=== PATIENT | female | born 2000 | race Caucasian/White ===

== ENCOUNTER → 2023-03-04 11:15 | Outpatient (BNVA) | payer OTHER, SELFPAY | PROVIDERS: Visit Provider Physician Assistant ==

== ENCOUNTER → 2023-04-11 08:18 | Outpatient (BNVA) | payer OTHER, SELFPAY | PROVIDERS: Visit Provider Surgery ==

== ENCOUNTER 2023-04-25 08:12 | Outpatient (AMB) | payer OTHER, SELFPAY ==
--- NOTE | 2023-04-25 11:43 | A.OFFVIS_ITS ---
Intake VS Expanded 04/25/23 11:57 Height 5 ft 0.5 in Weight 189 lb 8 oz BMI 36.4 Body Fat % 40.9 Body Fat Mass 77.6 Fat Free Mass 112 Visceral Fat Rating 8 Body Water % 42.6 Body Water Mass 80.6 Basal Metabolic Rate/Score 1,605 Intake Visit Reasons: 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 Allergies amoxicillin Adverse Reaction (Intermediate, Verified 04/25/23 11:43) Hives clindamycin Adverse Reaction (Intermediate, Verified 04/25/23 11:43) Hives zithromyocin Adverse Reaction (Intermediate, Uncoded 04/25/23 11:43) hives Medication List - Last Reconciled 04/25/23 by Héctor Miranda MD albuterol sulfate 90 mcg/actuation 2 puffs inhalation Q6H PRN gabapentin 600 mg PO DAILY sertraline 50 mg PO DAILY HPI 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 HPI Details Start time: 11.38am, End time: 12.24pm ?I spent 41 minutes speaking with the patient on the phone plus an additional 5 minutes reviewing and updating records for a total of 46 minutes HPI Comments History of Present Illness Details Wakes up: 7am, Sleeps: 12am Breakfast: skips Lunch: 12pm (bread, rice and beans, pasta) Dinner:7pm (same as lunch) Snacks: 11am (orange), 2pm (fruit or vegetable) Exercise: none Fluids: Coffee: none, tea: none, soda: regular Pepsi, juice: 5-6/wk (orange juice), ETOH: none PFSH Medical History (Updated 04/25/23 @ 11:59 by Héctor Miranda MD) Asthma Anxiety Depression Back pain BMI 36.0-36.9,adult Obesity Surgical History (Updated 04/25/23 @ 11:48 by Héctor Miranda MD) [place] teeth extracted S/P laparoscopic cholecystectomy Assessment & Plan Assessment & Plan (1) Obesity: Code(s): E66.9 - Obesity, unspecified Qualifiers: Obesity type: due to excess calories Obesity classification: adult class 2 (BMI 35 - 39.9) Serious obesity comorbidity presence: without serious comorbidity Body mass index: BMI 36.0-36.9 Qualified Code(s): E66.09 - Other obesity due to excess calories; Z68.36 - Body mass index [BMI] 36.0-36.9, adult Plan: 1.? Plan for lap sleeve gastrectomy. If diaphragmatic or ventral hernias are present at time of surgery, these will be repaired laparoscopically as well. Risks and complications were discussed in detail including possible conversion to an open procedure, anastomotic leak, bleeding requiring transfusion, small bowel obstruction, , DVT and pulmonary embolism, cardiac, or pulmonary complications, as [facility] complications such as anastomotic ulcer, insufficient weight loss and vitamin deficiencies. I emphasized the importance of close follow-up, adherence to instructions and good communication. 2. Nutritional counseling. Start with 2 Isopure protein (buy at [employer], [employer], [employer], [facility]) shakes (QUARTER scoop in 8oz water) at 8am-10am and 11am-1pm, 1 protein bar (Zone Perfect protein bars, buy at [employer], ?[employer], [employer], or [employer]) at 2pm-4pm, dinner at 5pm (8 forks of protein and 8 forks of salad/vegetables) and two more protein bars after dinner at 7pm-9pm and 10pm-12am So you do 2 protein shakes, 3 protein bars and one meal per day. Meal to include lean meat (beef, fish, pork, turkey, chicken), or indian yogurt, or egg whites, or beans with a salad with olive oil and fruits (berries, pears, apples, kiwi). Avoid salt, breads, potatoes, rice, pasta, desserts. 3. Each shake would be drunk slowly, like coffee in a period of 2 hours. 4. Cut each bar in 4 pieces and eat each piece in 30min ?to make each bar last 2 hours. 5. I emphasized the importance of measuring accurately the food portion and measure it when serving the food in plate 6. The meal portions include 8 full-size forks of meat and 8 full-size forks of salad. You always eat the meat portion but you can replace up to 4 forks for salad/vegetables with rice, potatoes or pasta, or a fruit ?if you like. The less you do it the better weight loss will be. 7. One full-size fork is what it can be scooped on the fork without falling aside and not what can be bit with the fork. Use regular forks like those you find in a typical restaurant. 8.? Please send me weight measurements as soon as possible and then once a week. Always include your diet and exercise plan. 9. Start walking outside daily, tracking calories with a goal of 300 calories per day, daily. Goal is to burn 2000 calories per week on exercise, which means either 300 calories daily, or 400 calories 5 days per week, or 500 calories 4 days per week, or 650 calories 3 days per week. 10. The best choice would be to purchase a stationary bike, elliptical or treadmill at home that can track calories. Let me know if you do so I can give you an exercise plan. 11.?It is important of avoiding and for at least 18 months postoperatively and has been discussed at the infosession. 12. Goal is to lose at least 1.5-2lbs per week 13. Goal to lose 10% of your weight before surgery, which is about 19lbs. Ultimate weight goal: 170lbs before surgery 14. Please follow the diet plan exactly without any change. If you don't like something about the plan or you feel hungry you need to communicate with me so I can help you revise the plan. You should not change the plan yourself. Orders: Orders Insulin Today E66.9 - Obesity, unspecified, F32.A - Depression, unspecified, F41.9 - Anxiety disorder, unspecified, J45.909 - Unspecified asthma, uncomplicated, M54.9 - Dorsalgia, unspecified, Z68.36 - Body mass index [BMI] 36.0-36.9, adult Hemoglobin A1c Today E66.9 - Obesity, unspecified, F32.A - Depression, unspecified, F41.9 - Anxiety disorder, unspecified, J45.909 - Unspecified asthma, uncomplicated, M54.9 - Dorsalgia, unspecified, Z68.36 - Body mass index [BMI] 36.0-36.9, adult Complete Blood Count Auto Diff Today E66.9 - Obesity, unspecified, F32.A - Depression, unspecified, F41.9 - Anxiety disorder, unspecified, J45.909 - Unspecified asthma, uncomplicated, M54.9 - Dorsalgia, unspecified, Z68.36 - Body mass index [BMI] 36.0-36.9, adult IRON PROFILE Today E66.9 - Obesity, unspecified, F32.A - Depression, unspecified, F41.9 - Anxiety disorder, unspecified, J45.909 - Unspecified asthma, uncomplicated, M54.9 - Dorsalgia, unspecified, Z68.36 - Body mass index [BMI] 36.0-36.9, adult Comprehensive Met. Panel Today E66.9 - Obesity, unspecified, F32.A - Depression, unspecified, F41.9 - Anxiety disorder, unspecified, J45.909 - Unspecified asthma, uncomplicated, M54.9 - Dorsalgia, unspecified, Z68.36 - Body mass index [BMI] 36.0-36.9, adult Vitamin B12 and Folate Today E66.9 - Obesity, unspecified, F32.A - Depression, unspecified, F41.9 - Anxiety disorder, unspecified, J45.909 - Unspecified asthma, uncomplicated, M54.9 - Dorsalgia, unspecified, Z68.36 - Body mass index [BMI] 36.0-36.9, adult Vitamin B1 Today E66.9 - Obesity, unspecified, F32.A - Depression, unspecified, F41.9 - Anxiety disorder, unspecified, J45.909 - Unspecified asthma, uncomplicated, M54.9 - Dorsalgia, unspecified, Z68.36 - Body mass index [BMI] 36.0-36.9, adult Vitamin A Today E66.9 - Obesity, unspecified, F32.A - Depression, unspecified, F41.9 - Anxiety disorder, unspecified, J45.909 - Unspecified asthma, uncomplicated, M54.9 - Dorsalgia, unspecified, Z68.36 - Body mass index [BMI] 36.0-36.9, adult TSH reflex Free T4 Today E66.9 - Obesity, unspecified, F32.A - Depression, unspecified, F41.9 - Anxiety disorder, unspecified, J45.909 - Unspecified asthma, uncomplicated, M54.9 - Dorsalgia, unspecified, Z68.36 - Body mass index [BMI] 36.0-36.9, adult Ferritin Today E66.9 - Obesity, unspecified, F32.A - Depression, unspecified, F41.9 - Anxiety disorder, unspecified, J45.909 - Unspecified asthma, uncomp licated, M54.9 - Dorsalgia, unspecified, Z68.36 - Body mass index [BMI] 36.0- 36.9, adult Vitamin D 25-OH Total Today E66.9 - Obesity, unspecified, F32.A - Depression, unspecified, F41.9 - Anxiety disorder, unspecified, J45.909 - Unspecified asthma, uncomplicated, M54.9 - Dorsalgia, unspecified, Z68.36 - Body mass index [BMI] 36.0-36.9, adult US abdomen comp w elastography Today E66.9 - Obesity, unspecified, F32.A - Depression, unspecified, F41.9 - Anxiety disorder, unspecified, J45.909 - Unspecified asthma, uncomplicated, M54.9 - Dorsalgia, unspecified, Z68.36 - Body mass index [BMI] 36.0-36.9, adult ECG 12 lead EKG Today E66.9 - Obesity, unspecified, F32.A - Depression, unspecified, F41.9 - Anxiety disorder, unspecified, J45.909 - Unspecified asthma, uncomplicated, M54.9 - Dorsalgia, unspecified, Z68.36 - Body mass index [BMI] 36.0-36.9, adult H Pylori Breath Test Today E66.9 - Obesity, unspecified, F32.A - Depression, unspecified, F41.9 - Anxiety disorder, unspecified, J45.909 - Unspecified asthma, uncomplicated, M54.9 - Dorsalgia, unspecified, Z68.36 - Body mass index [BMI] 36.0-36.9, adult Lipid Panel Today E66.9 - Obesity, unspecified, F32.A - Depression, unspecified, F41.9 - Anxiety disorder, unspecified, J45.909 - Unspecified asthma, unco mplicated, M54.9 - Dorsalgia, unspecified, Z68.36 - Body mass index [BMI] 36.0- 36.9, adult Zinc Today E66.9 - Obesity, unspecified, F32.A - Depression, unspecified, F41.9 - Anxiety disorder, unspecified, J45.909 - Unspecified asthma, uncomplicated, M54.9 - Dorsalgia, unspecified, Z68.36 - Body mass index [BMI] 36.0-36.9, adult C Reactive Protein Today E66.9 - Obesity, unspecified, F32.A - Depression, unspecified, F41.9 - Anxiety disorder, unspecified, J45.909 - Unspecified asthma, uncomplicated, M54.9 - Dorsalgia, unspecified, Z68.36 - Body mass index [BMI] 36.0-36.9, adult XR chest 2V Today E66.9 - Obesity, unspecified, F32.A - Depression, unspecified, F41.9 - Anxiety disorder, unspecified, J45.909 - Unspecified asthma, uncomplicated, M54.9 - Dorsalgia, unspecified, Z68.36 - Body mass index [BMI] 36.0-36.9, adult FL upper GI w air Today E66.9 - Obesity, unspecified, F32.A - Depression, unspecified, F41.9 - Anxiety disorder, unspecified, J45.909 - Unspecified asthma, uncomplicated, M54.9 - Dorsalgia, unspecified, Z68.36 - Body mass index [BMI] 36.0-36.9, adult Referrals Behavioral Health Referral E66.9 - Obesity, unspecified, F32.A - Depression, unspecified, F41.9 - Anxiety disorder, unspecified, J45.909 - Unspecified asthma, uncomplicated, M54.9 - Dorsalgia, unspecified, Z68.36 - Body mass index [BMI] 36.0-36.9, adult Nutrition/Dietitian Referral E66.9 - Obesity, unspecified, F32.A - Depression, unspecified, F41.9 - Anxiety disorder, unspecified, J45.909 - Unspecified asthma, uncomplicated, M54.9 - Dorsalgia, unspecified, Z68.36 - Body mass index [BMI] 36.0-36.9, adult Telehealth Telehealth Location of provider rendering services: practice address Location of patient: address on file Patient Identification confirmed using: Name, : Yes Telehealth method: voice only Patient verbally consented to treatment: Yes Patient verbally consented to billing insurance company: Yes Patient informed of any privacy concerns related to visit: Yes Minutes spent on Phone/Video with Pt.: 46 Coding Level of Care Code Tele New Pt Level 4 (09591) Diagnoses Class 2 obesity due to excess calories without serious comorbidity with body mass index (BMI) of 36.0 to 36.9 in adult E66.09; Z68.36 Obesity type: due to excess calories Obesity classification: adult class 2 (BMI 35 - 39.9) Serious obesity comorbidity presence: without serious comorbidity Body mass index: BMI 36.0-36.9 Time Spent (min) 46
[2023-04-25 11:57] VITALS: BMI 36.4
== END 2023-04-25 12:25 | disposition home or self-care (01) ==
PROVIDERS: Visit Provider Surgery
DX: E66.09 Other obesity due to excess calories (principal); Z68.36 Body mass index [BMI] 36.0-36.9, adult
CPT/HCPCS: 99204

== ENCOUNTER → 2023-04-25 08:12 | Outpatient (BNVA) | payer OTHER, SELFPAY | PROVIDERS: Visit Provider Surgery ==

== ENCOUNTER 2023-05-05 09:58 | Outpatient (AMB) | payer OTHER, SELFPAY ==
--- NOTE | 2023-05-05 09:50 | A.OFFVIS_ITS ---
Intake Intake Visit Reasons: VIDEO Initial Nutrition SWL Allergies amoxicillin Adverse Reaction (Intermediate, Verified 04/25/23 11:43) Hives clindamycin Adverse Reaction (Intermediate, Verified 04/25/23 11:43) Hives zithromyocin Adverse Reaction (Intermediate, Uncoded 04/25/23 11:43) hives HPI Nutrition Presentation Reason for consult elevated BMI Diet Assmnt Details Motivation for surgery is to lose weight so she can feel confident in her body. feels very insecure. mother [place]ariatric [place] [facility] so she wants it as well. Pt shares she hasn't tried anything for weight loss other than starving herself which led to restrict/binge cycle. she hasn't began to change habits yet since her initial appt with Dr. Miranda. Has 3 children 10 months old , a 4 and a 3 year old Classes: none, pt states she didn't know about these Dietary counseling reduction Who buys your food self Who prepares/cooks your food self Meal frequency regular: dinner and irregular: breakfast (usually skipped), lunch (usually skipped) and snacks Lifestyle Eating out 1-3 times/week Food frequency Fruit: occasionally, Vegetables: occasionally, Grains/pasta/breads/cereal (carbs): daily, Meats/poultry/fish (protein): daily, Processed foods/meats: daily, Restaurants/fast foods: several times weekly, Water: daily, Soda: daily, Juice: daily and Coffee: several times weekly Diagnosis Nutrition problem #1 overweight/obesity As related to (etiology) #1 excess energy intake and physical inactivity As evidenced by (sign/symptom) #1 high BMI Nutrition problem #2 not ready diet/lifestyle As related to (etiology) #2 lack of nutrit education As evidenced by (sign/symptom) #2 knowledge deficit of diet and no prior educ - nutri rec Monitoring/Goals Nutrition problem monitoring total energy intake, level of knowledge/skill, to [employer] intake and weight Learning/Education Readiness to learn fair Most Recent Diabetes Results: No Data to Display [facility] Medical History (Updated 04/25/23 @ 11:59 by Héctor Miranda MD) Asthma Anxiety Depression Back pain BMI 36.0-36.9,adult Obesity Surgical History (Updated 04/25/23 @ 11:48 by Héctor Miranda MD) [place] teeth extracted S/P laparoscopic cholecystectomy Assessment & Plan Assessment & Plan (1) BMI 36.0-36.9,adult: Code(s): Z68.36 - Body mass index [BMI] 36.0-36.9, adult Plan pt will be seen again when she finishes classes and has had more time in the program Telehealth Telehealth Location of provider rendering services: practice address Location of patient: address on file Patient Identification confirmed using: Name, : Yes Telehealth method: voice only Patient verbally consented to treatment: Yes Patient verbally consented to billing insurance company: Yes Patient informed of any privacy concerns related to visit: Yes Minutes spent on Phone/Video with Pt.: 20 Coding Level of Care Code Nutr Indiv Intake (55220) Diagnoses BMI 36.0-36.9,adult Z68.36 Time Spent (min) 20
== END 2023-05-05 10:58 | disposition home or self-care (01) ==
LOC: HO.HBS 09:58
PROVIDERS: PCP Internal Medicine; Visit Provider Dietitian, Registered
DX: Z68.36 Body mass index [BMI] 36.0-36.9, adult (principal)

== ENCOUNTER → 2023-05-05 09:58 | Outpatient (BNVA) | payer OTHER, SELFPAY | PROVIDERS: PCP Internal Medicine; Visit Provider Dietitian, Registered | DX: E66.9 Obesity, unspecified (principal); Z68.36 Body mass index [BMI] 36.0-36.9, adult | CPT/HCPCS: 97802 ==

== ENCOUNTER 2023-05-06 09:09 | Outpatient (REF) | payer OTHER, SELFPAY ==
--- NOTE | 2023-05-06 09:23 | ECG_ITS ---
Test Reason : obesity Blood Pressure : / mmHG Vent. Rate : 076 BPM Atrial Rate : 076 BPM P-R Int : 130 ms QRS Dur : 076 ms QT Int : 360 ms P-R-T Axes : 043 036 056 degrees QTc Int : 405 ms Sinus rhythm with marked sinus arrhythmia Otherwise normal ECG No previous ECGs available Referred By: Héctor Miranda Electronically Signed By:ANDREY SAEZ
[2023-05-06 09:53] LABS: MANUAL DIFF FLAG NO
[2023-05-06 10:22] LABS: Basophils Percent Auto 0.3 % (0-2); Eosinophils Percent Auto 0.5 % (0-4); Hematocrit 37.8 % (37.0-47.0); Hemoglobin 11.6 g/dl (12.0-16.0); Imm Gran Abs Auto 0.01 X10*3/uL (0.00-0.03); Imm Gran Pct Auto 0.2 % (0.0-0.4); Lymphocytes Absolute Auto 1.3 X10*3/uL (1.2-4.9); Lymphocytes Percent Auto 22.3 % (20-40); Mean Corpuscular HGB Conc 30.7 g/dl (31.0-35.0); Mean Corpuscular Hemoglobin 23.7 pg (27.0-33.0); Mean Corpuscular Volume 77.1 fL (80.0-98.0); Monocytes Absolute Auto 0.3 X10*3/uL (0.1-1.2); Monocytes Percent Auto 4.9 % (2-11); Neutrophils Absolute Auto 4.1 x10*3/uL (2.0-8.3); Neutrophils Percent Auto 71.8 % (45-73); Platelet Count 163 X10*3/uL (160-400); Red Cell Distribution Width 17.2 % (11.0-16.0); White Blood Count 5.8 X10*3/uL (4.8-10.8)
[2023-05-06 10:31] LABS: Estimated Average Glucose 97 mg/dL
[2023-05-06 11:12] LABS: Alanine Aminotransferase 12 U/L (0-31); Alkaline Phosphatase 99 U/L (39-117); Anion Gap 12 (12-20); Aspartate Amino Transferase 14 U/L (5-31); Bilirubin Total 0.5 mg/dL (0.0-1.0); Blood Urea Nitrogen 5 mg/dL (9-16); C Reactive Protein < 0.04 mg/dL (< or = 0.50); Calcium 9.1 mg/dL (8.4-10.2); Carbon Dioxide 22 mmol/L (22-29); Chloride 110 mmol/L (96-108); Cholesterol 122 mg/dL (<200); Estimated Glomerular Filt Rate > 60; Glucose Random 87 mg/dL (60-115); HDL Cholesterol 52 mg/dL (>40); Iron 24 mcg/dL (30-160); LDL Cholesterol Calculated 58 mg/dL (<100); Percent Iron Saturation 8 % (15-50); Potassium 3.8 mmol/L (3.3-5.1); Sodium 140 mmol/L (135-145); Total Iron Binding Capacity 318 mcg/dL (228-428); Triglycerides 62 mg/dL (<150); Unsaturated Iron Binding 294 ug/dL
[2023-05-06 11:19] LABS: Ferritin 4 ng/mL (10-122); Insulin 17 uU/mL (2-29); TSH reflex Free T4 1.14 uIU/mL (0.32-4.0); Vitamin D 25-OH Total 13.6 ng/mL (>30)
[2023-05-06 11:26] LABS: Folate 16.1 ng/mL (> or = 4.0); Vitamin B12 218 pg/mL (200-900)
[2023-05-11 00:34] LABS: Vitamin A 26 mcg/dL (38-98)
[2023-05-11 16:49] LABS: Zinc 61 mcg/dL (60-130)
[2023-05-11 20:54] LABS: Vitamin B1 9 nmol/L (8-30)
== END 2023-05-06 09:10 | disposition home or self-care (01) ==
LOC: HO.XRAY 09:09
PROVIDERS: Visit Provider Surgery
DX: E66.9 Obesity, unspecified (principal); Z68.36 Body mass index [BMI] 36.0-36.9, adult; M54.9 Dorsalgia, unspecified; F32.A Depression, unspecified; F41.9 Anxiety disorder, unspecified; J45.909 Unspecified asthma, uncomplicated
CPT/HCPCS: 36415; 71046; 80053; 80061; 82306; 82607; 82728; 82746; 83036; 83525; 83540; 84425; 84443; 84590; 84630; 85025; 86140; 93005

== ENCOUNTER → 2023-05-06 09:23 | Outpatient (BNV) | payer OTHER, SELFPAY | PROVIDERS: Visit Provider Internal Medicine | DX: I49.9 Cardiac arrhythmia, unspecified (principal) | CPT/HCPCS: 93010 ==

== ENCOUNTER 2023-05-11 11:25 | Outpatient (AMB) | payer OTHER, SELFPAY ==
--- NOTE | 2023-05-11 11:25 | A.OFFWM_ITS ---
Intake Intake Visit Reasons: VIDEO BH Intake Allergies amoxicillin Adverse Reaction (Intermediate, Verified 04/25/23 11:43) Hives clindamycin Adverse Reaction (Intermediate, Verified 04/25/23 11:43) Hives zithromyocin Adverse Reaction (Intermediate, Uncoded 04/25/23 11:43) hives [facility] Medical History (Updated 05/13/23 @ 08:33 by Héctor Miranda MD) Asthma Anxiety Depression Back pain BMI 36.0-36.9,adult Obesity Surgical History (Updated 04/25/23 @ 11:48 by Héctor Miranda MD) [place] teeth extracted S/P laparoscopic cholecystectomy Behavioral Health Assessment Weight Management Therapy Therapy Notes Details PT is a 23 y/o female who presents for intake as part of [facility] program. Presenting Concerns Referral Source P Provider. Pt sees Jesus Turner Reason for referral Weight loss surgery Precipitating Event Obesity. Living Situation Current Living Situation Relative's/Guardian's Mt (Lives at her mom's home.) At risk of losing current housing? No Satisfied with current living situation? Yes Comments Living at her mom's home. Lives with her mother, 2 siblings and her 3 children. Food/Weight/Diet Expectations of change PT wants to be at 115-120Lbs. He's not sure about what her healthy weight should be. . Initial goal to lose 10% of her weight before surgery, which is about 19lbs. Ultimate weight goal: 170lbs before surgery. History/Relationship with food Social History Family history and relationship Pt is is a relationship for about 6 years with children's father, however they don't live together. She has 3 siblings. Parent alive. She is not close with neither parents or siblings. Describe current relationships are not so good . Parental/Familial tableau administrator obligations 3 children. (4, 3 and 11 month old) Developmental history and status Mental health issues since younger. Social support Mother. Community support Current therapist. Yarsanism/Spirituality Orthodoxy. Cultural/Ethnic information . [place] heritage. Legal Involvement and History Current or historical involvement with the legal system? None reported. Education Highest grade completed HS diploma. Preferred learning style Auditory, Verbal, Written, Learn by doing and Visual Currently enrolled in educational program? No Interested in further educational program? Yes Educational Interests/Skills PT would like to get into cosmetology and be a beautician, specializing in hair. Employment Employment Status Never Worked and Unemployed Wants help to find employment? No Financial Situation Describe current financial situation Occasional struggle and Often struggles with finance Financial assistance? [employer] [place], SSI and Other (WIC) Service Service? No Mental Health and Addiction Treatment Current/Past substance abuse? No Current/Past addictive behavior concerns? No Psychiatric history -Pt states she has a history of depressi on and anxiety since young and PTSD officially diagnosed 11 months ago due to early life experiences. - PT receives counseling at [facility] and have appointments every 1-2 weeks, depending on how she is doing. Her PCP is prescribing her with Sertraline 50mg. she's in a waiting list at [facility] to see a prescriber. - PT reports she was inpatient due to de pression. Denies ever tried to committed suicide or dealing with suicidal thoughts. Denies ever been in PHP. Started counseling around age 8. Questionnaires PHQ-9 Over the last 2 weeks, how often have you been bothered by any of the following problems? 1. Little interest or pleasure in doing things: several days 2. Feeling down, depressed, or hopeless: nearly every day (depressed) 3. Trouble falling or staying asleep, or sleeping too much: not at all 4. Feeling tired or having little energy: nearly every day (both) 5. Poor appetite or overeating: nearly every day (Both. ) 6. Feeling bad about yourself - or that you are a failure or have let yourself or your family down: nearly every day 7. Trouble concentrating on things, such as reading the newspaper or watching television: not at all 8. Moving or speaking so slowly that other people could have noticed. Or the opposite - being so fidgety or restless that you have been moving around a lot more than usual: not at all 9. Thoughts that you would be better off or of hurting yourself in some way: not at all Total score: 13 Depression Screening Interpretation: Positive Depression Screening Done: Yes 16885 - PHQ-9 Billing: Yes Source: Developed by Drs. Rogers Emmanuel, Sindy Vazquez, Brian Crouch and colleagues, with an educational zander from [employer]. Binge Eating Scale Group 1 A. I don't feel self-conscious about my wt. or body size when I'm with others. B. I feel concerned about how I look to others, but it normally does not make me fell disappointed with myself C. I do get self-conscious about my appearance and wt. which makes me feel disappointed in myself. D. I feel very self-conscious about my wt. and frequently I feel intense shame and disgust for myself. I try to avoid social contacts because of my self- consciousness. Response Group 1: D Group 2 A. I don't have any difficulty eating slowly in the proper manner. B. Although I seem to gobble down foods, I don't end up feeling stuffed because of eating to much. C. At times, I tend to eat quickly and then, I feel uncomfortably full afterwards. D. I have the habit of bolting down my food, without really chewing it. When this happens I usually feel uncomfortably stuffed because I've eaten to much. Response Group 2: D Group 3 A. I feel capable to control my eating urges when I want to. B. I feel like I have failed to control my eating more than the average person. C. I feel utterly helpless when it comes to feeling in control of my eating urges. D. Because I feel so helpless about controlling my eating I have become very desperate about trying to get control. Response Group 3: D Group 4 A. I don't have the habit of eating when I'm bored. B. I sometimes eat when I'm bored, but often I'm able to get busy and get my mind off food. C. I have a regular habit of eating when I'm bored, but occasionally, I can use some other activity to get my mind off eating. D. I have a strong habit of eating when I'm bored. Nothing seems to help me breath the habit. Response Group 4: C Group 5 A. I'm usually physically hungry when I eat something. B. Occasionally, I eat something on impulse even though I really am not hungry. C. I have the regular habit of eating foods, that I might not really enjoy, to satisfy a hungry feeling even though physically, I don't need the food. D. Although I'm not physically hungry, I get a hungry feeling in my mouth that only seems to be satisfied when I eat a food, like sandwich, that fills my mouth. Sometimes, when I eat the food to satisfy my mouth hunger, I then spit the food out so I won't gain weight. Response Group 5: B Group 6 A. I don't feel any guilt or self-hate after I overeat. B. After I overeat, occasionally I feel guilt or self-hate. C. Almost all the time I experience strong guilt or self-hate after I overeat. Response Group 6: B Group 8 A. I rarely eat so much food that I feel uncomfortably stuffed afterwards. B. Usually about once a month, I each such a quantity of food, I end up feeling very stuffed. C. I have regular periods during the month when I eat large amounts of food, either at mealtime or at snacks. D. I eat so much food that I regularly feel quite uncomfortable after eating and sometimes a bit nauseous. Response Group 8: D Group 9 A. My level of calorie intake does not go up very high or go down very low on a regular basis. B. Sometimes after I overeat, I will try to reduce my caloric intake to almost nothing to compensate for the excess calories I've eaten. C. I have a regular habit of overeating during the night. It seems that my routine is not to be hungry in the morning but overeat in the evening. D. In my adult years, I have had week-long periods where I practically starve myself. This follows periods when I overeat. It seems I live a life of either feast or famine. Response Group 9: C Group 10 A. I usually am able to stop eating when I want to. I know when enough is enough. B. Every so often, I experience a compulsion to eat which I can't seem to control. C. Frequently, I experience strong urges to eat which I seem unable to control, but at other times I can control my eating urges. D. I feel incapable of controlling urges to eat. I have a fear of not being able to stop eating voluntarily. Response Group 10: A Group 11 A. I don't have any problem stopping eating when I feel full. B. I usually can stop eating when I feel full but occasionally overeat leaving me feeling uncomfortably stuffed. C. I have a problem stopping eating once I start and usually I feel uncomfortably stuffed after I eat a meal. D. Because I have a problem not being able to stop eating when I want, I sometimes have to induce vomiting to relieve my stuffed feeling. Response Group 11: D Group 12 A. I seem to eat just as much when I'm with others, Family social gatherings as when I'm by myself. B. Sometimes, when I'm with other persons, I don't eat as much as I want to eat because I'm self-conscious about my eating. C. Frequently, I eat only a small amount of food when others are present, because I'm very embarrassed about my eating. D. I feel so ashamed about overeating that I pick times to overeat when I know no one will see me. I feel like a closet eater. Response Group 12: C Group 13 A. I eat three meals a day with only an occasional between meal snack. B. I eat 3 meals a day, but I also normally snack between meals. C. When I am snacking heavily, I get in the habit of skipping regular meals. D. There are regular periods when I seem to be continually eating, with no planned meals. Response Group 13: C Group 14 A. I don't think much about trying to control unwanted eating urges. B. At least some of the time, I feel my thoughts are pre-occupied with trying to control my eating urges. C. I feel that frequently I spend much time thinking about how much I ate or about trying not to eat anymore. D. It seems to me that most of my waking hours are pre-occupied by thoughts about eating or not eating. I feel like I'm constantly struggling not to eat. Response Group 14: A Group 15 A. I don't think about food a great deal. B. I have strong craving for food but they last only for brief periods of time. C. I have days when I can't seem to think about anything else but food. D. Most of my days seem to be pre-occupied with thoughts about food. I feel like I live to eat. Response Group 15: A Group 16 A. I usually know whether or not I'm physically hungry. I take the right portion of food to satisfy me. B. Occasionally, I feel uncertain about knowing whether or not I'm physically hungry. A these times it's hard to know how much food I should take to satisfy me. C. Even though I might know how many calories I should eat, I don't have any idea what is a normal amount of food for me. Response Group 16: B Binge Eating Score: 26 Score less than 17 Minimal Risk Score between 18-26 Moderate Risk Score between 27-46 High Risk Assessment & Plan Assessment & Plan (1) Anxiety: Code(s): F41.9 - Anxiety disorder, unspecified (2) Depression: Code(s): F32.A - Depression, unspecified (3) PTSD (post-traumatic stress disorder): Code(s): F43.10 - Post-traumatic stress disorder, unspecified Plan Pt will be seen again to finish assessment in 2 weeks - NEXT josé luis: 05/25/23 at 10:45am She also scored high on BES and PHQ-9 (both the one given at admission and on today's re-assessment), so these will be repeated. Pt will need to provide a letter from current provider stating her diagnosis and is there is any concern that would prevent PT from having bariatric surgery. - Pt was advised to discuss with provider her hunger and interest in changing the meal plan. Telehealth Telehealth Location of provider rendering services: other Location of patient: address on file Patient Identification confirmed using: Name, : Yes Telehealth method: video Patient verbally consented to treatment: Yes Patient verbally consented to billing insurance company: Yes Patient informed of any privacy concerns related to visit: No Minutes spent on Phone/Video with Pt.: 60 Coding Level of Care Code New Pt Tele Psy Diag Eval (06642) Patient Type New Diagnoses Anxiety F41.9 Depression F32.A PTSD (post-traumatic stress disorder) F43.10 Time Spent (min) 60
== END 2023-05-11 12:15 | disposition home or self-care (01) ==
LOC: HO.HBST 11:25
PROVIDERS: Visit Provider Counselor Mental Health
DX: F41.9 Anxiety disorder, unspecified (principal); F32.A Depression, unspecified; F43.10 Post-traumatic stress disorder, unspecified
CPT/HCPCS: 90791

== ENCOUNTER → 2023-05-11 11:25 | Outpatient (BNVA) | payer OTHER, SELFPAY | PROVIDERS: Visit Provider Counselor Mental Health ==

== ENCOUNTER 2023-05-13 07:58 | Outpatient (AMB) | payer OTHER, SELFPAY ==
[2023-05-13 08:43] VITALS: BMI 35.9
--- NOTE | 2023-05-13 08:43 | MHC.OFFVISWM ---
Intake VS Expanded 05/13/23 08:43 Height 5 ft 0.5 in Weight 187 lb BMI 35.9 Intake Visit Reasons: TV Follow Up SWL - 1ST Allergies amoxicillin Adverse Reaction (Intermediate, Verified 04/25/23 11:43) Hives clindamycin Adverse Reaction (Intermediate, Verified 04/25/23 11:43) Hives zithromyocin Adverse Reaction (Intermediate, Uncoded 04/25/23 11:43) hives HPI TV Follow Up SWL - 1ST HPI Details Start time: 8.30am, End time: 8.51am ?I spent 16 minutes speaking with the patient on the phone plus an additional 5 minutes reviewing and updating records for a total of 21 minutes [facility] Medical History (Updated 05/13/23 @ 08:33 by Héctor Miranda MD) Asthma Anxiety Depression Back pain BMI 36.0-36.9,adult Obesity Surgical History (Updated 04/25/23 @ 11:48 by Héctor Miranda MD) [place] teeth extracted S/P laparoscopic cholecystectomy Assessment & Plan Assessment & Plan (1) Obesity: Code(s): E66.9 - Obesity, unspecified Qualifiers: Obesity type: due to excess calories Obesity classification: adult class 2 (BMI 35 - 39.9) Serious obesity comorbidity presence: without serious comorbidity Body mass index: BMI 36.0-36.9 Qualified Code(s): E66.09 - Other obesity due to excess calories; Z68.36 - Body mass index [BMI] 36.0-36.9, adult Plan: 1. Nutritional counseling. Start with 2 premade Premier protein shakes (for each shake you mix 4oz of the Premier shake with 4oz low fat unsweetened almond milk)) at 8am-10am and 11am-1pm, 1 Pure protein bar at 2pm-4pm, dinner at 5pm (8 forks of protein and 8 forks of salad/vegetables) and2 premade Premier protein shakes (for each shake you mix 4oz of the Premier shake with 4oz low fat unsweetened almond milk) after dinner at 7pm-9pm and 10pm-12am So you do 4 protein shakes, 1 protein bar and one meal per day. Meal to include lean meat (beef, fish, pork, turkey, chicken), or jordanian yogurt, or egg whites, or beans with a salad with olive oil and fruits (berries, pears, apples, kiwi). Avoid salt, breads, potatoes, rice, pasta, desserts. 2. Each shake would be drunk slowly, like coffee in a period of 2 hours. 3. Cut each bar in 4 pieces and eat each piece in 30min ?to make each bar last 2 hours. 4. I emphasized the importance of measuring accurately the food portion and measure it when serving the food in plate 5. The meal portions include 8 full-size forks of meat and 8 full-size forks of salad. You always eat the meat portion but you can replace up to 4 forks for salad/vegetables with rice, potatoes or pasta, or a fruit ?if you like. The less you do it the better weight loss will be. 6. One full-size fork is what it can be scooped on the fork without falling aside and not what can be bit with the fork. Use regular forks like those you find in a typical restaurant. 8.? Please send me weight measurements from your regular scale every Tuesday until you get your new scale. Always include your diet and exercise plan. 9. Start walking outside daily, tracking calories with a goal of 300 calories per day, daily. Goal is to burn 2000 calories per week on exercise, which means either 300 calories daily, or 400 calories 5 days per week, or 500 calories 4 days per week, or 650 calories 3 days per week. 10. The best choice would be to purchase a stationary bike, elliptical or treadmill at home that can track calories, or join a Gym. Let me know if you do so I can give you an exercise plan. 11.?It is important of avoiding and for at least 18 months postoperatively and has been discussed at the infosession. 12. Goal is to lose at least 1.5-2lbs per week 13. Goal to lose 10% of your weight before surgery, which is about 19lbs. Ultimate weight goal: 170lbs before surgery 14. Please follow the diet plan exactly without any change. If you don't like something about the plan or you feel hungry you need to communicate with me so I can help you revise the plan. You should not change the plan yourself. Medications: New iron,carbonyl-vitamin C 65 mg iron- 125 mg (Vitron-C) swallow whole; do not chew/break/dissolve/open 1 tab PO DAILY 90 tabs 0RF D64.9 - Anemia, unspecified cholecalciferol (vitamin D3) 125 mcg PO DAILY 90 caps 0RF E55.9 - Vitamin D deficiency, unspecified vitamin A palmitate 10,000 units PO DAILY 90 caps 0RF E50.9 - Vitamin A deficiency, unspecified mecobalamin (vitamin B12) place tablet under tongue and allow to dissolve for at least30 secs before swallowing 1,000 mcg sublingual DAILY 90 tabs 0RF E53.8 - Deficiency of other specified B group vitamins Telehealth Telehealth Location of provider rendering services: practice address Location of patient: address on file Patient Identification confirmed using: Name, : Yes Telehealth method: voice only Patient verbally consented to treatment: Yes Patient verbally consented to billing insurance company: Yes Patient informed of any privacy concerns related to visit: Yes Minutes spent on Phone/Video with Pt.: 21 Coding Level of Care Code Tele Est Pt Level 3 (10002) Diagnoses Class 2 obesity due to excess calories without serious comorbidity with body mass index (BMI) of 36.0 to 36.9 in adult E66.09; Z68.36 Obesity type: due to excess calories Obesity classification: adult class 2 (BMI 35 - 39.9) Serious obesity comorbidity presence: without serious comorbidity Body mass index: BMI 36.0-36.9 Time Spent (min) 21
== END 2023-05-13 08:52 | disposition home or self-care (01) ==
LOC: HO.HBS 07:58
PROVIDERS: Visit Provider Surgery
DX: E66.09 Other obesity due to excess calories (principal); Z68.36 Body mass index [BMI] 36.0-36.9, adult
CPT/HCPCS: 99213

== ENCOUNTER → 2023-05-13 07:58 | Outpatient (BNVA) | payer OTHER, SELFPAY | PROVIDERS: Visit Provider Surgery ==

== ENCOUNTER 2023-05-25 10:45 | Outpatient (AMB) | payer OTHER, SELFPAY ==
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
== END 2023-05-25 11:30 | disposition home or self-care (01) ==
LOC: HO.HBST 11:08
PROVIDERS: Visit Provider Counselor Mental Health
DX: F41.9 Anxiety disorder, unspecified (principal); F32.A Depression, unspecified; F43.10 Post-traumatic stress disorder, unspecified
CPT/HCPCS: 90834

== ENCOUNTER → 2023-05-25 10:45 | Outpatient (BNVA) | payer OTHER, SELFPAY | PROVIDERS: Visit Provider Counselor Mental Health ==

== ENCOUNTER 2023-05-26 09:33 | Outpatient (REF) | payer OTHER, SELFPAY ==
--- NOTE | ~2023-05-26 | US_ITS ---
EXAMINATION: US COMPLETE ABDOMEN WITH LIVER ELASTOGRAPHY CLINICAL INFORMATION: Obesity. COMPARISON: None available. TECHNIQUE: Real-time imaging of the abdominal viscera. Noninvasive ultrasound liver fibrosis assessment is performed using Erick ElastPQ point quantification shear wave elastography (2D-SWE) with a C5-2 MHz transducer. Multiple elastography samples are obtained. FINDINGS: PANCREAS: Limited. The visualized pancreatic head and body are normal in appearance. The remainder of the pancreas is obscured from visualization by the overlying bowel gas. ABDOMINAL AORTA: The proximal, middle, and distal aortic segments are normal in caliber. INFERIOR VENA CAVA: Visualized portions are normal. LIVER: The liver demonstrates normal size, contour and increased echogenicity. No focal lesion or intrahepatic biliary duct dilatation. The right lobe measures 11.1 cm in length. The left lobe measures 8.6 cm in length. Portal flow is towards the liver (hepatopetal). Shear wave liver elastography median stiffness is 1.70 m/s (reference: normal median stiffness is 1.3 m/s or less). IQR/median stiffness to assess sampling precision is 0.1 (reference: good quality data set is IQR/median stiffness of 0.15 or less). GALLBLADDER: Normal. The gallbladder is physiologically distended without evidence of stones, sludge, polyps, wall thickening or pericholecystic fluid. COMMON BILE DUCT: Normal in caliber measuring 0.3 cm in diameter. RIGHT KIDNEY: There is mild pelviectasis, without ebonie hydronephrosis. No renal calculi or focal parenchymal lesions. The kidney measures 10.0 cm in maximum dimension. LEFT KIDNEY: Normal. No hydronephrosis. No renal calculi or focal parenchymal lesions. The kidney measures 9.8 cm in maximum dimension. SPLEEN: Normal. The spleen measures 11.7 cm in maximum dimension. FREE FLUID: None. US/US abdomen comp w elastography IMPRESSION: 1. There is generalized increase in hepatic echotexture, consistent with fatty infiltration or hepatocellular disease. Please correlate clinically. No focal hepatic mass or intrahepatic biliary dilatation is seen. 2. Liver elastography: Although measurements are suggestive of compensated advanced chronic liver disease, there is statistical variability of the sampling which decreases accuracy. 3. Technically limited ultrasound examination of the pancreas. REFERENCE: Society of Radiologists in Ultrasound Liver Stiffness Thresholds (2020): LIVER STIFFNESS THRESHOLDS: *Liver Stiffness equal or less than 1.3 m/s: High probability of being normal. *Liver Stiffness less than 1.7 m/s: In the absence of other known clinical signs, rules out compensated advanced chronic liver disease. *Liver Stiffness 1.7-2.1 m/s: Suggestive of compensated advanced chronic liver disease but need further test for confirmation. *Liver Stiffness over 2.1 m/s: Rules in compensated advanced chronic liver disease. *Liver Stiffness over 2.4 m/s: Suggestive of clinically significant portal hypertension. QUALITY OF DATA SET: *IQR/Median value equal or less than 0.15 implies a quality data set. *IQR/Median value over 0.15 implies a poor quality data set. SIGNIFICANT CHANGE FROM PRIOR EXAM: Significant change if liver stiffness measurement is 10% or greater from prior exam. OTHER CONSIDERATIONS: The stage of liver fibrosis may be overestimated in the setting of acute hepatitis, liver inflammation, elevated liver function tests, hepatic vascular congestion, obstructive cholestasis, non-fasting state, and infiltrative diseases such as amyloidosis and lymphoma. In some patients with NAFLD, the liver stiffness thresholds for compensated advanced chronic liver disease may be lower. In causes other than viral hepatitis and NAFLD, liver stiffness thresholds are not well established.
== END 2023-05-26 09:34 | disposition home or self-care (01) ==
LOC: HO.US 09:33
PROVIDERS: Visit Provider Surgery
DX: E66.9 Obesity, unspecified (principal); Z68.36 Body mass index [BMI] 36.0-36.9, adult; M54.9 Dorsalgia, unspecified
CPT/HCPCS: 76700; 76981

== ENCOUNTER → 2023-06-01 14:18 | Outpatient (BNV) | payer OTHER, SELFPAY | PROVIDERS: PCP Internal Medicine; Visit Provider Surgery | DX: K21.9 Gastro-esophageal reflux disease without esophagitis (principal); D64.9 Anemia, unspecified; B96.81 Helicobacter pylori [H. pylori] as the cause of diseases classified elsewhere; K31.7 Polyp of stomach and duodenum | CPT/HCPCS: 43239 ==

== ENCOUNTER → 2023-06-01 14:18 | Day surgery (SDC) | payer OTHER, SELFPAY ==
[2023-05-30 10:17] VITALS: BMI 35.9
--- NOTE | 2023-05-30 13:10 | P.CONAN_ITS ---
Documented by User: Judie Chavarria NP 05/30/23 13:11 HPI - Anesthesia Eval Consult details Narrative: 23yo F for Upper Endoscopy PMFSH Active Problems Active Problems: All Active Problems (Updated 05/13/23 @ 08:33 by Héctor Miranda MD) Vitamin B12 deficiency (Acute) Vitamin A deficiency (Acute) Vitamin D deficiency (Acute) Anemia (Acute) Asthma (Acute) Anxiety (Acute) Depression (Acute) Back pain (Acute) BMI 36.0-36.9,adult (Acute) Obesity (Acute) Past Medical History Medical History Asthma Anxiety Depression Back pain BMI 36.0-36.9,adult Obesity Surgical History Surgical History [place] teeth extracted S/P laparoscopic cholecystectomy Social History Social History Advance Directives: No Advance Directives Information Provided: Yes Meds Allergies Allergy/AdvReac Type Severity Reaction Status Date / Time amoxicillin AdvReac Intermediate Hives Verified 06/01/23 14:40 clindamycin AdvReac Intermediate Hives Verified 06/01/23 14:40 zithromyocin AdvReac Intermediate hives Uncoded 06/01/23 14:40 Home Medications Medication Instructions Recorded Confirmed Last Taken Type albuterol sulfate 90 mcg/actuation 2 puff inhalation Q6H PRN 04/25/23 04/25/23 Unknown History aerosol inhaler gabapentin 600 mg tablet 600 mg PO DAILY 04/25/23 04/25/23 Unknown History sertraline 50 mg tablet 50 mg PO DAILY 04/25/23 04/25/23 Unknown History Exam Height,Weight and Vital Signs: Height 5 ft 0.5 in Weight 84.822 kg Pertinent Lab Results Pertinent Lab Results: Laboratory Tests 05/06/23 09:51 WBC 5.8 Hgb 11.6 L Hct 37.8 Plt Count 163 Sodium 140 Potassium 3.8 Chloride 110 H Carbon Dioxide 22 BUN 5 L Creatinine 0.69 Narrative Narrative: EKG 04/2023 Vent. Rate : 076 BPM Atrial Rate : 076 BPM P-R Int : 130 ms QRS Dur : 076 ms QT Int : 360 ms P-R-T Axes : 043 036 056 degrees QTc Int : 405 ms Sinus rhythm with marked sinus arrhythmia Otherwise normal ECG No previous ECGs available Assessment and Plan Assessment Anesthesia Assessment: Chart Reviewed Documented by User: Mohinder Da Silva MD 06/01/23 14:46 PMFSH Past Medical History Medical History Asthma Anxiety Depression Back pain BMI 36.0-36.9,adult Obesity Family History Family history of problems with anesthesia: No Surgical History Surgical History [place] teeth extracted S/P laparoscopic cholecystectomy History of Problems with Anesthesia: No Social History Social History Advance Directives: No Advance Directives Information Provided: Yes Meds Allergies Allergy/AdvReac Type Severity Reaction Status Date / Time amoxicillin AdvReac Intermediate Hives Verified 06/01/23 14:40 clindamycin AdvReac Intermediate Hives Verified 06/01/23 14:40 zithromyocin AdvReac Intermediate hives Uncoded 06/01/23 14:40 Home Medications Medication Instructions Recorded Confirmed Last Taken Type albuterol sulfate 90 mcg/actuation 2 puff inhalation Q6H PRN 04/25/23 04/25/23 Unknown History aerosol inhaler gabapentin 600 mg tablet 600 mg PO DAILY 04/25/23 04/25/23 Unknown History sertraline 50 mg tablet 50 mg PO DAILY 04/25/23 04/25/23 Unknown History Exam Airway Mallampati Class: II TM Dist: >3cm Neck ROM: Full Assessment and Plan Assessment Anesthesia Assessment: Anesthesia Plan Discussed and Chart Reviewed Final Anesthetic Review Family History of Problems with Anesthesia: No History of Problems with Anesthesia: No NPO: Yes ASA Class: III Final Preanesthetic Review: No Changes in Pt Med Stat, Meds/Allgs Chart Reviewed, Consent Obtained/Reviewed and Anes Risks/Benef Reviewed Patient Risk: Intermediate Procedure Risk: Low Anesthetic Plan Anesthetic Plan: TIVA Disposition: Standard PACU
[2023-06-01] VITALS (7 sets, daily range): BP systolic 100–142; BP diastolic 55–90; PULSE 66–90; RESP 16–17; TEMP 36.4–36.6; O2SAT 99–100; BMI 36.6
[2023-06-01 14:47] LABS: UPreg QC Valid YES; Urine Pregnancy NEGATIVE (NEGATIVE)
--- NOTE | 2023-06-01 14:50 | MHC.SHP ---
Pre-Procedural Eval Section A Date of Service: 06/01/23 The patient is an INPATIENT: No The History & Physical has been completed within 30 days and I have reviewed it.: No Section B Chief Complaint: obesity Relevant Family History (Specify if Yes): No Relevant Social History: None Present Medications: None Medical History: No relevant PMH History of Previous Operations: No relevant previous surgery Allergies: Allergies Allergy/AdvReac Type Severity Reaction Status Date / Time amoxicillin AdvReac Intermediate Hives Verified 06/01/23 14:40 clindamycin AdvReac Intermediate Hives Verified 06/01/23 14:40 zithromyocin AdvReac Intermediate hives Uncoded 06/01/23 14:40 Review of Systems Sugical H&P ROS: Negative: Constitution, Cardiovascular, Respiratory, Neurological, Psychiatric, Hem-Onc, Allergic/Immunologic, Gastrointestinal, Genitourinary, Musculoskeletal, Integumentary, Endocrine and Eyes/Ears/Nose/Throat Exam Surgical H&P Exam: Normal: HEENT, Normal: Heart, Normal: Lungs, Normal: Extremities, Normal: Abdomen, Normal: Skin and Normal: Neurological Plan Diagnosis/Plan: Unchanged (EGD to assess for H pylori. Risks of perforation and bleeding were discussed.) I have reviewed the history and physical and performed a pertinent physical examination on my patient. No changes have occurred unless specified. Time Spent With Patient Time: Total time managing care of this patient today ____ minutes.
--- NOTE | 2023-06-01 15:02 | PM.OP ---
Brief Operative Note Date of Service: 06/01/23 Pre-op diagnosis: GERD and anemia Post-op diagnosis: same Procedure: PROCEDURE DATE: 06/01/2023 PREOPERATIVE DIAGNOSIS: GERD and anemia POSTOPERATIVE DIAGNOSIS: ?Same as above. 1) duodenal polyps PROCEDURE: [id number] with biopsies Surgeon: ?Philip Miranda M.D.. Ph.D. Audio/Video Engineer: None ? Anesthesia: IV sedation Estimated blood loss: ?Minimal FINDINGS AND PROCEDURE: ? OPERATIVE INDICATIONS: ?The patient is a 23 year old female known to me who is interested in bariatric surgery. The patient has GERD symptoms and anemia. Based on this information I recommended an upper endoscopy to evaluate the patient's symptoms. Risks and complications of the surgery were discussed with the patient in advance particularly the possibility of perforation or bleeding that may require surgical intervention. The patient understood the risks and was in agreement with the plan. ? PROCEDURE: After informed consent was obtained by the patient, the patient was ?transferred to the Operating Room and was placed in the supine position.? After successful induction of IV sedation, a mouth block was inserted and the patient was placed in the left lateral decubitus position. An upper endoscopy was performed next, the oropharynx and esophagus appeared within the normal limits. There was no hiatal hernia. The z-line was smooth. Two biopsies were obtained from the distal esophagus 2-3 cm proximal to the GE junction and two additional biopsies from the GE junction. The stomach was entered and it appeared to be of normal size. There was no gastritis. There was no stricture or ulcer. A biopsy was obtained from the distal antrum and gastric fundus. Retroflexion was performed and no pathology was noted. No significant bleeding was noted from any of the biopsy sites. The scope was then advanced into the duodenum. There were some duodenal polyps at the 2nd portion of the duodenum. One was biopsied and removed.. At that point the duodenum ?and the stomach were decompressed and the scope was withdrawn from the patient's mouth. The patient extubated and was transferred in stable condition to the Recovery Room for further care. I was present and performed all steps of the procedure. There were no residents to assist with this case. Philip Miranda M.D., Ph.D. Surgeon: Héctor Miranda MD Anesthesia: MAC Was an Audio/Video Engineer used for this Procedure?: No Estimated blood loss (mL): 0 IV fluids (mL): 400 Urine output (mL): 0 (No [place] to record output) Pathology: other (1) antrum x1, 2) fundus x1, 3) GE junction x2, 4) distal esophagus x2, 5) duodenal polyp)
[2023-06-01] MEDS: Lactated Ringers 1,000 ML 100 ML IVCONT (15:07)
== END | disposition home or self-care (01) ==
PROVIDERS: Nurse Practitioner; PCP Internal Medicine; Visit Provider Surgery
PROC: 0DJ08ZZ Inspection of Upper Intestinal Tract, Via Natural or Artificial Opening Endoscopic (ICD-10-PCS; CPT 43235; principal; 2023-06-01 15:20)
DX: K21.9 Gastro-esophageal reflux disease without esophagitis (principal); D64.9 Anemia, unspecified; E66.09 Other obesity due to excess calories; Z68.36 Body mass index [BMI] 36.0-36.9, adult; K31.7 Polyp of stomach and duodenum; K29.50 Unspecified chronic gastritis without bleeding; B96.81 Helicobacter pylori [H. pylori] as the cause of diseases classified elsewhere; E55.9 Vitamin D deficiency, unspecified; E53.8 Deficiency of other specified B group vitamins; E50.9 Vitamin A deficiency, unspecified; J45.909 Unspecified asthma, uncomplicated; F32.A Depression, unspecified; F41.9 Anxiety disorder, unspecified; Z88.1 Allergy status to other antibiotic agents; Z90.49 Acquired absence of other specified parts of digestive tract
CPT/HCPCS: 43239; 81025; 88305; 88313; 88342; J1596; J2250; J2704

== ENCOUNTER 2023-06-03 08:09 | Outpatient (AMB) | payer OTHER, SELFPAY ==
--- NOTE | 2023-06-03 11:04 | A.OFFVIS_ITS ---
Intake VS Expanded 06/03/23 11:14 Height 5 ft 0.5 in Weight 189 lb BMI 36.3 Intake Visit Reasons: TV Follow Up SWL Allergies amoxicillin Adverse Reaction (Intermediate, Verified 06/01/23 14:40) Hives clindamycin Adverse Reaction (Intermediate, Verified 06/01/23 14:40) Hives zithromyocin Adverse Reaction (Intermediate, Uncoded 06/01/23 14:40) hives HPI TV Follow Up SWL HPI Details Start time: 10.54am, End time: 11.24am ?I spent 25 minutes speaking with the patient on the phone plus an additional 5 minutes reviewing and updating records for a total of 30 minutes HPI Comments History of Present Illness Details Is doing 2 premade Premier protein shakes (1/2 bottle in 5oz almond milk), 3 [employer] protein bars and one meal (8 forks of protein and 8 forks of salad or vegetables) Exercise: walking outside daily [facility] Medical History (Updated 06/03/23 @ 11:24 by Héctor Miranda MD) Asthma Anxiety Depression Back pain BMI 36.0-36.9,adult Obesity Surgical History [place] teeth extracted S/P laparoscopic cholecystectomy Social History Patient Tobacco Use Status: Never used Tobacco Assessment & Plan Assessment & Plan (1) Obesity: Code(s): E66.9 - Obesity, unspecified Qualifiers: Obesity type: due to excess calories Obesity classification: adult class 2 (BMI 35 - 39.9) Serious obesity comorbidity presence: without serious comorbidity Body mass index: BMI 36.0-36.9 Qualified Code(s): E66.09 - Other obesity due to excess calories; Z68.36 - Body mass index [BMI] 36.0-36.9, adult Plan: 1. Change the 2 premade Premier protein shakes (1/3 bottle or 4oz per shake in 4oz almond milk), 3 [employer] protein bars and one meal (8 forks of p rotein and 8 forks of salad or vegetables). 2. Exercise: continue walking outside daily. Try to track the calories of these walks and burn 300 calories per day, daily 3. Send me weight measurements tomorrow and then weekly on Saturdays 4. We will order a CT chest to evaluate the finding of the chest xray Orders: Orders CT chest wo/w IV con Today R93.89 - Abnormal findings on diagnostic imaging of other specified body structures Telehealth Telehealth Location of provider rendering services: practice address Location of patient: address on file Patient Identification confirmed using: Name, : Yes Telehealth method: voice only Patient verbally consented to treatment: Yes Patient verbally consented to billing insurance company: Yes Patient informed of any privacy concerns related to visit: Yes Minutes spent on Phone/Video with Pt.: 30 Coding Level of Care Code Tele Est Pt Level 4 (22567) Diagnoses Class 2 obesity due to excess calories without serious comorbidity with body mass index (BMI) of 36.0 to 36.9 in adult E66.09; Z68.36 Obesity type: due to excess calories Obesity classification: adult class 2 (BMI 35 - 39.9) Serious obesity comorbidity presence: without serious comorbidity Body mass index: BMI 36.0-36.9 Time Spent (min) 30
[2023-06-03 11:14] VITALS: BMI 36.3
== END 2023-06-03 11:25 | disposition home or self-care (01) ==
LOC: HO.HBS 08:09
PROVIDERS: PCP Internal Medicine; Visit Provider Surgery
DX: E66.09 Other obesity due to excess calories (principal); Z68.36 Body mass index [BMI] 36.0-36.9, adult
CPT/HCPCS: 99214

== ENCOUNTER → 2023-06-03 08:09 | Outpatient (BNVA) | payer OTHER, SELFPAY | PROVIDERS: PCP Internal Medicine; Visit Provider Surgery ==

== ENCOUNTER 2023-06-15 10:52 | Outpatient (AMB) | payer OTHER, SELFPAY ==
--- NOTE | 2023-06-15 10:52 | MHC.WMTHER ---
Intake Intake Visit Reasons: VIDEO BH F/U Allergies amoxicillin Adverse Reaction (Intermediate, Verified 06/01/23 14:40) Hives clindamycin Adverse Reaction (Intermediate, Verified 06/01/23 14:40) Hives zithromyocin Adverse Reaction (Intermediate, Uncoded 06/01/23 14:40) hives [facility] Medical History (Updated 06/09/23 @ 18:53 by Héctor Miranda MD) Asthma Anxiety Depression Back pain BMI 36.0-36.9,adult Obesity Surgical History [place] teeth extracted S/P laparoscopic cholecystectomy Social History Patient Tobacco Use Status: Never used Tobacco Behavioral Health Assessment Weight Management Therapy Therapy Notes Details PT presents for a follow up. PT reports things are the same regarding her appetite, but she has been walking everyday for 15-20 minutes no matter the weather. She continues seeing her therapist every 2 weeks. Interventions: Active listening, discussed functioning and routine. Cognitive processing therapy conducted and we also worked on behavioral activation plan. Identified factors associated to depression and reviewed some Sx management and coping strategies for depression. Brainstormed other types of physical activity she can do, such as [employer] videos and ideas about when to do it since she has little kids (nap time, when they're sleeping, while they watch a show or place, ask parent for 20min to watch them while they eat dinner, etc) Response: Pt was active. Pt states that walking everyday has been a coping method for her depression and to have some me-time . Plan: Pt will need to provide a letter from her MH providers to confirm diagnosis, prognosis and/or any concern for her to have surgery. Assessment & Plan Assessment & Plan (1) Anxiety: Code(s): F41.9 - Anxiety disorder, unspecified (2) Depression: Code(s): F32.A - Depression, unspecified (3) PTSD (post-traumatic stress disorder): Code(s): F43.10 - Post-traumatic stress disorder, unspecified Plan We will meet again next month. Reminded of the need to provide a letter from therapist. Next josé luis we will repeat PHQ-9. Telehealth Telehealth Location of provider rendering services: other (home office. [place], [place]) Location of patient: address on file Patient Identification confirmed using: Name, : Yes Telehealth method: voice only Patient verbally consented to treatment: Yes Patient verbally consented to billing insurance company: Yes Patient informed of any privacy concerns related to visit: No Minutes spent on Phone/Video with Pt.: 45 Coding Level of Care Code Established Pt Tele Psytx 45 mins (21679) Patient Type Established Diagnoses Anxiety F41.9 Depression F32.A PTSD (post-traumatic stress disorder) F43.10 Time Spent (min) 45
== END 2023-06-15 11:30 | disposition home or self-care (01) ==
LOC: HO.HBST 10:52
PROVIDERS: PCP Internal Medicine; Visit Provider Counselor Mental Health
DX: F41.9 Anxiety disorder, unspecified (principal); F32.A Depression, unspecified; F43.10 Post-traumatic stress disorder, unspecified
CPT/HCPCS: 90834

== ENCOUNTER → 2023-06-15 10:52 | Outpatient (BNVA) | payer OTHER, SELFPAY | PROVIDERS: PCP Internal Medicine; Visit Provider Counselor Mental Health ==

== ENCOUNTER → 2023-06-24 08:12 | Outpatient (BNVA) | payer OTHER, SELFPAY | PROVIDERS: PCP Internal Medicine; Visit Provider Surgery ==

== ENCOUNTER → 2023-06-28 09:39 | Outpatient (BNVA) | payer OTHER, SELFPAY | PROVIDERS: PCP Internal Medicine; Visit Provider Physician Assistant ==

== ENCOUNTER 2023-07-14 09:46 | Outpatient (REF) | payer OTHER, SELFPAY ==
[2023-07-19 14:20] LABS: H Pylori Breath Test Positive (Negative)
== END 2023-07-14 09:47 | disposition home or self-care (01) ==
LOC: HO.LNP 09:46
PROVIDERS: Surgery; PCP Internal Medicine; Visit Provider Physician Assistant
DX: E66.9 Obesity, unspecified (principal); M54.9 Dorsalgia, unspecified; F32.A Depression, unspecified; F41.9 Anxiety disorder, unspecified; J45.909 Unspecified asthma, uncomplicated; Z68.36 Body mass index [BMI] 36.0-36.9, adult
CPT/HCPCS: 83013; 99211

== ENCOUNTER 2023-07-15 08:21 | Outpatient (AMB) | payer OTHER, SELFPAY ==
--- NOTE | 2023-07-15 23:25 | MHC.OFFVISWM ---
Intake Intake Visit Reasons: TV Follow Up SWL Allergies amoxicillin Adverse Reaction (Intermediate, Verified 06/01/23 14:40) Hives clindamycin Adverse Reaction (Intermediate, Verified 06/01/23 14:40) Hives zithromyocin Adverse Reaction (Intermediate, Uncoded 06/01/23 14:40) hives HPI TV Follow Up SWL HPI Details Start time: 2.15pm, End time: 2.35pm ?I spent 15 minutes speaking with the patient on the phone plus an additional 5 minutes reviewing and updating records for a total of 20 minutes HPI Comments History of Present Illness Details Does not like the Premier obrien Is doing 3 [employer] protein bars and one meal (8 forks of protein and 8 forks of salad or vegetables) Exercise: walking outside daily [facility] Medical History (Updated 06/09/23 @ 18:53 by Héctor Miranda MD) Asthma Anxiety Depression Back pain BMI 36.0-36.9,adult Obesity Surgical History [place] teeth extracted S/P laparoscopic cholecystectomy Social History Patient Tobacco Use Status: Never used Tobacco Assessment & Plan Assessment & Plan (1) Obesity: Code(s): E66.9 - Obesity, unspecified Qualifiers: Obesity type: due to excess calories Obesity classification: adult class 2 (BMI 35 - 39.9) Serious obesity comorbidity presence: without serious comorbidity Body mass index: BMI 36.0-36.9 Qualified Code(s): E66.09 - Other obesity due to excess calories; Z68.36 - Body mass index [BMI] 36.0-36.9, adult Plan: 1. To send pictures of the protein bars she is using 2. To send weight measurements Telehealth Telehealth Location of provider rendering services: practice address Location of patient: address on file Patient Identification confirmed using: Name, : Yes Telehealth method: voice only Patient verbally consented to treatment: Yes Patient verbally consented to billing insurance company: Yes Patient informed of any privacy concerns related to visit: Yes Minutes spent on Phone/Video with Pt.: 20 Coding Level of Care Code Tele Est Pt Level 3 (80553) Diagnoses Class 2 obesity due to excess calories without serious comorbidity with body mass index (BMI) of 36.0 to 36.9 in adult E66.09; Z68.36 Obesity type: due to excess calories Obesity classification: adult class 2 (BMI 35 - 39.9) Serious obesity comorbidity presence: without serious comorbidity Body mass index: BMI 36.0-36.9 Time Spent (min) 20
== END 2023-07-15 23:29 | disposition home or self-care (01) ==
LOC: HO.HBS 08:22
PROVIDERS: PCP Internal Medicine; Visit Provider Surgery
DX: E66.09 Other obesity due to excess calories (principal); Z68.36 Body mass index [BMI] 36.0-36.9, adult
CPT/HCPCS: 99213

== ENCOUNTER → 2023-07-15 08:21 | Outpatient (BNVA) | payer OTHER, SELFPAY | PROVIDERS: PCP Internal Medicine; Visit Provider Surgery ==

== ENCOUNTER 2023-07-19 10:00 | Outpatient (REF) | payer OTHER, SELFPAY ==
--- NOTE | ~2023-07-19 | CT_ITS ---
EXAMINATION: CT CHEST WITH CONTRAST CLINICAL INFORMATION: Abnormal findings on diagnostic imaging. Soft tissue bulge right infrahilar region. COMPARISON: Chest x-ray 05/06/2023. TECHNIQUE: Multidetector volumetric CT imaging of the chest was obtained after the administration of 65 mL of Omnipaque 350 intravenous contrast without immediate adverse reactions. Axial MIP volume rendering provided. Sagittal and coronal reformatted images were obtained. This CT examination was performed using dose optimization techniques as appropriate, variously including the following: *Automated exposure control *Adjustment of mA and/or kV according to patient size (this includes techniques or standardized protocols for targeted exams where dose is matched to indication/reason for exam; i.e. extremities or head) *Use of iterative reconstruction technique DLP: 112 mGy-cm FINDINGS: LUNGS: No suspicious lung mass. The lungs are clear. The finding on chest x-ray appears to be related to superimposition of the right heart border and the right interlobar pulmonary artery. MEDIASTINUM: No adenopathy. No aortic aneurysm. No pericardial effusion. PLEURA: There is no pleural effusion. No pleural mass or thickening. AXILLA: No lymphadenopathy. UPPER ABDOMEN: Suspect hepatic steatosis. Cholecystectomy. OSSEOUS STRUCTURES: No suspicious osseous lesions. CT/CT chest w IV con IMPRESSION: No suspicious pulmonary mass or adenopathy. The abnormality on chest x-ray appears related to superimposition of the right atrium and the right interlobar pulmonary artery. Fleischner guidelines do not apply in this age group.
[2023-07-19] MEDS: iohexoL 350 MG/ML 100 ML INFUS..BTL IV (11:10)
== END 2023-07-19 10:01 | disposition home or self-care (01) ==
LOC: HO.CT 10:00
PROVIDERS: PCP Internal Medicine; Visit Provider Surgery
DX: R93.89 Abnormal findings on diagnostic imaging of other specified body structures (principal)
CPT/HCPCS: 71260; Q9967

== ENCOUNTER 2023-07-27 10:45 | Outpatient (AMB) | payer OTHER, SELFPAY ==
--- NOTE | 2023-07-27 11:02 | A.OFFWM_ITS ---
Intake Intake Visit Reasons: VIDEO BH F/U Allergies amoxicillin Adverse Reaction (Intermediate, Verified 06/01/23 14:40) Hives clindamycin Adverse Reaction (Intermediate, Verified 06/01/23 14:40) Hives zithromyocin Adverse Reaction (Intermediate, Uncoded 06/01/23 14:40) hives [facility] Medical History (Updated 06/09/23 @ 18:53 by Héctor Miranda MD) Asthma Anxiety Depression Back pain BMI 36.0-36.9,adult Obesity Surgical History [place] teeth extracted S/P laparoscopic cholecystectomy Social History Patient Tobacco Use Status: Never used Tobacco Behavioral Health Assessment Weight Management Therapy Therapy Notes Details PT presents for a follow up. Pt reports she has been losing weight and has changed meal plan after consulting with Dr. Glasgow. She has noticed her weight fluctuates around her period as her appetite changes around this time. On the other hand she has noticed she is more motivated, less irritated and feel with more energy to do things. She continues walking at least 30 minutes daily. INTERVENTIONS Today we worked in ways to be consistent and build habits for s sustained long- term life/behavioral changes. PHQ-9 administered, scores have decreased. Reviewed depression management techniques, ways to practice mindfulness, self- care and be more present. PT has been advised to use a food log to identify trends/needs around certain times in the month and start working on it. RESPONSE: Patient has become more aware of how the changes in lifestyle she has made have been positively impacting her mental health. She was very engaged and active in session. PLAN: Clearance pending upon receiving letter from current therapiust, but so far client is a good candidate for bariatric surgery. We will follow up in about 4 weeks for support. Homework: keep a food dairy. Presenting Concerns Referral Source [facility] Provider. Pt sees Jesus Turner Reason for referral Weight loss surgery Precipitating Event Obesity. Living Situation Current Living Situation Relative's/Guardian's Mt (Lives at her mom's home.) At risk of losing current housing? No Satisfied with current living situation? Yes Comments Living at her mom's home. Lives with her mother, 2 siblings and her 3 children. Questionnaires PHQ-9 Over the last 2 weeks, how often have you been bothered by any of the following problems? 1. Little interest or pleasure in doing things: several days 2. Feeling down, depressed, or hopeless: not at all 3. Trouble falling or staying asleep, or sleeping too much: several days 4. Feeling tired or having little energy: several days 5. Poor appetite or overeating: several days (poor appetite.) 6. Feeling bad about yourself - or that you are a failure or have let yourself or your family down: several days 7. Trouble concentrating on things, such as reading the newspaper or watching television: not at all 8. Moving or speaking so slowly that other people could have noticed. Or the opposite - being so fidgety or restless that you have been moving around a lot more than usual: several days 9. Thoughts that you would be better off or of hurting yourself in some way: not at all Total score: 6 Depression Screening Done: Yes 37393 - PHQ-9 Billing: Yes Source: Developed by Drs. Rogers Emmanuel, Sindy Vazquez, Brian Crouch and colleagues, with an educational zander from [employer]. Assessment & Plan Assessment & Plan (1) Anxiety: Code(s): F41.9 - Anxiety disorder, unspecified (2) Depression: Code(s): F32.A - Depression, unspecified (3) PTSD (post-traumatic stress disorder): Code(s): F43.10 - Post-traumatic stress disorder, unspecified Plan -We will meet again next month. 08/31/23 at 11am, telehealth. -PT needs an josé luis with junior assistant manager. Scheduled for 07/31 at 11am via phone call. -Reminded of the need to provide a letter from therapist/ Provider texted her all the information. Telehealth Telehealth Location of provider rendering services: other Location of patient: address on file Patient Identification confirmed using: Name, : Yes Telehealth method: voice only Patient verbally consented to treatment: Yes Patient verbally consented to billing insurance company: Yes Patient informed of any privacy concerns related to visit: No Minutes spent on Phone/Video with Pt.: 45 Coding Level of Care Code Established Pt Tele Psytx 45 mins ([id number]) Patient Type Established Diagnoses Anxiety F41.9 Depression F32.A PTSD (post-traumatic stress disorder) F43.10 Time Spent (min) 45
== END 2023-07-27 11:30 | disposition home or self-care (01) ==
LOC: HO.HBST 11:30
PROVIDERS: PCP Internal Medicine; Visit Provider Counselor Mental Health
DX: F41.9 Anxiety disorder, unspecified (principal); F32.A Depression, unspecified; F43.10 Post-traumatic stress disorder, unspecified
CPT/HCPCS: 90834

== ENCOUNTER → 2023-07-27 10:45 | Outpatient (BNVA) | payer OTHER, SELFPAY | PROVIDERS: PCP Internal Medicine; Visit Provider Counselor Mental Health | DX: F41.9 Anxiety disorder, unspecified (principal); F32.A Depression, unspecified; F43.10 Post-traumatic stress disorder, unspecified ==

== ENCOUNTER 2023-08-01 11:20 | Outpatient (AMB) | payer OTHER, SELFPAY ==
--- NOTE | 2023-08-01 11:09 | MHC.AMNUTRGE ---
Intake Intake Visit Reasons: (TV) F/U SWL [employer] Required: No Allergies amoxicillin Adverse Reaction (Intermediate, Verified 06/01/23 14:40) Hives clindamycin Adverse Reaction (Intermediate, Verified 06/01/23 14:40) Hives zithromyocin Adverse Reaction (Intermediate, Uncoded 06/01/23 14:40) hives HPI Nutrition Presentation Reason for consult elevated BMI Diet Assmnt Details Pt having a hard time articulating her challenges and needs. She feels that she needs more support. Her mother has been helping her, and is in a group chat with mother, surgeon per pt. Not really clear on how consistent she is with eating habit changes. She is using [employer] shakes and [employer] bars. mother had bariatric surgery with [facility] so she wants it as well. Has 3 children 10 months old , a 4 and a 3 year old Classes: completed. Dietary counseling reduction Diagnosis Nutrition problem #1 overweight/obesity As related to (etiology) #1 excess energy intake and physical inactivity As evidenced by (sign/symptom) #1 high BMI Nutrition problem #2 not ready diet/lifestyle As related to (etiology) #2 lack of nutrit education As evidenced by (sign/symptom) #2 knowledge deficit of diet and no prior educ - nutri rec Monitoring/Goals Nutrition problem monitoring total energy intake, level of knowledge/skill, total PRO intake and weight Learning/Education Readiness to learn fair Stages of change contemplation Most Recent Diabetes Results: No Data to Display [facility] Medical History (Updated 06/09/23 @ 18:53 by Héctor Miranda MD) Asthma Anxiety Depression Back pain BMI 36.0-36.9,adult Obesity Surgical History [place] teeth extracted S/P laparoscopic cholecystectomy Social History Patient Tobacco Use Status: Never used Tobacco Assessment & Plan Assessment & Plan (1) Obesity (BMI 30-39.9): Code(s): E66.9 - Obesity, unspecified Plan concerns regarding pts readiness for bariatric surgery , recommend continued follow up in bariatric program Telehealth Telehealth Location of provider rendering services: practice address Location of patient: address on file Patient Identification confirmed using: Name, : Yes Telehealth method: voice only Patient verbally consented to treatment: Yes Patient verbally consented to billing insurance company: Yes Patient informed of any privacy concerns related to visit: Yes Minutes spent on Phone/Video with Pt.: 25 Coding Level of Care Code Nutr Indiv Subseq ([id number]) Diagnoses Obesity (BMI 30-39.9) E66.9 Time Spent (min) 25
== END 2023-08-01 11:23 | disposition home or self-care (01) ==
LOC: HO.HBS 11:21
PROVIDERS: PCP Internal Medicine; Visit Provider Dietitian, Registered
DX: E66.9 Obesity, unspecified (principal)

== ENCOUNTER → 2023-08-01 11:20 | Outpatient (BNVA) | payer MEDICAID, SELFPAY | PROVIDERS: PCP Internal Medicine; Visit Provider Dietitian, Registered | DX: E66.9 Obesity, unspecified (principal) | CPT/HCPCS: 97803 ==

== ENCOUNTER 2023-08-30 08:56 | Outpatient (REF) | payer OTHER, SELFPAY ==
[2023-08-31 09:51] LABS: H Pylori Breath Test Negative (Negative)
== END 2023-08-30 08:57 | disposition home or self-care (01) ==
LOC: HO.LNP 08:56
PROVIDERS: PCP Internal Medicine; Visit Provider Physician Assistant Surgical
DX: A04.8 Other specified bacterial intestinal infections (principal)
CPT/HCPCS: 83013; 99211

== ENCOUNTER 2023-09-05 08:34 | Outpatient (REF) | payer OTHER, SELFPAY ==
--- NOTE | ~2023-09-05 | FL_ITS ---
EXAMINATION: XR FLUOROSCOPY UPPER GI WITH AIR CLINICAL INFORMATION: Preop evaluation prior to bariatric surgery COMPARISON: None TECHNIQUE: Fluoroscopic air contrast upper GI examination was performed utilizing standard techniques with thin and thick barium and effervescent granules. Numerous spot images were obtained. FINDINGS: Dual and single contrast images of the esophagus demonstrate normal caliber, contour, and mucosal pattern. No evidence of stricture, mass, or ulcerations identified. Esophageal peristalsis was normal. A very small type I hiatal hernia is present. No significant gastroesophageal reflux was seen during the course of the examination and on reflux views. Surgical clips are present in the right upper quadrant. Dual contrast and single contrast images of the stomach demonstrated a normal contour. Evaluation of the gastric mucosa is limited due to inability to distend the stomach from poor tolerance of the effervescent granules. No obvious masses or ulcerations are seen. Contrast freely passed into the gastric antrum and duodenal bulb without delay. Single and air-contrast images of the duodenal bulb demonstrate no abnormality. The duodenal sweep has a normal appearance, course, and mucosal fold appearance. No malrotation. The imaged proximal jejunum has a normal fold pattern and caliber. FLUOROSCOPY TIME: 3 minutes 5 seconds Number of Spot Images: 6 Number of Cine: 11 DOSE AREA PRODUCT: 1718 uGy-m2 (microgray-meter squared) FL/FL upper GI w air IMPRESSION: 1. Very small type I hiatal hernia 2. Status post cholecystectomy 3. Limited evaluation of the gastric mucosa due to inability to distend the stomach from poor tolerance of the effervescent granules. No obvious mass or ulcerations are seen. This procedure was performed by Layton Colvin PA-C, and supervised by Dr. Newton
== END 2023-09-05 08:35 | disposition home or self-care (01) ==
LOC: HO.XRAY 08:34
PROVIDERS: PCP Internal Medicine; Visit Provider Surgery
DX: E66.9 Obesity, unspecified (principal); Z68.36 Body mass index [BMI] 36.0-36.9, adult; M54.9 Dorsalgia, unspecified
CPT/HCPCS: 74246

== ENCOUNTER → 2023-09-05 08:35 | Outpatient (BNV) | payer OTHER, SELFPAY | PROVIDERS: PCP Internal Medicine; Visit Provider Physician Assistant Surgical | DX: Z01.818 Encounter for other preprocedural examination (principal); E66.01 Morbid (severe) obesity due to excess calories | CPT/HCPCS: 74246 ==

== ENCOUNTER 2023-09-07 11:00 | Outpatient (AMB) | payer OTHER, SELFPAY ==
--- NOTE | 2023-09-07 11:23 | MHC.WMTHER ---
Intake Intake Visit Reasons: VIDEO BH F/U Allergies amoxicillin Adverse Reaction (Intermediate, Verified 09/12/23 13:50) Hives clindamycin Adverse Reaction (Intermediate, Verified 09/12/23 13:50) Hives zithromyocin Adverse Reaction (Intermediate, Uncoded 09/12/23 13:50) hives [facility] Medical History (Updated 06/09/23 @ 18:53 by Héctor Miranda MD) Asthma Anxiety Depression Back pain BMI 36.0-36.9,adult Obesity Surgical History [place] teeth extracted S/P laparoscopic cholecystectomy Social History Patient Tobacco Use Status: Never used Tobacco Behavioral Health Assessment Weight Management Therapy Therapy Notes Details PT presents for a follow up. Ade reports she has been feeling anxious and stressed. Also stated she has been hungrier and having a hard time feeling satiated. On the other hand, she feels stuck on her weight and lost at times about what exercises she should try. She would like support creating a routine and to continue in the program. Patient received support with habit building and we explored what is she doing (what works and what doesn't). Clinician reviewed notes from Dr. Glasgow and clarified meal plan again. Provider emailed dr Turner and also contacted her therapist's office for the clearance letter. Assessment & Plan Assessment & Plan (1) Anxiety: Code(s): F41.9 - Anxiety disorder, unspecified (2) Depression: Code(s): F32.A - Depression, unspecified (3) PTSD (post-traumatic stress disorder): Code(s): F43.10 - Post-traumatic stress disorder, unspecified Plan The client has been advised to come in person to the office for weight checks. Also to have her mother as support when getting instructions she might need help understanding. This clinician has reached her therapist requesting a letter or to have a phone consultation to clarify client's current diagnosis and discuss any concerns around client having bariatric surgery the therapist might have. Telehealth Telehealth Telehealth Platform: [employer] Location of provider rendering services: other Location of patient: address on file Patient Identification confirmed using: Name, : Yes Telehealth method: voice only Patient verbally consented to treatment: Yes Patient verbally consented to billing insurance company: Yes Patient informed of any privacy concerns related to visit: No Minutes spent on Phone/Video with Pt.: 45 Coding Level of Care Code Established Pt Tele Psytx 45 mins (23215) Patient Type Established Diagnoses Anxiety F41.9 Depression F32.A PTSD (post-traumatic stress disorder) F43.10 Time Spent (min) 45
== END 2023-09-07 12:00 | disposition home or self-care (01) ==
LOC: HO.HBST 11:24
PROVIDERS: PCP Internal Medicine; Visit Provider Counselor Mental Health
DX: F41.9 Anxiety disorder, unspecified (principal); F32.A Depression, unspecified; F43.10 Post-traumatic stress disorder, unspecified
CPT/HCPCS: 90834

== ENCOUNTER → 2023-09-07 11:00 | Outpatient (BNVA) | payer OTHER, SELFPAY | PROVIDERS: PCP Internal Medicine; Visit Provider Counselor Mental Health ==

== ENCOUNTER 2023-09-12 13:31 | Outpatient (AMB) | payer OTHER, SELFPAY ==
--- NOTE | 2023-09-12 13:43 | A.OFFVIS_ITS ---
VS Expanded 09/12/23 13:51 BP 121/71 Blood Pressure Location Rt brachial Blood Pressure Position Sitting Pulse 95 Pulse Source Pulse Oximeter Temp 97.5 F Temperature Source Temporal Artery Scan Pulse Oximetry 98 Oxygen Delivery Method Room Air Height 5 ft 0.5 in Weight 173 lb BMI 33.2 Body Fat % 39.0 Body Fat Mass 69.0 Fat Free Mass 103.8 Visceral Fat Rating 7.0 Body Water % 43.4 Body Water Mass 75.0 Muscle Mass/Score 98.6 Basal Metabolic Rate/Score 1,492 Intake Visit Reasons: (OV) Follow Up SWL Allergies amoxicillin Adverse Reaction (Intermediate, Verified 09/12/23 13:50) Hives clindamycin Adverse Reaction (Intermediate, Verified 09/12/23 13:50) Hives zithromyocin Adverse Reaction (Intermediate, Uncoded 09/12/23 13:50) hives HPI Comments Details: Overall weight loss: 18.7lbs, or 9.85% TBWL Is doing 3 protein shakes (2oz of Fairlife in 6 oz of almond milk), 1.5 [employer] protein bars and one meal (8 forks of protein and 8 forks of salad or vegetables) Exercise: walking outside. Purchasing an elliptical [place] Medical History (Updated 06/09/23 @ 18:53 by Héctor Miranda MD) Asthma Anxiety Depression Back pain BMI 36.0-36.9,adult Obesity Surgical History [place] teeth extracted S/P laparoscopic cholecystectomy Social History Patient Tobacco Use Status: Never used Tobacco Physical Exam Vital Signs: Last Vital Signs Temp 97.5 F 09/12/23 13:51 Pulse 95 09/12/23 13:51 BP 121/71 09/12/23 13:51 Pulse Ox 98 09/12/23 13:51 Oxygen Delivery Method Room Air 09/12/23 13:51 BMI result Body Mass Index 33.2 Assessment & Plan Assessment & Plan (1) Obesity: Code(s): E66.9 - Obesity, unspecified Category: Medical Qualifiers: Obesity type: due to excess calories Obesity classification: adult class 2 (BMI 35 - 39.9) Serious obesity comorbidity presence: without serious comorbidity Body mass index: BMI 36.0-36.9 Qualified Code(s): E66.09 - Other obesity due to excess calories; Z68.36 - Body mass index [BMI] 36.0-36.9, adult Plan: 1. Plan for lap sleeve gastrectomy including upper GI endoscopy. All tests has been completed and reviewed and the patient is cleared for the surgery. ?If diaphragmatic or ventral hernias are present at time of surgery, these will be repaired laparoscopically as well. Risks and complications were discussed in detail including possible conversion to an open procedure, anastomotic leak, bleeding requiring transfusion, small bowel obstruction, , DVT and pulmonary embolism, cardiac, or pulmonary complications, as intermodal customer service complications such as anastomotic ulcer, insufficient weight loss and vitamin deficiencies. I emphasized the importance of close follow-up, adherence to instructions and good communication. So far she has proven to be an excellent communicator and very compliant with all our directions accomplishing a great weight loss. I believe that she is an excellent candidate and she is ready. 2. The patient participated in a structured preoperative lifestyle intervention program supervised by a physician the 5 months preceding the surgical procedure. The lifestyle intervention included a structured nutritional plan with a specific daily protein intake goal, an exercise plan with a 2000 calorie burn weekly goal, weekly behavior modification guidance and completion of eight 1- hour online nutritional classes and passing successfully the corresponding quizzes. Adherence to preoperative care plan was demonstrated by completing an extensive preoperative work-up. Program participation was demonstrated by completing 11 visits with our medical team and by sharing weekly weight measurements weekly for 5 consecutive months via an approved body composition scale. Compliance to the lifestyle intervention was demonstrated by achieving a 18.7lbs weight-loss or 9.85% total body weight loss (TBWL). No medications were used to achieve this weight loss. In our published experience an over 7% preoperative TBWL, achieved by meeting the diet and exercise goals of our program improves surgical outcomes, reduces the potential for surgical complications, and predicts a statistically significant higher weight loss up to 6 years postoperatively. 3. Continue present nutritional plan of 3 protein shakes (2oz of Fairlife in 6 oz of almond milk), 1.5 Fit Crunch protein bars and one meal (8 forks of protein and 8 forks of salad or vegetables) 4. Is buying an elliptical 5. Continue to send me weight measurements weekly
[2023-09-12 13:51] VITALS: BP 121/71; PULSE 95; TEMP 36.4; O2SAT 98; BMI 33.2
== END 2023-09-12 16:54 | disposition home or self-care (01) ==
LOC: HO.HBS 13:31
PROVIDERS: PCP Internal Medicine; Visit Provider Surgery
DX: E66.09 Other obesity due to excess calories (principal); Z68.36 Body mass index [BMI] 36.0-36.9, adult
CPT/HCPCS: 99214

== ENCOUNTER → 2023-09-12 13:31 | Outpatient (BNVA) | payer OTHER, SELFPAY | PROVIDERS: PCP Internal Medicine; Visit Provider Surgery ==

== ENCOUNTER 2023-09-21 11:00 | Outpatient (AMB) | payer OTHER, SELFPAY ==
--- NOTE | 2023-09-21 11:04 | A.OFFWM_ITS ---
Intake Intake Visit Reasons: VIDEO F/U Allergies amoxicillin Adverse Reaction (Intermediate, Verified 09/12/23 13:50) Hives clindamycin Adverse Reaction (Intermediate, Verified 09/12/23 13:50) Hives zithromyocin Adverse Reaction (Intermediate, Uncoded 09/12/23 13:50) hives [facility] Medical History (Updated 06/09/23 @ 18:53 by Héctor Miranda MD) Asthma Anxiety Depression Back pain BMI 36.0-36.9,adult Obesity Surgical History [place] teeth extracted S/P laparoscopic cholecystectomy Social History Patient Tobacco Use Status: Never used Tobacco Behavioral Health Assessment Weight Management Therapy Therapy Notes Details PT presents for a follow up over telehealth. PT reports she has been doing well but little bit anxious. She reports that after recent meeting with Dr. Glasgow in person she has been following meal correctly and has been noticing a better pa on her weight loss. PT reports she was snot doing the meal plan as advised now she using the times provided and right measures. Emotional she reports feelings stable and having good supports. Pt continues meeting with her therapist on a bi-weekly basis. INTERVENTIONS: Today we reviewed patient's history, current challenges, needs and progress. We updated some of the areas below as patient has been in the program for a while and there have been progress. Patient also shared more about learning/cognitive needs and we worked in ways how she can feel supported for a successful weight- loss journey. At this point patient's functioning seems to be intact and no risk Sx have been reported and/or identified. A new PHQ-9 was administered today reflecting no active Sx of depression. PLAN/Additional information. This provider has attempted to reach her outpatient therapist DAX Fitzgerald at [facility] 3 times, And most recent VM was left this morning at 10:15am. We will need to consult to provide final clearance. However, since PT has been doing well and seems committedwhich shows she will be a good candidate to move forward with surgery with the right supports. Next Eliza: TBD. Presenting Concerns Referral Source P Provider. Pt sees Jesus Glasgow. Reason for referral Weight loss surgery Precipitating Event Obesity. Living Situation Current Living Situation Relative's/Guardian's Mt (Lives at her mom's home.) At risk of losing current housing? No Satisfied with current living situation? Yes Comments Living at her mom's home. Lives with her mother, 2 siblings and her 3 children. Food/Weight/Diet Expectations of change PT wants to be at 115-120Lbs. He's not sure about what her healthy weight should be. . Initial goal to lose 10% of her weight before surgery, which is about 19lbs. Ultimate weight goal: 170lbs before surgery. History/Relationship with food The patient reports that she has always had a good relationship with food. She usually has 3 meals a day but would also eat a lot of junk food in [place]. If she was hungry, she would get fast food, like [employer]. She used to eat large amounts of food in short periods when not feeling physically hungry, was waking up at night to eat, and was not very hungry in the morning. Currently, she feels capable of identifying when she's hungry versus when she has cravings. She is doing the meal plan as indicated by provider and reports feeling satisfied. Example of meals before starting the program: Breakfast: She would skip it and have brunch at 11 am - cereal, eggs with bread, and brambila. Lunch: She would have it at 2 pm and would eat a ham and cheese sandwich with mayonnaise, rice, and beans, or rice with eggs. Dinner: She would eat whatever her mom cooked, for example, lasagna or beans/rice/chicken. History/Relationship with weight PT reports she gained a lot of weight with last . History/Relationship with dieting None. Binge Eating Do you frequently eat large amounts of food in short periods of time, not feeling physically hungry? No Do you feel out of control when you eat a large amount of food in a short period of time? No Do you eat large amounts of food rapidly and typically alone? No Night Eating Do you wake up at least once during the night to eat? No If you wake up in the night, do you find that it is necessary to eat something in order to fall back asleep? No Do you have little or no appetite in the morning and feel very hungry in the evening, often overeating between dinner and when you go to bed? No Social History Family history and relationship Pt is is a relationship for about 6 years with children's father, however they don't live together. She has 3 siblings. Parent alive. She is not close with neither parents or siblings. Describe current relationships are not so good . Parental/Familial tier lift truck operator obligations 3 children. (4, 3 and 11 month old) Developmental history and status Mental health issues since younger. She had an IEP in school due to multiple learning disabilities and developmental delay. Pt stated she cognitive age is younger than her chronological age however, is not sure about the details. Pt denies any memory issues and/or diagnosis of ADD/ADHD or autism. Social support Mother. Community support Current therapist. Anabaptist/Spirituality Gnosticist. Cultural/Ethnic information . [place] heritage. Legal Involvement and History Current or historical involvement with the legal system? None reported. Education Highest grade completed HS diploma. Preferred learning style Auditory, Verbal, Written, Learn by doing and Visual Currently enrolled in educational program? No Interested in further educational program? Yes Educational Interests/Skills PT would like to get into cosmetology and be a beautician, specializing in hair. Employment Employment Status Never Worked and Unemployed Wants help to find employment? No Meaningful activities None reported. Financial Situation Describe current financial situation Occasional struggle and Often struggles with finance Financial assistance? Food [place], SSI and Other ([facility]) Service Service? No Mental Health and Addiction Treatment Current/Past substance abuse? No Current/Past addictive behavior concerns? No Psychiatric history -Pt states she has a history of depressi on and anxiety since young and PTSD officially diagnosed 11 months ago due to early life experiences. - PT receives counseling at [facility] and have appointments every 1-2 weeks, depending on how she is doing. Her PCP is prescribing her with Sertraline 50mg. she's in a waiting list at [facility] to see a prescriber. - PT reports she was inpatient due to de pression. Denies ever tried to committed suicide or dealing with suicidal thoughts. Denies ever been in [facility]. Started counseling around age 8. Medical and Physical Health Summary Additional Medical History not covered in history None reported Sexual History concerns None reported Physical exam in the last year? Yes Pain Screening Current pain? No Pain in the last few months? Yes Comments Patient as scoliosis and takes Gabapentin for pain as needed. Medications Is the patient compliant with medications? Yes Does the patient have [place] Guardian in place? Not applicable Does the patient use complimentary health approaches? No Trauma/Abuse History History of trauma? Yes Physical Abuse None Domestic Violence/Abuse None Sexual Abuse/Molestation Past Community Violence None Elder Abuse None Financial Abuse None Verbal/Emotional Abuse None Physical Neglect None Emotional Neglect None Related Trauma None Witness to Violence None Exploitation None Current Involvement By None Reported Additional Mandated Report Required None Reported Questionnaires PHQ-9 Over the last 2 weeks, how often have you been bothered by any of the following problems? 1. Little interest or pleasure in doing things: not at all 2. Feeling down, depressed, or hopeless: not at all 3. Trouble falling or staying asleep, or sleeping too much: not at all 4. Feeling tired or having little energy: not at all 5. Poor appetite or overeating: not at all 6. Feeling bad about yourself - or that you are a failure or have let yourself or your family down: not at all 7. Trouble concentrating on things, such as reading the newspaper or watching television: several days 8. Moving or speaking so slowly that other people could have noticed. Or the opposite - being so fidgety or restless that you have been moving around a lot more than usual: not at all 9. Thoughts that you would be better off or of hurting yourself in some way: not at all Total score: 1 Depression Screening Interpretation: Negative Depression Screening Done: Yes 15568 - PHQ-9 Billing: Yes Source: Developed by Drs. Rogers Emmanuel, Sindy Vazquez, Brian Crouch and colleagues, with an educational zander from [employer]. Assessment & Plan Assessment & Plan (1) Anxiety: Code(s): F41.9 - Anxiety disorder, unspecified (2) Depression: Code(s): F32.A - Depression, unspecified (3) PTSD (post-traumatic stress disorder): Code(s): F43.10 - Post-traumatic stress disorder, unspecified Plan Clearance pending upon consultation with current provider. Telehealth Telehealth Telehealth Platform: Doximity Location of provider rendering services: other Location of patient: address on file Patient Identification confirmed using: Name, : Yes Telehealth method: voice only Patient verbally consented to treatment: Yes Patient verbally consented to billing insurance company: Yes Patient informed of any privacy concerns related to visit: No Minutes spent on Phone/Video with Pt.: 45 Coding Level of Care Code Established Pt Tele Psytx 45 mins (42857) Patient Type Established Diagnoses Anxiety F41.9 Depression F32.A PTSD (post-traumatic stress disorder) F43.10 Time Spent (min) 45
== END 2023-09-21 12:09 | disposition home or self-care (01) ==
LOC: HO.HBST 11:48
PROVIDERS: PCP Internal Medicine; Visit Provider Counselor Mental Health
DX: F41.9 Anxiety disorder, unspecified (principal); F32.A Depression, unspecified; F43.10 Post-traumatic stress disorder, unspecified
CPT/HCPCS: 90834

== ENCOUNTER → 2023-09-21 11:00 | Outpatient (BNVA) | payer OTHER, SELFPAY | PROVIDERS: PCP Internal Medicine; Visit Provider Counselor Mental Health ==

== ENCOUNTER 2023-10-11 15:17 | Outpatient (REF) | payer OTHER, SELFPAY ==
[2023-10-11 16:03] LABS: MANUAL DIFF FLAG NO
[2023-10-11 16:57] LABS: Basophils Percent Auto 0.6 % (0-2); Eosinophils Percent Auto 0.4 % (0-4); Hematocrit 40.7 % (37.0-47.0); Hemoglobin 13.3 g/dl (12.0-16.0); Imm Gran Abs Auto 0.01 X10*3/uL (0.00-0.03); Imm Gran Pct Auto 0.2 % (0.0-0.4); Lymphocytes Absolute Auto 1.4 X10*3/uL (1.2-4.9); Lymphocytes Percent Auto 27.1 % (20-40); Mean Corpuscular HGB Conc 32.7 g/dl (31.0-35.0); Mean Corpuscular Hemoglobin 25.5 pg (27.0-33.0); Mean Corpuscular Volume 78.1 fL (80.0-98.0); Monocytes Absolute Auto 0.2 X10*3/uL (0.1-1.2); Monocytes Percent Auto 4.3 % (2-11); Neutrophils Absolute Auto 3.6 x10*3/uL (2.0-8.3); Neutrophils Percent Auto 67.4 % (45-73); Platelet Count 173 X10*3/uL (160-400); Red Blood Count 5.21 X10*6/uL (4.20-5.50); Red Cell Distribution Width 15.8 % (11.0-16.0); White Blood Count 5.3 X10*3/uL (4.8-10.8)
[2023-10-11 17:00] LABS: Estimated Average Glucose 97 mg/dL; Hemoglobin A1C 108.9534 umol/L
[2023-10-11 17:26] LABS: Alanine Aminotransferase 16 U/L (0-31); Albumin Level 4.4 g/dL (3.5-5.0); Alkaline Phosphatase 81 U/L (39-117); Anion Gap 17 (12-20); Aspartate Amino Transferase 17 U/L (5-31); Bilirubin Total 0.6 mg/dL (0.0-1.0); Blood Urea Nitrogen 9 mg/dL (9-16); C Reactive Protein < 0.10 mg/dL (< or = 0.50); Calcium 9.7 mg/dL (8.4-10.2); Carbon Dioxide 20 mmol/L (22-29); Chloride 107 mmol/L (96-108); Cholesterol 124 mg/dL (<200); Estimated Glomerular Filt Rate > 60; Glucose Random 76 mg/dL (60-115); HDL Cholesterol 43 mg/dL (>40); Iron 38 mcg/dL (30-160); LDL Cholesterol Calculated 71 mg/dL (<100); Percent Iron Saturation 11 % (15-50); Potassium 3.9 mmol/L (3.3-5.1); Sodium 140 mmol/L (135-145); Total Iron Binding Capacity 338 mcg/dL (228-428); Total Protein 7.8 g/dL (6.5-8.0); Triglycerides 50 mg/dL (<150); Unsaturated Iron Binding 300 ug/dL
[2023-10-11 17:42] LABS: Ferritin 8 ng/mL (10-122); TSH reflex Free T4 0.66 uIU/mL (0.32-4.0); Vitamin D 25-OH Total 13.8 ng/mL (>30)
[2023-10-11 17:47] LABS: Vitamin B12 341 pg/mL (200-900)
[2023-10-14 07:09] LABS: Zinc 67 mcg/dL (60-130)
[2023-10-15 20:24] LABS: Vitamin A 26 mcg/dL (38-98)
[2023-10-16 15:13] LABS: Vitamin B1 <6 nmol/L (8-30)
== END 2023-10-11 15:18 | disposition home or self-care (01) ==
LOC: HO.LAB 15:17
PROVIDERS: Absent Provider Physician Assistant Surgical; PCP Internal Medicine; Visit Provider Surgery
DX: Z01.818 Encounter for other preprocedural examination (principal)
CPT/HCPCS: 36415; 80053; 80061; 82306; 82607; 82728; 83036; 83540; 84425; 84443; 84590; 84630; 85025; 85610; 85730; 86140

== ENCOUNTER 2023-10-12 08:26 | Outpatient (AMB) | payer OTHER, SELFPAY ==
--- NOTE | 2023-10-12 12:03 | A.OFFVIS_ITS ---
VS Expanded 10/12/23 12:11 Height 5 ft 0.5 in Weight 166 lb 2 oz BMI 31.9 Body Fat % 37.8 Body Fat Mass 62.8 Fat Free Mass 103.4 Visceral Fat Rating 14 Body Water % 42.7 Body Water Mass 70.9 Basal Metabolic Rate/Score 1,374 Intake Visit Reasons: TV Pre Op LSG 10/19/23 Allergies amoxicillin Adverse Reaction (Intermediate, Verified 10/12/23 12:04) Hives clindamycin Adverse Reaction (Intermediate, Verified 10/12/23 12:04) Hives zithromyocin Adverse Reaction (Intermediate, Uncoded 10/12/23 12:04) hives Medication List - Last Reconciled 10/12/23 by Héctor Miranda MD albuterol sulfate 90 mcg/actuation 2 puffs inhalation Q6H PRN cholecalciferol (vitamin D3) 125 mcg PO DAILY gabapentin 600 mg PO DAILY iron,carbonyl-vitamin C 65 mg iron- 125 mg (Vitron-C) 1 tab PO DAILY mecobalamin (vitamin B12) 1,000 mcg sublingual DAILY ondansetron 4 mg PO Q12H pantoprazole 40 mg PO DAILY polyethylene glycol 3350 17 grams PO DAILY sertraline 50 mg PO DAILY sucralfate 10 mL PO BID vitamin A palmitate 10,000 units PO DAILY HPI HPI TV Pre Op LSG 10/19/23: Details: Start time: 11.53am, End time: 12.23pm ?I spent 25 minutes speaking with the patient on the phone plus an additional 5 minutes reviewing and updating records for a total of 30 minutes HPI Comments Details: Overall weight loss: 18.7lbs, or 9.85% TBWL Is doing 3 protein shakes (2oz of Fairlife in 6 oz of almond milk), 1.5 Fit Crunch protein bars and one meal (8 forks of protein and 8 forks of salad or vegetables) Exercise: walking outside. [facility]urchasing an elliptical [facility] Medical History (Updated 10/12/23 @ 12:17 by Héctor Miranda MD) BMI 31.0-31.9,adult Asthma Anxiety Depression Back pain BMI 36.0-36.9,adult Obesity Surgical History [place] teeth extracted S/P laparoscopic cholecystectomy Social History Patient Tobacco Use Status: Never used Tobacco Telehealth Telehealth Telehealth Platform: Telephone Location of provider rendering services: practice address Location of patient: address on file Patient Identification confirmed using: Name, : Yes Telehealth method: voice only Patient verbally consented to treatment: Yes Patient verbally consented to billing insurance company: Yes Patient informed of any privacy concerns related to visit: Yes Minutes spent on Phone/Video with Pt.: 30 Assessment & Plan Assessment & Plan (1) Obesity: Code(s): E66.9 - Obesity, unspecified Category: Medical Qualifiers: Obesity type: due to excess calories Obesity classification: adult class 2 (BMI 35 - 39.9) Serious obesity comorbidity presence: without serious comorbidity Body mass index: BMI 36.0-36.9 Qualified Code(s): E66.09 - Other obesity due to excess calories; Z68.36 - Body mass index [BMI] 36.0-36.9, adult Plan: 1. Plan for lap sleeve gastrectomy including upper GI endoscopy. All tests has been completed and reviewed and the patient is cleared for the surgery. ?If diaphragmatic or ventral hernias are present at time of surgery, these will be r epaired laparoscopically as well. Risks and complications were discussed in detail including possible conversion to an open procedure, anastomotic leak, bleeding requiring transfusion, small bowel obstruction, , DVT and pulmonary embolism, cardiac, or pulmonary complications, as long term care pharmacist complications such as anastomotic ulcer, insufficient weight loss and vitamin deficiencies. I emphasized the importance of close follow-up, adherence to instructions and good communication. So far she has proven to be an excellent communicator and very compliant with all our directions accomplishing a great weight loss. I believe that she is an excellent candidate and she is ready. 2. Preop prescriptions were provided and explained the purpose of each one. Need to be purchased preop. Start Pantoprazole now as you get it from the pharmacy, 1 pill per day. Sucralfate and Zofran are for after surgery as needed. 3. Bowel prep: please do 7 packets ?of Miralax mixing each one with a an 8oz glass of water, crystal light, gatorade zero, or propel ?on 11/18/20 and the same amount on 11/19/20. The Miralax you begin with one packet at a time in 8oz water or crystal light, gatorade zero, or propel ?as early in the day as you can and you do them back to back until you finish them. Continue the protein shakes during? the bowel prep. 4. Needs to purchase 1oz medicine cups . 5. Needs to purchase Children's liquid Tylenol for postop pain control. 6. She needs to stop all the vitamins on 11/11/20. Avoid aspirin, motrin, Advil, Aleve, Ibuprofen, Naproxyn. Tylenol is OK. 7. She needs to purchase the Celebrate 4:1 protein shakes from the hospital's gift shop. 8. Will do basic preop blood work-up any day between Tuesday04/12/22 and Tuesday04/16/22 fasting for 12 hours and is scheduled to see the Anesthesiologist prior to the day of surgery. 9. Importance of adherence to postop folllow-up and recommendations was underscored and she understands that. 10. Stop food and bars as of tomorrow 10/13/23 and continue with 5 protein shakes (3oz Fairlife mixed with 5oz almond milk) at 8am-10am, 11am-1pm, 2pm-4pm, 5pm- 7pm and at 8pm-10pm 11. No soups, broths or V8 12. The patient's?medical?history has been reviewed and they are considered low risk for post op DVT and therefore DVT prophylaxis is not considered necessary. Travel after surgery was reviewed. The patient has not disclosed any travel plans during the first 30 days after surgery and they have been advised that within the first 30 days after surgery any bus, plane, train or car travel over 2 hours in duration is contraindicated due to the possibility of developing blood clots from immobility. Any travel, needs to include periods of ambulation of 10 minutes in duration every 2 hours.? Patient was instructed to discuss any plans for travel during this period with their bariatric surgeon.? 13. Please take at the day of surgery the following medications: NONE 14. Stop any control pills and don't use them for one month after surgery 15. Absolutely no smoking or vaping, or marijuana until the surgery and for at least the first 4 weeks. Only nicotine patches are allowed. 16. Send me weight measurements on Tuesday10/15/23 and then on Tuesday10/19/23, the day of surgery before you go to the hospital. 17. Avoid any steroids by mouth for any reason. Let me know if someone prescribes them to you 18. These instructions supersede anything else you read in the handbook, anything you watched in videos or classes or you were told by any other provider. If there is any conflict, you follow the above instructions and nothing else. Medications: New sucralfate 10 mL PO BID 600 mL 2RF K21.9 - Gastro-esophageal reflux disease without esophagitis pantoprazole 40 mg PO DAILY 90 tabs 0RF K21.9 - Gastro-esophageal reflux disease without esophagitis ondansetron Only take one every 12 hours as needed if you have nausea 4 mg PO Q12H 20 tabs 0RF nausea and vomiting R11.0 - Nausea polyethylene glycol 3350 Mix each measuring cup with 8oz of water, Crystal light, or Gatorade zero, or Propel and do 7 measuring cups on 10/17/23 and another 7 measuring cups on 10/18/23 17 grams PO DAILY 238 grams 0RF Z01.818 - Encounter for other preprocedural examination
[2023-10-12 12:11] VITALS: BMI 31.9
== END 2023-10-12 12:24 | disposition home or self-care (01) ==
LOC: HO.HBS 08:26
PROVIDERS: PCP Internal Medicine; Visit Provider Surgery
DX: E66.09 Other obesity due to excess calories (principal); Z68.36 Body mass index [BMI] 36.0-36.9, adult
CPT/HCPCS: 99214

== ENCOUNTER → 2023-10-12 08:26 | Outpatient (BNVA) | payer OTHER, SELFPAY | PROVIDERS: PCP Internal Medicine; Visit Provider Surgery ==

== ENCOUNTER 2023-10-17 15:39 | Outpatient (REF) | payer OTHER, SELFPAY ==
[2023-10-17 17:30] LABS: Partial Thromboplastin Time 29.1 SEC (26.0-36.8)
== END 2023-10-17 15:40 | disposition home or self-care (01) ==
LOC: HO.LAB 15:39
PROVIDERS: Physician Assistant Surgical; Visit Provider Surgery
DX: Z01.818 Encounter for other preprocedural examination (principal)
CPT/HCPCS: 36415; 85610; 85730

== ENCOUNTER 2023-10-19 05:59 | Inpatient (IN) | payer OTHER, SELFPAY ==
[2023-10-13 10:58] VITALS: BMI 31.9
--- NOTE | 2023-10-17 12:37 | P.CONAN_ITS ---
Documented by User: Judie Chaavrria NP 10/17/23 12:38 HPI - Anesthesia Eval Consult details Narrative: 23yo F for Gastrectomy Sleeve-EGD, possible diaphragmatic hernia, possible ventral hernia, possible open PMFSH Active Problems Active Problems: All Active Problems Pre-op evaluation (Acute) H. pylori infection (Acute) Abnormal chest xray (Acute) Vitamin B12 deficiency (Acute) Vitamin A deficiency (Acute) Vitamin D deficiency (Acute) Anemia (Acute) BMI 31.0-31.9,adult (Acute) Asthma (Acute) Anxiety (Acute) Depression (Acute) Back pain (Acute) BMI 36.0-36.9,adult (Acute) Obesity (Acute) Past Medical History Medical History BMI 31.0-31.9,adult Asthma Anxiety Depression Back pain BMI 36.0-36.9,adult Obesity Family History Family history of problems with anesthesia: No Surgical History Surgical History [place] teeth extracted S/P laparoscopic cholecystectomy History of Problems with Anesthesia: No Social History Social History Are you a primary medicare contact specialist to a significant other at home: No Do you presently have visiting nurse or other home services: No Patient Tobacco Use Status: Never used Tobacco Use of substances other than those prescribed or required for medical reasons: No Have you been hit, kicked, punched, or otherwise hurt by someone within the past year? If so, by whom?: No Are you DNR?: No Advance Directives: No Advance Directives Information Provided: No Advance Directives on File: No Recently lost weight without trying: No Eating poorly because of decreased appetite: No Nutrition Risks: No Nutritional Risk Patient : No FDLMP: 10/12/23 : No Poor oral hygiene: No Meds Allergies Allergy/AdvReac Type Severity Reaction Status Date / Time amoxicillin Allergy Intermediate Hives Verified 10/13/23 10:38 azithromycin Allergy Intermediate Hives Verified 10/13/23 10:38 clindamycin Allergy Intermediate Hives Verified 10/13/23 10:38 Home Medications ?Medication ?Instructions ?Recorded ?Confirmed ?Last Taken ?Type albuterol sulfate 90 mcg/actuation 2 puff inhalation Q6H PRN 04/25/23 10/13/23 Unknown History aerosol inhaler sob/wheezing gabapentin 600 mg tablet 600 mg PO DAILY 04/25/23 10/13/23 06/01/23 14:00 History sertraline 50 mg tablet 50 mg PO DAILY 04/25/23 10/13/23 Unknown History Exam Height,Weight and Vital Signs: Height 5 ft 0.5 in Weight 75.353 kg Pertinent Lab Results Pertinent Lab Results: Laboratory Tests 10/11/23 15:57 Blood Type O Negative Antibody Screen NEGATIVE Laboratory Tests 10/11/23 16:01 WBC 5.3 Hgb 13.3 Hct 40.7 Plt Count 173 Sodium 140 Potassium 3.9 Chloride 107 Carbon Dioxide 20 L BUN 9 Creatinine 0.70 Assessment and Plan Assessment Anesthesia Assessment: Chart Reviewed Final Anesthetic Review Family History of Problems with Anesthesia: No History of Problems with Anesthesia: No Documented by User: Haydee Schaefer MD 10/19/23 08:39 HPI - Anesthesia Eval Consult details Narrative: 23yo F for EGD,Laparoscopic Sleeve Gastrectomy, possible diaphragmatic hernia repair, possible ventral hernia repair, possible open PMFSH Active Problems Active Problems: All Active Problems Pre-op evaluation (Acute) H. pylori infection (Acute) Abnormal chest xray (Acute). CT chest- no abnormality Vitamin B12 deficiency (Acute) Vitamin A deficiency (Acute) Vitamin D deficiency (Acute) Anemia (Acute) Hct 40.7 MCV, MCH slightly low BMI 31.0-31.9,adult (Acute) BMI 32.3 Initial BMI 36.4 Asthma (Acute)- inhalers prn but 2-3 times per week Anxiety (Acute) Depression (Acute) Back pain (Acute) BMI 36.0-36.9,adult (Acute) Obesity (Acute) Past Medical History Medical History BMI 31.0-31.9,adult Asthma Anxiety Depression Back pain BMI 36.0-36.9,adult Obesity Family History Family history of problems with anesthesia: No Surgical History Surgical History [place] teeth extracted S/P laparoscopic cholecystectomy History of Problems with Anesthesia: No Social History Social History Are you a primary medicare contact specialist to a significant other at home: No Do you presently have visiting nurse or other home services: No Patient Tobacco Use Status: Never used Tobacco Use of substances other than those prescribed or required for medical reasons: No Have you been hit, kicked, punched, or otherwise hurt by someone within the past year? If so, by whom?: No Are you DNR?: No Advance Directives: No Advance Directives Information Provided: No Advance Directives on File: No Recently lost weight without trying: No Eating poorly because of decreased appetite: No Nutrition Risks: No Nutritional Risk Patient : No FDLMP: 10/12/23 : No Poor oral hygiene: No Meds Allergies Allergy/AdvReac Type Severity Reaction Status Date / Time amoxicillin Allergy Intermediate Hives Verified 10/13/23 10:38 azithromycin Allergy Intermediate Hives Verified 10/13/23 10:38 clindamycin Allergy Intermediate Hives Verified 10/13/23 10:38 Home Medications ?Medication ?Instructions ?Recorded ?Confirmed ?Last Taken ?Type albuterol sulfate 90 mcg/actuation 2 puff inhalation Q6H PRN 04/25/23 10/13/23 Unknown History aerosol inhaler sob/wheezing gabapentin 600 mg tablet 600 mg PO DAILY 04/25/23 10/13/23 06/01/23 14:00 History sertraline 50 mg tablet 50 mg PO DAILY 04/25/23 10/13/23 Unknown History Exam Height,Weight and Vital Signs: Height 5 ft 0.5 in Weight 75.353 kg Vital Signs Temp Pulse Resp BP Pulse Ox O2 Del Method 10/19/23 06:35 97.4 F 92 16 115/68 98 Room Air Pertinent Lab Results Pertinent Lab Results: Laboratory Tests 10/11/23 15:57 Blood Type O Negative Antibody Screen NEGATIVE Laboratory Tests 10/11/23 16:01 WBC 5.3 Hgb 13.3 Hct 40.7 Plt Count 173 Sodium 140 Potassium 3.9 Chloride 107 Carbon Dioxide 20 L BUN 9 Creatinine 0.70 Lab Results 10/11/23 10/19/23 Range/Units 15:57 07:15 Urine Test NEGATIVE (NEGATIVE) Blood Type O Negative Antibody Screen NEGATIVE Coags WNL Airway Mallampati Class: II TM Dist: >3cm Neck ROM: Full Loose/Missing/Broken Teeth: No (Denies broken, loose, missing teeth ) Heart: RRR Lungs: CTAB Assessment and Plan Assessment Anesthesia Assessment: Anesthesia Plan Discussed and Chart Reviewed Final Anesthetic Review Family History of Problems with Anesthesia: No History of Problems with Anesthesia: No NPO: Yes ASA Class: II Final Preanesthetic Review: No Changes in Pt Med Stat, Meds/Allgs Chart Reviewed, Consent Obtained/Reviewed and Anes Risks/Benef Reviewed Patient Risk: Intermediate Procedure Risk: Intermediate Assessment/Block/Sedation in SS: Assess/Block/Sedation-SS Anesthetic Plan Anesthetic Plan: GA Disposition: Standard PACU and Inp. Admit - Standard Bed
[2023-10-19] VITALS (10 sets, daily range): BP systolic 100–139; BP diastolic 58–90; PULSE 51–106; RESP 16–23; TEMP 36.1–36.5; O2SAT 98–100; BMI 32.3
--- OUTSIDE RECORDS SUMMARY | 2023-10-19 06:02 | XMS_ITS | Continuity of Care Document ---
Author Organization [facility] Address [address] [place] [address]- Care Team Providers Care Bridge Gang Worker Name Role Phone Julio Malloy MD Primary Care Physician Encounter [facility] [place] Date(s): 04/21/20 - 05/21/[address] [address]- Allergies, Adverse Reactions, Alerts Substance Reaction Severity Status clindamycin Swelling of throat Rash Persistent Severe Active amoxicillin Swelling of throat Rash Persistent Severe Active Zithromax Swelling of throat Rash Persistent Severe Active Immunizations Given and Recorded Vaccine Date Status Refusal Reason influenza virus vaccine, inactivated 02/15/20 Give n influenza virus vaccine, inactivated 01/23/19 Give n tetanus/diphtheria/pertussis, acel(Tdap) 01/16/20 Given tetanus/diphtheria/pertussis, acel(Tdap) 12/26/18 Given Human Papillomavirus Vaccine 06/14/19 Given Human Papillomavirus Vaccine 04/07/18 Given Hepatitis A Adult Vaccine 06/14/19 Given Hepatitis A Adult Vaccine 04/07/18 Given Meningococcal Conjugate Vaccine 1 04/07/18 Given 1Result Comment: [04/07/2018] diluent [id number] exp 09/06/2019 Medications acetaminophen 325 mg oral tablet 650 mg, 2, tablet, By Mouth, Every 4 hours, PRN, # 50 tablet, Refills 0, Tot. Refills 0, Maintenance, as needed for pain, 05/08/20 15:24:00 EST, Route to Pharmacy Electronically, [facility]/pharmacy #[id number], Partial fill upon patient request if the prescriptio... Start Date: 05/08/20 Status: Ordered Albuterol (Eqv-ProAir HFA) 90 mcg/inh inhalation aerosol 1 TO 2 PUFFS, Inhalation, Every 6 hours, PRN NEEDED FOR WHEEZE, # 8.5 Unknown, 1 Refills, Maintenance, 02/12/20 9:13:00 EDT, [id number], 25, INHALE 1 TO 2 PUFFS EVERY 6 HOURS NEEDED FOR WHEEZE, 155, cm, 02/03/20 17:37:00 EDT, Height, 84.8,... Start Date: 02/12/20 Status: Ordered betamethasone topical valerate 0.1% ointment 1 application, Topically, 2 times a day, Apply to affected areas. Rub in to absorb and apply lotionover medication, # 45 Gm, 0 Refills, Maintenance, 05/08/20 15:21:00 EST, Ointment, [facility]/pharmacy #[id number], Partial fill upon patient request if the prescri... Start Date: 05/08/20 Status: Ordered Radha 0.35 mg oral tablet 1 tablet = 0.35 mg, By Mouth, Daily, # 28 tablet, 12 Refills, Maintenance, 05/21/20 11:42:00 EST, Tablet, [facility]/pharmacy #[id number], Partial fill upon patient request if the prescription is for a schedule II opioid drug., 155, cm, 03/30/20 9:46:00 EST, Heigh... Start Date: 05/21/20 Status: Ordered etonogestrel 68 mg subcutaneous implant 1 each = 68 mg, Intradermal, permit review assistant to Procedure, 0 Refills, Maintenance, 03/30/20 5:27:00 EST, Implant, Partial fill upon patient request Start Date: 03/30/20 Status: Ordered naproxen 500 mg oral tablet 1 tablet = 500 mg, By Mouth, 2 times a day, PRN for pain, Take with food, # 30 tablet, 0 Refills, Maintenance, 05/08/20 15:25:00 EST, Tablet, [facility]/pharmacy #[id number], Partial fill upon patient request if the prescription is for a schedule II opioid drug.,... Start Date: 05/08/20 Status: Ordered Multivitamins with Folic Acid 1 mg oral tablet 1 tablet, By Mouth, Daily, # 30 tablet, 8 Refills, Maintenance, 08/21/19 12:03:00 EDT, Tablet, [facility]/pharmacy #[id number], 1 tablet By Mouth Daily, 155, cm, 07/23/19 10:51:00 EDT, Height, 93.2, kg, 03/23/19 11:10:00 EST, Dry Weight Start Date: 08/21/19 Status: Ordered valACYclovir 500 mg oral tablet 1, tablet, By Mouth, 2 times a day, # 60 tablet, Refills 1, Tot. Refills 0, Acute, 04/02/20 9:32:00EST, Route to Pharmacy Electronically, [id number], 155, cm, 03/30/20 9:46:00 EST, Height, 94.3, kg, 03/28/20 11:01:00 EST, Dry Weight Start Date: 04/02/20 Status: Ordered Problem List Condition Effective Dates Status Health Status Inform ant Anxiety(Confirmed) Active Asthma(Confirmed) Active Bipolar 1 disorder(Confirmed) Active Chlamydia(Confirmed) 2019 Active Depression(Confirmed) Active Family history of type 2 campos betes mellitus(Confirmed) Active Echogenic intracardiac focus of fetus on ultrasound(Confirmed) Active Short interval between pregn ancies affecting , antepartum(Confirmed) Active Herpes genitalia(Confirmed) Active 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
--- OUTSIDE RECORDS SUMMARY | 2023-10-19 06:02 | XMS_ITS | Continuity of Care Document ---
Author Organization [facility] Address [address] [place] [id number]- Care Team Providers Care Head Sawyer Automatic Name Role Phone Gama HDZ, Julio Chery Primary Care Physician Encounter [facility] [place] Date(s): 10/23/21 - 11/22/[address] [id number] Allergies, Adverse Reactions, Alerts Substance Reaction Severity Status clindamycin Swelling of throat Rash Persistent Severe Active amoxicillin Swelling of throat Rash Persistent Severe Active Zithromax Swelling of throat Rash Persistent Severe Active Immunizations Given and Recorded Vaccine Date Status Refusal Reason influenza virus vaccine, inactivated 02/15/20 Give n influenza virus vaccine, inactivated 01/23/19 Give n influenza virus vaccine, inactivated 02/23/18 Leonid rded tetanus/diphtheria/pertussis, acel(Tdap) 01/16/20 Given tetanus/diphtheria/pertussis, acel(Tdap) 12/26/18 Given Human Papillomavirus Vaccine 06/14/19 Given Human Papillomavirus Vaccine 04/07/18 Given Hepatitis A Adult Vaccine 06/14/19 Given Hepatitis A Adult Vaccine 04/07/18 Given Meningococcal Conjugate Vaccine 1 04/07/18 Given 1Result Comment: [04/07/2018] diluent [id number] exp 09/06/2019 Medications Advair Diskus 100 mcg-50 mcg inhalation powder 1, inhalation, Inhalation, 2 times a day, rinse mouth and throat after use replaces fluticasone inhaler, # 1 each, Refills 5, Tot. Refills 5, Maintenance, 09/01/20 10:55:00 EDT, Powder, Route to Pharmacy Electronically, [id number]... Start Date: 09/01/20 Status: Ordered Paxlovid 150 mg-100 mg oral tablet See Instructions, 300mg nirmatrelvir (two 150mg tablets) with 100mg ritonavir (one tablet). All 3 tablets taken together twice daily for 5 days, with or without food., # 30 tablet, 0 Refills, Maintenance, 09/17/21 12:59:00 EDT, [facility]/pharmacy #[id number], Pa... Start Date: 09/17/21 Status: Ordered Multivitamins with Folic Acid 1 mg oral tablet 1 tablet, By Mouth, Daily, # 90 tablet, 2 Refills, Maintenance, 11/11/21 12:32:00 EDT, [id number], Partial fill upon patient request if the prescription is for a schedule II opioid drug., 1 tablet By Mouth Daily, 155, cm, 11/11/21 10:26:00 EDT... Start Date: 11/11/21 Status: Ordered Multivitamins with Folic Acid 1 mg oral tablet 1 tablet, By Mouth, Daily, # 90 tablet, 2 Refills, Maintenance, 10/13/21 10:02:00 EDT, Tablet, [facility]/pharmacy #[id number], Partial fill upon patient request if the prescription is for a schedule II opioid drug., 1 tablet By Mouth Daily, 155, cm, 11/11/20 13:1... Start Date: 10/13/21 Status: Ordered Proventil HFA 90 mcg/inh inhalation aerosol with adapter 2, puffs, Inhalation, 4 times a day, PRN, # 25 Gm, Refills 0, Tot. Refills 0, Maintenance, 06/16/2110:02:00 EST, Aerosol, Route to Pharmacy Electronically, [id number], [facility]/pharmacy #[id number], 155, cm, 03/30/20 9:46:00 EST, Heigh... Start Date: 06/16/20 Status: Ordered pyridoxine 25 mg oral tablet 1 tablet = 25 mg, By Mouth, 3 times a day, for 14 days, # 42 tablet, 1 Refills, Acute 12/09/21 12:32:00 EDT, 11/11/21 12:32:00 EDT, Tablet, [facility]/pharmacy #[id number], Partial fill upon patient request if the prescription is for a schedule II opioid drug., 15... Start Date: 11/11/21 Stop Date: 12/09/21 Status: Ordered Unisom 25 mg oral tablet 1 tablet = 25 mg, By Mouth, Daily at bedtime, PRN for sleep, # 16 tablet, 0 Refills, Acute 12/13/2211:33:00 EDT, 11/11/21 12:33:00 EDT, Tablet, [facility]/pharmacy #[id number], Partial fill upon patient request if the prescription is for a schedule II opioid drug... Start Date: 11/11/21 Stop Date: 12/12/21 Status: Ordered Problem List Condition Effective Dates Status Health Status Inform ant Anxiety(Confirmed) Active Asthma(Confirmed) Active Bipolar 1 disorder(Confirmed) Active COVID-19 September 20, 2021(Confirmed) Active Depression(Confirmed) Active Family history of type 2 campos betes mellitus(Confirmed) Active Herpes genitalia(Confirmed) Active Migraines(Confirmed) Active Obese(Confirmed) Active Blood type, Rh negative(Confirmed) Active Social History Social History Type Response Smoking Status Never (less than 100 in lifetime) entered on: 08/07/18 Sex
--- OUTSIDE RECORDS SUMMARY | 2023-10-19 06:02 | XMS_ITS | Continuity of Care Document ---
Author Organization [facility] Address [address] [place] [address]- Care Team Providers Care Window Draper Name Role Phone Julio Malloy MD Primary Care Physician Encounter [facility] [place] Date(s): 01/27/22 - 05/15/[address] [address] Attending Physician: Catherine Ugalde CNM Admitting Physician: Catherine Ugalde CNM Allergies, Adverse Reactions, Alerts Substance Reaction Severity Status clindamycin Swelling of throat Rash Persistent Severe Active amoxicillin Swelling of throat Rash Persistent Severe Active Zithromax Swelling of throat Rash Persistent Severe Active Immunizations Given and Recorded Vaccine Date Status Refusal Reason tetanus/diphtheria/pertussis, acel(Tdap) 03/24/22 Given tetanus/diphtheria/pertussis, acel(Tdap) 01/16/20 Given tetanus/diphtheria/pertussis, acel(Tdap) 12/26/18 Given influenza virus vaccine, inactivated 02/15/20 Give n influenza virus vaccine, inactivated 01/23/19 Give n influenza virus vaccine, inactivated 02/23/18 Leonid rded Human Papillomavirus Vaccine 06/14/19 Given Human Papillomavirus Vaccine 04/07/18 Given Hepatitis A Adult Vaccine 06/14/19 Given Hepatitis A Adult Vaccine 04/07/18 Given Meningococcal Conjugate Vaccine 1 04/07/18 Given 1Result Comment: [04/07/2018] diluent [id number] exp 09/06/2019 Medications acetaminophen 325 mg oral tablet 650 mg, 2, tablet, By Mouth, Every 4 hours, PRN, # 100 tablet, Refills 1, Tot. Refills 1, Maintenance, as needed for pain, 03/31/22 9:53:00 EST, Route to Pharmacy Electronically, [facility]/pharmacy #[id number], Partial fill upon patient request if the prescriptio... Start Date: 03/31/22 Status: Ordered Advair Diskus 100 mcg-50 mcg inhalation powder 1, inhalation, Inhalation, 2 times a day, rinse mouth and throat after use replaces fluticasone inhaler, # 1 each, Refills 5, Tot. Refills 5, Maintenance, 09/01/20 10:55:00 EDT, Powder, Route to Pharmacy Electronically, [id number]... Start Date: 09/01/20 Status: Ordered albuterol CFC free 90 mcg/inh inhalation aerosol 2, puffs, Inhalation, Every 4 hours, PRN, # 6.7 Gm, Refills 0, Tot. Refills 0, Soft Stop, 03/31/22 9:52:00 EST, Aerosol, Route to Pharmacy Electronically, [id number], [facility]/pharmacy #[id number], 155, cm, 03/24/22 13:05:00 EST, Height... Start Date: 03/31/22 Status: Ordered Multivitamins with Folic Acid 1 mg oral tablet 1 tablet, By Mouth, Daily, # 90 tablet, 2 Refills, Maintenance, 11/11/21 12:32:00 EDT, [facility]/pharmacy#[id number], Partial fill upon patient request if the prescription is for a schedule II opioid drug., 1 tablet By Mouth Daily, 155, cm, 11/11/21 10:26:00 EDT... Start Date: 11/11/21 Status: Ordered Multivitamins with Folic Acid 1 mg oral tablet 1 tablet, By Mouth, Daily, # 90 tablet, 2 Refills, Maintenance, 10/13/21 10:02:00 EDT, Tablet, [facility]/pharmacy #[id number], Partial fill upon patient request if the prescription is for a schedule II opioid drug., 1 tablet By Mouth Daily, 155, cm, 11/11/20 13:1... Start Date: 10/13/21 Status: Ordered Valtrex 500 mg oral tablet 500 mg, 1, tablet, By Mouth, 2 times a day, # 30 tablet, Refills 1, Tot. Refills 1, Maintenance, 05/13/22 17:38:00 EST, Route to Pharmacy Electronically, [facility]/pharmacy #[id number], Partial fill upon patientrequest if the prescription is for a schedule II op... Start Date: 05/13/22 Status: Ordered Problem List Condition Confirmation Course Effective Dates Status Health St atus Informant Anxiety Confirmed Active Asthma Confirmed Active Bipolar 1 disorder Confirmed Active COVID-19 September 20, 2021 Confirmed Active Depression Confirmed Active Family history of type 2 diabetes mellitus Confirmed Active Herpes genitalia Confirmed Active Migraines Confirmed Active Obese class I Confirmed Active Blood type, Rh negative Confirmed Active Social History Social History Type Response Smoking Status Never (less than 100 in lifetime) entered on: 08/07/18 Sex Patient Care team information Care Team Personnel Name: Gama HDZ, Julio Chery Position: [facility] Primary Care Physician Member Role: PCP Address: Address: [address] [place] [address]- Care Team Related Persons Name: TALHA PACK Address: [address] [place] [address] Name: FABIO PEREIRA Address: [address] Address: home [address] [place] [address] [place] Name: MABEL BERRY Address: [address] Address: home [address] [place] [address] [place] Name: BROCK DWYER Address: home [address] [place] [address]
--- OUTSIDE RECORDS SUMMARY | 2023-10-19 06:02 | XMS_ITS | Continuity of Care Document ---
Author Organization [facility] Address [address] [place] [address]- Care Team Providers Care Staff Research Associate Name Role Phone Julio Malloy MD Primary Care Physician [place] [facility] [place](s[place] 12/02/21 - 01/01/[address] [address]- Allergies, Adverse Reactions, Alerts Substance Reaction Severity [...] 1 04/07/18 Given 1Result Comment: [04/07/2018] diluent [id number] exp 09/06/2019 Medications Advair Diskus 100 mcg-50 mcg inhalation powder 1, inhalation, Inhalation, 2 times a day, rinse mouth and throat after use replaces fluticasone inhaler, # 1 each, Refills 5, Tot. Refills 5, Maintenance, 09/01/20 10:55:00 EDT, Powder, Route to Pharmacy Electronically, [id number]... Start Date: 09/01/20 Status: Ordered albuterol CFC free 90 mcg/inh inhalation aerosol 2, puffs, Inhalation, Every 4 hours, PRN, # 6.7 Gm, Refills 0, Tot. Refills 0, Soft Stop, 12/08/21 15:01:00 EDT, Aerosol, Route to Pharmacy Electronically, [id number], [facility]/pharmacy #[id number], 155, cm, 12/08/21 14:56:00 EDT, Heigh... Start Date: 12/08/21 Status: Ordered Multivitamins with Folic Acid 1 mg oral tablet 1 tablet, By Mouth, Daily, # 90 tablet, 2 Refills, Maintenance, 11/11/21 12:32:00 EDT, [facility]/pharmacy#[id number], Partial fill upon patient request if the prescription is for a schedule II opioid drug., 1 tablet By Mouth Daily, 155, cm, 11/11/21 10:26:00 EDT... Start Date: 11/11/21 Status: Ordered Multivitamins with Folic Acid 1 mg oral tablet 1 tablet, By Mouth, Daily, # 90 tablet, 2 Refills, Maintenance, 10/13/21 10:02:00 EDT, Tablet, [facility]/pharmacy #[id number], Partial fill upon patient request if the prescription is for a schedule II opioid drug., 1 tablet By Mouth Daily, 155, cm, 11/11/20 13:1... Start Date: 10/13/21 Status: Ordered Problem List Condition Effective Dates Status Health Status Inform ant Anxiety(Confirmed) Active Asthma(Confirmed) Active Bipolar 1 disorder(Confirmed) Active COVID-19 September 20, 2021(Confirmed) Active Depression(Confirmed) Active Family history of type 2 campos betes mellitus(Confirmed) Active Herpes genitalia(Confirmed) Active Migraines(Confirmed) Active Blood type, Rh negative(Confirmed) Active Social History Social History Type Response Smoking Status Never (less than 100 in lifetime) entered on: 08/07/18 Sex Care Team Personnel Name: Julio Malloy MD Address: [address] [place] [address]
--- OUTSIDE RECORDS SUMMARY | 2023-10-19 06:02 | XMS_ITS | Continuity of Care Document ---
Author Organization [facility] Address [address] [place] [address]- Care Team Providers Care Predictive Maintenance Specialist Name Role Phone Julio Malloy MD Primary Care Physician Encounter [facility] Date(s): 05/16/20 - 06/15/[address] [address]- Allergies, Adverse Reactions, Alerts Substance Reaction Severity [...] 1 04/07/18 Given 1Result Comment: [04/07/2018] diluent [id number] exp 09/06/2019 Medications acetaminophen 325 mg oral tablet 650 mg, 2, tablet, By Mouth, Every 4 hours, PRN, # 50 tablet, Refills 5, Tot. Refills 5, Maintenance, as needed for pain, 06/03/20 11:08:00 EST, Route to Pharmacy Electronically, [facility]/pharmacy #[id number], Partial fill upon patient request if the prescriptio... Start Date: 06/03/20 Status: Ordered Albuterol (Eqv-ProAir HFA) 90 mcg/inh inhalation aerosol 1 TO 2 PUFFS, Inhalation, Every 6 hours, PRN NEEDED FOR WHEEZE, # 8.5 Unknown, 1 Refills, Maintenance, 02/12/20 9:13:00 EDT, [id number], 25, INHALE 1 TO 2 PUFFS EVERY 6 HOURS NEEDED FOR WHEEZE, 155, cm, 02/03/20 17:37:00 EDT, Height, 84.8,... Start Date: 02/12/20 Status: Ordered betamethasone topical valerate 0.1% ointment 1 application, Topically, 2 times a day, Apply to affected areas. Rub in to absorb and apply lotionover medication, # 45 Gm, 0 Refills, Maintenance, 06/03/20 14:40:00 EST, Ointment, [facility]/pharmacy #[id number], Partial fill upon patient request if the prescri... Start Date: 06/03/20 Status: Ordered Radha 0.35 mg oral tablet 1 tablet = 0.35 mg, By Mouth, Daily, # 28 tablet, 12 Refills, Maintenance, 05/21/20 11:42:00 EST, Tablet, [facility]/pharmacy #[id number], Partial fill upon patient request if the prescription is for a schedule II opioid drug., 155, cm, 03/30/20 9:46:00 EST, Heigh... Start Date: 05/21/20 Status: Ordered etonogestrel 68 mg subcutaneous implant 1 each = 68 mg, Intradermal, manager call to Procedure, 0 Refills, Maintenance, 03/30/20 5:27:00 EST, Implant, Partial fill upon patient request Start Date: 03/30/20 Status: Ordered Lidoderm 5% film 1 patch, Topically, Daily, (remove patch(s) after 12 hours), # 30 patch, 2 Refills, Maintenance, 06/03/20 14:36:00 EST, [facility]/pharmacy #[id number], 1 patch Topically Daily,Instr:(remove patch(s) after 12 hours), 155, cm, 03/30/20 9:46:00 EST, Height, 94.3, kg... Start Date: 06/03/20 Status: Ordered naproxen 500 mg oral tablet 1 tablet = 500 mg, By Mouth, 2 times a day, PRN for pain, Take with food, # 30 tablet, 0 Refills, Maintenance, 06/03/20 11:08:00 EST, Tablet, [facility]/pharmacy #[id number], Partial fill upon patient request if the prescription is for a schedule II opioid drug.,... Start Date: 06/03/20 Status: Ordered Multivitamins with Folic Acid 1 mg oral tablet 1 tablet, By Mouth, Daily, # 30 tablet, 8 Refills, Maintenance, 08/21/19 12:03:00 EDT, Tablet, [facility]/pharmacy #[id number], 1 tablet By Mouth Daily, 155, cm, 07/23/19 10:51:00 EDT, Height, 93.2, kg, 03/23/19 11:10:00 EST, Dry Weight Start Date: 08/21/19 Status: Ordered valACYclovir 500 mg oral tablet 1, tablet, By Mouth, 2 times a day, # 60 tablet, Refills 1, Tot. Refills 0, Acute, 04/02/20 9:32:00EST, Route to Pharmacy Electronically, [id number], 155, cm, 03/30/20 9:46:00 EST, Height, 94.3, [...]
--- OUTSIDE RECORDS SUMMARY | 2023-10-19 06:02 | XMS_ITS | Continuity of Care Document ---
Author Organization [facility] Address [address] [place] [address]- Care Team Providers Care Patient Access Director Name Role Phone Julio Malloy MD Primary Care Physician [place] [facility] [place] - 07/24/[address] [address]- Allergies, Adverse Reactions, Alerts Substance Reaction Severity [...] 1 04/07/18 Given 1Result Comment: [04/07/2018] diluent [id number] exp 09/06/2019 Medications acetaminophen 325 mg oral tablet 650 mg, 2, tablet, By Mouth, Every 4 hours, PRN, # 50 tablet, Refills 5, Tot. Refills 5, Maintenance, as needed for pain, 06/03/20 11:08:00 EST, Route to Pharmacy Electronically, [facility]/pharmacy #[id number], Partial fill upon patient request if the prescriptio... Start Date: 06/03/20 Status: Ordered Radha 0.35 mg oral tablet 1 tablet = 0.35 mg, By Mouth, Daily, # 28 tablet, 12 Refills, Maintenance, 05/21/20 11:42:00 EST, Tablet, [facility]/pharmacy #[id number], Partial fill upon patient request if the prescription is for a schedule II opioid drug., 155, cm, 03/30/20 9:46:00 EST, Heigh... Start Date: 05/21/20 Status: Ordered duloxetine 30 mg oral enteric coated capsule 1 capsule = 30 mg, By Mouth, Daily, do not crush or chew, # 30 capsule, 2 Refills, Maintenance, 07/04/20 8:44:00 EST, CR Capsule, [id number], Partial fill upon patient request if the prescription is for a schedule II opioid drug., 155, cm, ... Start Date: 07/04/20 Status: Ordered etonogestrel 68 mg subcutaneous implant 1 each = 68 mg, Intradermal, call center nurse to Procedure, 0 Refills, Maintenance, 03/30/20 5:27:00 EST, Implant, Partial fill upon patient request Start Date: 03/30/20 Status: Ordered Flovent HFA 110 mcg/inh inhalation aerosol 2 puffs, Inhalation, 2 times a day, # 12 Gm, 0 Refills, Maintenance, 06/16/20 11:05:00 EST, Aerosol, [id number], Partial fill upon patient request if the prescription is for a schedule II opioid drug., 155, cm, 03/30/20 9:46:00 EST, Height, 94... Start Date: 06/16/20 Status: Ordered Lidoderm 5% film 1 patch, Topically, Daily, (remove patch(s) after 12 hours), # 30 patch, 2 Refills, Maintenance, 06/03/20 14:36:00 EST, [id number], 1 patch Topically Daily,Instr:(remove patch(s) after 12 hours), 155, cm, 03/30/20 9:46:00 EST, Height, 94.3, kg... Start Date: 06/03/20 Status: Ordered naproxen 500 mg oral tablet 1 tablet = 500 mg, By Mouth, 2 times a day, PRN for pain, Take with food, # 30 tablet, 0 Refills, Maintenance, 06/03/20 11:08:00 EST, Tablet, [id number], Partial fill upon patient request if the prescription is for a schedule II opioid drug.,... Start Date: 06/03/20 Status: Ordered Multivitamins with Folic Acid 1 mg oral tablet 1 tablet, By Mouth, Daily, # 30 tablet, 8 Refills, Maintenance, 08/21/19 12:03:00 EDT, Tablet, [facility]/pharmacy #[id number], 1 tablet By Mouth Daily, 155, cm, 07/23/19 10:51:00 EDT, Height, 93.2, kg, 03/23/19 11:10:00 EST, Dry Weight Start Date: 08/21/19 Status: Ordered Proventil HFA 90 mcg/inh inhalation aerosol with adapter 2, puffs, Inhalation, 4 times a day, PRN, # 25 Gm, Refills 0, Tot. Refills 0, Maintenance, 06/16/2110:02:00 EST, Aerosol, Route to Pharmacy Electronically, [id number], [facility]/pharmacy #[id number], 155, cm, 03/30/20 9:46:00 EST, Heigh... Start Date: 06/16/20 Status: Ordered valACYclovir 500 mg oral tablet 1, tablet, By Mouth, 2 times a day, # 60 tablet, Refills 1, Tot. 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
--- OUTSIDE RECORDS SUMMARY | 2023-10-19 06:02 | XMS_ITS | Continuity of Care Document ---
Author Organization [facility] Address [address] [place] [address]- Care Team Providers Care Health Policy Analyst Name Role Phone Gama HDZ, Julio Chery Primary Care Physician [place] [facility] [place] - 11/29/[address] [address] Attending Physician: Not on Staff, Attending MD Allergies, Adverse Reactions, Alerts Substance Reaction Severity [...] 1 04/07/18 Given 1Result Comment: [04/07/2018] diluent [id number] exp 09/06/2019 Medications Advair Diskus 100 mcg-50 mcg inhalation powder 1, inhalation, Inhalation, 2 times a day, rinse mouth and throat after use replaces fluticasone inhaler, # 1 each, Refills 5, Tot. Refills 5, Maintenance, 09/01/20 10:55:00 EDT, Powder, Route to Pharmacy Electronically, [id number]... Start Date: 09/01/20 Status: Ordered Radha 0.35 mg oral tablet 1 tablet = 0.35 mg, By Mouth, Daily, # 28 tablet, 12 Refills, Maintenance, 05/21/20 11:42:00 EST, Tablet, [facility]/pharmacy #[id number], Partial fill upon patient request if the prescription is for a schedule II opioid drug., 155, cm, 03/30/20 9:46:00 EST, Heigh... Start Date: 05/21/20 Status: Ordered Claritin 10 mg oral tablet 10 mg, 1, tablet, By Mouth, Every other day, # 15 tablet, Refills 0, Tot. Refills 0, Maintenance, 11/12/20 14:32:00 EDT, Route to Pharmacy Electronically, [facility]/pharmacy #[id number], Partial fill upon patient request if the prescription is for a schedule II o... Start Date: 11/12/20 Status: Ordered duloxetine 20 mg oral enteric coated capsule 1 capsule = 20 mg, By Mouth, Daily, # 30 capsule, 5 Refills, Maintenance, 09/01/20 10:54:00 EDT, [facility]/pharmacy #[id number], Partial fill upon patient request if the prescription is for a schedule II opioid drug., 155, cm, 07/28/20 9:59:00 EDT, Height, 94.3,... Start Date: 09/01/20 Status: Ordered etonogestrel 68 mg subcutaneous implant 1 each = 68 mg, Intradermal, call center supervisor to Procedure, 0 Refills, Maintenance, 03/30/20 5:27:00 EST, Implant, Partial fill upon patient request Start Date: 03/30/20 Status: Ordered Flonase 50 mcg/inh nasal spray 1 sprays, Nares, Both, 2 times a day, # 16 Gm, 3 Refills, Maintenance, 09/01/20 10:58:00 EDT, [place], [facility]/pharmacy #[id number], Partial fill upon patient request if the prescription is for a schedule II opioid drug., 1 sprays Nares, Both 2 times a day, 155,... Start Date: 09/01/20 Status: Ordered ibuprofen 600 mg oral tablet See Instructions, 1 tablet By Mouth Every 6 hours starting 48 hours before menses, take with food, # 60 tablet, Refills 1, Tot. Refills 1, Maintenance, 09/03/20 18:07:00 EDT, Instructions Replace Required Details, [facility] Start Date: 09/03/20 Status: Ordered Lidoderm 5% film 1 patch, Topically, Daily, (remove patch(s) after 12 hours), # 30 patch, 2 Refills, Maintenance, 06/03/20 14:36:00 EST, [facility]/pharmacy #[id number], 1 patch Topically Daily,Instr:(remove patch(s) after 12 hours), 155, cm, 03/30/20 9:46:00 EST, Height, 94.3, kg... Start Date: 06/03/20 Status: Ordered naproxen 500 mg oral tablet 1 tablet = 500 mg, By Mouth, 2 times a day, PRN for pain, Take with food, # 30 tablet, 0 Refills, Maintenance, 06/03/20 11:08:00 EST, Tablet, [facility]/pharmacy #[id number], Partial fill upon patient request if the prescription is for a schedule II opioid drug.,... Start Date: 06/03/20 Status: Ordered neoprene knee brace, size Medium neoprene knee brace, size Medium, See Instructions, # 1 each, Refills 0, Tot. Refills 0, Maintenance, wear daily for knee pain, 09/01/20 11:00:00 EDT, Supply, 155, cm, 07/28/20 9:59:00 EDT, Height, 94.3, kg, 03/28/20 11:01:00 EST, Dry Weight Start Date: 09/01/20 Status: Ordered Patanol 0.1% ophthalmic solution 1 drops, Eyes, Both, 2 times a day, PRN Itch, # 5 mL, 2 Refills, Maintenance, 09/01/20 10:56:00 EDT, Ophth Solution, [id number], Partial fill upon patient request if the prescription is for aschedule II opioid drug., 1 drops Eyes, Both 2 time... Start Date: 09/01/20 Stop Date: 11/30/20 Status: Ordered Multivitamins with Folic Acid 1 mg oral tablet 1 tablet, By Mouth, Daily, # 30 tablet, 8 Refills, Maintenance, 08/21/19 12:03:00 EDT, Tablet, [facility]/pharmacy #[id number], 1 tablet By Mouth Daily, 155, cm, 07/23/19 10:51:00 EDT, Height, 93.2, kg, 03/23/19 11:10:00 EST, Dry Weight Start Date: 08/21/19 Status: Ordered Proventil HFA 90 mcg/inh inhalation aerosol with adapter 2, puffs, Inhalation, 4 times a day, PRN, # 25 Gm, Refills 0, Tot. Refills 0, Maintenance, 06/16/2110:02:00 EST, Aerosol, Route to Pharmacy Electronically, [id number], [facility]/pharmacy #[id number], 155, cm, 03/30/20 9:46:00 EST, Heigh... Start Date: 06/16/20 Status: Ordered Rhinocort Allergy 32 mcg/inh nasal spray = 32 mcg, Nares, Both, Daily, # 8.6 Gm, 0 Refills, Maintenance, 11/12/20 14:33:00 EDT, [facility]/pharmacy#[id number], Partial fill upon patient request if the prescription is for a schedule II opioid drug., 155, cm, 11/11/20 13:17:00 EDT, Height, 94.3, kg, 03/28... Start Date: 11/12/20 Stop Date: 11/26/20 Status: Ordered valACYclovir 500 mg oral tablet 1, tablet, By Mouth, 2 times a day, # 60 tablet, Refills 1, Tot. Refills 0, Acute, 04/02/20 9:32:00EST, Route to Pharmacy Electronically, [id number], 155, cm, 03/30/20 9:46:00 EST, Height, 94.3, kg, 03/28/20 11:01:00 EST, Dry Weight Start Date: 04/02/20 Status: Ordered ZyrTEC 10 mg oral tablet 1 tablet = 10 mg, By Mouth, Daily, PRN Congestion, # 30 tablet, 3 Refills, Maintenance, 09/01/20 10:58:00 EDT, Tablet, [facility]/pharmacy #[id number], Partial fill upon patient request if the prescription is fora schedule II opioid drug., 155, cm, 07/28/20 9:59:... Start Date: 09/01/20 Status: Ordered Problem List Condition Effective Dates [...]
--- OUTSIDE RECORDS SUMMARY | 2023-10-19 06:03 | XMS_ITS | Continuity of Care Document ---
Author Organization [facility] Address [address] [place] [address]- Care Team Providers Care Medical Doctor Md Name Role Phone Gama HDZ, Julio Chery Primary Care Physician [phone] [place]counter [facility] [place] Date(s): 03/25/20 - 05/08/[address] [address]- Attending Physician: Catherine Ugalde CNM Admitting Physician: [...] 1 04/07/18 Given 1Result Comment: [04/07/2018] diluent [id number] exp 09/06/2019 Medications acetaminophen 325 mg oral tablet 650 mg, 2, tablet, By Mouth, Every 4 hours, PRN, # 50 tablet, Refills 0, Tot. Refills 0, Maintenance, as needed for pain, 05/08/20 15:24:00 EST, Route to Pharmacy Electronically, [facility]/pharmacy #[id number], Partial fill upon patient request if the prescriptio... Start Date: 05/08/20 Status: Ordered Albuterol (Eqv-ProAir HFA) 90 mcg/inh inhalation aerosol 1 TO 2 PUFFS, Inhalation, Every 6 hours, PRN NEEDED FOR WHEEZE, # 8.5 Unknown, 1 Refills, Maintenance, 02/12/20 9:13:00 EDT, [id number], 25, INHALE 1 TO 2 PUFFS EVERY 6 HOURS NEEDED FOR WHEEZE, 155, cm, 02/03/20 17:37:00 EDT, Height, 84.8,... Start Date: 02/12/20 Status: Ordered betamethasone topical valerate 0.1% ointment 1 application, Topically, 2 times a day, Apply to affected areas. Rub in to absorb and apply lotionover medication, # 45 Gm, 0 Refills, Maintenance, 05/08/20 15:21:00 EST, Ointment, [id number], Partial fill upon patient request if the prescri... Start Date: 05/08/20 Status: Ordered cyclobenzaprine 5 mg oral tablet 1 tablet = 5 mg, By Mouth, 3 times a day, for 7 days, Stretch or massage tight muscle after medication takes effect, # 21 tablet, 0 Refills, Acute 05/15/20 15:23:00 EST, 05/08/20 15:23:00 EST, Tablet, [id number], Partial fill upon patient requ... Start Date: 05/08/20 Stop Date: 05/15/20 Status: Ordered etonogestrel 68 mg subcutaneous implant 1 each = 68 mg, Intradermal, call taker to Procedure, 0 Refills, Maintenance, 03/30/20 5:27:00 EST, Implant, Partial fill upon patient request Start Date: 03/30/20 Status: Ordered naproxen 500 mg oral tablet 1 tablet = 500 mg, By Mouth, 2 times a day, PRN for pain, Take with food, # 30 tablet, 0 Refills, Maintenance, 05/08/20 15:25:00 EST, Tablet, [id number], Partial fill upon patient request if the prescription is for a schedule II opioid drug.,... Start Date: 05/08/20 Status: Ordered Multivitamins with Folic Acid 1 mg oral tablet 1 tablet, By Mouth, Daily, # 30 tablet, 8 Refills, Maintenance, 08/21/19 12:03:00 EDT, Tablet, [id number], 1 tablet By Mouth Daily, 155, cm, 07/23/19 10:51:00 EDT, Height, 93.2, kg, 03/23/19 11:10:00 EST, Dry Weight Start Date: 08/21/19 Status: Ordered valACYclovir 500 mg oral tablet 1, tablet, By Mouth, 2 times a day, # 60 tablet, Refills 1, Tot. Refills 0, Acute, 04/02/20 9:32:00EST, Route to Pharmacy Electronically, [id number], 155, cm, 03/30/20 9:46:00 EST, Height, 94.3, [...]
--- OUTSIDE RECORDS SUMMARY | 2023-10-19 06:03 | XMS_ITS | Continuity of Care Document ---
Author Organization [facility] Address [address] [place] [address]- Care Team Providers Care Fur Liner Name Role Phone Julio Malloy MD Primary Care Physician [place] [facility] [place] 03/25/[place] - 07/23/[address] [address] Attending Physician: Catherine Ugalde CNM [...] 1 04/07/18 Given 1Result Comment: [04/07/2018] diluent [id number] exp 09/06/2019 Medications acetaminophen 325 mg oral tablet 650 mg, 2, tablet, By Mouth, Every 4 hours, PRN, # 100 tablet, Refills 1, Tot. Refills 1, Maintenance, as needed for pain, 03/31/22 9:53:00 EST, Route to Pharmacy Electronically, [facility]/pharmacy #[id number], Partial fill upon patient request if the prescriptio... Start Date: 03/31/22 Status: Ordered Advair Diskus 100 mcg-50 mcg inhalation powder 1, inhalation, Inhalation, 2 times a day, rinse mouth and throat after use replaces fluticasone inhaler, # 1 each, Refills 5, Tot. Refills 5, Maintenance, 06/15/22 14:52:00 EST, Powder, Route to Pharmacy Electronically, [id number]... Start Date: 06/15/22 Status: Ordered albuterol CFC free 90 mcg/inh inhalation aerosol 2, puffs, Inhalation, Every 4 hours, PRN, # 6.7 Gm, Refills 0, Tot. Refills 0, Soft Stop, 06/15/22 14:52:00 EST, Aerosol, Route to Pharmacy Electronically, [id number], [facility]/pharmacy #[id number], 155, cm, 06/15/22 14:05:00 EST, Heigh... Start Date: 06/15/22 Status: Ordered Keturah 30 mg oral tablet 1 tablet = 30 mg, By Mouth, Once, # 1 tablet, 0 Refills, Soft Stop, 06/20/22 4:51:00 EST, Tablet, [facility]/pharmacy #[id number], Partial fill upon patient request if the prescription is for a schedule II opioiddrug., 155, cm, 06/20/22 0:24:00 EST, Height, 92.5,... Start Date: 06/20/22 Status: Ordered Multivitamins with Folic Acid 1 mg oral tablet 1 tablet, By Mouth, Daily, # 90 tablet, 2 Refills, Maintenance, 11/11/21 12:32:00 EDT, [facility]/pharmacy#[id number], Partial fill upon patient request if the prescription is for a schedule II opioid drug., 1 tablet By Mouth Daily, 155, cm, 11/11/21 10:26:00 EDT... Start Date: 11/11/21 Status: Ordered Multivitamins with Folic Acid 1 mg oral tablet 1 tablet, By Mouth, Daily, # 90 tablet, 2 Refills, Maintenance, 10/13/21 10:02:00 EDT, Tablet, [id number], Partial fill upon patient request if the prescription is for a schedule II opioid drug., 1 tablet By Mouth Daily, 155, cm, 11/11/20 13:1... Start Date: 10/13/21 Status: Ordered Problem List Condition Confirmation Course Effective Dates Status Health St atus Informant Anxiety Confirmed Active Asthma Confirmed Active Bipolar 1 disorder Confirmed Active Family history of type 2 diabetes mellitus Confirmed Active Herpes genitalia Confirmed Active Migraines Confirmed Active Health detention, active care coordination [facility] branch operations coordinator [facility] [phone] Confirmed Active Severe obesity (BMI 35.0-39.9) with comorbidity Confirmed Active Social History Social History Type Response Smoking Status Never (less than 100 in lifetime) entered on: 08/07/18 Sex Patient Care team information Care Team Personnel Name: Gama HDZ, Julio Chery Position: [facility] Primary Care Physician Member Role: PCP Address: Address: [address] [place] [address]- Care Team Related Persons Name: TALHA PACK Address: [address] [place] [address] Name: FABIO PEREIRA Address: [address] Address: home [address] [place] [address] [place] Name: MABEL BERRY Address: [address] Address: home [address] [place] [address] [place] Name: ELIZABETH BERRY Address: [address] Address: home [address] [place] [address] [place] Name: BROCK DWYER Address: home [address] [place] [address]
--- OUTSIDE RECORDS SUMMARY | 2023-10-19 06:03 | XMS_ITS | Continuity of Care Document ---
Author Organization [facility] Address [address] [place] [address]- Care Team Providers Care Pyroglazer Name Role Phone Gama HDZ, Julio Chery Primary Care Physician [phone] [place] [facility] [place] 01/[place]/[address] [address] Allergies, Adverse Reactions, Alerts Substance Reaction Severity [...] 1 04/07/18 Given 1Result Comment: [04/07/2018] diluent [id number] exp 09/06/2019 Medications Advair Diskus 100 mcg-50 mcg inhalation powder 1, inhalation, Inhalation, 2 times a day, rinse mouth and throat after use replaces fluticasone inhaler, # 1 each, Refills 5, Tot. Refills 5, Maintenance, 09/01/20 10:55:00 EDT, Powder, Route to Pharmacy Electronically, [id number]... Start Date: 09/01/20 Status: Ordered albuterol CFC free 90 mcg/inh inhalation aerosol 2, puffs, Inhalation, Every 4 hours, PRN, # 6.7 Gm, Refills 0, Tot. Refills 0, Soft Stop, 12/08/21 15:01:00 EDT, Aerosol, Route to Pharmacy Electronically, [id number], [facility]/pharmacy #[id number], 155, cm, 12/08/21 14:56:00 EDT, Heigh... Start Date: 12/08/21 Status: Ordered Multivitamins with Folic Acid 1 mg oral tablet 1 tablet, By Mouth, Daily, # 90 tablet, 2 Refills, Maintenance, 11/11/21 12:32:00 EDT, [facility]/pharmacy#[id number], Partial fill upon patient request if the prescription is for a schedule II opioid drug., 1 tablet By Mouth Daily, 155, cm, 11/11/21 10:26:00 EDT... Start Date: 11/11/21 Status: Ordered Multivitamins with Folic Acid 1 mg oral tablet 1 tablet, By Mouth, Daily, # 90 tablet, 2 Refills, Maintenance, 10/13/21 10:02:00 EDT, Tablet, [facility]/pharmacy #[id number], Partial fill upon patient request if [...] on: 08/07/18 Sex Care Team Personnel Name: Gama HDZ, Julio Chery Address: [address] [place] [address]
--- OUTSIDE RECORDS SUMMARY | 2023-10-19 06:03 | XMS_ITS | Continuity of Care Document ---
Author Organization [facility] Address [address] [place] [address]- Care Team Providers Care Toy Consultant Name Role Phone Julio Malloy MD Primary Care Physician [phone] Encounter [facility] [place] Date(s): 05/20/20 - 06/19/[address] [address]- Allergies, Adverse Reactions, Alerts Substance Reaction Severity [...] 1 04/07/18 Given 1Result Comment: [04/07/2018] diluent [id number] exp 09/06/2019 Medications acetaminophen 325 mg oral tablet 650 mg, 2, tablet, By Mouth, Every 4 hours, PRN, # 50 tablet, Refills 5, Tot. Refills 5, Maintenance, as needed for pain, 06/03/20 11:08:00 EST, Route to Pharmacy Electronically, [facility]/pharmacy #[id number], Partial fill upon patient request if the prescriptio... Start Date: 06/03/20 Status: Ordered betamethasone topical valerate 0.1% ointment 1 application, Topically, 2 times a day, Apply to affected areas. Rub in to absorb and apply lotionover medication, # 45 Gm, 0 Refills, Maintenance, 06/03/20 14:40:00 EST, Ointment, [id number], Partial fill upon patient request if the prescri... Start Date: 06/03/20 Status: Ordered Radha 0.35 mg oral tablet 1 tablet = 0.35 mg, By Mouth, Daily, # 28 tablet, 12 Refills, Maintenance, 05/21/20 11:42:00 EST, Tablet, [id number], Partial fill upon patient request if the prescription is for a schedule II opioid drug., 155, cm, 03/30/20 9:46:00 EST, Heigh... Start Date: 05/21/20 Status: Ordered etonogestrel 68 mg subcutaneous implant 1 each = 68 mg, Intradermal, call center support representative to Procedure, 0 Refills, Maintenance, 03/30/20 5:27:00 [...] Refills, Maintenance, 08/21/19 12:03:00 EDT, Tablet, [facility]/pharmacy #[id number], 1 tablet By Mouth Daily, 155, cm, 07/23/19 10:51:00 EDT, Height, 93.2, kg, 03/23/19 11:10:00 EST, Dry Weight Start Date: 08/21/19 Status: Ordered Proventil HFA 90 mcg/inh inhalation aerosol with adapter 2, puffs, Inhalation, 4 times a day, PRN, # 25 Gm, Refills 0, Tot. Refills 0, Maintenance, 06/16/2110:02:00 EST, Aerosol, Route to Pharmacy Electronically, [id number], [facility]/pharmacy #[id number], 155, cm, 03/30/20 9:46:00 EST, Heigh... Start Date: 06/16/20 Status: Ordered valACYclovir 500 mg oral tablet 1, tablet, By Mouth, 2 times a day, # 60 tablet, Refills 1, Tot. Refills 0, Acute, 04/02/20 9:32:00EST, Route to Pharmacy Electronically, [id number], 155, cm, 03/30/20 9:46:00 EST, Height, 94.3, [...]
--- OUTSIDE RECORDS SUMMARY | 2023-10-19 06:03 | XMS_ITS | Continuity of Care Document ---
Author Organization [facility] Address [address] [place] [address]- Care Team Providers Care Manager Call Name Role Phone Julio Malloy MD Primary Care Physician [place] [facility] [place] 12/16/21 - 01/15/[address] [address]- Allergies, Adverse Reactions, Alerts Substance Reaction Severity [...] 1 04/07/18 Given 1Result Comment: [04/07/2018] diluent [id number] exp 09/06/2019 Medications Advair Diskus 100 mcg-50 mcg inhalation powder 1, inhalation, Inhalation, 2 times a day, rinse mouth and throat after use replaces fluticasone inhaler, # 1 each, Refills 5, Tot. Refills 5, Maintenance, 09/01/20 10:55:00 EDT, Powder, Route to Pharmacy Electronically, [id number]... Start Date: 09/01/20 Status: Ordered albuterol CFC free 90 mcg/inh inhalation aerosol 2, puffs, Inhalation, Every 4 hours, PRN, # 6.7 Gm, Refills 0, Tot. Refills 0, Soft Stop, 12/08/21 15:01:00 EDT, Aerosol, Route to Pharmacy Electronically, [id number], [facility]/pharmacy #[id number], 155, cm, 12/08/21 14:56:00 EDT, Heigh... Start Date: 12/08/21 Status: Ordered Multivitamins with Folic Acid 1 mg oral tablet 1 tablet, By Mouth, Daily, # 90 tablet, 2 Refills, Maintenance, 11/11/21 12:32:00 EDT, [facility]/pharmacy#[id number], Partial fill upon patient request if the prescription is for a schedule II opioid drug., 1 tablet By Mouth Daily, 155, cm, 11/11/21 10:26:00 EDT... Start Date: 11/11/21 Status: Ordered Multivitamins with Folic Acid 1 mg oral tablet 1 tablet, By Mouth, Daily, # 90 tablet, 2 Refills, Maintenance, 10/13/21 10:02:00 EDT, Tablet, [facility]/pharmacy #[id number], Partial fill upon patient [...] Team Personnel Name: Julio Malloy MD Address: [address] [place] [address]
--- OUTSIDE RECORDS SUMMARY | 2023-10-19 06:03 | XMS_ITS | Continuity of Care Document ---
Author Organization [facility] Address [address] [place] [address]- Care Team Providers Care Simplex Printer Installer Name Role Phone Julio Malloy MD Primary Care Physician [phone] En[place] [facility] [place] Date(s): 06/17/22 - 07/21/[address] [address]- Attending Physician: Not on Staff, Attending MD [...] 1 04/07/18 Given 1Result Comment: [04/07/2018] diluent [id number] exp 09/06/2019 Medications acetaminophen 325 mg oral tablet 650 mg, 2, tablet, By Mouth, Every 4 hours, PRN, # 100 tablet, Refills 1, Tot. Refills 1, Maintenance, as needed for pain, 03/31/22 9:53:00 EST, Route to Pharmacy Electronically, [facility]/pharmacy #[id number], Partial fill upon patient request if the prescriptio... Start Date: 03/31/22 Status: Ordered Advair Diskus 100 mcg-50 mcg inhalation powder 1, inhalation, Inhalation, 2 times a day, rinse mouth and throat after use replaces fluticasone inhaler, # 1 each, Refills 5, Tot. Refills 5, Maintenance, 06/15/22 14:52:00 EST, Powder, Route to Pharmacy Electronically, [id number]... Start Date: 06/15/22 Status: Ordered albuterol CFC free 90 mcg/inh inhalation aerosol 2, puffs, Inhalation, Every 4 hours, PRN, # 6.7 Gm, Refills 0, Tot. Refills 0, Soft Stop, 06/15/22 14:52:00 EST, Aerosol, Route to Pharmacy Electronically, [id number], [facility]/pharmacy #[id number], 155, cm, 06/15/22 14:05:00 EST, Heigh... Start Date: 06/15/22 Status: Ordered Keturah 30 mg oral tablet 1 tablet = 30 mg, By Mouth, Once, # 1 tablet, 0 Refills, Soft Stop, 06/20/22 4:51:00 EST, Tablet, [facility]/pharmacy #[id number], Partial fill upon patient request if the prescription is for a schedule II opioiddrug., 155, cm, 06/20/22 0:24:00 EST, Height, 92.5,... Start Date: 06/20/22 Status: Ordered Multivitamins with Folic Acid 1 mg oral tablet 1 tablet, By Mouth, Daily, # 90 tablet, 2 Refills, Maintenance, 11/11/21 12:32:00 EDT, [facility]/pharmacy#[id number], Partial fill upon patient request if [...] genitalia Confirmed Active Migraines Confirmed Active Health halfway, active care coordination [facility] financial coordinator Susie [facility] [phone] Confirmed Active Severe obesity (BMI 35.0-39.9) with comorbidity Confirmed Active Social History Social History Type Response Smoking Status Never (less than 100 in lifetime) entered on: 08/07/18 Sex Patient Care team information Care Team Personnel Name: Gama HDZ, Julio Chery [facility] Primary Care Physician Member Role: PCP Address: Address: [address] [place] [address]- Care Team Related Persons Name: TALHA PACK Address: [address] [place] [address] Name: FABIO PEREIRA Address: [address] Address: home [address] [place] [address] [place] Name: MABEL BERRY Address: [address] Address: home [address] [place] [address] [place] Name: ELIZABETH BERRY Address: [address] Address: home [address] [place] [address] [place] Name: BROCK DWYER Address: home [address] [place] [address]
--- OUTSIDE RECORDS SUMMARY | 2023-10-19 06:03 | XMS_ITS | Continuity of Care Document ---
Author Organization [facility] Address [address] [place] [address]- Care Team Providers Care Court Recorder Name Role Phone Julio Malloy MD Primary Care Physician Encounter [facility] ACCT R [id number] Date(s): 07/25/23 - 08/24/[address] [address]- Attending Physician: Zhane Barrett Admitting Physician: AdmZhane ramirez Referring Physician: AdmtrZhane Allergies, Adverse Reactions, Alerts Substance Reaction Severity [...] 1 04/07/18 Given 1Result Comment: [04/07/2018] diluent [id number] exp 09/06/2019 Medications acetaminophen 325 mg oral tablet 650 mg, 2, tablet, By Mouth, Every 4 hours, PRN, # 100 tablet, Refills 1, Tot. Refills 1, Maintenance, as needed for pain, 03/31/22 9:53:00 EST, Route to Pharmacy Electronically, [id number], Partial fill upon patient request if the prescriptio... Start Date: 03/31/22 Status: Ordered Advair Diskus 500 mcg-50 mcg inhalation powder 1, puffs, Inhalation, 2 times a day, rinse mouth and throat after use Note dose change, # 60 each, Refills 5, Tot. Refills 5, Maintenance, 07/26/22 14:02:00 EDT, Powder, Route to Pharmacy Electronically, [id number], [facility]/phar... Start Date: 07/26/22 Status: Ordered Keturah 30 mg oral tablet 1 tablet = 30 mg, By Mouth, Once, # 1 tablet, 0 Refills, Soft Stop, 06/20/22 4:51:00 EST, Tablet, [facility]/pharmacy #[id number], Partial fill upon patient request if the prescription is for a schedule II opioiddrug., 155, cm, 06/20/22 0:24:00 EST, Height, 92.5,... Start Date: 06/20/22 Status: Ordered Eucerin Eczema Relief topical cream See Instructions, Topically twice daily, # 420 Gm, 5 Refills, Maintenance, 09/20/22 11:05:00 EDT, [facility]/pharmacy #[id number], Partial fill upon patient request if the prescription is for a schedule II opioiddrug., Topically twice daily, 155, cm, 06/20/22 9:4... Start Date: 09/20/22 Status: Ordered gabapentin 600 mg oral tablet 1 tablet, By Mouth, Daily at bedtime, # 30 tablet, 5 Refills, Maintenance, 03/11/23 13:01:00 EDT, [facility]/pharmacy #[id number], 155, cm, 06/20/22 9:40:00 EST, Height, 92.5, kg, 06/18/22 3:38:00 EST, Dry Weight Start Date: 03/11/23 Status: Ordered loratadine 10 mg oral tablet 10 mg, 1, tablet, By Mouth, Daily, PRN, Take 1 tablet per day as needed for ear congestion/clogged ear sensation., # 30 tablet, Refills 0, Tot. Refills 0, Maintenance, ear congestion/clogged sensation, 01/05/23 8:48:00 EDT, Route to Pharmacy Electroni... Start Date: 01/05/23 Status: Ordered Multivitamins with Folic Acid 1 mg oral tablet 1 tablet, By Mouth, Daily, # 90 tablet, 2 Refills, Maintenance, 10/13/21 10:02:00 EDT, Tablet, [id number], Partial fill upon patient request if the prescription is for a schedule II opioid drug., 1 tablet By Mouth Daily, 155, cm, 11/11/20 13:1... Start Date: 10/13/21 Status: Ordered sertraline 50 mg oral tablet 1 tablet, By Mouth, Daily, # 90 tablet, 0 Refills, Maintenance, 12/29/22 7:22:00 EDT, [id number], 155, cm, 06/20/22 9:40:00 EST, Height, 92.5, kg, 06/18/22 3:38:00 EST, Dry Weight Start Date: 12/29/22 Status: Ordered Ventolin HFA 108 mcg/inh inhalation aerosol with adapter 2 puffs, Inhalation, Every 4 hours, PRN NEEDED FOR WHEEZING, # 18 each, 1 Refills, Maintenance, 05/07/23 10:32:00 EST, [id number], 155, cm, 03/18/23 9:20:00 EST, Height, 92.5, kg, 06/18/22 3:38:00 EST, Dry Weight Start Date: 05/07/23 Status: Ordered Xulane 150 mcg-35 mcg/24 hr transdermal film, extended release See Instructions, apply a new patch weekly for 3 weeks, remove for 1 week, then repeat cycle, # 3 each, 11 Refills, Maintenance, 03/18/23 9:51:00 EST, [id number], Partial fill upon patient request if the prescription is for a schedule II opioi... Start Date: 03/18/23 Status: Ordered Problem List Condition Confirmation Course Effective Dates Status Health St atus Informant Anxiety Confirmed Active Asthma Confirmed Active Family history of type 2 diabetes mellitus Confirmed Active Herpes genitalia Confirmed Active Migraines Confirmed Active Health [facility], active care coordination [facility] nursing unit coordinator Susie Purvis [phone] Confirmed Active Severe obesity (BMI 35.0-39.9) with comorbidity Confirmed Active Social History Social History Type Response Smoking Status Never (less than 100 in lifetime) entered on: 08/07/18 Sex Patient Care team information Care Team Personnel Name: Gama HDZ, Julio Chery Position: [facility] Physician - Primary Care Member Role: PCP Address: Address: [address] [place] [address]- Care Team Related Persons Name: TALHA PACK Address: [address] [place] [address] Name: MABEL PEREIRA Address: [address] Address: home [address] [address] [place] Name: ELIZABETH PEREIRA Address: [address] Address: home [address] [address] [place] Name: FABIO PEREIRA Address: [address] Address: home [address] [address] [place] Name: BROCK DWYER Address: home [address] [place] [id number]
--- OUTSIDE RECORDS SUMMARY | 2023-10-19 06:03 | XMS_ITS | Continuity of Care Document ---
Author Organization [facility] Address [address] [place] [address]- Care Team Providers Care Home Demonstration Agent Name Role Phone Gama HDZ, Julio Chery Primary Care Physician [phone] Encounter [facility] R [id number] Date(s): 12/12/20 - 01/11/[address] [address]- Attending Physician: Zhane Barrett Admitting Physician: Zhane Barrett Referring Physician: AdmtrZhane Allergies, Adverse Reactions, Alerts [...] 1 04/07/18 Given 1Result Comment: [04/07/2018] diluent [id number] exp 09/06/2019 Medications Advair Diskus 100 mcg-50 mcg inhalation powder 1, inhalation, Inhalation, 2 times a day, rinse mouth and throat after use replaces fluticasone inhaler, # 1 each, Refills 5, Tot. Refills 5, Maintenance, 09/01/20 10:55:00 EDT, Powder, Route to Pharmacy Electronically, [id number]... Start Date: 09/01/20 Status: Ordered Radha 0.35 [...] 11/12/20 14:32:00 EDT, Route to Pharmacy Electronically, [id number], Partial fill upon patient request if the prescription is for a schedule II o... Start Date: 11/12/20 Status: Ordered duloxetine 20 mg oral enteric coated capsule 1 capsule = 20 mg, By Mouth, Daily, # 30 capsule, 5 Refills, Maintenance, 09/01/20 10:54:00 EDT, [id number], Partial fill upon patient request if the prescription is for a schedule II opioid drug., 155, cm, 07/28/20 9:59:00 EDT, Height, 94.3,... Start Date: 09/01/20 Status: Ordered Flonase 50 mcg/inh nasal spray 1 sprays, Nares, Both, 2 times a day, # 16 Gm, 3 Refills, Maintenance, 09/01/20 10:58:00 EDT, [place], [id number], Partial fill upon patient request [...] 0 Refills, Maintenance, 06/03/20 11:08:00 EST, Tablet, [facility]/pharmacy #[id number], Partial fill upon patient request [...] Refills, Maintenance, 09/01/20 10:56:00 EDT, Ophth Solution, [facility]/pharmacy #[id number], Partial fill upon patient request if the prescription is for aschedule II opioid drug., 1 drops Eyes, Both 2 time... Start Date: 09/01/20 Stop Date: 11/30/20 Status: Ordered Proventil HFA 90 mcg/inh inhalation aerosol with adapter 2, puffs, Inhalation, 4 times a day, PRN, # 25 Gm, Refills 0, Tot. Refills 0, Maintenance, 06/16/2110:02:00 EST, Aerosol, Route to Pharmacy Electronically, [id number], [facility]/pharmacy #[id number], 155, cm, 03/30/20 9:46:00 EST, Heigh... Start Date: 06/16/20 Status: Ordered Rhinocort Allergy 32 mcg/inh nasal spray = 32 mcg, Nares, Both, Daily, # 8.6 Gm, 0 Refills, Maintenance, 11/12/20 14:33:00 EDT, [facility]/pharmacy#[id number], Partial fill upon patient request if the prescription is for a schedule II opioid drug., 155, cm, 11/11/20 13:17:00 EDT, Height, 94.3, kg, 03/28... Start Date: 11/12/20 Stop Date: 11/26/20 Status: Ordered valACYclovir 500 mg oral tablet 1, tablet, By Mouth, 2 times a day, # 60 tablet, Refills 1, Tot. Refills 0, Acute, 04/02/20 9:32:00EST, Route to Pharmacy Electronically, [id number], 155, cm, 03/30/20 9:46:00 EST, Height, 94.3, kg, 03/28/20 11:01:00 EST, Dry Weight Start Date: 04/02/20 Status: Ordered ZyrTEC 10 mg oral tablet 1 tablet = 10 mg, By Mouth, Daily, PRN Congestion, # 30 tablet, 3 Refills, Maintenance, 09/01/20 10:58:00 EDT, Tablet, [facility]/pharmacy #[id number], Partial fill upon patient request if the prescription is fora schedule II opioid drug., 155, cm, 07/28/20 9:59:... Start Date: 09/01/20 Status: Ordered Problem List Condition Effective Dates Status Health Status Inform ant Anxiety(Confirmed) Active Asthma(Confirmed) Active Bipolar 1 disorder(Confirmed) Active Depression(Confirmed) Active Family history of type 2 campos betes mellitus(Confirmed) Active Herpes genitalia(Confirmed) Active Migraines(Confirmed) Active Obese(Confirmed) Active Social History Social History Type Response Smoking Status Never (less than 100 in lifetime) entered on: 08/07/18 Sex
--- OUTSIDE RECORDS SUMMARY | 2023-10-19 06:03 | XMS_ITS | Continuity of Care Document ---
Author Organization [facility] Address [address] [place] [address]- Care Team Providers Care Service Consultant Name Role Phone Gama HDZ, Julio Chery Primary Care Physician [phone] Encounter [facility] Date(s): 02/11/22 - 03/13/[address] [address]- Allergies, Adverse Reactions, Alerts Substance Reaction Severity [...] 1 04/07/18 Given 1Result Comment: [04/07/2018] diluent [id number] exp 09/06/2019 Medications Advair Diskus 100 mcg-50 mcg inhalation powder 1, inhalation, Inhalation, 2 times a day, rinse mouth and throat after use replaces fluticasone inhaler, # 1 each, Refills 5, Tot. Refills 5, Maintenance, 09/01/20 10:55:00 EDT, Powder, Route to Pharmacy Electronically, [id number]... Start Date: 09/01/20 Status: Ordered albuterol CFC free 90 mcg/inh inhalation aerosol 2, puffs, Inhalation, Every 4 hours, PRN, # 6.7 Gm, Refills 0, Tot. Refills 0, Soft Stop, 12/08/21 15:01:00 EDT, Aerosol, Route to Pharmacy Electronically, [id number], [facility]/pharmacy #[id number], 155, cm, 12/08/21 14:56:00 EDT, Heigh... Start Date: 12/08/21 Status: Ordered Multivitamins with Folic Acid 1 mg oral tablet 1 tablet, By Mouth, Daily, # 90 tablet, 2 Refills, Maintenance, 11/11/21 12:32:00 EDT, [facility]/pharmacy#[id number], Partial fill upon patient request if the prescription is for a schedule II opioid drug., 1 tablet By Mouth Daily, 155, cm, 11/11/21 10:26:00 EDT... Start Date: 11/11/21 Status: Ordered Multivitamins with Folic Acid 1 mg oral tablet 1 tablet, By Mouth, Daily, # 90 tablet, 2 Refills, Maintenance, 10/13/21 10:02:00 EDT, Tablet, [facility]/pharmacy #[id number], Partial fill upon patient [...] Herpes genitalia Confirmed Active Migraines Confirmed Active Blood type, Rh negative Confirmed Active Social History Social History Type Response Smoking Status Never (less than 100 in lifetime) entered on: 08/07/18 Sex Patient Care team information Personnel Name: Gama HDZ, Julio Chery Address: Address: [address] [place] [address]
--- OUTSIDE RECORDS SUMMARY | 2023-10-19 06:03 | XMS_ITS | Continuity of Care Document ---
Author Organization [facility] Address [address] [place] [address]- Care Team Providers Care Investment Broker Name Role Phone Julio Malloy MD Primary Care Physician Encounter [facility] Date(s): 11/21/19 - 01/18/[address] [address]- [facility] Attending Physician: Not on Staff, Attending MD Allergies, Adverse Reactions, Alerts Substance Reaction Severity Status clindamycin Swelling of throat Rash Persistent Severe Active Zithromax Swelling of throat Rash Persistent Severe Active amoxicillin Swelling of throat Rash Persistent Severe Active Immunizations Given and Recorded Vaccine Date Status Refusal Reason tetanus/diphtheria/pertussis, acel(Tdap) 01/16/20 Given tetanus/diphtheria/pertussis, acel(Tdap) 12/26/18 Given Human Papillomavirus Vaccine 06/14/19 Given Human Papillomavirus Vaccine 04/07/18 Given Hepatitis A Adult Vaccine 06/14/19 Given Hepatitis A Adult Vaccine 04/07/18 Given influenza virus vaccine, inactivated 01/23/19 Give n Meningococcal Conjugate Vaccine 1 04/07/18 Given 1Result Comment: [04/07/2018] diluent [id number] exp 09/06/2019 Medications albuterol 90 mcg/inh inhalation powder 2 puffs, Inhalation, Every 4 hours, PRN as needed, # 1 each, 1 Refills, Maintenance, 06/27/19 10:11:00 EST, Pow[place], [id number], 2 puffs Inhalation Every 4 hours,PRN:as needed, 155, cm, 06/27/19 9:53:00 EST, Height, 93.2, kg, 03/23/19 11:10:00... Start Date: 06/27/19 Status: Ordered Cool mist humidifier Cool mist humidifier, See Instructions, # 1 each, Refills 0, Tot. Refills 0, Maintenance, Use at night for congestion and wheezing from URI and Asthma J06.9, J45.909, 09/21/18 14:00:26 EDT, Compound Start Date: 09/21/18 Status: Ordered Multivitamins with Folic Acid 1 mg oral tablet 1 tablet, By Mouth, Daily, # 30 tablet, 8 Refills, Maintenance, 08/21/19 12:03:00 EDT, Tablet, [id number], 1 tablet By Mouth Daily, 155, cm, 07/23/19 10:51:00 EDT, Height, 93.2, kg, 03/23/19 11:10:00 EST, Dry Weight Start Date: 08/21/19 Status: Ordered ProAir HFA 90 mcg/inh inhalation aerosol See Instructions, PRN as needed for wheezing, 1-2 puffs Inhalation Every 6 hours as needed for wheezing, # 18 Gm, 1 Refills, Maintenance, 12/26/19 10:56:00 EDT, Aerosol, [id number], 1-2 puffsInhalation Every 6 hours as needed for wheezing,PRN... Start Date: 12/26/19 Status: Ordered Problem List Condition Effective Dates Status Health Status Inform ant Asthma(Confirmed) Active Bipolar 1 disorder(Confirmed) Active Depression(Confirmed) Active Family history of type 2 campos betes mellitus(Confirmed) Active Echogenic intracardiac focus of fetus on ultrasound(Confirmed) Active Short interval between pregn ancies affecting , antepartum(Confirmed) Active Herpes genitalia(Confirmed) Active Migraines(Confirmed) Active Obese(Confirmed) Active (Confirmed) Active Rh negative(Confirmed) Active Social History Social History Type Response Smoking Status Never (less than 100 in lifetime) entered on: 08/07/18 Sex Female
--- OUTSIDE RECORDS SUMMARY | 2023-10-19 06:03 | XMS_ITS | Continuity of Care Document ---
Author Organization [facility] Address [address] [place] [address]- Care Team Providers Care Wood Heel Finisher Name Role Phone Julio Malloy MD Primary Care Physician [phone] Encounter [facility] Date(s): 09/05/23 - 10/08/[address] [address]- Attending Physician: Not on Staff, Attending MD [...] 1 04/07/18 Given 1Result Comment: [04/07/2018] diluent [id number] exp 09/06/2019 Medications acetaminophen 325 mg oral tablet 650 mg, 2, tablet, By Mouth, Every 4 hours, PRN, # 100 tablet, Refills 1, Tot. Refills 1, Maintenance, as needed for pain, 03/31/22 9:53:00 EST, Route to Pharmacy Electronically, [facility]/pharmacy #[id number], Partial fill upon patient request if the prescriptio... Start Date: 03/31/22 Status: Ordered Advair Diskus 500 mcg-50 mcg inhalation powder 1, puffs, Inhalation, 2 times a day, rinse mouth and throat after use Note dose change, # 60 each, Refills 5, Tot. Refills 5, Maintenance, 07/26/22 14:02:00 EDT, Powder, Route to Pharmacy Electronically, [id number], [facility]/phar... Start Date: 07/26/22 Status: Ordered Keturah 30 mg oral tablet 1 tablet = 30 mg, By Mouth, Once, # 1 tablet, 0 Refills, Soft Stop, 06/20/22 4:51:00 EST, Tablet, [facility]/pharmacy #[id number], Partial fill upon patient request if the prescription is for a schedule II opioiddrug., 155, cm, 06/20/22 0:24:00 EST, Height, 92.5,... Start Date: 06/20/22 Status: Ordered Eucerin Eczema Relief topical cream See Instructions, Topically twice daily, # 420 Gm, 5 Refills, Maintenance, 09/20/22 11:05:00 EDT, [facility]/pharmacy #[id number], Partial fill upon patient request if the prescription is for a schedule II opioiddrug., Topically twice daily, 155, cm, 06/20/22 9:4... Start Date: 09/20/22 Status: Ordered gabapentin 600 mg oral tablet 1 tablet, By Mouth, Daily at bedtime, # 30 tablet, 5 Refills, Maintenance, 03/11/23 13:01:00 EDT, [facility]/pharmacy #[id number], 155, cm, 06/20/22 [...] Refills, Maintenance, 12/29/22 7:22:00 EDT, [facility], 155, cm, 06/20/22 9:40:00 EST, Height, 92.5, kg, 06/18/22 3:38:00 EST, Dry Weight Start Date: 12/29/22 Status: Ordered Ventolin HFA 108 mcg/inh inhalation aerosol with adapter 2 puffs, Inhalation, Every 4 hours, PRN NEEDED FOR WHEEZING, # 18 each, 1 Refills, Maintenance, 05/07/23 10:32:00 EST, [facility], 155, cm, 03/18/23 9:20:00 EST, Height, 92.5, [...] genitalia Confirmed Active Migraines Confirmed Active Health [facility], active care coordination [facility] move coordinator Susie Purvis [phone] Confirmed Active Severe obesity (BMI 35.0-39.9) with comorbidity Confirmed Active Social History Social History Type Response Smoking Status Never (less than 100 in lifetime) entered on: 08/07/18 Sex Patient Care team information Care Team Personnel Name: Julio Malloy MD Position: [facility] Physician - Primary Care Member Role: PCP Address: Address: [address] [place] [address]- Care Team Related Persons Name: TALHA PACK Address: [address] [place] [address] Name: MABEL PEREIRA Address: [address] Address: home [address] [address] [place] Name: ELIZABETH PEREIRA Address: [address] Address: home [address] [address] [place] Name: FABIO PEREIRA Address: [address] Address: home [address] [address] [place] Name: BROCK DWYER Address: home [address] [place] [address]
--- OUTSIDE RECORDS SUMMARY | 2023-10-19 06:03 | XMS_ITS | Continuity of Care Document ---
Author Organization [facility] Address [address] [place] [address]- Care Team Providers Care Pension Adviser Name Role Phone Julio Malloy MD Primary Care Physician Encounter [facility] Date(s): 09/04/20 - 10/04/[address] [address]- Allergies, Adverse Reactions, Alerts Substance Reaction Severity [...] 1 04/07/18 Given 1Result Comment: [04/07/2018] diluent [id number] exp 09/06/2019 Medications Advair Diskus 100 mcg-50 mcg inhalation powder 1, inhalation, Inhalation, 2 times a day, rinse mouth and throat after use replaces fluticasone inhaler, # 1 each, Refills 5, Tot. Refills 5, Maintenance, 09/01/20 10:55:00 EDT, Powder, Route to Pharmacy Electronically, [id number]... Start Date: 09/01/20 Status: Ordered Radha 0.35 mg oral tablet 1 tablet = 0.35 mg, By Mouth, Daily, # 28 tablet, 12 Refills, Maintenance, 05/21/20 11:42:00 EST, Tablet, [facility]/pharmacy #[id number], Partial fill upon patient request if the prescription is for a schedule II opioid drug., 155, cm, 03/30/20 9:46:00 EST, Heigh... Start Date: 05/21/20 Status: Ordered duloxetine 20 mg oral enteric coated capsule 1 capsule = 20 mg, By Mouth, Daily, # 30 capsule, 5 Refills, Maintenance, 09/01/20 10:54:00 EDT, [facility]/pharmacy #[id number], Partial fill upon patient request if the prescription is for a schedule II opioid drug., 155, cm, 07/28/20 9:59:00 EDT, Height, 94.3,... Start Date: 09/01/20 Status: Ordered etonogestrel 68 mg subcutaneous implant 1 each = 68 mg, Intradermal, orthopedically impaired teacher to Procedure, 0 Refills, Maintenance, 03/30/20 5:27:00 EST, Implant, Partial fill upon patient request Start Date: 03/30/20 Status: Ordered Flonase 50 mcg/inh nasal spray 1 sprays, Nares, Both, 2 times a day, # 16 Gm, 3 Refills, Maintenance, 09/01/20 10:58:00 EDT, [place], [facility]/pharmacy #0488, Partial fill upon patient request [...] 0 Refills, Maintenance, 06/03/20 11:08:00 EST, Tablet, [facility]/pharmacy #0488, Partial fill upon patient request [...] 06/16/2110:02:00 EST, Aerosol, Route to Pharmacy Electronically, [id number], [facility]/pharmacy #[id number], 155, cm, 03/30/20 9:46:00 EST, Heigh... Start Date: 06/16/20 Status: Ordered valACYclovir 500 mg oral tablet 1, tablet, By Mouth, 2 times a day, # 60 tablet, Refills 1, Tot. Refills 0, Acute, 04/02/20 9:32:00EST, Route to Pharmacy Electronically, [facility], 155, cm, 03/30/20 9:46:00 EST, Height, 94.3, kg, 03/28/20 11:01:00 EST, Dry Weight Start Date: 04/02/20 Status: Ordered ZyrTEC 10 mg oral tablet 1 tablet = 10 mg, By Mouth, Daily, PRN Congestion, # 30 tablet, 3 Refills, Maintenance, 09/01/20 10:58:00 EDT, Tablet, [facility]/pharmacy #[id number], Partial fill upon patient request [...]
--- OUTSIDE RECORDS SUMMARY | 2023-10-19 06:03 | XMS_ITS | Continuity of Care Document ---
Author Organization [facility] Address [address] [place] [address]- Care Team Providers Care Director Outpatient Services Name Role Phone Gama HDZ, Julio Chery Primary Care Physician [phone] Encounter [facility] [place] Date(s): 08/06/19 - 08/13/[address] [address]- [facility] Attending Physician: Yo HDZ, Cortez Robbins Allergies, Adverse Reactions, Alerts Substance Reaction Severity Status clindamycin Active amoxicillin Active Zithromax Active Immunizations Given and Recorded Vaccine Date Status Refusal Reason Human Papillomavirus Vaccine 06/14/19 Given Human Papillomavirus Vaccine 04/07/18 Given Hepatitis A Adult Vaccine 06/14/19 Given Hepatitis A Adult Vaccine 04/07/18 Given influenza virus vaccine, inactivated 01/23/19 Give n tetanus/diphtheria/pertussis, acel(Tdap) 12/26/18 Given Meningococcal Conjugate Vaccine 1 04/07/18 Given 1Result Comment: [04/07/2018] diluent [id number] exp 09/06/2019 Medications acetaminophen 325 mg oral tablet 650 mg, 2, tablet, By Mouth, 4 times a day, PRN, # 100 tablet, Refills 0, Tot. Refills 0, Maintenance, as needed for pain, 04/21/18 17:10:10 EST, Route to Pharmacy Electronically, [id number], [facility]/pharmacy #[id number] Start Date: 04/21/18 Status: Ordered albuterol 90 mcg/inh inhalation powder 2 puffs, Inhalation, Every 4 hours, PRN as needed, # 1 each, 1 Refills, Maintenance, 06/27/19 10:11:00 EST, Powder, [facility]/pharmacy #[id number], 2 puffs Inhalation Every 4 hours,PRN:as needed, 155, cm, 06/27/19 9:53:00 EST, Height, 93.2, kg, 03/23/19 11:10:00... Start Date: 06/27/19 Status: Ordered Colace sodium 100 mg oral capsule 100 mg, 1, capsule, By Mouth, 2 times a day, PRN, # 20 capsule, Refills 0, Tot. Refills 0, Maintenance, for constipation, 03/25/19 6:16:25 EST, Route to Pharmacy Electronically, [id number], [facility]/pharmacy #[id number] Start Date: 03/25/19 Status: Ordered Cool mist humidifier Cool mist humidifier, See Instructions, # 1 each, Refills 0, Tot. Refills 0, Maintenance, Use at night for congestion and wheezing from URI and Asthma J06.9, J45.909, 09/21/18 14:00:26 EDT, Compound Start Date: 09/21/18 Status: Ordered folic acid 1 mg oral tablet 4 mg, 4, tablet, By Mouth, Daily, Take 4 mg of folate daily in addition to your current medicationswhile taking Bactrim antibiotic, # 30 tablet, Refills 0, Tot. Refills 0, Maintenance, 09/13/18 12:41:10 EDT, Print Requisition Start Date: 09/13/18 Status: Ordered ibuprofen 200 mg oral capsule 2 capsule = 400 mg, By Mouth, Every 4 hours, PRN for pain, # 120 capsule, 0 Refills, Maintenance, 04/21/18 17:10:20 EST, Capsule Start Date: 04/21/18 Status: Ordered ibuprofen 600 mg oral tablet 600 mg, 1, tablet, By Mouth, 4 times a day, PRN, # 40 tablet, Refills 0, Tot. Refills 0, Maintenance, for pain, 06/27/19 10:24:00 EST, Route to Pharmacy Electronically, [facility]/pharmacy #[id number], 155, cm, 06/27/19 9:53:00 EST, Height, 93.2, kg, 03/23/19 11:1... Start Date: 06/27/19 Status: Ordered melatonin 5 mg oral tablet 1 tablet = 5 mg, By Mouth, Daily at bedtime, PRN for insomnia, # 30 tablet, 1 Refills, Maintenance,04/07/18 16:55:37 EST, Tablet Start Date: 04/07/18 Status: Ordered ondansetron 4 mg oral tablet 1 tablet = 4 mg, By Mouth, Every 8 hours, PRN Nausea & Vomiting, # 10 tablet, 0 Refills, Maintenance, 06/19/18 15:37:18 EST, Tablet Start Date: 06/19/18 Status: Ordered Ortho Micronor 0.35 mg oral tablet 1 tablet = 0.35 mg, By Mouth, Daily, # 84 tablet, 4 Refills, Maintenance, 07/23/19 11:21:00 EDT, [facility]/pharmacy #[id number], 155, cm, 07/23/19 10:51:00 EDT, Height, 93.2, kg, 03/23/19 11:10:00 EST, Dry Weight Start Date: 07/23/19 Stop Date: 09/15/20 Status: Ordered Plan B One-Step 1.5 mg oral tablet 1.5 mg, 1, tablet, By Mouth, Once, Take if unprotected intercourse has occurred., # 1 tablet, Refills 3, Tot. Refills 3, Soft Stop, 07/23/19 11:21:00 EDT, Route to Pharmacy Electronically, [facility]/pharmacy #[id number], 155, cm, 07/23/19 10:51:00 EDT, Height, 93... Start Date: 07/23/19 Status: Ordered Multivitamins with Folic Acid 1 mg oral tablet 1 tablet, By Mouth, Daily, # 90 tablet, 3 Refills, Maintenance, 07/19/18 11:47:35 EDT, Tablet, 1 tablet By Mouth Daily Start Date: 07/19/18 Status: Ordered Problem List Condition Effective Dates Status Health Status Inform ant Asthma(Confirmed) Active Bipolar 1 disorder(Confirmed) Active Depression(Confirmed) Active Family history of type 2 [place] mellitus(Confirmed) Active Echogenic bowel of fetus(Confirmed) Active Herpes genitalia(Confirmed) Active Migraines(Confirmed) Active Obese(Confirmed) Active Rh negative(Confirmed) Active Social History Social History Type Response Smoking Status Never (less than 100 in lifetime) entered on: 08/07/18 Sex Female
--- OUTSIDE RECORDS SUMMARY | 2023-10-19 06:03 | XMS_ITS | Continuity of Care Document ---
Author Organization [facility] Address [address] [place] [address]- Care Team Providers Care Ripsawyer Name Role Phone Gama HDZ, Julio Chery Primary Care Physician [phone] [facility] R [id number] Date(s): 10/19/21 - 11/18/[address] [address] Attending Physician: Zhane Barrett Admitting Physician: Zhane [...] 1 04/07/18 Given 1Result Comment: [04/07/2018] diluent [id number] exp 09/06/2019 Medications Advair Diskus 100 mcg-50 mcg inhalation powder 1, inhalation, Inhalation, 2 times a day, rinse mouth and throat after use replaces fluticasone inhaler, # 1 each, Refills 5, Tot. Refills 5, Maintenance, 09/01/20 10:55:00 EDT, Powder, Route to Pharmacy Electronically, [id number]... Start Date: 09/01/20 Status: Ordered Paxlovid 150 mg-100 mg oral tablet See Instructions, 300mg nirmatrelvir (two 150mg tablets) with 100mg ritonavir (one tablet). All 3 tablets taken together twice daily for 5 days, with or without food., # 30 tablet, 0 Refills, Maintenance, 09/17/21 12:59:00 EDT, [facility]/pharmacy #[id number], [place]... Start Date: 09/17/21 Status: Ordered [...] 06/16/2110:02:00 EST, Aerosol, Route to Pharmacy Electronically, [id number], [facility]/pharmacy #[id number], 155, cm, 03/30/20 9:46:00 EST, Heigh... Start Date: 06/16/20 Status: Ordered pyridoxine 25 mg oral tablet 1 tablet = 25 mg, By Mouth, 3 times a day, for 14 days, # 42 tablet, 1 Refills, Acute 12/09/21 12:32:00 EDT, 11/11/21 12:32:00 EDT, Tablet, [facility]/pharmacy #[id number], Partial fill upon patient request if the prescription is for a schedule II opioid drug., 15... Start Date: 11/11/21 Stop Date: 12/09/21 Status: Ordered Unisom 25 mg oral tablet 1 tablet = 25 mg, By Mouth, Daily at bedtime, PRN for sleep, # 16 tablet, 0 Refills, Acute 12/13/2211:33:00 EDT, 11/11/21 12:33:00 EDT, Tablet, [facility]/pharmacy #[id number], Partial fill upon patient [...]
--- OUTSIDE RECORDS SUMMARY | 2023-10-19 06:03 | XMS_ITS | Continuity of Care Document ---
Author Organization [facility] Address [address] [place] [address]- Care Team Providers Care Wildland Firefighter Name Role Phone Sienna Adams DO Primary Care Physician [phone] [place] [facility]/26[place] - 05/31/[address] [address]- [facility] Attending Physician: Catherine Ugalde CNM Admitting Physician: Catherine Ugalde CNM Allergies, Adverse Reactions, Alerts Substance Reaction Severity Status clindamycin Active amoxicillin Active Zithromax Active Immunizations Given and Recorded Vaccine Date Status Refusal Reason influenza virus vaccine, inactivated 01/23/19 Give n tetanus/diphtheria/pertussis, acel(Tdap) 12/26/18 Given Meningococcal Conjugate Vaccine 1 04/07/18 Given Hepatitis A Adult Vaccine 04/07/18 Given Human Papillomavirus Vaccine 04/07/18 Given 1Result Comment: [04/07/2018] diluent [id number] exp 09/06/2019 Medications acetaminophen 325 mg oral tablet 650 mg, 2, tablet, By Mouth, 4 times a day, PRN, # 100 tablet, Refills 0, Tot. Refills 0, Maintenance, as needed for pain, 04/21/18 17:10:10 EST, Route to Pharmacy Electronically, [id number], [facility]/pharmacy #[id number] Start Date: 04/21/18 Status: Ordered albuterol 90 mcg/inh inhalation powder 2 puffs, Inhalation, Every 4 hours, PRN as needed, # 1 each, 1 Refills, Maintenance, 09/21/18 13:58:22 EDT, Powder, 2 puffs Inhalation Every 4 hours,PRN:as needed Start Date: 09/21/18 Status: Ordered Colace sodium 100 mg oral capsule 100 mg, 1, capsule, By Mouth, 2 times a day, PRN, # 20 capsule, Refills 0, Tot. Refills 0, Maintenance, for constipation, 03/25/19 6:16:25 EST, Route to Pharmacy Electronically, [id number], [facility]/pharmacy #[id number] Start Date: 03/25/19 Status: Ordered Cool [...] EST, Capsule Start Date: 04/21/18 Status: Ordered melatonin 5 mg oral tablet [...] EST, Tablet Start Date: 06/19/18 Status: Ordered Multivitamins with Folic Acid 1 [...]
--- OUTSIDE RECORDS SUMMARY | 2023-10-19 06:03 | XMS_ITS | Continuity of Care Document ---
Author Organization [facility] Address [address] [place] [address]- Care Team Providers Care Instructor Of Spanish Name Role Phone Sienna Adams DO Primary Care Physician [phone] Encounter [facility] [place] Date(s): 12/27/18 - 04/26/[address] [address]- [facility] Attending Physician: Catherine Ugalde CNM Admitting Physician: [...] Vaccine 04/07/18 Given 1Result Comment: [04/07/2018] diluent [id number] exp 09/06/2019 Medications acetaminophen 325 mg oral tablet 650 mg, 2, tablet, By Mouth, 4 times a day, PRN, # 100 tablet, Refills 0, Tot. Refills 0, Maintenance, as needed for pain, 04/21/18 17:10:10 EST, Route to Pharmacy Electronically, [id number], [facility]/pharmacy #[id number] Start Date: 04/21/18 [...] 03/25/19 6:16:25 EST, Route to Pharmacy Electronically, [id number], [facility]/pharmacy #[id number] Start Date: 03/25/19 [...]
--- OUTSIDE RECORDS SUMMARY | 2023-10-19 06:03 | XMS_ITS | Continuity of Care Document ---
Author Organization [facility] Address [address] [place] [address]- Care Team Providers Care Security Nurse Name Role Phone Gama HDZ, Julio Chery Primary Care Physician [phone] Encounter [facility] Date(s): 10/01/20 - 10/31/[address] [address]- Allergies, Adverse Reactions, Alerts Substance Reaction Severity [...] 1 04/07/18 Given 1Result Comment: [04/07/2018] diluent [id number] exp 09/06/2019 Medications Advair Diskus 100 mcg-50 mcg inhalation powder 1, inhalation, Inhalation, 2 times a day, rinse mouth and throat after use replaces fluticasone inhaler, # 1 each, Refills 5, Tot. Refills 5, Maintenance, 09/01/20 10:55:00 EDT, Powder, Route to Pharmacy Electronically, [id number]... Start Date: 09/01/20 Status: Ordered Radha 0.35 [...] implant 1 each = 68 mg, Intradermal, on call pharmacy technician to Procedure, 0 Refills, Maintenance, 03/30/20 5:27:00 EST, Implant, Partial fill upon patient request Start Date: 03/30/20 Status: Ordered Flonase 50 mcg/inh nasal spray 1 sprays, Nares, Both, 2 times a day, # 16 Gm, 3 Refills, Maintenance, 09/01/20 10:58:00 EDT, [place], [facility]/pharmacy #[id number], Partial fill upon patient request [...] 0 Refills, Maintenance, 06/03/20 11:08:00 EST, Tablet, [facility]/pharmacy #[id number], Partial fill upon patient request [...] Refills, Maintenance, 09/01/20 10:56:00 EDT, Ophth Solution, [facility]/pharmacy #[id number], Partial fill upon patient request [...] 06/16/2110:02:00 EST, Aerosol, Route to Pharmacy Electronically, [id number], [facility]/pharmacy #[id number], 155, cm, 03/30/20 9:46:00 EST, Heigh... Start Date: 06/16/20 Status: Ordered valACYclovir 500 mg oral tablet 1, tablet, By Mouth, 2 times a day, # 60 tablet, Refills 1, Tot. Refills 0, Acute, 04/02/20 9:32:00EST, Route to Pharmacy Electronically, [facility] STORE [id number], 155, cm, 03/30/20 9:46:00 EST, Height, 94.3, kg, 03/28/20 11:01:00 EST, Dry Weight Start Date: 04/02/20 Status: Ordered ZyrTEC 10 mg oral tablet 1 tablet = 10 mg, By Mouth, Daily, PRN Congestion, # 30 tablet, 3 Refills, Maintenance, 09/01/20 10:58:00 EDT, Tablet, [facility]/pharmacy #[id number], Partial fill upon patient request [...]
--- OUTSIDE RECORDS SUMMARY | 2023-10-19 06:03 | XMS_ITS | Continuity of Care Document ---
Author Organization [facility] Address [address] [place] [address]- Care Team Providers Care Bicycle Designer Name Role Phone Julio Malloy MD Primary Care Physician [phone] Encounter [facility] [place] Date(s): 08/09/22 - 09/12/[address] [address] Attending Physician: Not on Staff, Attending MD [...] 1 04/07/18 Given 1Result Comment: [04/07/2018] diluent [id number] exp 09/06/2019 Medications acetaminophen 325 mg oral tablet 650 mg, 2, tablet, By Mouth, Every 4 hours, PRN, # 100 tablet, Refills 1, Tot. Refills 1, Maintenance, as needed for pain, 03/31/22 9:53:00 EST, Route to Pharmacy Electronically, [facility]/pharmacy #[id number], Partial fill upon patient request if the prescriptio... Start Date: 03/31/22 Status: Ordered Advair Diskus 500 mcg-50 mcg inhalation powder 1, puffs, Inhalation, 2 times a day, rinse mouth and throat after use Note dose change, # 60 each, Refills 5, Tot. Refills 5, Maintenance, 07/26/22 14:02:00 EDT, Powder, Route to Pharmacy Electronically, [id number], [facility]/phar... Start Date: 07/26/22 Status: Ordered albuterol CFC free 90 mcg/inh inhalation aerosol 2, puffs, Inhalation, Every 4 hours, PRN, # 6.7 Gm, Refills 0, Tot. Refills 0, Soft Stop, 06/15/22 14:52:00 EST, Aerosol, Route to Pharmacy Electronically, [id number], [facility]/pharmacy #[id number], 155, cm, 06/15/22 14:05:00 EST, Heigh... Start Date: 06/15/22 Status: Ordered Keturah 30 mg oral tablet 1 tablet = 30 mg, By Mouth, Once, # 1 tablet, 0 Refills, Soft Stop, 06/20/22 4:51:00 EST, Tablet, [facility]/pharmacy #[id number], Partial fill upon patient request if the prescription is for a schedule II opioiddrug., 155, cm, 06/20/22 0:24:00 EST, Height, 92.5,... Start Date: 06/20/22 Status: Ordered gabapentin 300 mg oral capsule 300 mg, 1, capsule, By Mouth, Daily at bedtime, # 30 capsule, Refills 0, Tot. Refills 0, Maintenance, 07/26/22 13:55:00 EDT, Route to Pharmacy Electronically, [facility]/pharmacy #[id number], Partial fill upon patient request if the prescription is for a schedule... Start Date: 07/26/22 Status: Ordered Multivitamins with Folic Acid 1 mg oral tablet 1 tablet, By Mouth, Daily, # 90 tablet, 2 Refills, Maintenance, 11/11/21 12:32:00 EDT, [facility]/pharmacy#0488, Partial fill upon patient request [...] genitalia Confirmed Active Migraines Confirmed Active Health senior care, active care coordination [facility] community service officer coordinator [facility] [phone] Confirmed Active Severe obesity (BMI 35.0-39.9) with comorbidity Confirmed Active Social History Social History Type Response Smoking Status Never (less than 100 in lifetime) entered on: 08/07/18 Sex Patient Care team information Care Team Personnel Name: Gama HDZ, Julio Chery Position: [facility] Primary Care Physician Member Role: PCP Address: Address: [address] [place] [address]- Care Team Related Persons Name: TALHA PACK Address: [address] [place] [address] Name: FABIO PEREIRA Address: [address] Address: home [address] [place] [address] [place] Name: MABEL BERRY Address: [address] Address: home [address] [place] [address] [place] Name: ELIZABETH BERRY Address: [address] Address: home [address] [place] [address] [place] Name: BROCK DWYER Address: home [address] [place] [address]
--- OUTSIDE RECORDS SUMMARY | 2023-10-19 06:03 | XMS_ITS | Continuity of Care Document ---
Author Organization [facility] Address [address] [place] [address]- Care Team Providers Care Ed Physicians Name Role Phone Julio Malloy MD Primary Care Physician [phone] [place] [facility] [place] Date(s): 01/25/23 - 02/24/[address] [address]- Allergies, Adverse Reactions, Alerts Substance Reaction Severity [...] 1 04/07/18 Given 1Result Comment: [04/07/2018] diluent [id number] exp 09/06/2019 Medications acetaminophen 325 mg oral tablet 650 mg, 2, tablet, By Mouth, Every 4 hours, PRN, # 100 tablet, Refills 1, Tot. Refills 1, Maintenance, as needed for pain, 03/31/22 9:53:00 EST, Route to Pharmacy Electronically, [facility]/pharmacy #[id number], Partial fill upon patient request if the prescriptio... Start Date: 03/31/22 Status: Ordered Advair Diskus 500 mcg-50 mcg inhalation powder 1, puffs, Inhalation, 2 times a day, rinse mouth and throat after use Note dose change, # 60 each, Refills 5, Tot. Refills 5, Maintenance, 07/26/22 14:02:00 EDT, Powder, Route to Pharmacy Electronically, [id number], [facility]/phar... Start Date: 07/26/22 Status: Ordered albuterol CFC free 90 mcg/inh inhalation aerosol 2, puffs, Inhalation, Every 4 hours, PRN, # 6.7 Gm, Refills 0, Tot. Refills 0, Soft Stop, 06/15/22 14:52:00 EST, Aerosol, Route to Pharmacy Electronically, [id number], [facility]/pharmacy #[id number], 155, cm, 06/15/22 14:05:00 EST, Heigh... Start Date: 06/15/22 Status: Ordered Keturah 30 mg oral tablet 1 tablet = 30 mg, By Mouth, Once, # 1 tablet, 0 Refills, Soft Stop, 06/20/22 4:51:00 EST, Tablet, [facility]/pharmacy #[id number], Partial fill upon patient request if the prescription is for a schedule II opioiddrug., 155, cm, 06/20/22 0:24:00 EST, Height, 92.5,... Start Date: 06/20/22 Status: Ordered Eucerin Eczema Relief topical cream See Instructions, Topically twice daily, # 420 Gm, 5 Refills, Maintenance, 09/20/22 11:05:00 EDT, [facility]/pharmacy #[id number], Partial fill upon patient request if the prescription is for a schedule II opioiddrug., Topically twice daily, 155, cm, 06/20/22 9:4... Start Date: 09/20/22 Status: Ordered gabapentin 600 mg oral tablet 1 tablet, By Mouth, Daily at bedtime, # 30 tablet, 1 Refills, Maintenance, 01/24/23 18:31:00 EDT, [facility] STORE 350[facility], 155, cm, 06/20/22 9:40:00 EST, Height, 92.5, kg, 06/18/22 3:38:00 EST, Dry Weight Start Date: 01/24/23 Status: Ordered loratadine 10 mg oral tablet [...] 2 Refills, Maintenance, 10/13/21 10:02:00 EDT, Tablet, [facility]/pharmacy #[id number], Partial fill upon patient request if the prescription is for a schedule II opioid drug., 1 tablet By Mouth Daily, 155, cm, 11/11/20 13:1... Start Date: 10/13/21 Status: Ordered sertraline 50 mg oral tablet 1 tablet, By Mouth, Daily, # 90 tablet, 0 Refills, Maintenance, 12/29/22 7:22:00 EDT, [facility], 155, cm, 06/20/22 9:40:00 EST, Height, 92.5, kg, 06/18/22 3:38:00 EST, Dry Weight Start Date: 12/29/22 Status: Ordered Xulane 150 mcg-35 mcg/24 hr transdermal film, extended release See Instructions, apply a new patch weekly for 3 weeks, remove for 1 week, then repeat cycle, # 3 each, 11 Refills, Maintenance, 10/14/22 17:41:00 EDT, [facility]/pharmacy #[id number], Partial fill upon patient request if the prescription is for a schedule II opio... Start Date: 10/14/22 Status: Ordered Problem List Condition Confirmation Course Effective Dates Status Health St [facility] Informant Anxiety Confirmed Active Asthma Confirmed Active Family history of type 2 diabetes mellitus Confirmed Active Herpes genitalia Confirmed Active Migraines Confirmed Active Health penit[facility]iary, active care coordination [facility] hospice coordinator Susie Yaniv [phone] Confirmed Active Severe obesity (BMI 35.0-39.9) with comorbidity Confirmed Active Social History Social History Type Response Smoking Status Never (less than 100 in lifetime) entered on: 08/07/18 Sex Patient Care team information Care Team Personnel Name: Gama DHZ, Julio Chery Position: [facility] Physician - Primary Care Member Role: PCP Address: Address: [address] [place] [address]- Care Team Related Persons Name: TALHA PACK Address: [address] [place] [address] Name: FABIO PEREIRA Address: [address] Address: home [address] [place] [address] [place] Name: MABEL BERRY Address: [address] Address: home [address] [place] [address] [place] Name: ELIZABETH BERRY Address: [address] Address: home [address] [place] [address] [place] Name: BROCK DWYER Address: [address] [place] [address]
--- OUTSIDE RECORDS SUMMARY | 2023-10-19 06:03 | XMS_ITS | Continuity of Care Document ---
Author Organization [facility] Address [address] [place] [address]- Care Team Providers Care Lumber Material Handler Name Role Phone Julio Malloy MD Primary Care Physician [phone] [place] [facility] [place] Date(s[place] 06/02/20 - 07/02/[address] [address]- Allergies, Adverse Reactions, Alerts Substance Reaction Severity [...] 1 04/07/18 Given 1Result Comment: [04/07/2018] diluent [id number] exp 09/06/2019 Medications acetaminophen 325 mg oral tablet 650 mg, 2, tablet, By Mouth, Every 4 hours, PRN, # 50 tablet, Refills 5, Tot. Refills 5, Maintenance, as needed for pain, 06/03/20 11:08:00 EST, Route to Pharmacy Electronically, [facility]/pharmacy #0472, Partial fill upon patient request if the [...] implant 1 each = 68 mg, Intradermal, rn call center to Procedure, 0 Refills, Maintenance, 03/30/20 5:27:00 [...] 06/16/2110:02:00 EST, Aerosol, Route to Pharmacy Electronically, [id number], [facility]/pharmacy #[id number], 155, cm, 03/30/20 9:46:00 EST, Heigh... Start Date: 06/16/20 Status: Ordered valACYclovir 500 mg oral tablet 1, tablet, By Mouth, 2 times a day, # 60 tablet, Refills 1, Tot. Refills 0, Acute, 04/02/20 9:32:00EST, Route to Pharmacy Electronically, [facility] STORE [address], 155, cm, 03/30/20 9:46:00 EST, Height, 94.3, [...]
--- OUTSIDE RECORDS SUMMARY | 2023-10-19 06:03 | XMS_ITS | Continuity of Care Document ---
Author Organization [facility] Address [address] [place] [address]- Care Team Providers Care Lacquer Mixer Name Role Phone Julio Malloy MD Primary Care Physician Encounter [facility] [place] Date(s): 06/16/23 - 07/16/[address] [address]- Allergies, Adverse Reactions, Alerts Substance Reaction Severity [...] 1 04/07/18 Given 1Result Comment: [04/07/2018] diluent [id number] exp 09/06/2019 Medications acetaminophen 325 mg oral tablet 650 mg, 2, tablet, By Mouth, Every 4 hours, PRN, # 100 tablet, Refills 1, Tot. Refills 1, Maintenance, as needed for pain, 03/31/22 9:53:00 EST, Route to Pharmacy Electronically, [facility]/pharmacy #[id number], Partial fill upon patient request if the prescriptio... Start Date: 03/31/22 Status: Ordered Advair Diskus 500 mcg-50 mcg inhalation powder 1, puffs, Inhalation, 2 times a day, rinse mouth and throat after use Note dose change, # 60 each, Refills 5, Tot. Refills 5, Maintenance, 07/26/22 14:02:00 EDT, Powder, Route to Pharmacy Electronically, [id number], [facility]/phar... Start Date: 07/26/22 Status: Ordered Keturah 30 mg oral tablet 1 tablet = 30 mg, By Mouth, Once, # 1 tablet, 0 Refills, Soft Stop, 06/20/22 4:51:00 EST, Tablet, [facility]/pharmacy #[id number], Partial fill upon patient request if the prescription is for a schedule II opioiddrug., 155, cm, 06/20/22 0:24:00 EST, Height, 92.5,... Start Date: 06/20/22 Status: Ordered Eucerin Eczema Relief topical cream See Instructions, Topically twice daily, # 420 Gm, 5 Refills, Maintenance, 09/20/22 11:05:00 EDT, [facility]/pharmacy #[id number], Partial fill upon patient request if the prescription is for a schedule II opioiddrug., Topically twice daily, 155, cm, 06/20/22 9:4... Start Date: 09/20/22 Status: Ordered gabapentin 600 mg oral tablet 1 tablet, By Mouth, Daily at bedtime, # 30 tablet, 5 Refills, Maintenance, 03/11/23 13:01:00 EDT, [facility]/pharmacy #[id number], 155, cm, 06/20/22 9:40:00 [...] Refills, Maintenance, 12/29/22 7:22:00 EDT, [id number], 155, cm, 06/20/22 9:40:00 EST, Height, 92.5, kg, 06/18/22 3:38:00 EST, Dry Weight Start Date: 12/29/22 Status: Ordered Ventolin HFA 108 mcg/inh inhalation aerosol with adapter 2 puffs, Inhalation, Every 4 hours, PRN NEEDED FOR WHEEZING, # 18 each, 1 Refills, Maintenance, 05/07/23 10:32:00 EST, [id number], 155, cm, 03/18/23 9:20:00 EST, Height, 92.5, [...] genitalia Confirmed Active Migraines Confirmed Active Health retirement, active care coordination [facility] traffic coordinator Susie Purvis [phone] Confirmed Active Severe obesity (BMI 35.0-39.9) with comorbidity Confirmed Active Social History Social History Type Response Smoking Status Never (less than 100 in lifetime) entered on: 08/07/18 Sex Patient Care team information Care Team Personnel Name: Gama HDZ, Julio Chery Position: [facility] Physician - Primary Care Member Role: PCP Address: Address: [address] [place] [address]- [place] Care Team Related Persons Name: TALHA PACK Address: [address] [place] [address] Name: MABEL PEREIRA Address: [address] Address: home [address] [place] [address] [place] Name: ELIZABETH PEREIRA Address: [address] Address: home [address] [address] [place] Name: FABIO PEREIRA Address: [address] Address: home [address] [address] [place] Name: BROCK DWYER Address: home [address] [place] [address]
--- OUTSIDE RECORDS SUMMARY | 2023-10-19 06:03 | XMS_ITS | Continuity of Care Document ---
Author Organization [facility] Address [address] [place] [address]- Care Team Providers Care Artificial Insemination Technician Name Role Phone Julio Malloy MD Primary Care Physician Encounter [facility] [place] Date(s): 09/16/21 - 09/16/[address] [address]- Discharge Disposition: A-D/C Walkout Attending Physician: Not on Staff, Attending MD Admitting Physician: Not on Staff, Admitting MD Referring Physician: Not on Staff, Referring MD Allergies, Adverse Reactions, Alerts Substance Reaction [...] 1 04/07/18 Given 1Result Comment: [04/07/2018] diluent [id number] exp 09/06/2019 Medications Advair Diskus 100 mcg-50 mcg inhalation powder 1, inhalation, Inhalation, 2 times a day, rinse mouth and throat after use replaces fluticasone inhaler, # 1 each, Refills 5, Tot. Refills 5, Maintenance, 09/01/20 10:55:00 EDT, Powder, Route to Pharmacy Electronically, [id number]... Start Date: 09/01/20 Status: Ordered Radha 0.35 mg oral tablet 1 tablet = 0.35 mg, By Mouth, Daily, # 28 tablet, 12 Refills, Maintenance, 05/21/20 11:42:00 EST, Tablet, [facility]/pharmacy #[id number], Partial fill upon patient request if the prescription is for a schedule II opioid drug., 155, cm, 03/30/20 9:46:00 EST, Heigh... Start Date: 05/21/20 Status: Ordered Claritin 10 mg oral tablet 10 mg, 1, tablet, By Mouth, Every other day, # 15 tablet, Refills 0, Tot. Refills 0, Maintenance, 11/12/20 14:32:00 EDT, Route to Pharmacy Electronically, [facility]/pharmacy #[id number], Partial fill upon patient request if [...] Gm, 3 Refills, Maintenance, 09/01/20 10:58:00 EDT, [id number], Partial fill upon patient request [...] patch, 2 Refills, Maintenance, 06/03/20 14:36:00 EST, [facility]/pharmacy #[id number], 1 patch Topically Daily,Instr:(remove patch(s) after 12 hours), 155, cm, 03/30/20 9:46:00 EST, Height, 94.3, kg... Start Date: 06/03/20 Status: Ordered naproxen 500 mg oral tablet 1 tablet = 500 mg, By Mouth, 2 times a day, PRN for pain, Take with food, # 30 tablet, 0 Refills, Maintenance, 06/03/20 11:08:00 EST, Tablet, [facility]/pharmacy #[id number], Partial fill upon patient request if [...] Refills, Maintenance, 09/01/20 10:56:00 EDT, Ophth Solution, [facility]/pharmacy #[id number], Partial fill upon patient request if the prescription is for aschedule II opioid drug., 1 drops Eyes, Both 2 time... Start Date: 09/01/20 Stop Date: 11/30/20 Status: Ordered Proventil HFA 90 mcg/inh inhalation aerosol with adapter 2, puffs, Inhalation, 4 times a day, PRN, # 25 Gm, Refills 0, Tot. Refills 0, Maintenance, 06/16/2110:02:00 EST, Aerosol, Route to Pharmacy Electronically, [id number], [facility]/pharmacy #[id number], 155, cm, 03/30/20 9:46:00 EST, Heigh... Start Date: 06/16/20 Status: Ordered Rhinocort Allergy 32 mcg/inh nasal spray = 32 mcg, Nares, Both, Daily, # 8.6 Gm, 0 Refills, Maintenance, 11/12/20 14:33:00 EDT, [facility]/pharmacy#0488, Partial fill upon patient request if the prescription is for a schedule II opioid drug., 155, cm, 11/11/20 13:17:00 EDT, Height, 94.3, kg, 03/28... Start Date: 11/12/20 Stop Date: 11/26/20 Status: Ordered valACYclovir 500 mg oral tablet 1, tablet, By Mouth, 2 times a day, # 60 tablet, Refills 1, Tot. Refills 0, Acute, 04/02/20 9:32:00EST, Route to Pharmacy Electronically, [id number], 155, cm, 03/30/20 9:46:00 EST, Height, 94.3, kg, 03/28/20 11:01:00 EST, Dry Weight Start Date: 04/02/20 Status: Ordered ZyrTEC 10 mg oral tablet 1 tablet = 10 mg, By Mouth, Daily, PRN Congestion, # 30 tablet, 3 Refills, Maintenance, 09/01/20 10:58:00 EDT, Tablet, [facility]/pharmacy #[id number], Partial fill upon patient request if the prescription is fora schedule II opioid drug., 155, cm, 07/28/20 9:59:... Start Date: 09/01/20 Status: Ordered Problem List Condition Effective Dates Status Health Status Inform ant Anxiety(Confirmed) Active Asthma(Confirmed) Active Bipolar 1 disorder(Confirmed) Active Depression(Confirmed) Active Family history of type 2 campos betes mellitus(Confirmed) Active Herpes genitalia(Confirmed) Active Migraines(Confirmed) Active Obese(Confirmed) Active Vital Signs Most recent to oldest [Reference Range]: 1 2 Oxygen Saturation [94-100 %] 97 % (09/16/21 9:10 PM) 98 % (09/16/21 5:18 PM) Pulse Rate [55-90 bpm] 109 bpm *H* (09/16/21 9:10 PM) 117 bpm *H* (09/16/21 5:18 PM) Blood Pressure [90-138/55-84 mm Hg] 103/ 62mm Hg (09/16/21 9:10 PM) 111/64mm Hg (09/16/21 5:18 PM) Respiratory Rate [16-30 br/min] 16 br/mi n (09/16/21 9:10 PM) 19 br/min (09/16/21 5:18 PM) Temperature [96.8-100.4 DegF] 99.3 DegF (09/16/21 9:10 PM) 98.5 DegF (09/16/21 5:18 PM) Mode of Delivery (Oxygen) Room air (09/16/21 9:10 PM) Room air (09/16/21 5:18 PM) Blood pressure sites Arm, right (09/16/21 5:18 PM) Temperature Route Oral (09/16/21 9:10 PM) Oral (09/16/21 5:18 PM) Social History Social History Type Response Smoking Status Never (less than 100 in lifetime) entered on: 08/07/18 Sex
--- OUTSIDE RECORDS SUMMARY | 2023-10-19 06:03 | XMS_ITS | Continuity of Care Document ---
Author Organization [facility] Address [address] [place] [address]- Care Team Providers Care Animal Cop Name Role Phone Julio Malloy MD Primary Care Physician [phone] Encounter [facility] [place] [facility] [place] [id number] Date(s): 12/28/21 - 02/25/[address] [address]- Attending Physician: Not on Staff, Attending MD Referring Physician: Julio Malloy MD Allergies, Adverse Reactions, Alerts Substance Reaction [...] 1 04/07/18 Given 1Result Comment: [04/07/2018] diluent [id number] exp 09/06/2019 Medications Advair Diskus 100 mcg-50 mcg inhalation powder 1, inhalation, Inhalation, 2 times a day, rinse mouth and throat after use replaces fluticasone inhaler, # 1 each, Refills 5, Tot. Refills 5, Maintenance, 09/01/20 10:55:00 EDT, Powder, Route to Pharmacy Electronically, [id number]... Start Date: 09/01/20 Status: Ordered albuterol CFC free 90 mcg/inh inhalation aerosol 2, puffs, Inhalation, Every 4 hours, PRN, # 6.7 Gm, Refills 0, Tot. Refills 0, Soft Stop, 12/08/21 15:01:00 EDT, Aerosol, Route to Pharmacy Electronically, [id number], [facility]/pharmacy #[id number], 155, cm, 12/08/21 14:56:00 EDT, Heigh... Start Date: 12/08/21 Status: Ordered Multivitamins with Folic Acid 1 mg oral tablet 1 tablet, By Mouth, Daily, # 90 tablet, 2 Refills, Maintenance, 11/11/21 12:32:00 EDT, [facility]/pharmacy#0488, Partial fill upon patient request if the prescription is for a schedule II opioid drug., 1 tablet By Mouth Daily, 155, cm, 11/11/21 10:26:00 EDT... Start Date: 11/11/21 Status: Ordered Multivitamins with Folic Acid 1 mg oral tablet 1 tablet, By Mouth, Daily, # 90 tablet, 2 Refills, Maintenance, 10/13/21 10:02:00 EDT, Tablet, [facility]/pharmacy #0488, Partial fill upon patient request if the prescription is for a schedule II opioid drug., 1 tablet By Mouth Daily, 155, cm, 11/11/20 13:1... Start Date: 10/13/21 Status: Ordered Problem List Condition Confirmation Course Effective Dates Status [facility] Informant Anxiety Confirmed Active Asthma [...] Name: Gama HDZ, Julio Chery Address: Address: [address] [place] [address]
--- OUTSIDE RECORDS SUMMARY | 2023-10-19 06:03 | XMS_ITS | Continuity of Care Document ---
Author Organization [facility] Address [address] [place] [address]- Care Team Providers Care Patient Registration Clerk Name Role Phone Julio Malloy MD Primary Care Physician [place] [facility] [place] Date(s): 09/03/19 - 10/26/[address] [address]- [facility] Attending Physician: Catherine Ugalde CNM Admitting Physician: Catherine Ugalde CNM Referring Physician: Julio Malloy MD Allergies, Adverse [...] 1 04/07/18 Given 1Result Comment: [04/07/2018] diluent [id number] exp 09/06/2019 Medications albuterol 90 mcg/inh inhalation [...] EDT, Compound Start Date: 09/21/18 Status: Ordered loratadine 10 mg oral tablet 10 mg, 1, tablet, By Mouth, Daily, # 14 tablet, Refills 1, Tot. Refills 1, Maintenance, 09/25/19 11:29:00 EDT, Route to Pharmacy Electronically, [facility]/pharmacy #[id number], 155, cm, 09/03/19 10:41:00 EDT, Height, 71.2, kg, 09/03/19 10:41:00 EDT, Dry Weight Start Date: 09/25/19 Stop Date: 10/23/19 Status: Ordered Multivitamins with Folic Acid 1 mg oral tablet 1 tablet, By Mouth, Daily, # 30 tablet, 8 Refills, Maintenance, 08/21/19 12:03:00 EDT, Tablet, [facility]/pharmacy #[id number], 1 tablet By Mouth Daily, 155, cm, 07/23/19 10:51:00 EDT, Height, 93.2, kg, 03/23/19 11:10:00 EST, Dry Weight Start Date: 08/21/19 Status: Ordered Problem List Condition Effective Dates Status Health Status Inform ant Asthma(Confirmed) Active Bipolar 1 disorder(Confirmed) Active Depression(Confirmed) Active Family history of type 2 campos betes mellitus(Confirmed) Active Short interval between pregn ancies affecting , antepartum(Confirmed) Active Herpes genitalia(Confirmed) Active Migraines(Confirmed) Active Obese(Confirmed) Active Rh negative(Confirmed) Active Social History Social History Type Response Smoking Status Never (less than 100 in lifetime) entered on: 08/07/18 Sex Female
--- OUTSIDE RECORDS SUMMARY | 2023-10-19 06:03 | XMS_ITS | Continuity of Care Document ---
Author Organization [facility] Address [address] [place] [address]- Care Team Providers Care Ad Terminal Makeup Operator Name Role Phone Gama HDZ, Julio Chery Primary Care Physician Encounter [facility] [place] Date(s): 05/21/22 - 06/20/[address] [address]- Allergies, Adverse Reactions, Alerts Substance Reaction Severity [...] 1 04/07/18 Given 1Result Comment: [04/07/2018] diluent [id number] exp 09/06/2019 Medications acetaminophen 325 mg oral tablet 650 mg, 2, tablet, By Mouth, Every 4 hours, PRN, # 100 tablet, Refills 1, Tot. Refills 1, Maintenance, as needed for pain, 03/31/22 9:53:00 EST, Route to Pharmacy Electronically, [facility]/pharmacy #[id number], Partial fill upon patient request if the prescriptio... Start Date: 03/31/22 Status: Ordered Advair Diskus 100 mcg-50 mcg inhalation powder 1, inhalation, Inhalation, 2 times a day, rinse mouth and throat after use replaces fluticasone inhaler, # 1 each, Refills 5, Tot. Refills 5, Maintenance, 06/15/22 14:52:00 EST, Powder, Route to Pharmacy Electronically, [id number]... Start Date: 06/15/22 Status: Ordered albuterol CFC free 90 mcg/inh inhalation aerosol 2, puffs, Inhalation, Every 4 hours, PRN, # 6.7 Gm, Refills 0, Tot. Refills 0, Soft Stop, 06/15/22 14:52:00 EST, Aerosol, Route to Pharmacy Electronically, [id number], [facility]/pharmacy #[id number], 155, cm, 06/15/22 14:05:00 EST, Heigh... Start Date: 06/15/22 Status: Ordered Keturah 30 mg oral tablet 1 tablet = 30 mg, By Mouth, Once, # 1 tablet, 0 Refills, Soft Stop, 06/20/22 4:51:00 EST, Tablet, [facility]/pharmacy #[id number], Partial fill upon patient request if the prescription is for a schedule II opioiddrug., 155, cm, 06/20/22 0:24:00 EST, Height, 92.5,... Start Date: 06/20/22 Status: Ordered ibuprofen 600 mg oral tablet See Instructions, PRN, 1 tablet taken By Mouth Every 6 hours not to exceed 3200 mg/day, # 60 tablet, Refills 0, Tot. Refills 0, Acute 07/03/22 4:51:00 EST, as needed for pain, 06/20/22 4:51:00 EST, Instructions Replace Required Details, Route to Phar... Start Date: 06/20/22 Stop Date: 07/03/22 Status: Ordered Multivitamins with Folic Acid 1 [...] 11/11/20 13:1... Start Date: 10/13/21 Status: Ordered Tylenol 325 mg oral capsule See Instructions, PRN as needed for pain, 2 capsule (650 mg) taken By Mouth Every 4 hours not to exceed 4000 mg/day, # 60 capsule, 0 Refills, Acute 06/30/22 4:51:00 EST, 06/20/22 4:51:00 EST, Capsule, [id number], Partial fill upon patient req... Start Date: 06/20/22 Stop Date: 06/30/22 Status: Ordered Problem List Condition Confirmation Course Effective Dates Status [facility] Informant Anxiety Confirmed Active Asthma Confirmed Active Bipolar 1 disorder Confirmed Active Family history of type 2 diabetes mellitus Confirmed Active Herpes genitalia Confirmed Active Migraines Confirmed Active Severe obesity (BMI 35.0-39.9) with comorbidity Confirmed Active Social History Social History Type Response Smoking Status Never (less than 100 in lifetime) entered on: 08/07/18 Sex Patient Care team information Care Team Personnel Name: Julio Malloy MD Position: [facility] Primary Care Physician Member Role: PCP Address: Address: [address] [place] [address]- Care Team Related Persons Name: RAMONEBRITNEY GIRL Address: Address: home [address] [place] [address] [place] Name: TALHA PACK Address: home [address] [place] [address] Name: FABIO PEREIRA Address: Address: home [address] [place] [address] [place] Name: MABEL BERRY Address: Address: home [address] Name: BROCK DWYER Address: home [address] [place] [address]
--- OUTSIDE RECORDS SUMMARY | 2023-10-19 06:03 | XMS_ITS | Continuity of Care Document ---
Author Organization [facility] Address [address] [place] [address]- Care Team Providers Care Human Resource Professional Name Role Phone Gama HDZ, Julio Chery Primary Care Physician Encounter [facility] [place] Date(s): 04/28/20 - 06/05/[address] [address]- Attending Physician: Not on Staff, Attending MD [...] 1 04/07/18 Given 1Result Comment: [04/07/2018] diluent [id number] exp 09/06/2019 Medications acetaminophen 325 mg oral tablet 650 mg, 2, tablet, By Mouth, Every 4 hours, PRN, # 50 tablet, Refills 5, Tot. Refills 5, Maintenance, as needed for pain, 06/03/20 11:08:00 EST, Route to Pharmacy Electronically, [facility]/pharmacy #[id number], Partial fill upon patient request if the prescriptio... Start Date: 06/03/20 Status: Ordered Albuterol (Eqv-ProAir HFA) 90 mcg/inh inhalation aerosol 1 TO 2 PUFFS, Inhalation, Every 6 hours, PRN NEEDED FOR WHEEZE, # 8.5 Unknown, 1 Refills, Maintenance, 02/12/20 9:13:00 EDT, [facility] STORE [id number], 25, INHALE 1 TO 2 PUFFS EVERY 6 HOURS NEEDED FOR WHEEZE, 155, cm, 02/03/20 17:37:00 EDT, Height, 84.8,... Start Date: 02/12/20 Status: Ordered betamethasone topical valerate 0.1% ointment 1 application, Topically, 2 times a day, Apply to affected areas. Rub in to absorb and apply lotionover medication, # 45 Gm, 0 Refills, Maintenance, 06/03/20 14:40:00 EST, Ointment, [facility]/pharmacy #[id number], Partial fill upon patient request if the prescri... Start Date: 06/03/20 Status: Ordered Radha 0.35 mg oral tablet 1 tablet = 0.35 mg, By Mouth, Daily, # 28 tablet, 12 Refills, Maintenance, 05/21/20 11:42:00 EST, Tablet, [facility]/pharmacy #[id number], Partial fill upon patient request if the prescription is for a schedule II opioid drug., 155, cm, 03/30/20 9:46:00 EST, Heigh... Start Date: 05/21/20 Status: Ordered etonogestrel 68 mg subcutaneous implant 1 each = 68 mg, Intradermal, order desk caller to Procedure, 0 Refills, Maintenance, 03/30/20 5:27:00 EST, Implant, Partial fill upon patient request Start Date: 03/30/20 Status: Ordered Lidoderm 5% film 1 patch, Topically, Daily, (remove patch(s) after 12 hours), # 30 patch, 2 Refills, Maintenance, 06/03/20 14:36:00 EST, [facility]/pharmacy #0488, 1 patch Topically Daily,Instr:(remove patch(s) after 12 hours), 155, cm, 03/30/20 9:46:00 EST, Height, 94.3, kg... Start Date: 06/03/20 Status: Ordered naproxen 500 mg oral tablet 1 tablet = 500 mg, By Mouth, 2 times a day, PRN for pain, Take with food, # 30 tablet, 0 Refills, Maintenance, 06/03/20 11:08:00 EST, Tablet, [facility]/pharmacy #0488, Partial fill upon patient request if the prescription is for a schedule II opioid drug.,... Start Date: 06/03/20 Status: Ordered Multivitamins with Folic Acid 1 mg oral tablet 1 tablet, By Mouth, Daily, # 30 tablet, 8 Refills, Maintenance, 08/21/19 12:03:00 EDT, Tablet, [facility]/pharmacy #0488, 1 tablet By Mouth Daily, 155, cm, 07/23/19 10:51:00 EDT, Height, 93.2, kg, 03/23/19 11:10:00 EST, Dry Weight Start Date: 08/21/19 Status: Ordered valACYclovir 500 mg oral tablet 1, tablet, By Mouth, 2 times a day, # 60 tablet, Refills 1, Tot. Refills 0, Acute, 04/02/20 9:32:00EST, Route to Pharmacy Electronically, [facility] STORE [id number], 155, cm, 03/30/20 9:46:00 EST, Height, 94.3, [...]
--- OUTSIDE RECORDS SUMMARY | 2023-10-19 06:03 | XMS_ITS | Continuity of Care Document ---
Author Organization [facility] Address [address] [place] [address]- Care Team Providers Care Feeder Operator Automatic Name Role Phone Gama HDZ, Julio Chery Primary Care Physician Encounter [facility] [place] Date(s): 09/03/20 - 10/03/[address] [address] Attending Physician: Zhane Barrett Admitting Physician: AdmZhane [...] 1 04/07/18 Given 1Result Comment: [04/07/2018] diluent [id number] exp 09/06/2019 Medications Advair Diskus 100 mcg-50 mcg inhalation powder 1, inhalation, Inhalation, 2 times a day, rinse mouth and throat after use replaces fluticasone inhaler, # 1 each, Refills 5, Tot. Refills 5, Maintenance, 09/01/20 10:55:00 EDT, Powder, Route to Pharmacy Electronically, [id number]... Start Date: 09/01/20 Status: Ordered Radha 0.35 mg oral tablet 1 tablet = 0.35 mg, By Mouth, Daily, # 28 tablet, 12 Refills, Maintenance, 05/21/20 11:42:00 EST, Tablet, [facility]/pharmacy #0488, Partial fill upon patient request if the prescription is for a schedule II opioid drug., 155, cm, 03/30/20 9:46:00 EST, Heigh... Start Date: 05/21/20 Status: Ordered duloxetine 20 mg oral enteric coated capsule 1 capsule = 20 mg, By Mouth, Daily, # 30 capsule, 5 Refills, Maintenance, 09/01/20 10:54:00 EDT, [facility]/pharmacy #0488, Partial fill upon patient request if the prescription is for a schedule II opioid drug., 155, cm, 07/28/20 9:59:00 EDT, Height, 94.3,... Start Date: 09/01/20 Status: Ordered etonogestrel 68 mg subcutaneous implant 1 each = 68 mg, Intradermal, housecalls nurse to Procedure, 0 Refills, Maintenance, 03/30/20 5:27:00 EST, Implant, Partial fill upon patient request Start Date: 03/30/20 Status: Ordered Flonase 50 mcg/inh nasal spray 1 sprays, Nares, Both, 2 times a day, # 16 Gm, 3 Refills, Maintenance, 09/01/20 10:58:00 EDT, [place], [facility]/pharmacy #0488, Partial fill upon patient request if [...] 06/16/2110:02:00 EST, Aerosol, Route to Pharmacy Electronically, [id number], [id number], 155, cm, 03/30/20 9:46:00 EST, Heigh... Start Date: 06/16/20 Status: Ordered valACYclovir 500 mg oral tablet 1, tablet, By Mouth, 2 times a day, # 60 tablet, Refills 1, Tot. Refills 0, Acute, 04/02/20 9:32:00EST, Route to Pharmacy Electronically, [facility] [id number], 155, cm, 03/30/20 9:46:00 EST, Height, 94.3, kg, 03/28/20 11:01:00 EST, Dry Weight Start Date: 04/02/20 Status: Ordered ZyrTEC 10 mg oral tablet 1 tablet = 10 mg, By Mouth, Daily, PRN Congestion, # 30 tablet, 3 Refills, Maintenance, 09/01/20 10:58:00 EDT, Tablet, [id number], Partial fill upon [...]
--- OUTSIDE RECORDS SUMMARY | 2023-10-19 06:03 | XMS_ITS | Continuity of Care Document ---
Author Organization [facility] Address [address] [place] [address]- Care Team Providers Care Bar Porter Name Role Phone Julio Malloy MD Primary Care Physician Encounter [facility] [place] Date(s): 10/15/21 - 11/14/[address] [address] Allergies, Adverse Reactions, Alerts Substance Reaction [...] 1 04/07/18 Given 1Result Comment: [04/07/2018] diluent [id number] exp 09/06/2019 Medications Advair Diskus 100 mcg-50 mcg inhalation powder 1, inhalation, Inhalation, 2 times a day, rinse mouth and throat after use replaces fluticasone inhaler, # 1 each, Refills 5, Tot. Refills 5, Maintenance, 09/01/20 10:55:00 EDT, Powder, Route to Pharmacy Electronically, [id number]... Start Date: 09/01/20 Status: Ordered Paxlovid 150 mg-100 mg oral tablet See Instructions, 300mg nirmatrelvir (two 150mg tablets) with 100mg ritonavir (one tablet). All 3 tablets taken together twice daily for 5 days, with or without food., # 30 tablet, 0 Refills, Maintenance, 09/17/21 12:59:00 EDT, [facility]/pharmacy #[id number], [place]... Start Date: 09/17/21 Status: [...] 2 Refills, Maintenance, 10/13/21 10:02:00 EDT, Tablet, [facility]/pharmacy #[id number], Partial fill upon patient [...] 06/16/2110:02:00 EST, Aerosol, Route to Pharmacy Electronically, [id number], [facility]/pharmacy #[id number], 155, cm, 03/30/20 9:46:00 EST, Heigh... Start Date: 06/16/20 Status: Ordered pyridoxine 25 mg oral tablet 1 tablet = 25 mg, By Mouth, 3 times a day, for 14 days, # 42 tablet, 1 Refills, Acute 12/09/21 12:32:00 EDT, 11/11/21 12:32:00 EDT, Tablet, [facility]/pharmacy #[id number], Partial fill upon patient request if the prescription is for a schedule II opioid drug., 15... Start Date: 11/11/21 Stop Date: 12/09/21 Status: Ordered Unisom 25 mg oral tablet 1 tablet = 25 mg, By Mouth, Daily at bedtime, PRN for sleep, # 16 tablet, 0 Refills, Acute 12/13/2211:33:00 EDT, 11/11/21 12:33:00 EDT, Tablet, [facility]acy [id number], Partial fill upon [...]
--- OUTSIDE RECORDS SUMMARY | 2023-10-19 06:04 | XMS_ITS | Continuity of Care Document ---
Author Organization [facility] Address [address] [place] [address]- Care Team Providers Care Individual Pension Consultant Name Role Phone Julio Malloy MD Primary Care Physician [phone] Encounter [facility] [place] Date(s): 12/08/21 - 02/24/[address] [address]- Attending Physician: Mercedes Zacarias MD Admitting Physician: Mercedes Zacarias MD Allergies, Adverse Reactions, Alerts Substance Reaction [...] 1 04/07/18 Given 1Result Comment: [04/07/2018] diluent [id number] exp 09/06/2019 Medications Advair Diskus 100 mcg-50 mcg inhalation powder 1, inhalation, Inhalation, 2 times a day, rinse mouth and throat after use replaces fluticasone inhaler, # 1 each, Refills 5, Tot. Refills 5, Maintenance, 09/01/20 10:55:00 EDT, Powder, Route to Pharmacy Electronically, [id number]... Start Date: 09/01/20 Status: Ordered albuterol CFC free 90 mcg/inh inhalation aerosol 2, puffs, Inhalation, Every 4 hours, PRN, # 6.7 Gm, Refills 0, Tot. Refills 0, Soft Stop, 12/08/21 15:01:00 EDT, Aerosol, Route to Pharmacy Electronically, [id number], [facility]/pharmacy #[id number], 155, cm, 12/08/21 14:56:00 EDT, Heigh... Start Date: 12/08/21 Status: Ordered Multivitamins with Folic Acid 1 mg oral tablet 1 tablet, By Mouth, Daily, # 90 tablet, 2 Refills, Maintenance, 11/11/21 12:32:00 EDT, [facility]/pharmacy#[id number], Partial fill upon patient request if the prescription is for a schedule II opioid drug., 1 tablet By Mouth Daily, 155, cm, 11/11/21 10:26:00 EDT... Start Date: 11/11/21 Status: Ordered Multivitamins with Folic Acid 1 mg oral tablet 1 tablet, By Mouth, Daily, # 90 tablet, 2 Refills, Maintenance, 10/13/21 10:02:00 EDT, Tablet, [facility]/pharmacy #[id number], Partial fill upon patient request if the prescription is for a schedule II opioid drug., 1 tablet By Mouth Daily, 155, cm, 11/11/20 13:1... Start Date: 10/13/21 Status: Ordered Problem List Condition Confirmation Course Effective Dates Status Health St atus Informant Anxiety Confirmed Active Asthma Confirmed Active Bipolar 1 disorder Confirmed Active COVID-September 20, 2021 Confirmed Active Depression Confirmed Active Family history of type 2 diabetes mellitus Confirmed Active Herpes genitalia Confirmed Active Migraines Confirmed Active Blood type, Rh negative Confirmed Active Social History Social History Type Response Smoking Status Never (less than 100 in lifetime) entered on: 08/07/18 Sex Patient Care team information Personnel Name: Gama HDZ, Julio Chery Address: Address: [address] [place] [address]
--- OUTSIDE RECORDS SUMMARY | 2023-10-19 06:04 | XMS_ITS | Continuity of Care Document ---
Author Organization [facility] Address [address] [place] [address]- Care Team Providers Care Estate Tax Examiner Name Role Phone Gama HDZ, Julio Chery Primary Care Physician [phone] [place] [facility] [place]/07/[place] - 09/12/[address] [address]- [facility] Attending Physician: Not on Staff, Attending MD Referring Physician: Sienna Adams DO Allergies, Adverse Reactions, Alerts Substance Reaction Severity [...] 1 04/07/18 Given 1Result Comment: [04/07/2018] diluent [id number] exp 09/06/2019 Medications acetaminophen 325 mg oral tablet 650 mg, 2, tablet, By Mouth, 4 times a day, PRN, # 100 tablet, Refills 0, Tot. Refills 0, Maintenance, as needed for pain, 04/21/18 17:10:10 EST, Route to Pharmacy Electronically, [id number], [facility]/pharmacy #[id number] Start Date: 04/21/18 Status: Ordered albuterol 90 mcg/inh inhalation powder 2 puffs, Inhalation, Every 4 hours, PRN as needed, # 1 each, 1 Refills, Maintenance, 06/27/19 10:11:00 EST, Powder, [facility]/pharmacy #[id number], 2 puffs Inhalation Every 4 hours,PRN:as needed, 155, cm, 06/27/19 9:53:00 EST, Height, 93.2, kg, 03/23/19 11:10:00... Start Date: 06/27/19 Status: Ordered Colace sodium 100 mg oral capsule 100 mg, 1, capsule, By Mouth, 2 times a day, PRN, # 20 capsule, Refills 0, Tot. Refills 0, Maintenance, for constipation, 03/25/19 6:16:25 EST, Route to Pharmacy Electronically, [id number], [facility]/pharmacy #[id number] Start Date: 03/25/19 Status: Ordered [...] 06/27/19 10:24:00 EST, Route to Pharmacy Electronically, [facility]/pharmacy #[id number], 155, cm, 06/27/19 9:53:00 EST, [...] tablet, 4 Refills, Maintenance, 07/23/19 11:21:00 EDT, [facility]/pharmacy #[id number], 155, cm, 07/23/19 10:51:00 EDT, Height, 93.2, kg, 03/23/19 11:10:00 EST, Dry Weight Start Date: 07/23/19 Stop Date: 09/15/20 Status: Ordered Plan B One-Step 1.5 mg oral tablet 1.5 mg, 1, tablet, By Mouth, Once, Take if unprotected intercourse has occurred., # 1 tablet, Refills 3, Tot. Refills 3, Soft Stop, 07/23/19 11:21:00 EDT, Route to Pharmacy Electronically, [facility]/pharmacy #[id number], 155, cm, 07/23/19 10:51:00 EDT, [...] Dry Weight Start Date: 08/21/19 Status: Ordered Multivitamins with Folic Acid 1 [...]
--- OUTSIDE RECORDS SUMMARY | 2023-10-19 06:04 | XMS_ITS | Continuity of Care Document ---
Author Organization [facility] Address [address] [place] [address]- Care Team Providers Care Erco Machine Operator Name Role Phone Julio Malloy MD Primary Care Physician Encounter [facility] [place] Date(s): 12/19/19 - 01/18/[address] [address]- [facility] Allergies, Adverse Reactions, Alerts Substance Reaction Severity [...] 1 04/07/18 Given 1Result Comment: [04/07/2018] diluent [id number] exp 09/06/2019 Medications albuterol 90 mcg/inh inhalation [...] 8 Refills, Maintenance, 08/21/19 12:03:00 EDT, Tablet, [facility]/pharmacy #[id number], 1 tablet By [...]
--- OUTSIDE RECORDS SUMMARY | 2023-10-19 06:04 | XMS_ITS | Continuity of Care Document ---
Author Organization [facility] Address [address] [place] [address]- Care Team Providers Care Shipmaster Name Role Phone Julio Malloy MD Primary Care Physician Encounter [facility] [place] [facility] [id number] Date(s): 06/23/23 - 07/23/[address] [address]- Attending Physician: Zhane Barrett Admitting Physician: AdmZhane [...] 1 04/07/18 Given 1Result Comment: [04/07/2018] diluent [id number] exp 09/06/2019 Medications acetaminophen 325 mg oral [...] 14:02:00 EDT, Powder, Route to Pharmacy Electronically, [id number], [facility]/phar... Start Date: 07/26/22 Status: Ordered Keturah 30 mg oral tablet 1 tablet = 30 mg, By Mouth, Once, # 1 tablet, 0 Refills, Soft Stop, 06/20/22 4:51:00 EST, Tablet, [facility]/pharmacy #[id number], Partial fill upon patient request if the prescription is for a schedule II opioiddrug., 155, cm, 06/20/22 0:24:00 EST, Height, 92.5,... Start Date: 06/20/22 Status: Ordered Eucerin Eczema Relief topical cream See Instructions, Topically twice daily, # 420 Gm, 5 Refills, Maintenance, 09/20/22 11:05:00 EDT, [facility]/pharmacy #[id number], Partial fill upon patient request if the prescription is for a schedule II opioiddrug., Topically twice daily, 155, cm, 06/20/22 9:4... Start Date: 09/20/22 Status: Ordered gabapentin 600 mg oral tablet 1 tablet, By Mouth, Daily at bedtime, # 30 tablet, 5 Refills, Maintenance, 03/11/23 13:01:00 EDT, [facility]/pharmacy #[id number], 155, cm, 06/20/22 9:40:00 EST, Height, [...] Refills, Maintenance, 12/29/22 7:22:00 EDT, [id number], 155, cm, 06/20/22 9:40:00 EST, Height, 92.5, kg, 06/18/22 3:38:00 EST, Dry Weight Start Date: 12/29/22 Status: Ordered Ventolin HFA 108 mcg/inh inhalation aerosol with adapter 2 puffs, Inhalation, Every 4 hours, PRN NEEDED FOR WHEEZING, # 18 each, 1 Refills, Maintenance, 05/07/23 10:32:00 EST, [id number], 155, cm, 03/18/23 9:20:00 EST, Height, 92.5, [...] genitalia Confirmed Active Migraines Confirmed Active Health nursing home, active care coordination [facility] licensing coordinator Susie Purvis [phone] Confirmed Active Severe obesity (BMI 35.0-39.9) with comorbidity Confirmed Active Social History Social History Type Response Smoking Status Never (less than 100 in lifetime) entered on: 08/07/18 Sex Patient Care team information Care Team Personnel Name: Gama HDZ, Julio Chery Position: [facility] Physician - Primary Care Member Role: PCP Address: Address: [address] [place] [address]- Care Team Related Persons Name: TALHA PACK Address: home [address] [place] [address] Name: MABEL PEREIRA Address: [address] Address: home [address] [address] [place] Name: ELIZABETH PEREIRA Address: [address] Address: home [address] [address] [place] Name: FABIO PEREIRA Address: [address] Address: home [address] [address] [place] Name: BROCK DWYER Address: home [address] [place] [address]
--- OUTSIDE RECORDS SUMMARY | 2023-10-19 06:04 | XMS_ITS | Continuity of Care Document ---
Author Organization [facility] Address [address] [place] [address]- Care Team Providers Care Cellar Hand Name Role Phone Gama HDZ, Julio Chery Primary Care Physician [place] [facility] [place] - 05/21/[address] [address]- Attending Physician: Not on Staff, Attending MD [...] 1 04/07/18 Given 1Result Comment: [04/07/2018] diluent [id number] exp 09/06/2019 Medications acetaminophen 325 mg oral tablet 650 mg, 2, tablet, By Mouth, Every 4 hours, PRN, # 50 tablet, Refills 0, Tot. Refills 0, Maintenance, as needed for pain, 05/08/20 15:24:00 EST, Route to Pharmacy Electronically, [facility]/pharmacy #[id number], Partial fill upon patient request if the prescriptio... Start Date: 05/08/20 Status: Ordered Albuterol (Eqv-ProAir HFA) 90 mcg/inh inhalation aerosol 1 TO 2 PUFFS, Inhalation, Every 6 hours, PRN NEEDED FOR WHEEZE, # 8.5 Unknown, 1 Refills, Maintenance, 02/12/20 9:13:00 EDT, [facility], 25, INHALE 1 TO 2 PUFFS EVERY 6 HOURS NEEDED FOR WHEEZE, 155, cm, 02/03/20 17:37:00 EDT, Height, 84.8,... Start Date: 02/12/20 Status: Ordered betamethasone topical valerate 0.1% ointment 1 application, Topically, 2 times a day, Apply to affected areas. Rub in to absorb and apply lotionover medication, # 45 Gm, 0 Refills, Maintenance, 05/08/20 15:21:00 EST, Ointment, [facility]/pharmacy #[id number], Partial fill upon patient request if the prescri... Start Date: 05/08/20 Status: Ordered Radha 0.35 mg oral tablet 1 tablet = 0.35 mg, By Mouth, Daily, # 28 tablet, 12 Refills, Maintenance, 05/21/20 11:42:00 EST, Tablet, [facility]/pharmacy #0488, Partial fill upon patient request if the prescription is for a schedule II opioid drug., 155, cm, 03/30/20 9:46:00 EST, Heigh... Start Date: 05/21/20 Status: Ordered etonogestrel 68 mg subcutaneous implant 1 each = 68 mg, Intradermal, call center operator to Procedure, 0 Refills, Maintenance, 03/30/20 5:27:00 EST, Implant, Partial fill upon patient request Start Date: 03/30/20 Status: Ordered naproxen 500 mg oral tablet 1 tablet = 500 mg, By Mouth, 2 times a day, PRN for pain, Take with food, # 30 tablet, 0 Refills, Maintenance, 05/08/20 15:25:00 EST, Tablet, [facility]/pharmacy #[id number], Partial fill upon patient [...] Acute, 04/02/20 9:32:00EST, Route to Pharmacy Electronically, [id number], 155, cm, 03/30/20 9:46:00 EST, Height, 94.3, [...]
--- OUTSIDE RECORDS SUMMARY | 2023-10-19 06:04 | XMS_ITS | Continuity of Care Document ---
Author Organization [facility] Address [address] [place] [address]- Care Team Providers Care Psych Sales Specialist Name Role Phone Gama HDZ, Julio Chery Primary Care Physician [phone] Encounter [facility] [place] Date(s): 04/07/22 - 05/13/[address] [address]- Attending Physician: Not on Staff, Attending MD [...] 1 04/07/18 Given 1Result Comment: [04/07/2018] diluent [id number] exp 09/06/2019 Medications acetaminophen 325 mg oral tablet 650 mg, 2, tablet, By Mouth, Every 4 hours, PRN, # 100 tablet, Refills 1, Tot. Refills 1, Maintenance, as needed for pain, 03/31/22 9:53:00 EST, Route to Pharmacy Electronically, [facility]/pharmacy #[id number], Partial fill upon patient request if the prescriptio... Start Date: 03/31/22 Status: Ordered Advair Diskus 100 mcg-50 mcg inhalation powder 1, inhalation, Inhalation, 2 times a day, rinse mouth and throat after use replaces fluticasone inhaler, # 1 each, Refills 5, Tot. Refills 5, Maintenance, 09/01/20 10:55:00 EDT, Powder, Route to Pharmacy Electronically, [id number]... Start Date: 09/01/20 Status: Ordered albuterol CFC free 90 mcg/inh inhalation aerosol 2, puffs, Inhalation, Every 4 hours, PRN, # 6.7 Gm, Refills 0, Tot. Refills 0, Soft Stop, 03/31/22 9:52:00 EST, Aerosol, Route to Pharmacy Electronically, [id number], [facility]/pharmacy #[id number], 155, cm, 03/24/22 13:05:00 EST, Height... Start Date: 03/31/22 Status: Ordered Multivitamins with Folic Acid 1 mg oral tablet 1 tablet, By Mouth, Daily, # 90 tablet, 2 Refills, Maintenance, 11/11/21 12:32:00 EDT, [facility]/pharmacy#0488, Partial fill upon patient request if the prescription is for a schedule II opioid drug., 1 tablet By Mouth Daily, 155, cm, 11/11/21 10:26:00 EDT... Start Date: 11/11/21 Status: Ordered Multivitamins with Folic Acid 1 mg oral tablet 1 tablet, By Mouth, Daily, # 90 tablet, 2 Refills, Maintenance, 10/13/21 10:02:00 EDT, Tablet, [facility]/pharmacy #[id number], Partial fill upon patient request if the prescription is for a schedule II opioid drug., 1 tablet By Mouth Daily, 155, cm, 11/11/20 13:1... Start Date: 10/13/21 Status: Ordered Valtrex 500 mg oral tablet 500 mg, 1, tablet, By Mouth, 2 times a day, # 30 tablet, Refills 1, Tot. Refills 1, Maintenance, 05/13/22 17:38:00 EST, Route to Pharmacy Electronically, [facility]/pharmacy #[id number], Partial fill upon patientrequest if the [...] Team Personnel Name: Julio Malloy MD Position: [facility] Primary Care Physician Member Role: PCP Address: Address: [address] [place] [address]- Care Team Related Persons Name: TALHA PACK Address: home [address] [place] [address] Name: FABIO PEREIRA Address: [address] Address: home [address] [place] [address] [place] Name: MABEL BERRY Address: [address] Address: home [address] [place] [address] [place] Name: BROCK DWYER Address: home [address] [place] [address]
--- OUTSIDE RECORDS SUMMARY | 2023-10-19 06:04 | XMS_ITS | Continuity of Care Document ---
Author Organization [facility] ter Address [address] [place] [address]- Care Team Providers Care Trailer Sections Assembler Name Role Phone Julio Malloy MD Primary Care Physician Encounter [facility] Date(s): 06/13/22 - 06/20/[address] [address]- Encounter Diagnosis False labor at or after 37 completed weeks of gestation(Final) - Discharge Disposition: A-D/C Home Attending Physician: Samantha Dawn DO Admitting Physician: Samantha Dawn DO Allergies, Adverse Reactions, Alerts Substance Reaction [...] 1 04/07/18 Given 1Result Comment: [04/07/2018] diluent [id number] exp 09/06/2019 Medications acetaminophen 325 mg oral tablet 650 mg, 2, tablet, By Mouth, Every 4 hours, PRN, # 100 tablet, Refills 1, Tot. Refills 1, Maintenance, as needed for pain, 03/31/22 9:53:00 EST, Route to Pharmacy Electronically, [facility]/pharmacy #[id number], Partial fill upon patient request if the prescriptio... Start Date: 03/31/22 Status: Ordered Advair Diskus 100 mcg-50 mcg inhalation powder 1, inhalation, Inhalation, 2 times a day, rinse mouth and throat after use replaces fluticasone inhaler, # 1 each, Refills 5, Tot. Refills 5, Maintenance, 06/15/22 14:52:00 EST, Powder, Route to Pharmacy Electronically, [id number]... Start Date: 06/15/22 Status: Ordered albuterol CFC free 90 mcg/inh inhalation aerosol 2, puffs, Inhalation, Every 4 hours, PRN, # 6.7 Gm, Refills 0, Tot. Refills 0, Soft Stop, 06/15/22 14:52:00 EST, Aerosol, Route to Pharmacy Electronically, [id number], [facility]/pharmacy #[id number], 155, cm, 06/15/22 14:05:00 EST, Heigh... Start Date: 06/15/22 Status: Ordered Keturah 30 mg oral tablet 1 tablet = 30 mg, By Mouth, Once, # 1 tablet, 0 Refills, Soft Stop, 06/20/22 4:51:00 EST, Tablet, [facility]/pharmacy #[id number], Partial fill upon patient [...] obesity (BMI 35.0-39.9) with comorbidity Confirmed Active Vital Signs Most recent to oldest [Reference Range]: 1 2 Weight 89.7 kg (06/13/22 9:37 PM) Oxygen Saturation [94-100 %] 100 % (06/13/22 9:49 PM) Blood Pressure [90-138/55-84 mm Hg] 133/ 73mm Hg (06/13/22 9:49 PM) Respiratory Rate [16-30 br/min] 18 br/mi n (06/13/22 9:49 PM) 18 br/min (06/13/22 9:37 PM) Temperature [96.8-100.4 DegF] 98.4 DegF (06/13/22 9:37 PM) Mode of Delivery (Oxygen) Room air (06/13/22 9:49 PM) Room air (06/13/22 9:37 PM) Blood pressure sites Arm, right (06/13/22 9:49 PM) Temperature Route Oral (06/13/22 9:37 PM) Weight Obtained Via Standing scale (06/13/22 9:37 PM) Social History Social History Type Response Smoking Status Never (less than 100 in lifetime) entered on: 08/07/18 Sex Note * Event Display: Discharge/Transfer Note Hospital Authored Date: [id number] * Shelli Eastman RN: PERFORM Event Display: Discharge/Transfer Note Hospital Authored Date: [id number] Nursing Discharge Note Entered On: 06/13/2022 22:47 EST Performed On: 06/13/2022 22:47 EST by Shelli Eastman RN Nursing Discharge Note 2 Discharge Time : 06/13/2022 22:46 EST Discharge Level of Care at Discharge : Home/Penitentiary/Foster Care Patient Left Unit Via : Ambulatory Patient Accompanied Off Unit with : Parent DC Instructions Provided & Signed by Pt : Yes Patient Understands D/C Instructions : Yes Verbalized Understanding of D/C Plan By : Patient Patient Instructions Discharge Signed : Yes Did Pt have Specialty Bed or Wound Vac : No Shelli Eastman RN - 06/13/2022 22:47 EST * Shelli Eastman RN: PERFORM Event Display: Patient Education/Instruction Authored Date: [id number] Inpatient Adult Discharge Instructions [address] [address] Name: BRITNEY PACK : 2000 Visit: 06/13/2022 20:22:00 Current Date: 06/13/2022 22:33 Account: [id number] Inpatient Adult Discharge Instructions We would like to thank you for allowing us to assist you with your healthcare needs. The following includes patient education materials and information regarding your injury/illness. Our entire staffstrives to provide an excellent experience for our patients and their families. PLEASE ENSURE YOU FOLLOW-UP PER THE INSTRUCTIONS BELOW! ?? YOUR OPINION IS IMPORTANT TO US! Please complete the survey you may receive by mail or email. Your feedback will be used to make improvements to the healthcare experiences of our patients and their families. Surveys are administered by [employer] ?? If further treatment with your primary care physician or another doctor is recommended, it is important for you to keep the appointment. Call your primary care physician or return to the Emergency Department immediately if your condition worsens, fails to improve, or new symptoms develop. If you need to find a doctor, you can call [facility] [email or web address] for a referral at [phone] or toll free at [phone] or log in to [email or web address].. ?? You can view and manage your care through the patient portal or by using a health care josé luis of your choosing. [employer] is a website that allows you to securely view your medical information including your hospital discharge summary, office visit summaries, medications and follow-up visits. You can also request appointments, renew medications, and request access to your medical information using a health care josé luis of your choosing, or just ask a question. You can enroll at [email or web address] or register during your next office visit. You have been discharged from [facility], Patient Care Unit: [id number]. If you have any questions regarding these instructions after you leave, please call us and we will be happy to assist you. [facility] Your Care Team Attending Physician Samantha Dawn DO Your Diagnosis False labor Tests Performed Below is a partial list of the tests performed during your hospitalization. You may have had other tests and procedures not included in this list. Please discuss all test results with your provider. Primary Care Provider Julio Malloy MD Advance Directive Health Care Proxy on File No Discharge Vitals Temperature: 98.4 DegF Weight: 89.7 kg Respiratory Rate: 18 br/min ?? Systolic Blood Pressure: 133 mm Hg ?? Diastolic Blood Pressure: 73 mm Hg ?? Oxygen Saturation: 100 % ?? Studies Pending All tests and labs ordered during this hospital stay have been completed unless listed below. Please discuss all pending results with your provider listed above in these instructions. ?? No incomplete studies found What to do next Instructions From Your Doctor Discharge Orders Scheduled Follow-Up Appointments Tuesday 2:00 PM EST ?? With: Danilo HDZ, Cassie Glasgow Where: [facility] - [facility] Techn[facility] [address] [place] [address]- Tuesday 3:00 PM EST ?? With: Where: [facility] - Food Quality Technician [address] [place] [address]- Tuesday 1:00 PM EST ?? With: Catherine Ugalde CNM Where: [facility] - Food Quality Technician [address] [place] [address] - Tuesday 2:40 PM EST ?? With: Alyce Rodriguez DO Where: [facility] - Food Quality Technician [address] [place] [address]- Tuesday 11:30 AM EDT ?? With: Gama HDZ, Julio Chery Where: [facility] [address], [place] - Tuesday 2:00 PM EDT ?? With: Adeline Byrne DO Where: [facility] [address] [place] [address]- Discharge Medications BRITNEY PACK :2000 Visit Date:06/13/2022 Medications: Please continue your medications until treatment is completed or stopped by your provider. Medications not listed below should be discontinued. Discuss any questions related to medications with your provider. What How Much When Why Instructions Next Dose Unchanged Acetaminophen (acetaminophen 325 mg oral tablet) 2 tab(s) Oral Every 4 hours as needed for as needed for pain Unchanged Albuterol (albuterol CFC free 90 mcg/ inh inhalation aerosol) 2 puff(s) Inhalation Every 4 hours as needed for as needed for wheezing Unchanged Fluticasone-Salmeterol (Advair Diskus 100 mcg-50 mcg inhalation powder) 1 inhalation Inhalation Twice a day Asthma rinse mouth and throat after use replaces fluticasone inhaler ?? Unchanged Multivitamin, ( Multivitamins with Folic Acid 1 mg oral tablet) 1 tab(s) Oral Daily Unchanged Multivitamin, ( Multivitamins with Folic Acid 1 mg oral tablet) 1 tab(s) Oral Daily Unchanged ValACYclovir (valACYclovir 500 mg oral tablet) 1 tab(s) Oral Twice a day Test Results Below is a partial list of the most recent Laboratory test results done prior to this discharge. You may have had other tests and procedures not included in this list. Please discuss all test resultswith your provider. Allergies (NKA means No Known Allergies) Zithromax??(Swelling of throat, Rash) amoxicillin??(Swelling of throat, Rash) clindamycin??(Swelling of throat, Rash) Problems Active Problems??(11) Anxiety?? Asthma?? Bipolar 1 disorder?? Blood type, Rh negative?? COVID-19 ??May ??2021?? Family history of type 2 diabetes mellitus?? H/o chlamydia?? Herpes genitalia?? Migraines? Severe obesity (BMI 35.0-39.9) with comorbidity?? Education Materials Below is the list of Educational Leaflet Providered with your Discharge Instructions. Recognizing Labor?? Kick Counts?? Valuables and Belongings I fully understand and agree that [facility] accepts no responsibility for all my personal property including clothing, toilet articles, radios, jewelry, dentures, hearing aids, rings, money, or any other property that is in my possession or is brought to me after admission. I understand certain valuables may be placed in a hospital safe for a short period of time. I understand that the hospital is not liable for loss or damage due to accident, fire, or other natural occurrence while said property is in the safe. I accept full responsibility for any personal property that I keep with me, and will not hold the hospital responsible in case of loss or disappearance. I acknowledge that i have been encouraged to send valuables and belongings home. ? Other Discharge Information ? Pulmonary Rehab Status?? Pulmonary Rehab Discharge Status?? Respiratory Rate: 18 br/min ? Common Emergency Awareness Tips IS IT A STROKE? Act FAST and Check for these signs: FACE Does the face look uneven? ARM Does one arm drift down? SPEECH Does their speech sound strange? TIME Call at any sign of stroke ?? Heart Attack Signs Chest discomfort: Most heart attacks involve discomfort in the center of the chest and lasts more than a few minutes, or goes away and comes back. It can feel like uncomfortable pressure, squeezing, fullness or pain. Discomfort in upper body: Symptoms can include pain or discomfort in one or both arms, back, neck, jaw or stomach. Shortness of breath: With or without discomfort. Other signs: Breaking out in a cold sweat, nausea, or lightheaded. Remember, MINUTES DO MATTER. If you experience any of these heart attack warning signs, call to get immediate medical attention! ?? Smoking can increase your chances of developing chronic health problems and can cause harmful effects to other family members in your house. If you smoke, you are strongly encouraged to quit. Please call [facility] Link at [phone] or [phone] ([phone]) or log in to [email or web address] for referrals to smoking cessation programs. ?? The National Suicide Prevention Hotline is available 29/11 if you or someone you know needs to find a reason to keep living. By calling 0-639-643-OVIVO [employer] (8563) you'll be connected to a skilled, trained counselor at a crisis center in your area. INPATIENT DISCHARGE INSTRUCTIONS SIGNATURE BRITNEY LEIVA Location:[facility] Registration Date and Time:06/13/2022 20:22 EST Primary Care Physician: Gama HDZ, Julio Chery, I BRITNEY PACK, have received the above patient education materials/instructions and have verbalized understanding. If ambulance or transport services are being used I further acknowledge being given a choice of service. ?? If you need to contact me, please call me at this number: . Patient/Glass Presser Name: Patient/Glass Presser Signature: Relationship to Patient: Witness Name/Signature: Date: * Shelli Eastman RN: PERFORM Event Display: Patient Education Leaflets Authored Date: [id number] Recognizing Labor ?? [address] Recognizing Labor The beginning of labor is the beginning of . You???ll start to feel strong contractions. That???s when the muscles of your uterus tighten up to help push your baby out during . Yes, labor has likely started?? Signs of labor include: ??? Your contractions are getting stronger and more painful instead of weaker. You???ll likely feel them throughout your whole uterus. ??? Your contractions are regular. This means that you feel them about every 5 to 10 minutes. And they are getting closer together. ??? You have pink- colored or blood-streaked fluid from your vagina. ??? You feel that the baby has dropped lower in your pelvis? Your water breaks. It may be a gush or a slow trickle of clear fluid from your vagina. ?? No, it???s likely not real labor?? Signs of false labor include: ??? Your contractions aren???t regular or strong. ??? You feel the contractions only in your lower uterus. ??? Your contractions go away when you walk or change position. ??? Your contractions go away after drinking fluids. ?? When to call your healthcare provider Call your healthcare provider or clinic right away if you notice any of these signs: ??? Fluid fromyour vagina, with or without contractions. ??? Bleeding heavy enough that you need a sanitary pad. ??? You don???t feel your baby moving as much as before. ?? Note Contractions are timed by both of these measures: ??? The length of each contraction from its startto its finish. ??? How far apart the contractions are ???the time between the start of one contraction and the start of the next contraction. ?? Last Reviewed Date: 2022 ?? 2879-5815 The [employer]. All rights reserved. This information is not intended as a substitute for professional medical care. Always follow your healthcare professional's instructions. ?? * Raiza STORY, Shelli Avery: PERFORM Event Display: Patient Education Leaflets Authored Date: [id number] Kick Counts ?? [address] Kick Counts It???s normal to worry about your baby???s health. Generally, you will feel your baby start to movein your 2nd trimester at around 16 to 24 weeks. Getting to know the pattern of your baby's movements is one way to know what's normal for you and baby. This is called a kick count. Talk with your healthcare provider about kick counts and your specific situation. Always follow your provider's instructions. How to count kicks Here is just one way to do kick counts. Always follow your healthcare provider's instructions. Starting at 28 weeks, count your baby's movements daily. Time how long it takes you to feel 10 kicks, flutters, swishes, or rolls. Ideally, you want to feel at least 10 movements in 2 hours. You will likely feel 10 movements in less time than that. Here are tips for counting kicks: ??? Choose a time when the baby is active, such as after a meal.? Sit comfortably or lie on your side.? The first time the baby moves,??write down??the time.? Count each movement until the baby has moved?? 10??times. This can take from 20 minutes to 2??hours.? If you haven't felt 10 kicks by the end of the second hour, wait a few hours. Then try again. ??? Try to do it at the same time each day. ?? When to call your healthcare provider Follow your provider's instructions about when to call about your baby's movements. Don't hesitate to call if you have concerns. Call your healthcare provider?? right away??if: ??? You do a couple sets of kick counts during the day and your baby moves fewer than 10??times in??2??hours. ??? Your baby moves much less often than on the??days before. ??? You haven't felt your baby move all day. ?? Last Reviewed Date: 2022 ?? 9163-3595 [employer]. All rights reserved. This information is not intended as a substitute for professional medical care. Always follow your healthcare professional's instructions. ?? Patient Care team information Care Team Personnel Name: Julio Malloy MD Position: [facility] Primary Care Physician Member Role: PCP Address: Address: [address] [place] [address]- Care Team Related Persons Name: PACKBRITNEY GIRL Address: [address] Address: home [address] [place] [address] [place] Name: TALHA PACK Address: [address] [place] [address] Name: FABIO PEREIRA Address: [address] Address: home [address] [place] [address] [place] Name: MABEL BERRY Address: [address] Address: home [address] [place] [address] [place] Name: BROCK DWYER Address: home [address] [place] [address]
--- OUTSIDE RECORDS SUMMARY | 2023-10-19 06:04 | XMS_ITS | Continuity of Care Document ---
Author Organization [facility] ter Address [address] [place] [address]- Care Team Providers Care Business Development Associate Name Role Phone Julio Malloy MD Primary Care Physician [phone] Encounter [facility] Date(s): 03/25/22 - 03/25/[address] [address] Discharge Disposition: A-D/C Home Attending Physician: Nadine Hernandez MD Admitting Physician: Nadine Hernandez MD Referring Physician: Nadine Hernandez MD Allergies, Adverse Reactions, Alerts Substance Reaction [...] 1 04/07/18 Given 1Result Comment: [04/07/2018] diluent [id number] exp 09/06/2019 Medications Advair Diskus 100 mcg-50 mcg inhalation powder 1, inhalation, Inhalation, 2 times a day, rinse mouth and throat after use replaces fluticasone inhaler, # 1 each, Refills 5, Tot. Refills 5, Maintenance, 09/01/20 10:55:00 EDT, Powder, Route to Pharmacy Electronically, [id number]... Start Date: 09/01/20 Status: Ordered albuterol CFC free 90 mcg/inh inhalation aerosol 2, puffs, Inhalation, Every 4 hours, PRN, # 6.7 Gm, Refills 0, Tot. Refills 0, Soft Stop, 12/08/21 15:01:00 EDT, Aerosol, Route to Pharmacy Electronically, [id number], [facility]/pharmacy #[id number], 155, cm, 12/08/21 14:56:00 EDT, [...] Active Blood type, Rh negative Confirmed Active Procedures Procedure Date Related Diagnosis Body Site Status Gallbladder Completed Vital Signs Most recent to oldest [Reference Range]: 1 2 3 Weight 75.2 kg (03/25/22 11:05 AM) Oxygen Saturation [94-100 %] 98 % (03/25/22 11:40 AM) 100 % (03/25/22 11:24 AM) 99 % (03/25/22 11:16 AM) Blood Pressure [90-138/55-84 mm Hg] 128/66mm Hg (03/25/22 12:19 PM) Respiratory Rate [16-30 br/min] 20 br/min (03/25/22 12:19 PM) Temperature [96.8-100.4 DegF] 98 DegF (03/25/22 11:05 AM) Blood pressure sites Arm, right (03/25/22 12:19 PM) Dry Weight 75.2 kg (03/25/22 11:05 AM) Social History Social History Type Response Smoking Status Never (less than 100 in lifetime) entered on: 08/07/18 Sex Note * Anum STORY, Nora Glasgow: PERFORM Event Display: Patient Education/Instruction Authored Date: [id number] Inpatient Adult Discharge Instructions [address] [address] Name: BRITNEY PACK : 2000 Visit: 03/25/2022 10:58:00 Current Date: 03/25/2022 12:14 Account: [id number] Inpatient Adult Discharge Instructions We would like [...] and their families. Surveys are administered by [employer] ?? If further treatment with your primary care physician or another doctor is recommended, it is important for you to keep the appointment. Call your primary care physician or return to the Emergency Department immediately if your condition worsens, fails to improve, or new symptoms develop. If you need to find a doctor, you can call [facility] for a referral at [phone] or toll free at [phone]) or log in to [email or web address].. ?? You can view and manage your care through the patient portal or by using a health care josé luis of your choosing. [employer] is a website that allows you to securely view your medical information including your hospital discharge summary, office visit summaries, medications and follow-up visits. You can also request appointments, renew medications, and request access to your medical information using a health care josé luis of your choosing, or just ask a question. You can enroll at [email or web address] or register during your next office visit. You have been discharged from [facility], Patient Care Unit: [id number]. If you have any questions regarding these instructions after you leave, please call us and we will be happy to assist you. [facility] Your Care Team Attending Physician David HDZ, Nadine Johnson Tests Performed Below is a partial list of the tests performed during your hospitalization. You may have had other tests and procedures not included in this list. Please discuss all test results with your provider. Primary Care Provider Julio Malloy MD Advance Directive Health Care Proxy on File No No qualifying data available. Discharge Vitals Temperature: 98 DegF Weight: 75.2 kg Studies Pending All tests and labs ordered during this hospital stay have been completed unless listed below. Please discuss all pending results with your provider listed above in these instructions. ?? No incomplete studies found What to do next Instructions From Your Doctor Discharge Orders Scheduled Follow-Up Appointments Tuesday 10:00 AM EST ?? With: Where: [facility] [address] [place] [address] - Tuesday 1:40 PM EST ?? With: Apollo PERDOMO, MAGALI, Lucy Avery Where: [facility] [address] [place] [address] - 2021 3:20 PM EST ?? With: Catherine Ugalde CNM Where: [facility] [address] [place] [address] - 2021 2:40 PM EST ?? With: Donya Abraham DO Where: [facility] [address] [place], [place] - Tuesday 1:00 PM EST ?? With: Stephanie Farrar CNM Where: [facility] [address] [place] [address]- 2022 5:20 PM EST ?? With: Catherine Ugalde CNM Where: [facility] [address] [place] [address] - Tuesday 1:00 PM EST ?? With: Catherine Ugalde CNM Where: [address] - Tuesday 1:00 PM EST ?? With: Catherine Ugalde CNM Where: [address] - Tuesday 1:00 PM EST ?? With: Catherine Ugalde CNM Where: [facility] [address] [place] [address]- Tuesday 1:00 PM EST ?? With: Catherine Ugalde CNM Where: [address] [address]- You Need to Schedule the Following Appointments Follow Up with??[facility] [phone] When?? Discharge Medications BRITNEY PACK :2000 Visit Date:03/25/2022 Medications: Please continue your medications until treatment is completed or stopped by your provider. Medications not listed below should be discontinued. Discuss any questions related to medications with your provider. What How Much When Why Instructions Next Dose Unchanged Albuterol (albuterol CFC free 90 mcg/ [...] mg oral tablet) 1 tab(s) Oral Daily Test Results Below is a partial list of the most recent Laboratory test results done prior to this discharge. You may have had other tests and procedures not included in this list. Please discuss all test resultswith your provider. Allergies (NKA means No Known Allergies) Zithromax??(Swelling of throat, Rash) amoxicillin??(Swelling of throat, Rash) clindamycin??(Swelling of throat, Rash) Problems Active Problems??(12) Anxiety?? Asthma?? Bipolar 1 disorder?? Blood type, Rh negative?? COVID-19 ??May ??2021?? Depression?? Family history of type 2 diabetes mellitus?? H/o chlamydia?? Herpes genitalia?? Migraines?? Obese class I? Education Materials Below is the list of Educational Leaflet Providered with your Discharge Instructions. : Your Third Trimester Changes?? Pelvic Tilt, Leg Lift for Back Pain During ?? Comfort Tips During ?? Back Pain During : Positioning Yourself?? Back Pain During : Moving Safely?? Back Pain During ?? Valuables and Belongings I fully understand and agree that [facility] accepts no responsibility for all my [...] to send valuables and belongings home. ? Common Emergency Awareness Tips IS IT A STROKE? Act FAST and Check for these signs: FACE Does the face look uneven? ARM Does one arm drift down? SPEECH Does their speech sound strange? TIME Call 9-1-1 at any sign of stroke ?? Heart [...] are strongly encouraged to quit. Please call [facility] at [phone] or [phone] ([phone]) or log in to [email or web address] for referrals to smoking cessation programs. ?? The National Suicide Prevention Hotline is available 29/11 if you or someone you know needs to find a reason to keep living. By calling 1-864-887-CinemaNow (0013) you'll be connected to a skilled, trained counselor at a crisis center in your area. INPATIENT DISCHARGE INSTRUCTIONS SIGNATURE STEFANY BRITNEY PACK Location:[facility] Registration Date and Time:03/25/2022 10:58 EST Primary Care Physician: Gama HDZ, Julio Chery, BRITNEY DANIELS, have received the above patient education materials/instructions and have verbalized understanding. If ambulance or transport services are being used I further acknowledge being given a choice of service. ?? If you need to contact me, please call me at this number: . Patient/Dinkey Dispatcher Name: Patient/Dinkey Dispatcher Signature: Relationship to Patient: Witness Name/Signature: Date: * Nora Rowan RN: PERFORM Event Display: Patient Education Leaflets Authored Date: : Your Third Trimester Changes ?? [address] : Your Third Trimester Changes As the baby grows, your body changes, too. You may also see signs that your body is getting ready for labor. Be patient. Within a few more weeks, your baby will be born. How you are changing Your body is preparing for the of your baby. Some of the most common changes are listed below. If you have any questions or concerns, ask your healthcare provider: ??? You???ll gain more weightfrom fluids, extra blood, and fat deposits. ??? Your breasts will grow as your body gets ready to feed the baby. They may be more tender. You may also notice a slight yellow or white discharge from the nipples. ??? Discharge from your vagina may increase. This is normal. ??? You might see some skincolor changes on your forehead, cheeks, or nose. Most of these will go away after you deliver. ?? How your baby is growing Month 7 Your baby??can open and close their eyes and??weighs around 4 pounds (1.8 kg).??If born prematurely(too early), your baby would likely survive with special care. Month 8 Your baby is building up body fat and??weighs around 6 pounds (2.7 kg). Month 9 Your baby weighs nearly 7 pounds (3.2 kg) and is about 19 to 21 inches long. In other words, any day now... ?? Last Reviewed Date: 2021 ?? [employer]. All rights reserved. This information is not intended as a substitute for professional medical care. Always follow your healthcare professional's instructions. ?? * Anum STORY, Nora Glasgow: PERFORM Event Display: Patient Education Leaflets Authored Date: [id number] Pelvic Tilt, Leg Lift for Back Pain During ?? [address] Pelvic Tilt, Leg Lift for Back Pain During Before trying these exercises, talk to your healthcare provider to make sure they are safe for you.Ask your healthcare provider how many times to do each exercise. Pelvic tilt This exercise stretches muscles in??your buttocks and lower back. It also strengthens your stomach and helps set up good posture. 1. Get on your hands and knees with your back straight. A mat can help cushion your knees. 2. Try to pull your stomach muscles in. Tuck in your buttocks. This will tilt your pelvis up. As your pelvis tilts, your back will rise toward the ceiling. 3. Hold and count to 5, then relax. ?? Leg lifts This strengthens the muscles of your back, buttocks, and stomach. 1. Get down on your hands and knees. Put your arms directly under your shoulders. Keep your knees shoulder-width apart. 2. Round yourback. Then lift your left knee and gently bring it toward your elbow. Look at your knee as you raise it. (Stop moving your knee if you feel pressure in your stomach.) 3. Keeping your knee slightly bent, extend your leg. Lift your leg until you feel a stretch in your low back. Don???t lift your leg higher than your hip. 4. Hold for 5 counts, then lower your left leg. Repeat the exercise with your right leg. ?? Last Reviewed Date: 2020 ?? [employer]. All rights reserved. This information is not intended as a substitute for professional medical care. Always follow your healthcare professional's instructions. ?? * Anum STORY, Nora Glasgow: PERFORM Event Display: Patient Education Leaflets Authored Date: [id number] Comfort Tips During ?? [address] Comfort Tips During can bring discomfort of different kinds. Below are tips for ways to feel better.??Talk with your??healthcare provider before using pain-relieving medicine at any time during your . First trimester tips Easing nausea ??? Get up slowly. Eat a few unsalted crackers before you get out of bed. ??? Avoid smells that bother you. ??? Eat small,??bland, low-fat, high-protein meals at frequent intervals. ??? Sip on water,weak??tea, or clear soft drinks, like yen warren.??Eat ice chips. ??? Try taking vitamin B6. Coping with fatigue ??? Take catnaps when you can. ??? Get regular exercise. ??? Accept help from others. ??? Practice good sleep habits, like going to bed and getting up at the same time each day. Use your bed only forsleep and sex. Calming mood swings ??? Talk about your feelings with others, including other mothers. ??? Limit sugar, chocolate, and caffeine. ??? Eat a healthy diet. Don???t skip meals. ??? Get regular exercise. Soothing headaches ??? Get fresh air and exercise. ??? Relax and get enough rest. ??? Check with your healthcare provider before taking any pain medicines. ?? Second trimester tips ??? To limit ankle swelling, sit with your feet raised or wear support hose. ??? If you have pain in your groin and stomach??(round ligament pain), don't make sudden twisting movements with your body. ??? For leg cramps, flexing your foot often brings immediate relief. Also try massaging your calf in long, downward strokes, or stretching your legs before going to bed. Get enough exercise and wear shoes with flexible soles. Eat foods rich in calcium. ?? Third trimester tips Reducing heartburn ??? Eat small, light meals throughout the day rather than 3 large ones. ??? Sleep with your upper body raised 6 inches. Don???t lie down until 2 hours after you eat. ??? Don't eat greasy, fried, or spicy foods. ??? Don't have citrus fruits or juices. Treating constipation ??? Eat foods high in fiber, such as whole-grain foods, and fresh fruit and vegetables). ??? Drink plenty of water. ??? Get regular exercise. ??? Ask about your healthcare provider about medicines that have docusate or psyllium. Taking care of your breasts ??? Don't use harsh soaps or alcohol, which can make your skin too dry. ??? Wear nursing bras. Theyprovide more support than regular bras and can be used after if you breastfeed. Getting a good night???s sleep ??? Take a warm shower before bed. ??? Sleep on a firm mattress. ???Lie on your side with 1 leg crossed over the other. ??? Use pillows to support your arms, legs, andbelly. ?? Last Reviewed Date: 2019 ?? 8986-5156 [employer]. All rights reserved. This information is not intended as a substitute for professional medical care. Always follow your healthcare professional's instructions. ?? Patient Care team information Care Team Personnel Name: Julio Malloy MD Position: [facility] Primary Care Physician Member Role: PCP Address: Address: [address] [place] [address]- Care Team Related Persons Name: TALHA PACK Address: home [address] [place] [address] Name: FABIO PEREIRA Address: [address] Address: home [address] [place] [address] [place] Name: MABEL BERRY Address: [address] Address: home [address] [place] [address] [place] Name: BROCK DWYER Address: home [address] [place] [address]
--- OUTSIDE RECORDS SUMMARY | 2023-10-19 06:04 | XMS_ITS | Continuity of Care Document ---
Author Organization [facility] Address [address] [place] [address]- Care Team Providers Care Mold Closer Name Role Phone Julio Malloy MD Primary Care Physician [place] [facility] [place] 12/[place]/[address] [address]- Attending Physician: Not on Staff, Attending MD [...] 1 04/07/18 Given 1Result Comment: [04/07/2018] diluent [id number] exp 09/06/2019 Medications Advair Diskus 100 mcg-50 mcg inhalation powder 1, inhalation, Inhalation, 2 times a day, rinse mouth and throat after use replaces fluticasone inhaler, # 1 each, Refills 5, Tot. Refills 5, Maintenance, 09/01/20 10:55:00 EDT, Powder, Route to Pharmacy Electronically, [id number]... Start Date: 09/01/20 Status: Ordered Radha 0.35 mg oral tablet 1 tablet = 0.35 mg, By Mouth, Daily, # 28 tablet, 12 Refills, Maintenance, 05/21/20 11:42:00 EST, Tablet, [facility]/pharmacy #[id number], Partial fill upon patient request if the prescription is for a schedule II opioid drug., 155, cm, 03/30/20 9:46:00 EST, Heigh... Start Date: 05/21/20 Status: Ordered Claritin 10 mg oral tablet 10 mg, 1, tablet, By Mouth, Every other day, # 15 tablet, Refills 0, Tot. Refills 0, Maintenance, 11/12/20 14:32:00 EDT, Route to Pharmacy Electronically, [facility]/pharmacy #[id number], Partial fill upon patient request if the prescription is for a schedule II o... Start Date: 11/12/20 Status: Ordered duloxetine 20 mg oral enteric coated capsule 1 capsule = 20 mg, By Mouth, Daily, # 30 capsule, 5 Refills, Maintenance, 09/01/20 10:54:00 EDT, [facility]/pharmacy #[id number], Partial fill upon patient [...] Gm, 3 Refills, Maintenance, 09/01/20 10:58:00 EDT, [place], [facility]/pharmacy #[id number], Partial fill upon patient [...] patch, 2 Refills, Maintenance, 06/03/20 14:36:00 EST, [facility]/pharmacy #0488, 1 patch Topically Daily,Instr:(remove patch(s) after 12 hours), 155, cm, 03/30/20 9:46:00 EST, Height, 94.3, kg... Start Date: 06/03/20 Status: Ordered naproxen 500 mg oral tablet 1 tablet = 500 mg, By Mouth, 2 times a day, PRN for pain, Take with food, # 30 tablet, 0 Refills, Maintenance, 06/03/20 11:08:00 EST, Tablet, [facility]/pharmacy #[id number], Partial fill upon patient [...] 8 Refills, Maintenance, 08/21/19 12:03:00 EDT, Tablet, [facility]/pharmacy #0488, 1 tablet By Mouth Daily, 155, cm, 07/23/19 10:51:00 EDT, Height, 93.2, kg, 03/23/19 11:10:00 EST, Dry Weight Start Date: 08/21/19 Status: Ordered Proventil HFA 90 mcg/inh inhalation aerosol with adapter 2, puffs, Inhalation, 4 times a day, PRN, # 25 Gm, Refills 0, Tot. Refills 0, Maintenance, 06/16/2110:02:00 EST, Aerosol, Route to Pharmacy Electronically, [id number], [facility]/pharmacy #[id number], 155, cm, 03/30/20 9:46:00 EST, Heigh... Start Date: 06/16/20 Status: Ordered Rhinocort Allergy 32 mcg/inh nasal spray = 32 mcg, Nares, Both, Daily, # 8.6 Gm, 0 Refills, Maintenance, 11/12/20 14:33:00 EDT, [facility]/pharmacy#0488, Partial fill upon patient request if the prescription is for a schedule II opioid drug., 155, cm, 11/11/20 13:17:00 EDT, Height, 94.3, kg, 03/28... Start Date: 11/12/20 Stop Date: 11/26/20 Status: Ordered valACYclovir 500 mg oral tablet 1, tablet, By Mouth, 2 times a day, # 60 tablet, Refills 1, Tot. Refills 0, Acute, 04/02/20 9:32:00EST, Route to Pharmacy Electronically, [facility] STORE [id number], 155, cm, 03/30/20 9:46:00 EST, Height, 94.3, kg, 03/28/20 11:01:00 EST, Dry Weight Start Date: 04/02/20 Status: Ordered ZyrTEC 10 mg oral tablet 1 tablet = 10 mg, By Mouth, Daily, PRN Congestion, # 30 tablet, 3 Refills, Maintenance, 09/01/20 10:58:00 EDT, Tablet, [facility]/pharmacy #[id number], Partial fill upon patient [...]
--- OUTSIDE RECORDS SUMMARY | 2023-10-19 06:04 | XMS_ITS | Continuity of Care Document ---
Author Organization [facility] Address [address] [place] [address]- Care Team Providers Care Assembler Clip On Sunglasses Name Role Phone Julio Malloy MD Primary Care Physician [phone] [place] [facility] [place] - 10/01/[address] [address]- Allergies, Adverse Reactions, Alerts Substance Reaction Severity [...] 1 04/07/18 Given 1Result Comment: [04/07/2018] diluent [id number] exp 09/06/2019 Medications Advair Diskus 100 mcg-50 mcg inhalation powder 1, inhalation, Inhalation, 2 times a day, rinse mouth and throat after use replaces fluticasone inhaler, # 1 each, Refills 5, Tot. Refills 5, Maintenance, 09/01/20 10:55:00 EDT, Powder, Route to Pharmacy Electronically, [id number]... Start Date: 09/01/20 Status: Ordered Radha 0.35 mg oral tablet 1 tablet = 0.35 mg, By Mouth, Daily, # 28 tablet, 12 Refills, Maintenance, 05/21/20 11:42:00 EST, Tablet, [facility]/pharmacy #[id number], Partial fill upon patient request if the prescription is for a schedule II opioid drug., 155, cm, 03/30/20 9:46:00 EST, Heigh... Start Date: 05/21/20 Status: Ordered duloxetine 20 mg oral enteric coated capsule 1 capsule = 20 mg, By Mouth, Daily, # 30 capsule, 5 Refills, Maintenance, 09/01/20 10:54:00 EDT, [facility]/pharmacy #[id number], Partial fill upon patient request if the prescription is for a schedule II opioid drug., 155, cm, 07/28/20 9:59:00 EDT, Height, 94.3,... Start Date: 09/01/20 Status: Ordered etonogestrel 68 mg subcutaneous implant 1 each = 68 mg, Intradermal, scallop raker to Procedure, 0 Refills, Maintenance, 03/30/20 5:27:00 EST, Implant, Partial fill upon patient request Start Date: 03/30/20 Status: Ordered Flonase 50 mcg/inh nasal spray 1 sprays, Nares, Both, 2 times a day, # 16 Gm, 3 Refills, Maintenance, 09/01/20 10:58:00 EDT, [place], [facility]/pharmacy #[id number], Partial fill upon [...] 0 Refills, Maintenance, 06/03/20 11:08:00 EST, Tablet, [facility]/pharmacy #0488, Partial fill upon [...] 06/16/2110:02:00 EST, Aerosol, Route to Pharmacy Electronically, [id number], [facility]/pharmacy #0488, 155, cm, 03/30/20 9:46:00 EST, Heigh... Start Date: 06/16/20 Status: Ordered valACYclovir 500 mg oral tablet 1, tablet, By Mouth, 2 times a day, # 60 tablet, Refills 1, Tot. Refills 0, Acute, 04/02/20 9:32:00EST, Route to Pharmacy Electronically, [id number], 155, cm, 03/30/20 9:46:00 EST, Height, 94.3, kg, 03/28/20 11:01:00 EST, Dry Weight Start Date: 04/02/20 Status: Ordered ZyrTEC 10 mg oral tablet 1 tablet = 10 mg, By Mouth, Daily, PRN Congestion, # 30 tablet, 3 Refills, Maintenance, 09/01/20 10:58:00 EDT, Tablet, [facility]/pharmacy #[id number], Partial fill upon [...]
--- OUTSIDE RECORDS SUMMARY | 2023-10-19 06:04 | XMS_ITS | Continuity of Care Document ---
Author Organization [facility] Address [address] [place] [address]- Care Team Providers Care Underground Drill Operator Name Role Phone Gama HDZ, Julio Chery Primary Care Physician [place] [facility] [place] 09/26/19 - 10/27/[address] [address]- [facility] Attending Physician: Marychuy Jacinto MD Allergies, Adverse Reactions, Alerts Substance Reaction [...] 1 04/07/18 Given 1Result Comment: [04/07/2018] diluent [id number] exp 09/06/2019 Medications albuterol 90 mcg/inh inhalation [...] 09/25/19 11:29:00 EDT, Route to Pharmacy Electronically, [facility]/pharmacy #[id number], 155, cm, 09/03/19 10:41:00 EDT, Height, 71.2, kg, 09/03/19 10:41:00 EDT, Dry Weight Start Date: 09/25/19 Stop Date: 10/23/19 Status: Ordered Multivitamins with Folic Acid 1 mg oral tablet 1 tablet, By Mouth, Daily, # 30 tablet, 8 Refills, Maintenance, 08/21/19 12:03:00 EDT, Tablet, [facility]/pharmacy #0488, 1 tablet By Mouth Daily, [...]
--- OUTSIDE RECORDS SUMMARY | 2023-10-19 06:04 | XMS_ITS | Continuity of Care Document ---
Author Organization [facility] Address [address] [place] [address]- Care Team Providers Care Change Management Expert Name Role Phone Julio Malloy MD Primary Care Physician [phone] Encounter [facility] Date(s): 05/16/23 - 06/18/23 [facility]ty [address] [place], [place] [address] Attending Physician: Zen Adams DO Admitting Physician: Zen Adams DO Allergies, Adverse Reactions, Alerts Substance [...] 1 04/07/18 Given 1Result Comment: [04/07/2018] diluent [id number] exp 09/06/2019 Medications acetaminophen 325 mg oral tablet 650 mg, 2, tablet, By Mouth, Every 4 hours, PRN, # 100 tablet, Refills 1, Tot. Refills 1, Maintenance, as needed for pain, 03/31/22 9:53:00 EST, Route to Pharmacy Electronically, [facility]/pharmacy #[id number], Partial fill upon patient request if the prescriptio... Start Date: 03/31/22 Status: Ordered Advair Diskus 500 mcg-50 mcg inhalation powder 1, puffs, Inhalation, 2 times a day, rinse mouth and throat after use Note dose change, # 60 each, Refills 5, Tot. Refills 5, Maintenance, 07/26/22 14:02:00 EDT, Powder, Route to Pharmacy Electronically, [id number], [facility]/phar... Start Date: 07/26/22 Status: Ordered Keturah 30 mg oral tablet 1 tablet = 30 mg, By Mouth, Once, # 1 tablet, 0 Refills, Soft Stop, 06/20/22 4:51:00 EST, Tablet, [facility]/pharmacy #[id number], Partial fill upon patient request if the prescription is for a schedule II opioiddrug., 155, cm, 06/20/22 0:24:00 EST, Height, 92.5,... Start Date: 06/20/22 Status: Ordered Eucerin Eczema Relief topical cream See Instructions, Topically twice daily, # 420 Gm, 5 Refills, Maintenance, 09/20/22 11:05:00 EDT, [facility]/pharmacy #[id number], Partial fill upon patient request if the prescription is for a schedule II opioiddrug., Topically twice daily, 155, cm, 06/20/22 9:4... Start Date: 09/20/22 Status: Ordered gabapentin 600 mg oral tablet 1 tablet, By Mouth, Daily at bedtime, # 30 tablet, 5 Refills, Maintenance, 03/11/23 13:01:00 EDT, [facility]/pharmacy #[id number], 155, cm, 06/20/22 9:40:00 EST, Height, [...] Refills, Maintenance, 12/29/22 7:22:00 EDT, [facility], 155, cm, 06/20/22 9:40:00 EST, Height, 92.5, kg, 06/18/22 3:38:00 EST, Dry Weight Start Date: 12/29/22 Status: Ordered Ventolin HFA 108 mcg/inh inhalation aerosol with adapter 2 puffs, Inhalation, Every 4 hours, PRN NEEDED FOR WHEEZING, # 18 each, 1 Refills, Maintenance, 05/07/23 10:32:00 EST, [facility], 155, cm, 03/18/23 9:20:00 EST, Height, 92.5, [...] genitalia Confirmed Active Migraines Confirmed Active [facility], active care coordination [facility] transitions rn care coordinator Susie Purvis [phone] Confirmed Active Severe obesity (BMI 35.0-39.9) with comorbidity Confirmed Active Social History Social History Type Response Smoking Status Never (less than 100 in lifetime) entered on: 08/07/18 Sex Patient Care team information Care Team Personnel Name: Gama HDZ, Julio Chery Position: [facility] Physician - Primary Care Member Role: PCP Address: Address: [address] [place] [address]- Care Team Related Persons Name: TALHA PACK Address: home [address] [place] [address] Name: MABEL PEREIRA Address: [address] Address: home [address] [address] [place] Name: ELIZABETH PEREIRA Address: [address] Address: home [address] [address] [place] Name: FABIO PEREIRA Address: [address] Address: home [address] [address] [place] Name: BROCK DWYER Address: home [address] [place] [address]
--- OUTSIDE RECORDS SUMMARY | 2023-10-19 06:04 | XMS_ITS | Continuity of Care Document ---
Author Organization [facility] Address [address] [place] [address]- Care Team Providers Care Rn Mds Coordinator Name Role Phone Sienna Adams DO Primary Care Physician Encounter [place] Date(s): 03/26/19 - 05/23/[address] [address]- [facility] Attending Physician: Marychuy Jacinto MD Admitting Physician: Marychuy Jacinto MD Allergies, Adverse Reactions, Alerts Substance Reaction Severity Status clindamycin Active amoxicillin Active Zithromax Active Immunizations Given and Recorded Vaccine Date Status Refusal Reason influenza virus vaccine, inactivated 01/23/19 Give n tetanus/diphtheria/pertussis, acel(Tdap) 12/26/18 Given Meningococcal Conjugate Vaccine 1 04/07/18 Given Hepatitis A Adult Vaccine 04/07/18 Given Human Papillomavirus Vaccine 04/07/18 Given 1Result Comment: [04/07/2018] diluent [id number] exp 09/06/2019 Medications acetaminophen 325 mg oral tablet 650 mg, 2, tablet, By Mouth, 4 times a day, PRN, # 100 tablet, Refills 0, Tot. Refills 0, Maintenance, as needed for pain, 04/21/18 17:10:10 EST, Route to Pharmacy Electronically, [id number], [facility]/pharmacy #[id number] Start Date: 04/21/18 Status: Ordered [...] 03/25/19 6:16:25 EST, Route to Pharmacy Electronically, [id number], [facility]/pharmacy #0488 Start Date: 03/25/19 Status: Ordered [...] 1 tablet By Mouth Daily Start Date: 3/13/19 Status: Ordered Problem List Condition Effective Dates [...]
--- OUTSIDE RECORDS SUMMARY | 2023-10-19 06:04 | XMS_ITS | Continuity of Care Document ---
Author Organization [facility] y Address [address] [place] [address]- Care Team Providers Care Blog Writer Name Role Phone Julio Malloy MD Primary Care Physician [place] [facility] Date(s): 06/03/22 - 10/01/22 [facility] Specialty [address] [place], [place] [address] Attending Physician: Zen Adams DO Admitting Physician: [...] 1 04/07/18 Given 1Result Comment: [04/07/2018] diluent [id number] exp 09/06/2019 Medications acetaminophen 325 mg oral tablet 650 mg, 2, tablet, By Mouth, Every 4 hours, PRN, # 100 tablet, Refills 1, Tot. Refills 1, Maintenance, as needed for pain, 03/31/22 9:53:00 EST, Route to Pharmacy Electronically, [facility]/pharmacy #[id number], Partial fill upon patient request if the prescriptio... Start Date: 03/31/22 Status: Ordered Advair Diskus 500 mcg-50 mcg inhalation powder 1, puffs, Inhalation, 2 times a day, rinse mouth and throat after use Note dose change, # 60 each, Refills 5, Tot. Refills 5, Maintenance, 07/26/22 14:02:00 EDT, Powder, Route to Pharmacy Electronically, [id number], [facility]/phar... Start Date: 07/26/22 Status: Ordered albuterol CFC free 90 mcg/inh inhalation aerosol 2, puffs, Inhalation, Every 4 hours, PRN, # 6.7 Gm, Refills 0, Tot. Refills 0, Soft Stop, 06/15/22 14:52:00 EST, Aerosol, Route to Pharmacy Electronically, [id number], [facility]/pharmacy #[id number], 155, cm, 06/15/22 14:05:00 EST, [...] Ordered gabapentin 600 mg oral tablet 1 tablet = 600 mg, By Mouth, Daily at bedtime, # 30 tablet, 1 Refills, Maintenance, 09/20/22 11:04:00 EDT, [facility]/pharmacy #[id number], Partial fill upon patient request if the prescription is for a schedule II opioid drug., 155, cm, 06/20/22 9:40:00 EST, Heig... Start Date: 09/20/22 Status: Ordered Multivitamins with Folic Acid 1 mg oral tablet 1 tablet, By Mouth, Daily, # 90 tablet, 2 Refills, Maintenance, 10/13/21 10:02:00 EDT, Tablet, [facility]/pharmacy #[id number], Partial fill upon patient request if the prescription is for a schedule II opioid drug., 1 tablet By Mouth Daily, 155, cm, 11/11/20 13:1... Start Date: 10/13/21 Status: Ordered sertraline 50 mg oral tablet 1 tablet = 50 mg, By Mouth, Daily, # 90 tablet, 0 Refills, Maintenance, 09/20/22 11:06:00 EDT, Tablet, [facility]/pharmacy #[id number], Partial fill upon patient request if the prescription is for a schedule II opioid drug., 155, cm, 06/20/22 9:40:00 EST, Height,... Start Date: 09/20/22 Status: Ordered Problem List Condition Confirmation Course Effective Dates Status Health St [facility] Informant Anxiety Confirmed Active Asthma Confirmed Active Family history of type 2 diabetes mellitus Confirmed Active Herpes genitalia Confirmed Active Migraines Confirmed Active Health skilled nursing, active care coordination [facility] coordinator volunteer services Susie Zamarripavivian [phone] Confirmed Active Severe obesity (BMI 35.0-39.9) with comorbidity Confirmed Active Social History Social History Type Response Smoking Status Never (less than 100 in lifetime) entered on: 08/07/18 Sex Patient Care team information Care Team Personnel Name: Julio Malloy MD Position: [facility] Physician - Primary Care Member Role: PCP Address: Address: [address] [place] [address]- Care Team Related Persons Name: TALHA PACK Address: home [address] [place] [address] Name: FABIO PEREIRA Address: Address: home [address] [place] [address] [place] Name: MABEL BERRY Address: Address: home [address] [place] [address] [place] Name: ELIZABETH BERRY Address: Address: home [address] [place] [address] [place] Name: BROCK DWYER Address: home [address] [place] [address]
--- OUTSIDE RECORDS SUMMARY | 2023-10-19 06:04 | XMS_ITS | Continuity of Care Document ---
Author Organization [facility] Address [address] [place] [address]- Care Team Providers Care Special Delivery Carrier Name Role Phone Gama HDZ, Julio Chery Primary Care Physician Encounter [facility] Date(s): 04/25/20 - 05/25/[address] [address] Allergies, Adverse Reactions, Alerts Substance Reaction [...] 1 04/07/18 Given 1Result Comment: [04/07/2018] diluent [id number] exp 09/06/2019 Medications acetaminophen 325 mg oral tablet 650 mg, 2, tablet, By Mouth, Every 4 hours, PRN, # 50 tablet, Refills 0, Tot. Refills 0, Maintenance, as needed for pain, 05/08/20 15:24:00 EST, Route to Pharmacy Electronically, [facility]/pharmacy #[id number], Partial fill upon patient request if the prescriptio... Start Date: 05/08/20 Status: Ordered Albuterol (Eqv-ProAir HFA) 90 mcg/inh inhalation aerosol 1 TO 2 PUFFS, Inhalation, Every 6 hours, PRN NEEDED FOR WHEEZE, # 8.5 Unknown, 1 Refills, Maintenance, 02/12/20 9:13:00 EDT, [facility], 25, INHALE 1 TO 2 PUFFS EVERY 6 HOURS NEEDED FOR WHEEZE, 155, cm, 02/03/20 17:37:00 EDT, Height, 84.8,... Start Date: 02/12/20 Status: Ordered betamethasone topical valerate 0.1% ointment 1 application, Topically, 2 times a day, Apply to affected areas. Rub in to absorb and apply lotionover medication, # 45 Gm, 0 Refills, Maintenance, 05/08/20 15:21:00 EST, Ointment, [facility]/pharmacy #0488, Partial fill upon patient request if the prescri... Start Date: 05/08/20 Status: Ordered Radha 0.35 mg oral tablet 1 tablet = 0.35 mg, By Mouth, Daily, # 28 tablet, 12 Refills, Maintenance, 05/21/20 11:42:00 EST, Tablet, [facility]/pharmacy #0488, Partial fill upon patient request if the prescription is for a schedule II opioid drug., 155, cm, 03/30/20 9:46:00 EST, Heigh... Start Date: 05/21/20 Status: Ordered etonogestrel 68 mg subcutaneous implant 1 each = 68 mg, Intradermal, inbound call center representative to Procedure, 0 Refills, Maintenance, 03/30/20 5:27:00 EST, Implant, Partial fill upon patient request Start Date: 03/30/20 Status: Ordered naproxen 500 mg oral tablet 1 tablet = 500 mg, By Mouth, 2 times a day, PRN for pain, Take with food, # 30 tablet, 0 Refills, Maintenance, 05/08/20 15:25:00 EST, Tablet, [facility]/pharmacy #[id number], Partial fill upon patient request if [...] Acute, 04/02/20 9:32:00EST, Route to Pharmacy Electronically, [email or web address], 155, cm, 03/30/20 9:46:00 EST, Height, 94.3, [...]
--- OUTSIDE RECORDS SUMMARY | 2023-10-19 06:04 | XMS_ITS | Continuity of Care Document ---
Author Organization [facility] Address [address] [place] [address]- Care Team Providers Care Grinding Wheel Inspector Name Role Phone Gama HDZ, Julio Chery Primary Care Physician [phone] Encounter [facility] Date(s): 12/30/22 - 01/29/[address] [address] Allergies, Adverse Reactions, Alerts Substance Reaction [...] 1 04/07/18 Given 1Result Comment: [04/07/2018] diluent [id number] exp 09/06/2019 Medications acetaminophen 325 mg oral tablet 650 mg, 2, tablet, By Mouth, Every 4 hours, PRN, # 100 tablet, Refills 1, Tot. Refills 1, Maintenance, as needed for pain, 03/31/22 9:53:00 EST, Route to Pharmacy Electronically, [facility]/pharmacy #[id number], Partial fill upon patient request if the prescriptio... Start Date: 03/31/22 Status: Ordered Advair Diskus 500 mcg-50 mcg inhalation powder 1, puffs, Inhalation, 2 times a day, rinse mouth and throat after use Note dose change, # 60 each, Refills 5, Tot. Refills 5, Maintenance, 07/26/22 14:02:00 EDT, Powder, Route to Pharmacy Electronically, [id number], [facility]/phar... Start Date: 07/26/22 Status: Ordered albuterol CFC free 90 mcg/inh inhalation aerosol 2, puffs, Inhalation, Every 4 hours, PRN, # 6.7 Gm, Refills 0, Tot. Refills 0, Soft Stop, 06/15/22 14:52:00 EST, Aerosol, Route to Pharmacy Electronically, [id number], [facility]/pharmacy #0488, 155, cm, 06/15/22 14:05:00 EST, Heigh... Start Date: 06/15/22 Status: Ordered Keturah 30 mg oral tablet 1 tablet = 30 mg, By Mouth, Once, # 1 tablet, 0 Refills, Soft Stop, 06/20/22 4:51:00 EST, Tablet, [facility]/pharmacy #0488, Partial fill upon patient request if the prescription is for a schedule II opioiddrug., 155, cm, 06/20/22 0:24:00 EST, Height, 92.5,... Start Date: 06/20/22 Status: Ordered Eucerin Eczema Relief topical cream See Instructions, Topically twice daily, # 420 Gm, 5 Refills, Maintenance, 09/20/22 11:05:00 EDT, [facility]/pharmacy #0488, Partial fill upon patient request if the prescription is for a schedule II opioiddrug., Topically twice daily, 155, cm, 06/20/22 9:4... Start Date: 09/20/22 Status: Ordered gabapentin 600 mg oral tablet 1 tablet, By Mouth, Daily at bedtime, # 30 tablet, 1 Refills, Maintenance, 01/24/23 18:31:00 EDT, [facility] 30[facility], 155, cm, 06/20/22 9:40:00 EST, Height, 92.5, [...] Refills, Maintenance, 10/13/21 10:02:00 EDT, Tablet, [facility]/pharmacy #0488, Partial fill upon patient request if the prescription is for a schedule II opioid drug., 1 tablet By Mouth Daily, 155, cm, 11/11/20 13:1... Start Date: 10/13/21 Status: Ordered sertraline 50 mg oral tablet 1 tablet, By Mouth, Daily, # 90 tablet, 0 Refills, Maintenance, 12/29/22 7:22:00 EDT, [facility], 155, cm, 06/20/22 9:40:00 EST, Height, 92.5, [...] genitalia Confirmed Active Migraines Confirmed Active Health [facility], active care coordination [facility] health coordinator Susie Purvis [phone] Confirmed Active Severe obesity (BMI 35.0-39.9) with comorbidity Confirmed Active Social History Social History Type Response Smoking Status Never (less than 100 in lifetime) entered on: 08/07/18 Sex Patient Care team information Care Team Personnel Name: Gama HDZ, Julio Chery [facility] Phys[facility] - Primary Care Member Role: PCP Address: Address: [address] [place] [address]- Care Team Related Persons Name: TALHA PACK Address: home [address] [place] [address] Name: FABIO PEREIRA Address: [address] Address: home [address] [place] [address] [place] Name: MABEL BERRY Address: [address] Address: home [address] [place] [address] [place] Name: ELIZABETH BERRY Address: [address] Address: home [address] [place] [address] [place] Name: BROCK DWYER Address: home [address] [place] [address]
--- OUTSIDE RECORDS SUMMARY | 2023-10-19 06:04 | XMS_ITS | Continuity of Care Document ---
Author Organization [facility] Address [address] [place] [address]- Care Team Providers Care Superintendent Overhead Distribution Name Role Phone Julio Malloy MD Primary Care Physician Encounter [facility] Date(s): 09/05/23 - 10/05/[address] [address]- Allergies, Adverse Reactions, Alerts Substance Reaction Severity [...] 1 04/07/18 Given 1Result Comment: [04/07/2018] diluent [id number] exp 09/06/2019 Medications acetaminophen 325 mg oral tablet 650 mg, 2, tablet, By Mouth, Every 4 hours, PRN, # 100 tablet, Refills 1, Tot. Refills 1, Maintenance, as needed for pain, 03/31/22 9:53:00 EST, Route to Pharmacy Electronically, [facility]/pharmacy #[id number], Partial fill upon patient request if the prescriptio... Start Date: 03/31/22 Status: Ordered Advair Diskus 500 mcg-50 mcg inhalation powder 1, puffs, Inhalation, 2 times a day, rinse mouth and throat after use Note dose change, # 60 each, Refills 5, Tot. Refills 5, Maintenance, 07/26/22 14:02:00 EDT, Powder, Route to Pharmacy Electronically, [id number], [facility]/phar... Start Date: 07/26/22 Status: Ordered Keturah 30 mg oral tablet 1 tablet = 30 mg, By Mouth, Once, # 1 tablet, 0 Refills, Soft Stop, 06/20/22 4:51:00 EST, Tablet, [facility]/pharmacy #0488, Partial fill upon patient request if the prescription is for a schedule II opioiddrug., 155, cm, 06/20/22 0:24:00 EST, Height, 92.5,... Start Date: 06/20/22 Status: Ordered Eucerin Eczema Relief topical cream See Instructions, Topically twice daily, # 420 Gm, 5 Refills, Maintenance, 09/20/22 11:05:00 EDT, [facility]/pharmacy #0488, Partial fill upon patient request if the prescription is for a schedule II opioiddrug., Topically twice daily, 155, cm, 06/20/22 9:4... Start Date: 09/20/22 Status: Ordered gabapentin 600 mg oral tablet 1 tablet, By Mouth, Daily at bedtime, # 30 tablet, 5 Refills, Maintenance, 03/11/23 13:01:00 EDT, [facility]/pharmacy #0488, 155, cm, 06/20/22 9:40:00 EST, Height, [...] Refills, Maintenance, 12/29/22 7:22:00 EDT, [facility], 155, cm, 06/20/22 9:40:00 EST, Height, 92.5, kg, 06/18/22 3:38:00 EST, Dry Weight Start Date: 12/29/22 Status: Ordered Ventolin HFA 108 mcg/inh inhalation aerosol with adapter 2 puffs, Inhalation, Every 4 hours, PRN NEEDED FOR WHEEZING, # 18 each, 1 Refills, Maintenance, 05/07/23 10:32:00 EST, [facility], 155, cm, 03/18/23 9:20:00 EST, Height, 92.5, [...] genitalia Confirmed Active Migraines Confirmed Active Health correction, active care coordination [facility] student outreach coordinator Susie Purvis [phone] Confirmed Active Severe obesity (BMI 35.0-39.9) with comorbidity Confirmed Active Social History Social History Type Response Smoking Status Never (less than 100 in lifetime) entered on: 08/07/18 Sex Patient Care team information Care Team Personnel Name: Gama HDZ, Julio Chery Position: [facility] Physician - Primary Care Member Role: PCP Address: Address: [address] [place] [address] [place] Care Team Related Persons Name: TALHA PACK Address: home [address] [place] [address] Name: MABEL PEREIRA Address: [address] Address: home [address] [place] [address] [place] Name: ELIZABETH PEREIRA Address: [address] Address: home [address] [address] [place] Name: FABIO PEREIRA Address: [address] Address: home [address] [address] [place] Name: BROCK DWYER Address: home [address] [place] [address]
--- OUTSIDE RECORDS SUMMARY | 2023-10-19 06:04 | XMS_ITS | Continuity of Care Document ---
Author Organization [facility] Address [address] [place] [address]- Care Team Providers Care Licensed Retail Supervisor Name Role Phone Julio Malloy MD Primary Care Physician Encounter [facility] Date(s): 05/20/20 - 06/19/[address] [address]- Allergies, Adverse Reactions, Alerts Substance Reaction Severity [...] 1 04/07/18 Given 1Result Comment: [04/07/2018] diluent [id number] exp 09/06/2019 Medications acetaminophen 325 mg oral tablet 650 mg, 2, tablet, By Mouth, Every 4 hours, PRN, # 50 tablet, Refills 5, Tot. Refills 5, Maintenance, as needed for pain, 06/03/20 11:08:00 EST, Route to Pharmacy Electronically, [facility]/pharmacy #9076, Partial fill upon patient request if the [...] implant 1 each = 68 mg, Intradermal, global director air and climate change to Procedure, 0 Refills, Maintenance, 03/30/20 5:27:00 [...] 8 Refills, Maintenance, 08/21/19 12:03:00 EDT, Tablet, [facility]/pharmacy #0488, 1 tablet By Mouth Daily, 155, cm, 07/23/19 10:51:00 EDT, Height, 93.2, kg, 03/23/19 11:10:00 EST, Dry Weight Start Date: 08/21/19 Status: Ordered Proventil HFA 90 mcg/inh inhalation aerosol with adapter 2, puffs, Inhalation, 4 times a day, PRN, # 25 Gm, Refills 0, Tot. Refills 0, Maintenance, 06/16/2110:02:00 EST, Aerosol, Route to Pharmacy Electronically, [id number], [facility]/pharmacy #0488, 155, cm, 03/30/20 9:46:00 EST, Heigh... Start Date: 06/16/20 Status: Ordered valACYclovir 500 mg oral tablet 1, tablet, By Mouth, 2 times a day, # 60 tablet, Refills 1, Tot. Refills 0, Acute, 04/02/20 9:32:00EST, Route to Pharmacy Electronically, [facility] 9[facility], 155, cm, 03/30/20 9:46:00 EST, Height, 94.3, [...]
--- OUTSIDE RECORDS SUMMARY | 2023-10-19 06:04 | XMS_ITS | Continuity of Care Document ---
Author Organization [facility] Address [address] [place] [address]- Care Team Providers Care Small Animal Caretaker Name Role Phone Gama HDZ, Julio Chery Primary Care Physician En[place] [facility] Date(s): 10/13/21 - 11/12/[address] [address] Allergies, Adverse Reactions, Alerts Substance Reaction Severity [...] 1 04/07/18 Given 1Result Comment: [04/07/2018] diluent [id number] exp 09/06/2019 Medications Advair Diskus 100 mcg-50 mcg inhalation powder 1, inhalation, Inhalation, 2 times a day, rinse mouth and throat after use replaces fluticasone inhaler, # 1 each, Refills 5, Tot. Refills 5, Maintenance, 09/01/20 10:55:00 EDT, Powder, Route to Pharmacy Electronically, [id number]... Start Date: 09/01/20 Status: Ordered Paxlovid 150 mg-100 mg oral tablet See Instructions, 300mg nirmatrelvir (two 150mg tablets) with 100mg ritonavir (one tablet). All 3 tablets taken together twice daily for 5 days, with or without food., # 30 tablet, 0 Refills, Maintenance, 09/17/21 12:59:00 EDT, [facility]/pharmacy #0488, Pa... Start Date: 09/17/21 Status: [...] 2 Refills, Maintenance, 10/13/21 10:02:00 EDT, Tablet, [facility]/pharmacy #0488, Partial fill upon patient [...] 06/16/2110:02:00 EST, Aerosol, Route to Pharmacy Electronically, [id number], [facility]/pharmacy #0488, 155, cm, 03/30/20 9:46:00 EST, Heigh... Start Date: 06/16/20 Status: Ordered pyridoxine 25 mg oral tablet 1 tablet = 25 mg, By Mouth, 3 times a day, for 14 days, # 42 tablet, 1 Refills, Acute 12/09/21 12:32:00 EDT, 11/11/21 12:32:00 EDT, Tablet, [facility]/pharmacy #0488, Partial fill upon patient request if the prescription is for a schedule II opioid drug., 15... Start Date: 11/11/21 Stop Date: 12/09/21 Status: Ordered Unisom 25 mg oral tablet 1 tablet = 25 mg, By Mouth, Daily at bedtime, PRN for sleep, # 16 tablet, 0 Refills, Acute 12/13/2211:33:00 EDT, 11/11/21 12:33:00 EDT, Tablet, [facility]/pharmacy #0488, Partial fill upon patient [...]
--- OUTSIDE RECORDS SUMMARY | 2023-10-19 06:04 | XMS_ITS | Continuity of Care Document ---
Author Organization [facility] Address [address] [place] [address]- Care Team Providers Care Utility Arborist Name Role Phone Julio Malloy MD Primary Care Physician Encounter [facility] [place] Date(s): 08/31/21 - 10/07/[address] [address] Attending Physician: Julio Malloy MD Admitting Physician: Julio Malloy MD Allergies, Adverse Reactions, [...] 1 04/07/18 Given 1Result Comment: [04/07/2018] diluent [id number] exp 09/06/2019 Medications Advair Diskus 100 mcg-50 mcg inhalation powder 1, inhalation, Inhalation, 2 times a day, rinse mouth and throat after use replaces fluticasone inhaler, # 1 each, Refills 5, Tot. Refills 5, Maintenance, 09/01/20 10:55:00 EDT, Powder, Route to Pharmacy Electronically, [id number]... Start Date: 09/01/20 Status: Ordered Paxlovid 150 mg-100 mg oral tablet See Instructions, 300mg nirmatrelvir (two 150mg tablets) with 100mg ritonavir (one tablet). All 3 tablets taken together twice daily for 5 days, with or without food., # 30 tablet, 0 Refills, Maintenance, 09/17/21 12:59:00 EDT, [facility]/pharmacy #[id number], [place]... Start Date: 09/17/21 Status: Ordered Proventil HFA 90 mcg/inh inhalation aerosol with adapter 2, puffs, Inhalation, 4 times a day, PRN, # 25 Gm, Refills 0, Tot. Refills 0, Maintenance, 06/16/2110:02:00 EST, Aerosol, Route to Pharmacy Electronically, [id number], [facility]/pharmacy #[id number], 155, cm, 03/30/20 9:46:00 EST, Heigh... Start Date: 06/16/20 Status: Ordered Problem List Condition Effective Dates Status Health Status Inform ant Anxiety(Confirmed) Active Asthma(Confirmed) Active Bipolar 1 disorder(Confirmed) Active Depression(Confirmed) Active Family history of type 2 campos betes mellitus(Confirmed) Active Herpes genitalia(Confirmed) Active Migraines(Confirmed) Active Obese(Confirmed) Active Social History Social History Type Response Smoking Status Never (less than 100 in lifetime) entered on: 08/07/18 Sex
--- OUTSIDE RECORDS SUMMARY | 2023-10-19 06:04 | XMS_ITS | Continuity of Care Document ---
Author Organization [facility] Address [address] [place] [address]- Care Team Providers Care Detention Deputy Name Role Phone Gama HDZ, Julio Chery Primary Care Physician Encounter [facility] Date(s): 10/04/19 - 11/03/19 [facility] [address] [place] [address]- [facility] Attending Physician: Admashley, Zhane Admitting Physician: AdmtrZhane Referring Physician: Admtr, Ar8 Allergies, Adverse Reactions, Alerts Substance Reaction Severity [...] 1 04/07/18 Given 1Result Comment: [04/07/2018] diluent [id number] exp 09/06/2019 Medications albuterol 90 mcg/inh inhalation [...] 09/25/19 11:29:00 EDT, Route to Pharmacy Electronically, [facility]/pharmacy #[id number], 155, cm, 09/03/19 10:41:00 EDT, Height, 71.2, kg, 09/03/19 10:41:00 EDT, Dry Weight Start Date: 09/25/19 Stop Date: 10/23/19 Status: Ordered Multivitamins with Folic Acid 1 mg oral tablet 1 tablet, By Mouth, Daily, # 30 tablet, 8 Refills, Maintenance, 08/21/19 12:03:00 EDT, Tablet, [facility]/pharmacy #[id number], 1 tablet By Mouth Daily, [...]
--- OUTSIDE RECORDS SUMMARY | 2023-10-19 06:04 | XMS_ITS | Continuity of Care Document ---
Author Organization [facility] Address [address] [place] [address]- Care Team Providers Care Lmft Name Role Phone Gama HDZ, Julio Chery Primary Care Physician Encounter [facility] [place] Date(s): 02/08/22 - 03/10/[address] [address] Allergies, Adverse Reactions, Alerts [...] 1 04/07/18 Given 1Result Comment: [04/07/2018] diluent [id number] exp 09/06/2019 Medications Advair Diskus 100 mcg-50 mcg inhalation powder 1, inhalation, Inhalation, 2 times a day, rinse mouth and throat after use replaces fluticasone inhaler, # 1 each, Refills 5, Tot. Refills 5, Maintenance, 09/01/20 10:55:00 EDT, Powder, Route to Pharmacy Electronically, [id number]... Start Date: 09/01/20 Status: Ordered albuterol CFC free 90 mcg/inh inhalation aerosol 2, puffs, Inhalation, Every 4 hours, PRN, # 6.7 Gm, Refills 0, Tot. Refills 0, Soft Stop, 12/08/21 15:01:00 EDT, Aerosol, Route to Pharmacy Electronically, [id number], [facility]/pharmacy #[id number], 155, cm, 12/08/21 14:56:00 EDT, Heigh... Start Date: 12/08/21 Status: Ordered Multivitamins with Folic Acid 1 mg oral tablet 1 tablet, By Mouth, Daily, # 90 tablet, 2 Refills, Maintenance, 11/11/21 12:32:00 EDT, [facility]/pharmacy#0488, Partial fill upon patient request if [...] Name: Gama HDZ, Julio Chery Address: Address: [address] [place] [address]
--- OUTSIDE RECORDS SUMMARY | 2023-10-19 06:04 | XMS_ITS | Continuity of Care Document ---
Author Organization [facility] Address [address] [place] [address]- Care Team Providers Care Blower Installer Name Role Phone Julio Malloy MD Primary Care Physician [phone] [place] [facility] 02/23/23 - 03/27/[address] [address] Attending Physician: Catherine Ugalde CNM Admitting Physician: Catherine Ugalde CNM Referring Physician: Catherine Ugalde CNM Allergies, Adverse Reactions, [...] 1 04/07/18 Given 1Result Comment: [04/07/2018] diluent [id number] exp 09/06/2019 Medications acetaminophen 325 mg oral tablet 650 mg, 2, tablet, By Mouth, Every 4 hours, PRN, # 100 tablet, Refills 1, Tot. Refills 1, Maintenance, as needed for pain, 03/31/22 9:53:00 EST, Route to Pharmacy Electronically, [facility]/pharmacy #[id number], Partial fill upon patient request if the prescriptio... Start Date: 03/31/22 Status: Ordered Advair Diskus 500 mcg-50 mcg inhalation powder 1, puffs, Inhalation, 2 times a day, rinse mouth and throat after use Note dose change, # 60 each, Refills 5, Tot. Refills 5, Maintenance, 07/26/22 14:02:00 EDT, Powder, Route to Pharmacy Electronically, [id number], [facility]/phar... Start Date: 07/26/22 Status: Ordered albuterol CFC free 90 mcg/inh inhalation aerosol 2, puffs, Inhalation, Every 4 hours, PRN, # 6.7 Gm, Refills 1, Tot. Refills 1, Soft Stop, 03/11/23 13:01:00 EDT, Aerosol, Route to Pharmacy Electronically, [id number], [facility]/pharmacy #[id number], 155, cm, 06/20/22 9:40:00 EST, Height... Start Date: 03/11/23 Status: Ordered Keturah 30 mg oral tablet 1 tablet = 30 mg, By Mouth, Once, # 1 tablet, 0 Refills, Soft Stop, 06/20/22 4:51:00 EST, Tablet, [facility]/pharmacy #[id number], Partial fill upon patient request if the prescription is for a schedule II opioiddrug., 155, cm, 06/20/22 0:24:00 EST, Height, 92.5,... Start Date: 06/20/22 Status: Ordered Eucerin Eczema Relief topical cream See Instructions, Topically twice daily, # 420 Gm, 5 Refills, Maintenance, 09/20/22 11:05:00 EDT, [facility]/pharmacy #[id number], Partial fill upon patient request if the prescription is for a schedule II opioiddrug., Topically twice daily, 155, cm, 06/20/22 9:4... Start Date: 09/20/22 Status: Ordered gabapentin 600 mg oral tablet 1 tablet, By Mouth, Daily at bedtime, # 30 tablet, 5 Refills, Maintenance, 03/11/23 13:01:00 EDT, [facility]/pharmacy #[id number], 155, cm, 06/20/22 9:40:00 EST, [...] Refills, Maintenance, 12/29/22 7:22:00 EDT, [facility], 155, cm, 06/20/22 9:40:00 EST, Height, 92.5, [...] genitalia Confirmed Active Migraines Confirmed Active Health [facility], active care coordination [facility] sourcing coordinator Susie Purvis [phone] Confirmed Active Severe obesity (BMI 35.0-39.9) with comorbidity Confirmed Active Social History Social History Type Response Smoking Status Never (less than 100 in lifetime) entered on: 08/07/18 Sex Patient Care team information Care Team Personnel Name: Gama HDZ, Julio Chery Position: [facility] Physician - Primary Care Member Role: PCP Address: Address: [address] [place] [address]- Care Team Related Persons Name: TALHA PACK Address: [address] [place] [address] Name: FABIO PEREIRA Address: [address] Address: home [address] [place] [address] [place] Name: MABEL BERRY Address: [address] Address: home [address] [place] [address] [place] Name: ELIZABETH BERRY Address: [address] Address: home [address] [place] [address] [place] Name: BROCK DWYER Address: home [address] [place] [address]
--- OUTSIDE RECORDS SUMMARY | 2023-10-19 06:04 | XMS_ITS | Continuity of Care Document ---
Author Organization [facility] Address [address] [place] [address]- Care Team Providers Care Bottoming Room Inspector Name Role Phone Gama HDZ, Julio Chery Primary Care Physician [phone] Encounter [facility] [place] Date(s): 04/02/20 - 05/02/[address] [address]- Allergies, Adverse Reactions, Alerts Substance Reaction Severity [...] 1 04/07/18 Given 1Result Comment: [04/07/2018] diluent [id number] exp 09/06/2019 Medications acetaminophen 325 mg oral tablet 650 mg, By Mouth, Every 4 hours, PRN, (1-3), may give 325mg per patient preference and re-dose [id number] within 4 hours, if needed. Patient should only receive a total of 650mg of Acetaminophen every 4 hours., Refills 0, Maintenance, Pain , Mild, 1... Start Date: 03/30/20 Status: Ordered Albuterol (Eqv-ProAir HFA) 90 mcg/inh inhalation aerosol 1 TO 2 PUFFS, Inhalation, Every 6 hours, PRN NEEDED FOR WHEEZE, # 8.5 Unknown, 1 Refills, Maintenance, 02/12/20 9:13:00 EDT, [facility], 25, INHALE 1 TO 2 PUFFS EVERY 6 HOURS NEEDED FOR WHEEZE, 155, cm, 02/03/20 17:37:00 EDT, Height, 84.8,... Start Date: 02/12/20 Status: Ordered etonogestrel 68 mg subcutaneous implant 1 each = 68 mg, Intradermal, manager call center to Procedure, 0 Refills, Maintenance, 03/30/20 5:27:00 EST, Implant, Partial fill upon patient request Start Date: 03/30/20 Status: Ordered ibuprofen 800 mg oral tablet 800 mg, 1, tablet, By Mouth, Every 8 hours, PRN, (4-6), may give 400mg per patient preference and re-dose with 400mg within 8 hours if needed. Patient should only receive a total of 800mg of Ibuprofen every 8 hours., Refills 0, Maintenance, Pain , M... Start Date: 03/30/20 Status: Ordered Multivitamins with Folic Acid 1 mg oral tablet 1 tablet, By Mouth, Daily, # 30 tablet, 8 Refills, Maintenance, 08/21/19 12:03:00 EDT, Tablet, [facility]/pharmacy #0488, 1 tablet By Mouth Daily, 155, cm, 07/23/19 10:51:00 EDT, Height, 93.2, kg, 03/23/19 11:10:00 EST, Dry Weight Start Date: 08/21/19 Status: Ordered valACYclovir 500 mg oral tablet 1, tablet, By Mouth, 2 times a day, # 60 tablet, Refills 1, Tot. Refills 0, Acute, 04/02/20 9:32:00EST, Route to Pharmacy Electronically, [facility], 155, cm, 03/30/20 9:46:00 EST, Height, 94.3, [...]
--- OUTSIDE RECORDS SUMMARY | 2023-10-19 06:04 | XMS_ITS | Continuity of Care Document ---
Author Organization [facility] Address [address] [place] [address]- Care Team Providers Care Metal Patternmaker Apprentice Name Role Phone Gama DHZ, Julio Chery Primary Care Physician Encounter [facility] Date(s): 02/03/22 - 03/05/[address] [address] Allergies, Adverse Reactions, Alerts Substance Reaction Severity [...] 1 04/07/18 Given 1Result Comment: [04/07/2018] diluent [id number] exp 09/06/2019 Medications Advair Diskus 100 mcg-50 mcg inhalation powder 1, inhalation, Inhalation, 2 times a day, rinse mouth and throat after use replaces fluticasone inhaler, # 1 each, Refills 5, Tot. Refills 5, Maintenance, 09/01/20 10:55:00 EDT, Powder, Route to Pharmacy Electronically, [id number]... Start Date: 09/01/20 Status: Ordered albuterol CFC free 90 mcg/inh inhalation aerosol 2, puffs, Inhalation, Every 4 hours, PRN, # 6.7 Gm, Refills 0, Tot. Refills 0, Soft Stop, 12/08/21 15:01:00 EDT, Aerosol, Route to Pharmacy Electronically, [id number], [facility]/pharmacy #[id number], 155, cm, 12/08/21 14:56:00 EDT, Heigh... Start Date: 12/08/21 Status: Ordered Multivitamins with Folic Acid 1 mg oral tablet 1 tablet, By Mouth, Daily, # 90 tablet, 2 Refills, Maintenance, 11/11/21 12:32:00 EDT, [facility]/pharmacy#0488, Partial fill upon patient request [...] Name: Gama HDZ, Julio Chery Address: Address: [address] [place] [address]
--- OUTSIDE RECORDS SUMMARY | 2023-10-19 06:04 | XMS_ITS | Continuity of Care Document ---
Author Organization [facility] Address [address] [place] [address]- Care Team Providers Care Public Safety Telecommunicator Name Role Phone Gama HDZ, Julio Chery Primary Care Physician [phone] [place] [facility] [place] 05/21/20 - 06/20/[address] [address]- Attending Physician: Zhane Barrett Admitting Physician: Zhane [...] 1 04/07/18 Given 1Result Comment: [04/07/2018] diluent [id number] exp 09/06/2019 Medications acetaminophen 325 mg oral tablet 650 mg, 2, tablet, By Mouth, Every 4 hours, PRN, # 50 tablet, Refills 5, Tot. Refills 5, Maintenance, as needed for pain, 06/03/20 11:08:00 EST, Route to Pharmacy Electronically, [facility]/pharmacy #[id number], Partial fill upon patient request if the [...] each = 68 mg, Intradermal, call center trainer to Procedure, 0 Refills, Maintenance, 03/30/20 5:27:00 [...] 0 Refills, Maintenance, 06/03/20 11:08:00 EST, Tablet, [facility]/pharmacy #0488, Partial fill upon patient request if the prescription is for a schedule II opioid drug.,... Start Date: 06/03/20 Status: Ordered Multivitamins with Folic Acid 1 mg oral tablet 1 tablet, By Mouth, Daily, # 30 tablet, 8 Refills, Maintenance, 08/21/19 12:03:00 EDT, Tablet, [facility]/pharmacy #0488, 1 tablet By Mouth Daily, 155, cm, 07/23/19 10:51:00 EDT, Height, 93.2, kg, 03/23/19 11:10:00 EST, Dry Weight Start Date: 08/21/19 Status: Ordered Proventil HFA 90 mcg/inh inhalation aerosol with adapter 2, puffs, Inhalation, 4 times a day, PRN, # 25 Gm, Refills 0, Tot. Refills 0, Maintenance, 06/16/2110:02:00 EST, Aerosol, Route to Pharmacy Electronically, [id number], [facility]/pharmacy #0488, 155, cm, 03/30/20 9:46:00 EST, Heigh... Start Date: 06/16/20 Status: Ordered valACYclovir 500 mg oral tablet 1, tablet, By Mouth, 2 times a day, # 60 tablet, Refills 1, Tot. Refills 0, Acute, 04/02/20 9:32:00EST, Route to Pharmacy Electronically, [facility], 155, cm, 03/30/20 9:46:00 EST, Height, 94.3, [...]
--- OUTSIDE RECORDS SUMMARY | 2023-10-19 06:04 | XMS_ITS | Continuity of Care Document ---
Author Organization [facility] Address [address] [place] [address]- Care Team Providers Care Label Press Operator Name Role Phone Julio Malloy MD Primary Care Physician [phone] Encounter [facility] [place] Date(s): 03/31/20 - 06/05/[address] [address] Attending Physician: Catherine Ugalde CNM Admitting [...] 1 04/07/18 Given 1Result Comment: [04/07/2018] diluent [id number] exp 09/06/2019 Medications acetaminophen 325 mg oral tablet 650 mg, 2, tablet, By Mouth, Every 4 hours, PRN, # 50 tablet, Refills 5, Tot. Refills 5, Maintenance, as needed for pain, 06/03/20 11:08:00 EST, Route to Pharmacy Electronically, [facility]/pharmacy #[id number], Partial fill upon patient request if the prescriptio... Start Date: 06/03/20 Status: Ordered Albuterol (Eqv-ProAir HFA) 90 mcg/inh inhalation aerosol 1 TO 2 PUFFS, Inhalation, Every 6 hours, PRN NEEDED FOR WHEEZE, # 8.5 Unknown, 1 Refills, Maintenance, 02/12/20 9:13:00 EDT, [facility], 25, INHALE 1 TO 2 PUFFS EVERY 6 HOURS NEEDED FOR WHEEZE, 155, cm, 02/03/20 17:37:00 EDT, Height, 84.8,... Start Date: 02/12/20 Status: Ordered betamethasone topical valerate 0.1% ointment 1 application, Topically, 2 times a day, Apply to affected areas. Rub in to absorb and apply lotionover medication, # 45 Gm, 0 Refills, Maintenance, 06/03/20 14:40:00 EST, Ointment, [facility]/pharmacy #[id number], Partial fill upon patient request [...] each = 68 mg, Intradermal, call center professional to Procedure, 0 Refills, Maintenance, 03/30/20 5:27:00 [...] 0 Refills, Maintenance, 06/03/20 11:08:00 EST, Tablet, [facility]/pharmacy #0488, Partial fill upon patient request if the prescription is for a schedule II opioid drug.,... Start Date: 06/03/20 Status: Ordered Multivitamins with Folic Acid 1 mg oral tablet 1 tablet, By Mouth, Daily, # 30 tablet, 8 Refills, Maintenance, 08/21/19 12:03:00 EDT, Tablet, [facility]/pharmacy #0488, 1 tablet By Mouth Daily, 155, cm, 07/23/19 10:51:00 EDT, Height, 93.2, kg, 03/23/19 11:10:00 EST, Dry Weight Start Date: 08/21/19 Status: Ordered valACYclovir 500 mg oral tablet 1, tablet, By Mouth, 2 times a day, # 60 tablet, Refills 1, Tot. Refills 0, Acute, 04/02/20 9:32:00EST, Route to Pharmacy Electronically, [facility] [address], 155, cm, 03/30/20 9:46:00 EST, Height, 94.3, [...]
--- OUTSIDE RECORDS SUMMARY | 2023-10-19 06:04 | XMS_ITS | Continuity of Care Document ---
Author Organization [facility] Address [address] [place] [address]- Care Team Providers Care Station Usher Name Role Phone Julio Malloy MD Primary Care Physician Encounter [facility] Date(s): 11/21/19 - 12/21/19 [facility] [address] [place] [address] [facility] Attending Physician: AdmZhane ramirez Admitting Physician: Admtr, Ar8 Referring Physician: Admtr, Ar8 Allergies, Adverse Reactions, [...] 1 04/07/18 Given 1Result Comment: [04/07/2018] diluent [id number] exp 09/06/2019 Medications albuterol 90 mcg/inh inhalation [...] 09/25/19 11:29:00 EDT, Route to Pharmacy Electronically, [facility]/pharmacy #[id number], 155, cm, 09/03/19 10:41:00 EDT, Height, 71.2, kg, 09/03/19 10:41:00 EDT, Dry Weight Start Date: 09/25/19 Stop Date: 10/23/19 Status: Ordered Multivitamins with Folic Acid 1 mg oral tablet 1 tablet, By Mouth, Daily, # 30 tablet, 8 Refills, Maintenance, 08/21/19 12:03:00 EDT, Tablet, [facility]/pharmacy #0488, 1 tablet By Mouth Daily, [...]
--- OUTSIDE RECORDS SUMMARY | 2023-10-19 06:04 | XMS_ITS | Continuity of Care Document ---
Author Organization [facility] Address [address] [place] [address]- Care Team Providers Care Press Pipe Inspector Name Role Phone Julio Malloy MD Primary Care Physician Encounter [facility] [place] Date(s): 10/15/21 - 11/14/[address] [address] Allergies, Adverse Reactions, Alerts Substance Reaction Severity [...] 1 04/07/18 Given 1Result Comment: [04/07/2018] diluent [id number] exp 09/06/2019 Medications Advair Diskus 100 mcg-50 mcg inhalation powder 1, inhalation, Inhalation, 2 times a day, rinse mouth and throat after use replaces fluticasone inhaler, # 1 each, Refills 5, Tot. Refills 5, Maintenance, 09/01/20 10:55:00 EDT, Powder, Route to Pharmacy Electronically, [id number]... Start Date: 09/01/20 Status: Ordered Paxlovid 150 mg-100 mg oral tablet See Instructions, 300mg nirmatrelvir (two 150mg tablets) with 100mg ritonavir (one tablet). All 3 tablets taken together twice daily for 5 days, with or without food., # 30 tablet, 0 Refills, Maintenance, 09/17/21 12:59:00 EDT, [facility]/pharmacy #0488, Pa... Start Date: 09/17/21 Status: Ordered [...] 06/16/2110:02:00 EST, Aerosol, Route to Pharmacy Electronically, [id number], [facility]/pharmacy #0488, 155, cm, 03/30/20 9:46:00 EST, Heigh... Start Date: 06/16/20 Status: Ordered pyridoxine 25 mg oral tablet 1 tablet = 25 mg, By Mouth, 3 times a day, for 14 days, # 42 tablet, 1 Refills, Acute 12/09/21 12:32:00 EDT, 11/11/21 12:32:00 EDT, Tablet, [facility]/pharmacy [...]
--- OUTSIDE RECORDS SUMMARY | 2023-10-19 06:04 | XMS_ITS | Continuity of Care Document ---
Author Organization [facility] Address [address] [place] [address]- Care Team Providers Care Pullman Car Repairer Name Role Phone Gama HDZ, Julio Chery Primary Care Physician [phone] Encounter [facility] [place] Date(s): 11/24/20 - 12/25/[address] [address] Attending Physician: Not on Staff, Attending MD [...] 1 04/07/18 Given 1Result Comment: [04/07/2018] diluent [id number] exp 09/06/2019 Medications Advair Diskus 100 mcg-50 mcg inhalation powder 1, inhalation, Inhalation, 2 times a day, rinse mouth and throat after use replaces fluticasone inhaler, # 1 each, Refills 5, Tot. Refills 5, Maintenance, 09/01/20 10:55:00 EDT, Powder, Route to Pharmacy Electronically, [id number]... Start Date: 09/01/20 Status: Ordered Radha 0.35 mg oral tablet 1 tablet = 0.35 mg, By Mouth, Daily, # 28 tablet, 12 Refills, Maintenance, 05/21/20 11:42:00 EST, Tablet, [facility]/pharmacy #0488, Partial fill upon patient request if the prescription is for a schedule II opioid drug., 155, cm, 03/30/20 9:46:00 EST, Heigh... Start Date: 05/21/20 Status: Ordered Claritin 10 mg oral tablet 10 mg, 1, tablet, By Mouth, Every other day, # 15 tablet, Refills 0, Tot. Refills 0, Maintenance, 11/12/20 14:32:00 EDT, Route to Pharmacy Electronically, [facility]/pharmacy #0488, Partial fill upon [...] Gm, 3 Refills, Maintenance, 09/01/20 10:58:00 EDT, Mode, [facility], Partial fill upon patient request [...] patch, 2 Refills, Maintenance, 06/03/20 14:36:00 EST, [facility]/pharmacy #0488, 1 patch Topically Daily,Instr:(remove patch(s) [...] 06/16/2110:02:00 EST, Aerosol, Route to Pharmacy Electronically, [id number], [facility]/pharmacy #0488, 155, cm, 03/30/20 [...] to Pharmacy Electronically, [facility]19, 155, cm, 03/30/20 9:46:00 EST, Height, 94.3, [...]
--- OUTSIDE RECORDS SUMMARY | 2023-10-19 06:04 | XMS_ITS | Continuity of Care Document ---
Author Organization [facility] y Address [address] [place] [address]- Care Team Providers Care Social Media Strategist Name Role Phone Julio Malloy MD Primary Care Physician Encounter [facility] Date(s): 12/15/21 - 03/13/22 [facility] Specialty [address] [place] [id number] Attending Physician: Mary Barroso MD Admitting Physician: Mary Barroso MD Referring Physician: Marck DE LOS SANTOS, Janki Robert Allergies, Adverse Reactions, Alerts Substance Reaction Severity [...] 1 04/07/18 Given 1Result Comment: [04/07/2018] diluent [id number] exp 09/06/2019 Medications Advair Diskus 100 mcg-50 mcg inhalation powder 1, inhalation, Inhalation, 2 times a day, rinse mouth and throat after use replaces fluticasone inhaler, # 1 each, Refills 5, Tot. Refills 5, Maintenance, 09/01/20 10:55:00 EDT, Powder, Route to Pharmacy Electronically, [id number]... Start Date: 09/01/20 Status: Ordered albuterol CFC free 90 mcg/inh inhalation aerosol 2, puffs, Inhalation, Every 4 hours, PRN, # 6.7 Gm, Refills 0, Tot. Refills 0, Soft Stop, 12/08/21 15:01:00 EDT, Aerosol, Route to Pharmacy Electronically, [id number], [facility]/pharmacy #[id number], 155, cm, 12/08/21 14:56:00 EDT, Heigh... Start Date: 12/08/21 Status: Ordered Multivitamins with Folic Acid 1 mg oral tablet 1 tablet, By Mouth, Daily, # 90 tablet, 2 Refills, Maintenance, 11/11/21 12:32:00 EDT, [facility]/pharmacy#[id number], Partial fill upon patient request if the prescription is for a schedule II opioid drug., 1 tablet By Mouth Daily, 155, cm, 11/11/21 10:26:00 EDT... Start Date: 11/11/21 Status: Ordered Multivitamins with Folic Acid 1 mg oral tablet 1 tablet, By Mouth, Daily, # 90 tablet, 2 Refills, Maintenance, 10/13/21 10:02:00 EDT, Tablet, [facility]/pharmacy #[id number], Partial fill upon patient request if [...] Name: Gama HDZ, Julio Chery Address: Address: [address] [place] [address]
--- OUTSIDE RECORDS SUMMARY | 2023-10-19 06:04 | XMS_ITS | Continuity of Care Document ---
Author Organization [facility] Address [address] [place] [address]- Care Team Providers Care Director Of Entertainment Name Role Phone Gama HDZ, Julio Chery Primary Care Physician [phone] Encounter [facility] Date(s): 04/02/20 - 05/25/[address] [address] Attending Physician: Catherine Ugalde CNM Admitting [...] 1 04/07/18 Given 1Result Comment: [04/07/2018] diluent [id number] exp 09/06/2019 Medications acetaminophen 325 mg oral tablet 650 mg, 2, tablet, By Mouth, Every 4 hours, PRN, # 50 tablet, Refills 0, Tot. Refills 0, Maintenance, as needed for pain, 05/08/20 15:24:00 EST, Route to Pharmacy Electronically, [facility]/pharmacy #[id number], Partial fill upon patient request if the prescriptio... Start Date: 05/08/20 Status: Ordered Albuterol (Eqv-ProAir HFA) 90 mcg/inh inhalation aerosol 1 TO 2 PUFFS, Inhalation, Every 6 hours, PRN NEEDED FOR WHEEZE, # 8.5 Unknown, 1 Refills, Maintenance, 02/12/20 9:13:00 EDT, [facility], 25, INHALE 1 TO 2 PUFFS EVERY [...] 1 each = 68 mg, Intradermal, call or contact centre manager to Procedure, 0 Refills, Maintenance, 03/30/20 5:27:00 [...] Acute, 04/02/20 9:32:00EST, Route to Pharmacy Electronically, [id number], 155, cm, 03/30/20 9:46:00 EST, Height, 94.3, [...]
--- OUTSIDE RECORDS SUMMARY | 2023-10-19 06:05 | XMS_ITS | Continuity of Care Document ---
Author Organization [facility] Address [address] [place] [address]- Care Team Providers Care Blister Rust Eradicator Name Role Phone Gama HDZ, Julio Chery Primary Care Physician [place] [facility] [place]/29/[place] - 12/29/[address] [address]- [facility] Allergies, Adverse Reactions, Alerts Substance Reaction Severity [...] 1 04/07/18 Given 1Result Comment: [04/07/2018] diluent [id number] exp 09/06/2019 Medications albuterol 90 mcg/inh inhalation [...] 09/25/19 11:29:00 EDT, Route to Pharmacy Electronically, [facility]/pharmacy #[id number], 155, cm, 09/03/19 10:41:00 EDT, Height, 71.2, kg, 09/03/19 10:41:00 EDT, Dry Weight Start Date: 09/25/19 Stop Date: 10/23/19 Status: Ordered Multivitamins with Folic Acid 1 mg oral tablet 1 tablet, By Mouth, Daily, # 30 tablet, 8 Refills, Maintenance, 08/21/19 12:03:00 EDT, Tablet, [facility]/pharmacy #[id number], 1 tablet By Mouth Daily, 155, cm, 07/23/19 10:51:00 EDT, Height, 93.2, kg, 03/23/19 11:10:00 EST, Dry Weight Start Date: 08/21/19 Status: Ordered ProAir HFA 90 mcg/inh inhalation aerosol See Instructions, PRN as needed for wheezing, 1-2 puffs Inhalation Every 6 hours as needed for wheezing, # 18 Gm, 1 Refills, Maintenance, 12/26/19 10:56:00 EDT, Aerosol, [facility]/pharmacy #[id number], 1-2 puffsInhalation Every 6 hours as [...]
--- OUTSIDE RECORDS SUMMARY | 2023-10-19 06:05 | XMS_ITS | Continuity of Care Document ---
Author Organization [facility] Address [address] [place] [address]- Care Team Providers Care Beekeeper Name Role Phone Gama HDZ, Julio Chery Primary Care Physician Encounter [facility] Date(s): 11/21/20 - 12/21/[address] [address]- Allergies, Adverse Reactions, Alerts Substance Reaction Severity [...] 1 04/07/18 Given 1Result Comment: [04/07/2018] diluent [id number] exp 09/06/2019 Medications Advair Diskus 100 mcg-50 mcg inhalation powder 1, inhalation, Inhalation, 2 times a day, rinse mouth and throat after use replaces fluticasone inhaler, # 1 each, Refills 5, Tot. Refills 5, Maintenance, 09/01/20 10:55:00 EDT, Powder, Route to Pharmacy Electronically, [id number]... Start Date: 09/01/20 Status: Ordered Radha 0.35 mg oral tablet 1 tablet = 0.35 mg, By Mouth, Daily, # 28 tablet, 12 Refills, Maintenance, 05/21/20 11:42:00 EST, Tablet, [facility]/pharmacy [...] 11/12/20 14:32:00 EDT, Route to Pharmacy Electronically, [facility]/pharmacy #[id number], Partial fill upon patient request if the prescription is for a schedule II o... Start Date: 11/12/20 Status: Ordered duloxetine 20 mg oral enteric coated capsule 1 capsule = 20 mg, By Mouth, Daily, # 30 capsule, 5 Refills, Maintenance, 09/01/20 10:54:00 EDT, [facility]/pharmacy #[id number], Partial fill upon patient request if the prescription is for a schedule II opioid drug., 155, cm, 07/28/20 9:59:00 EDT, Height, 94.3,... Start Date: 09/01/20 Status: Ordered Flonase 50 mcg/inh nasal spray 1 sprays, Nares, Both, 2 times a day, # 16 Gm, 3 Refills, Maintenance, 09/01/20 10:58:00 EDT, [place], [facility]/pharmacy #[id number], Partial [...] patch, 2 Refills, Maintenance, 06/03/20 14:36:00 EST, [facility]/pharmacy #[id number], 1 patch Topically Daily,Instr:(remove patch(s) after 12 hours), 155, cm, 03/30/20 9:46:00 EST, Height, 94.3, kg... Start Date: 06/03/20 Status: Ordered naproxen 500 mg oral tablet 1 tablet = 500 mg, By Mouth, 2 times a day, PRN for pain, Take with food, # 30 tablet, 0 Refills, Maintenance, 06/03/20 11:08:00 EST, Tablet, [facility]/pharmacy [...] Refills, Maintenance, 09/01/20 10:56:00 EDT, Ophth Solution, [facility]/pharmacy #[id number], Partial [...] 06/16/2110:02:00 EST, Aerosol, Route to Pharmacy Electronically, [id number], [facility]/pharmacy #[id number], 155, cm, 03/30/20 9:46:00 EST, Heigh... Start Date: 06/16/20 Status: Ordered Rhinocort Allergy 32 mcg/inh nasal spray = 32 mcg, Nares, Both, Daily, # 8.6 Gm, 0 Refills, Maintenance, 11/12/20 14:33:00 EDT, [facility]/pharmacy#[id number], Partial fill upon patient request if the prescription is for a schedule II opioid drug., 155, cm, 11/11/20 13:17:00 EDT, Height, 94.3, kg, 03/28... Start Date: 11/12/20 Stop Date: 11/26/20 Status: Ordered valACYclovir 500 mg oral tablet 1, tablet, By Mouth, 2 times a day, # 60 tablet, Refills 1, Tot. Refills 0, Acute, 04/02/20 9:32:00EST, Route to Pharmacy Electronically, [facility] [id number], 155, cm, 03/30/20 9:46:00 EST, Height, 94.3, kg, 03/28/20 11:01:00 EST, Dry Weight Start Date: 04/02/20 Status: Ordered ZyrTEC 10 mg oral tablet 1 tablet = 10 mg, By Mouth, Daily, PRN Congestion, # 30 tablet, 3 Refills, Maintenance, 09/01/20 10:58:00 EDT, Tablet, [facility]/pharmacy [...]
--- OUTSIDE RECORDS SUMMARY | 2023-10-19 06:05 | XMS_ITS | Continuity of Care Document ---
Author Organization [facility] Address [address] [place] [address]- Care Team Providers Care Homicide Squad Sergeant Name Role Phone Julio Malloy MD Primary Care Physician [phone] Encounter [facility] Date(s): 10/06/21 - 10/06/[address] [address]- Discharge Disposition: A-D/C Home Attending Physician: Danilo HDZ, Susan Smith Admitting Physician: Susan Carrasco MD Referring Physician: Not on Staff, Referring [...] 1 04/07/18 Given 1Result Comment: [04/07/2018] diluent [id number] exp 09/06/2019 Medications Advair Diskus 100 mcg-50 mcg inhalation powder 1, inhalation, Inhalation, 2 times a day, rinse mouth and throat after use replaces fluticasone inhaler, # 1 each, Refills 5, Tot. Refills 5, Maintenance, 09/01/20 10:55:00 EDT, Powder, Route to Pharmacy Electronically, [id number]... Start Date: 09/01/20 Status: Ordered Paxlovid 150 mg-100 mg oral tablet See Instructions, 300mg nirmatrelvir (two 150mg tablets) with 100mg ritonavir (one tablet). All 3 tablets taken together twice daily for 5 days, with or without food., # 30 tablet, 0 Refills, Maintenance, 09/17/21 12:59:00 EDT, [facility]/pharmacy #[id number], Pa... Start Date: 09/17/21 Status: Ordered Proventil HFA 90 mcg/inh inhalation aerosol with adapter 2, puffs, Inhalation, 4 times a day, PRN, # 25 Gm, Refills 0, Tot. Refills 0, Maintenance, 06/16/2110:02:00 EST, Aerosol, Route to Pharmacy Electronically, [id number], [facility]/pharmacy #[id number], 155, cm, 03/30/20 9:46:00 EST, Heigh... Start Date: 06/16/20 Status: Ordered Problem List Condition Effective Dates Status Health Status Inform ant Anxiety(Confirmed) Active Asthma(Confirmed) Active Bipolar 1 disorder(Confirmed) Active Depression(Confirmed) Active Family history of type 2 cam[place] betes mellitus(Confirmed) Active Herpes genitalia(Confirmed) Active Migraines(Confirmed) Active Obese(Confirmed) Active Vital Signs Most recent to oldest [Reference Range]: 1 2 Oxygen Saturation [94-100 %] 94 % (10/06/21 12:23 PM) 100 % (10/06/21 9:24 AM) Pulse Rate [55-90 bpm] 100 bpm *H* (10/06/21 12:23 PM) 96 bpm *H* (10/06/21 9:24 AM) Blood Pressure [90-138/55-84 mm Hg] 99/6 4mm Hg (10/06/21 12:23 PM) 119/70mm Hg (10/06/21 9:24 AM) Respiratory Rate [16-30 br/min] 18 br/mi n (10/06/21 12:23 PM) 16 br/min (10/06/21 9:24 AM) Temperature [96.8-100.4 DegF] 98.8 DegF (10/06/21 12:23 PM) 98.3 DegF (10/06/21 9:24 AM) Mode of Delivery (Oxygen) Room air (10/06/21 12:23 PM) Room air (10/06/21 9:24 AM) Blood pressure sites Arm, right (10/06/21 12:23 PM) Arm, left (10/06/21 9:24 AM) Temperature Route Oral (10/06/21 12:23 PM) Oral (10/06/21 9:24 AM) Social History Social History Type Response Smoking Status Never (less than 100 in lifetime) entered on: 08/07/18 Sex
--- OUTSIDE RECORDS SUMMARY | 2023-10-19 06:05 | XMS_ITS | Continuity of Care Document ---
Author Organization [facility] Address [address] [place] [address]- Care Team Providers Care Wheel And Pinion Inspector Name Role Phone Gama HDZ, Julio Chery Primary Care Physician En[place] [facility] Date(s): 09/05/23 - 10/05/[address] [address] Allergies, Adverse Reactions, Alerts Substance [...] 1 04/07/18 Given 1Result Comment: [04/07/2018] diluent [id number] exp 09/06/2019 Medications acetaminophen 325 mg oral tablet 650 mg, 2, tablet, By Mouth, Every 4 hours, PRN, # 100 tablet, Refills 1, Tot. Refills 1, Maintenance, as needed for pain, 03/31/22 9:53:00 EST, Route to Pharmacy Electronically, [facility]/pharmacy #[id number], Partial fill upon patient request if the prescriptio... Start Date: 03/31/22 Status: Ordered Advair Diskus 500 mcg-50 mcg inhalation powder 1, puffs, Inhalation, 2 times a day, rinse mouth and throat after use Note dose change, # 60 each, Refills 5, Tot. Refills 5, Maintenance, 07/26/22 14:02:00 EDT, Powder, Route to Pharmacy Electronically, [id number], [facility]/phar... Start Date: 07/26/22 Status: Ordered Keturah 30 mg oral tablet 1 tablet = 30 mg, By Mouth, Once, # 1 tablet, 0 Refills, Soft Stop, 06/20/22 4:51:00 EST, Tablet, [facility]/pharmacy #[id number], Partial fill upon patient request if the prescription is for a schedule II opioiddrug., 155, cm, 06/20/22 0:24:00 EST, Height, 92.5,... Start Date: 06/20/22 Status: Ordered Eucerin Eczema Relief topical cream See Instructions, Topically twice daily, # 420 Gm, 5 Refills, Maintenance, 09/20/22 11:05:00 EDT, [facility]/pharmacy #[id number], Partial fill upon patient request if the prescription is for a schedule II opioiddrug., Topically twice daily, 155, cm, 06/20/22 9:4... Start Date: 09/20/22 Status: Ordered gabapentin 600 mg oral tablet 1 tablet, By Mouth, Daily at bedtime, # 30 tablet, 5 Refills, Maintenance, 03/11/23 13:01:00 EDT, [facility]/pharmacy #[id number], 155, cm, 06/20/22 9:40:00 EST, Height, [...] Refills, Maintenance, 12/29/22 7:22:00 EDT, [facility], 155, cm, 06/20/22 9:40:00 EST, Height, 92.5, kg, 06/18/22 3:38:00 EST, Dry Weight Start Date: 12/29/22 Status: Ordered Ventolin HFA 108 mcg/inh inhalation aerosol with adapter 2 puffs, Inhalation, Every 4 hours, PRN NEEDED FOR WHEEZING, # 18 each, 1 Refills, Maintenance, 05/07/23 10:32:00 EST, [facility], 155, cm, 03/18/23 9:20:00 EST, Height, 92.5, [...] genitalia Confirmed Active Migraines Confirmed Active Health long term, active care coordination [facility] case management coordinator Susie Purvis [phone] Confirmed Active Severe obesity (BMI 35.0-39.9) with comorbidity Confirmed Active Social History Social History Type Response Smoking Status Never (less than 100 in lifetime) entered on: 08/07/18 Sex Patient Care team information Care Team Personnel Name: Gama HDZ, Julio Chery Position: [facility] Physician - Primary Care Member Role: PCP Address: Address: [address] [place] [address]- Care Team Related Persons Name: TALHA PACK Address: home [address] [place] [address] Name: MABEL PEREIRA Address: [address] Address: home [address] [address] [place] Name: ELIZABETH PEREIRA Address: [address] Address: home [address] [address] [place] Name: FABIO PEREIRA Address: [address] Address: home [address] [address] [place] Name: BROCK DWYER Address: home [address] [place] [address]
--- OUTSIDE RECORDS SUMMARY | 2023-10-19 06:05 | XMS_ITS | Continuity of Care Document ---
Author Organization [facility] Address [address] [place] [address]- Care Team Providers Care Skein Yarn Drier Name Role Phone Julio Malloy MD Primary Care Physician [place] [facility] [place]/11[place] - 03/12/[address] [address]- [facility] Allergies, Adverse Reactions, Alerts Substance Reaction Severity [...] 1 04/07/18 Given 1Result Comment: [04/07/2018] diluent [id number] exp 09/06/2019 Medications Albuterol (Eqv-ProAir HFA) 90 mcg/inh inhalation aerosol 1 TO 2 PUFFS, Inhalation, Every 6 hours, PRN NEEDED FOR WHEEZE, # 8.5 Unknown, 1 Refills, Maintenance, 02/12/20 9:13:00 EDT, [facility], 25, INHALE 1 TO 2 PUFFS EVERY 6 HOURS NEEDED FOR WHEEZE, 155, cm, 02/03/20 17:37:00 EDT, Height, 84.8,... Start Date: 02/12/20 Status: Ordered Cool mist humidifier Cool mist humidifier, See Instructions, # 1 each, Refills 0, Tot. Refills 0, Maintenance, Use at night for congestion and wheezing from URI and Asthma J06.9, J45.909, 09/21/18 14:00:26 EDT, Compound Start Date: 09/21/18 Status: Ordered dimethicone 4% lotion dimethicone 4% lotion, See Instructions, # 240 mL, Refills 0, Tot. Refills 0, Maintenance, Apply toscalp and hair to coat fully twice daily, 02/28/20 11:22:00 EDT, Supply, 155, cm, 02/15/20 12:12:00EDT, Height, 84.8, kg, 02/03/20 17:37:00 EDT, Dry W... Start Date: 02/28/20 Status: Ordered Lidoderm 5% film 1 patch, Topically, Daily, (remove patch(s) after 12 hours), # 30 patch, 2 Refills, Maintenance, 01/24/20 15:02:00 EDT, [id number], 1 patch Topically Daily,Instr:(remove patch(s) after 12 hours), 155, cm, 01/16/20 9:42:00 EDT, Height, 71.2, kg... Start Date: 01/24/20 Status: Ordered nitrofurantoin macrocrystals 100 mg oral capsule 1 capsule = 100 mg, By Mouth, 2 times a day, Contraindicated when CrCL less than 30 mL/min with food, # 14 capsule, 0 Refills, Soft Stop, 02/03/20 19:55:00 EDT, Capsule, [id number], 155, cm, 02/03/20 17:37:00 EDT, Height, 84.8, kg, 02/03/20 1... Start Date: 02/03/20 Stop Date: 02/10/20 Status: Ordered Multivitamins with Folic Acid 1 mg oral tablet 1 tablet, By Mouth, Daily, # 30 tablet, 8 Refills, Maintenance, 08/21/19 12:03:00 EDT, Tablet, [facility], 1 tablet By Mouth Daily, 155, cm, 07/23/19 10:51:00 EDT, Height, 93.2, kg, 03/23/19 11:10:00 EST, Dry Weight Start Date: 08/21/19 Status: Ordered Valtrex 500 mg oral tablet 500 mg, 1, tablet, By Mouth, 2 times a day, for 30 days, # 60 tablet, Refills 1, Tot. Refills 1, Acute 05/10/20 8:06:00 EST, 03/11/20 8:06:00 EST, Route to Pharmacy Electronically, [facility]/pharmacy #[id number], 155, cm, 03/04/20 8:44:00 EDT, Height, 84.8, kg, 0... Start Date: 03/11/20 Stop Date: 05/10/20 Status: Ordered Problem List Condition Effective Dates [...]
--- OUTSIDE RECORDS SUMMARY | 2023-10-19 06:05 | XMS_ITS | Continuity of Care Document ---
Author Organization [facility] y Address [address] [place] [address]- Care Team Providers Care Beauty Sales Advisor Name Role Phone Gama HDZ, Julio Chery Primary Care Physician [phone] [place] [facility] [place] 02/03/22 - 05/22/22 [facility] [address] [place], [place] [address] Attending Physician: Flavia Humphreys MD Admitting Physician: Flavia Humphreys MD Referring Physician: Julio Malloy MD Allergies, [...] 1 04/07/18 Given 1Result Comment: [04/07/2018] diluent [id number] exp 09/06/2019 Medications acetaminophen 325 mg oral tablet 650 mg, 2, tablet, By Mouth, Every 4 hours, PRN, # 100 tablet, Refills 1, Tot. Refills 1, Maintenance, as needed for pain, 03/31/22 9:53:00 EST, Route to Pharmacy Electronically, [facility]/pharmacy #[id number], Partial fill upon patient request if the prescriptio... Start Date: 03/31/22 Status: Ordered Advair Diskus 100 mcg-50 mcg inhalation powder 1, inhalation, Inhalation, 2 times a day, rinse mouth and throat after use replaces fluticasone inhaler, # 1 each, Refills 5, Tot. Refills 5, Maintenance, 09/01/20 10:55:00 EDT, Powder, Route to Pharmacy Electronically, [id number]... Start Date: 09/01/20 Status: Ordered albuterol CFC free 90 mcg/inh inhalation aerosol 2, puffs, Inhalation, Every 4 hours, PRN, # 6.7 Gm, Refills 0, Tot. Refills 0, Soft Stop, 05/17/22 10:29:00 EST, Aerosol, Route to Pharmacy Electronically, [id number], [facility]/pharmacy #[id number], 155, cm, 05/17/22 10:06:00 EST, Heigh... Start Date: 05/17/22 Status: Ordered Multivitamins with Folic Acid 1 mg oral tablet 1 tablet, By Mouth, Daily, # 90 tablet, 2 Refills, Maintenance, 11/11/21 12:32:00 EDT, [facility]/pharmacy#0488, Partial fill upon patient request if the prescription is for a schedule II opioid drug., 1 tablet By Mouth Daily, 155, cm, 11/11/21 10:26:00 EDT... Start Date: 11/11/21 Status: Ordered Multivitamins with Folic Acid 1 mg oral tablet 1 tablet, By Mouth, Daily, # 90 tablet, 2 Refills, Maintenance, 10/13/21 10:02:00 EDT, Tablet, [facility]/pharmacy #[id number], [...] 05/13/22 17:38:00 EST, Route to Pharmacy Electronically, [facility]/pharmacy #[id number], Partial fill upon patientrequest if the prescription is for a schedule II op... Start Date: 05/13/22 Status: Ordered Problem List Condition Confirmation Course Effective Dates Status Health St atus Informant Anxiety Confirmed Active Asthma Confirmed Active Bipolar 1 disorder Confirmed Active COVID-19 September 20, 2021 Confirmed Active Family history of type 2 diabetes mellitus Confirmed Active Herpes genitalia Confirmed Active Migraines Confirmed Active Obese class I Confirmed Active Blood type, Rh negative Confirmed Active Social History Social History Type Response Smoking Status Never (less than 100 in lifetime) entered on: 08/07/18 Sex Patient Care team information Care Team Personnel Name: Gama HDZ, Julio Chery Position: [facility] Primary Care Physician Member Role: PCP Address: Address: [address] [place] [address]- Care Team Related Persons Name: TALHA PACK Address: home [address] [place] [address] Name: FABIO PEREIRA Address: [address] Address: home [address] [place] [address] [place] Name: MABEL BERRY Address: [address] Address: home [address] [place] [address] [place] Name: BROCK DWYER Address: home [address] [place] [address]
--- OUTSIDE RECORDS SUMMARY | 2023-10-19 06:05 | XMS_ITS | Continuity of Care Document ---
Author Organization [facility] Address [address] [place] [address]- Care Team Providers Care And Taxi Instructor Bus Trolley Name Role Phone Sienna Adams DO Primary Care Physician En[place] [facility] [place] Date(s): 07/23/19 - 08/02/[address] [address]- [facility] Attending Physician: Zhane Barrett Admitting Physician: AdmZhane [...] 1 04/07/18 Given 1Result Comment: [04/07/2018] diluent [id number] exp 09/06/2019 Medications acetaminophen 325 mg oral tablet 650 mg, 2, tablet, By Mouth, 4 times a day, PRN, # 100 tablet, Refills 0, Tot. Refills 0, Maintenance, as needed for pain, 04/21/18 17:10:10 EST, Route to Pharmacy Electronically, [id number], [facility]/pharmacy #[id number] Start Date: 04/21/18 Status: Ordered albuterol 90 mcg/inh inhalation powder 2 puffs, Inhalation, Every 4 hours, PRN as needed, # 1 each, 1 Refills, Maintenance, 06/27/19 10:11:00 EST, Powder, [facility]/pharmacy #[id number], 2 puffs Inhalation Every 4 hours,PRN:as needed, 155, cm, 06/27/19 9:53:00 EST, Height, 93.2, kg, 03/23/19 11:10:00... Start Date: 06/27/19 Status: Ordered Colace sodium 100 mg oral capsule 100 mg, 1, capsule, By Mouth, 2 times a day, PRN, # 20 capsule, Refills 0, Tot. Refills 0, Maintenance, for constipation, 03/25/19 6:16:25 EST, Route to Pharmacy Electronically, [id number], [facility]/pharmacy #[id number] Start Date: [...] 06/27/19 10:24:00 EST, Route to Pharmacy Electronically, [facility]/pharmacy #[id number], 155, cm, 06/27/19 [...] tablet, 4 Refills, Maintenance, 07/23/19 11:21:00 EDT, [facility]/pharmacy #[id number], 155, cm, 07/23/19 10:51:00 EDT, Height, 93.2, kg, 03/23/19 11:10:00 EST, Dry Weight Start Date: 07/23/19 Stop Date: 09/15/20 Status: Ordered Plan B One-Step 1.5 mg oral tablet 1.5 mg, 1, tablet, By Mouth, Once, Take if unprotected intercourse has occurred., # 1 tablet, Refills 3, Tot. Refills 3, Soft Stop, 07/23/19 11:21:00 EDT, Route to Pharmacy Electronically, [facility]/pharmacy #[id number], 155, cm, 07/23/19 [...]
--- OUTSIDE RECORDS SUMMARY | 2023-10-19 06:05 | XMS_ITS | Continuity of Care Document ---
Author Organization [facility] Address [address] [place] [address]- Care Team Providers Care Cancer Genetic Counselor Name Role Phone Gama HDZ, Julio Chery Primary Care Physician Encounter [facility] [place] Date(s): 02/13/20 - 03/14/[address] [address] [place] Allergies, Adverse Reactions, Alerts Substance Reaction Severity [...] 1 04/07/18 Given 1Result Comment: [04/07/2018] diluent [id number] exp 09/06/2019 Medications Albuterol (Eqv-ProAir HFA) 90 mcg/inh inhalation aerosol 1 TO 2 PUFFS, Inhalation, Every 6 hours, PRN NEEDED FOR WHEEZE, # 8.5 Unknown, 1 Refills, Maintenance, 02/12/20 9:13:00 EDT, [facility], 25, INHALE 1 TO 2 PUFFS EVERY [...] 8:06:00 EST, Route to Pharmacy Electronically, [facility]/pharmacy #[id number], 155, cm, 03/04/20 8:44:00 EDT, Height, [...]
--- OUTSIDE RECORDS SUMMARY | 2023-10-19 06:05 | XMS_ITS | Continuity of Care Document ---
Author Organization [facility] Address [address] [place] [address]- Care Team Providers Care Printing Services Coordinator Name Role Phone Julio Malloy MD Primary Care Physician [phone] [place] [facility] [place] 03/27[place] - 05/11/[address] [address]- Attending Physician: Not on Staff, Attending MD [...] 1 04/07/18 Given 1Result Comment: [04/07/2018] diluent [id number] exp 09/06/2019 Medications acetaminophen 325 mg oral tablet 650 mg, 2, tablet, By Mouth, Every 4 hours, PRN, # 50 tablet, Refills 0, Tot. Refills 0, Maintenance, as needed for pain, 05/08/20 15:24:00 EST, Route to Pharmacy Electronically, [facility]/pharmacy #[id number], Partial fill upon patient request if the prescriptio... Start Date: 05/08/20 Status: Ordered Albuterol (Eqv-ProAir HFA) 90 mcg/inh inhalation aerosol 1 TO 2 PUFFS, Inhalation, Every 6 hours, PRN NEEDED FOR WHEEZE, # 8.5 Unknown, 1 Refills, Maintenance, 02/12/20 9:13:00 EDT, [facility], 25, INHALE 1 TO 2 PUFFS EVERY 6 HOURS NEEDED FOR WHEEZE, 155, cm, 02/03/20 17:37:00 EDT, Height, 84.8,... Start Date: 02/12/20 Status: Ordered betamethasone topical valerate 0.1% ointment 1 application, Topically, 2 times a day, Apply to affected areas. Rub in to absorb and apply lotionover medication, # 45 Gm, 0 Refills, Maintenance, 05/08/20 15:21:00 EST, Ointment, [facility]/pharmacy #[id number], Partial fill upon patient [...] implant 1 each = 68 mg, Intradermal, rehab office coordinator to Procedure, 0 Refills, Maintenance, 03/30/20 5:27:00 [...] Acute, 04/02/20 9:32:00EST, Route to Pharmacy Electronically, [id number], 155, cm, 03/30/20 9:46:00 EST, Height, 94.3, [...]
--- OUTSIDE RECORDS SUMMARY | 2023-10-19 06:05 | XMS_ITS | Continuity of Care Document ---
Author Organization [facility] Address [address] [facility], [address], [place] [address]- Care Team Providers Care Senior Financial Accountant Name Role Phone Julio Malloy MD Primary Care Physician [place] [facility] [place](s): 04/12/22 - 05/12/22 [facility] [address] [facility] [place], [place] [address] [place] Allergies, Adverse Reactions, Alerts [...] 1 04/07/18 Given 1Result Comment: [04/07/2018] diluent [id number] exp 09/06/2019 Medications acetaminophen 325 mg oral tablet 650 mg, 2, tablet, By Mouth, Every 4 hours, PRN, # 100 tablet, Refills 1, Tot. Refills 1, Maintenance, as needed for pain, 03/31/22 9:53:00 EST, Route to Pharmacy Electronically, [facility]/pharmacy #[id number], Partial fill upon patient request if the prescriptio... Start Date: 03/31/22 Status: Ordered Advair Diskus 100 mcg-50 mcg inhalation powder 1, inhalation, Inhalation, 2 times a day, rinse mouth and throat after use replaces fluticasone inhaler, # 1 each, Refills 5, Tot. Refills 5, Maintenance, 09/01/20 10:55:00 EDT, Powder, Route to Pharmacy Electronically, [id number]... Start Date: 09/01/20 Status: Ordered albuterol CFC free 90 mcg/inh inhalation aerosol 2, puffs, Inhalation, Every 4 hours, PRN, # 6.7 Gm, Refills 0, Tot. Refills 0, Soft Stop, 03/31/22 9:52:00 EST, Aerosol, Route to Pharmacy Electronically, [id number], [facility]/pharmacy #[id number], 155, cm, 03/24/22 13:05:00 EST, Height... Start Date: 03/31/22 Status: Ordered Multivitamins with Folic Acid 1 mg oral tablet 1 tablet, By Mouth, Daily, # 90 tablet, 2 Refills, Maintenance, 11/11/21 12:32:00 EDT, [facility]/pharmacy#0488, Partial fill upon patient request if [...] Personnel Name: Gama HDZ, Julio Chery Position: [facility] Primary Care Physician Member Role: PCP Address: Address: [address] [place] [address]- Care Team Related Persons Name: TALHA PACK Address: home [address] [place] [address] Name: FABIO PEREIRA Address: [address] Address: home [address] [place] [address] [place] Name: MABEL BERRY Address: [address] Address: home [address] [place] [address] [place] Name: BROCK DWYER Address: home [address] [place] [address]
--- OUTSIDE RECORDS SUMMARY | 2023-10-19 06:05 | XMS_ITS | Continuity of Care Document ---
Author Organization [facility] Address [address] [place] [address]- Care Team Providers Care Electrical Inspector Name Role Phone Julio Malloy MD Primary Care Physician [phone] Encounter [facility] Date(s): 02/03/20 - 02/03/[address] [address]- [facility] Encounter Diagnosis Shortness of breath due to (Final) - 02/03/20 Discharge Disposition: A-D/C Home Attending Physician: Amrita Cook DO Admitting Physician: Amrita Cook DO Referring Physician: Not on Staff, Referring MD [...] 1 04/07/18 Given 1Result Comment: [04/07/2018] diluent [id number] exp 09/06/2019 Medications albuterol 90 mcg/inh inhalation [...] EDT, Compound Start Date: 09/21/18 Status: Ordered Lidoderm 5% film 1 patch, Topically, Daily, (remove patch(s) after 12 hours), # 30 patch, 2 Refills, Maintenance, 01/24/20 15:02:00 EDT, [facility]/pharmacy #[id number], 1 patch Topically Daily,Instr:(remove patch(s) after 12 hours), 155, cm, 01/16/20 9:42:00 EDT, Height, 71.2, kg... Start Date: 01/24/20 Status: Ordered nitrofurantoin macrocrystals 100 mg oral capsule 1 capsule = 100 mg, By Mouth, 2 times a day, Contraindicated when CrCL less than 30 mL/min with food, # 14 capsule, 0 Refills, Soft Stop, 02/03/20 19:55:00 EDT, Capsule, [facility]/pharmacy #[id number], 155, cm, 02/03/20 17:37:00 EDT, Height, 84.8, kg, 02/03/20 1... Start Date: 02/03/20 Stop Date: 02/10/20 Status: Ordered Multivitamins with Folic Acid 1 mg oral tablet 1 tablet, By Mouth, Daily, # 30 tablet, 8 Refills, Maintenance, 08/21/19 12:03:00 EDT, Tablet, [facility]/pharmacy #[id number], 1 tablet By Mouth Daily, 155, cm, 07/23/19 10:51:00 EDT, Height, 93.2, kg, 03/23/19 11:10:00 EST, Dry Weight Start Date: 08/21/19 Status: Ordered ProAir HFA 90 mcg/inh inhalation aerosol See Instructions, PRN as needed for wheezing, 1-2 puffs Inhalation Every 6 hours as needed for wheezing, # 18 Gm, 1 Refills, Maintenance, 12/26/19 10:56:00 EDT, [facility], [facility], 1-2 puffsInhalation Every 6 hours as needed [...] Obese(Confirmed) Active (Confirmed) Active Rh negative(Confirmed) Active Vital Signs Most recent to oldest [Reference Range]: 1 2 3 Height 155 cm (02/03/20 5:37 PM) 155 cm (02/03/20 2:42 PM) 155 cm (02/03/20 12:56 PM) Weight 84.8 kg (02/03/20 5:37 PM) 84.8 kg (02/03/20 2:42 PM) 84.8 kg (02/03/20 12:56 PM) Oxygen Saturation [94-100 %] 100 % (02/03/20 8:24 PM) 98 % (02/03/20 5:37 PM) 100 % (02/03/20 5:19 PM) Pulse Rate [55-90 bpm] 97 bpm *H* (02/03/20 8:24 PM) 110 bpm *H* (02/03/20 5:37 PM) 107 bpm *H* (02/03/20 5:19 PM) Body Mass Index [18.5-24.99] 35.3 *>HHI* (02/03/20 5:37 PM) 35.3 *>HHI* (02/03/20 2:42 PM) Blood Pressure [90-138/55-84 mm Hg] 118/91mm Hg (02/03/20 8:24 PM) 121/78mm Hg (02/03/20 5:37 PM) 110/68mm Hg (02/03/20 2:42 PM) Respiratory Rate [16-30 br/min] 20 br/min (02/03/20 8:24 PM) 20 br/min (02/03/20 5:37 PM) 20 br/min (02/03/20 5:19 PM) Temperature [96.8-100.4 DegF] 98.2 DegF (02/03/20 8:24 PM) 98.5 DegF (02/03/20 5:37 PM) 98.4 DegF (02/03/20 2:42 PM) Mode of Delivery (Oxygen) Room air (02/03/20 8:24 PM) Room air (02/03/20 5:37 PM) Room air (02/03/20 5:19 PM) Blood pressure sites Arm, left (02/03/20 8:24 PM) Arm, left (02/03/20 5:37 PM) Arm, left (02/03/20 2:42 PM) Temperature Route Axillary (02/03/20 8:24 PM) Oral (02/03/20 5:37 PM) Oral (02/03/20 2:42 PM) Dry Weight 84.8 kg (02/03/20 5:37 PM) 84.8 kg (02/03/20 2:42 PM) 84.8 kg (02/03/20 12:56 PM) Weight Obtained Via Standing scale (02/03/20 12:56 PM) Dry Weight Obtained Via Standing scale (02/03/20 12:56 PM) Social History Social History Type Response Smoking Status Never (less than 100 in lifetime) entered on: 08/07/18 Sex Female
--- OUTSIDE RECORDS SUMMARY | 2023-10-19 06:05 | XMS_ITS | Continuity of Care Document ---
Author Organization [facility] Address [address] [place] [address]- Care Team Providers Care Medical Csr Name Role Phone Julio Malloy MD Primary Care Physician [place] [facility] [place] 10/22/22 - 11/21/[address] [address]- Attending Physician: Zahne Barrett Admitting Physician: Zhane Barrett Referring Physician: [...] 1 04/07/18 Given 1Result Comment: [04/07/2018] diluent [id number] exp 09/06/2019 Medications acetaminophen 325 mg oral tablet 650 mg, 2, tablet, By Mouth, Every 4 hours, PRN, # 100 tablet, Refills 1, Tot. Refills 1, Maintenance, as needed for pain, 03/31/22 9:53:00 EST, Route to Pharmacy Electronically, [facility]/pharmacy #[id number], Partial fill upon patient request if the prescriptio... Start Date: 03/31/22 Status: Ordered Advair Diskus 500 mcg-50 mcg inhalation powder 1, puffs, Inhalation, 2 times a day, rinse mouth and throat after use Note dose change, # 60 each, Refills 5, Tot. Refills 5, Maintenance, 07/26/22 14:02:00 EDT, Powder, Route to Pharmacy Electronically, [id number], [facility]/phar... Start Date: 07/26/22 Status: Ordered albuterol CFC free 90 mcg/inh inhalation aerosol 2, puffs, Inhalation, Every 4 hours, PRN, # 6.7 Gm, Refills 0, Tot. Refills 0, Soft Stop, 06/15/22 14:52:00 EST, Aerosol, Route to Pharmacy Electronically, [id number], [facility]/pharmacy #[id number], 155, cm, 06/15/22 14:05:00 EST, Heigh... Start Date: 06/15/22 Status: Ordered Keturah 30 mg oral tablet 1 tablet = 30 mg, By Mouth, Once, # 1 tablet, 0 Refills, Soft Stop, 06/20/22 4:51:00 EST, Tablet, [facility]/pharmacy #[id number], Partial fill upon patient request if the prescription is for a schedule II opioiddrug., 155, cm, 06/20/22 0:24:00 EST, Height, 92.5,... Start Date: 06/20/22 Status: Ordered Eucerin Eczema Relief topical cream See Instructions, Topically twice daily, # 420 Gm, 5 Refills, Maintenance, 09/20/22 11:05:00 EDT, [facility]/pharmacy #[id number], Partial fill upon patient request if the prescription is for a schedule II opioiddrug., Topically twice daily, 155, cm, 06/20/22 9:4... Start Date: 09/20/22 Status: Ordered gabapentin 600 mg oral tablet 1 tablet = 600 mg, By Mouth, Daily at bedtime, # 30 tablet, 1 Refills, Maintenance, 09/20/22 11:04:00 EDT, [id number], Partial fill upon patient [...] 0 Refills, Maintenance, 09/20/22 11:06:00 EDT, Tablet, [id number], Partial fill upon patient request if the prescription is for a schedule II opioid drug., 155, cm, 06/20/22 9:40:00 EST, Height,... Start Date: 09/20/22 Status: Ordered Xulane 150 mcg-35 mcg/24 hr [...] Active Health skilled nursing, active care coordination [facility] research program coordinator Susie Purvis [phone] Confirmed Active Severe obesity (BMI 35.0-39.9) with comorbidity Confirmed Active Social History Social History Type Response Smoking Status Never (less than 100 in lifetime) entered on: 08/07/18 Sex History and physical note * Aria HDZ, Mariah: PERFORM Event Display: History and Physical Hospital Authored Date: [id number] Patient: ??PACK, BRITNEY ? Age:??18 Years?Sex:??Female?:??2000? History of Present Illness Patient presented to [facility] for possible spotting earlier this evening. She states she strained to have a bowel movement after which she noted a small amount of pink blood on the toilet paper. She is unsure if bleeding was vaginal or rectal. No history of rectal bleeding however she does have a history of constipation and states last BM before this one was a very long time ago . Denies recent intercourse, denies abdominal pain or cramping. Denies urinary sx, abnormal discharge, vaginal itching. Review of Systems Constitutional:??No weight loss, fever, chills, weakness or fatigue. HEENT:??No visual loss, blurred vision, double vision or yellow sclera. No hearing loss, sneezing, congestion, runny nose or sore throat. Skin:??No rash or itching. Cardiovascular:??Chest pain. No palpitations or pedal edema. Respiratory:??No shortness of breath, cough or sputum production. Gastrointestinal:??No anorexia, nausea, vomiting or diarrhea. No abdominal pain. Genitourinary:??No burning with urination. No urinary frequency or incontinence. Neurologic:??No headache, dizziness, syncope, unilateral weakness, ataxia, numbness or tingling in the extremities. No change in bowel or bladder control. Musculoskeletal:??No muscle pain, back pain, joint pain or stiffness. Hematologic:??No bleeding or bruising. Psychiatric:??No depression or anxiety. Physical Exam ???Constitutional: Normal affect, No acute distress, Well-developed, Well-nourished.? Respirations: Normal Exam, not labored. ? Breath sounds: clear to auscultation, equal bilaterally, not with rales, not with crackles, not with wheezing, not with rhonchi. ? Cardiovascular: Regular rate and rhythm, Regular Rate and Rhythm, no Murmurs. ? Abdomen/GI: soft, non-tender, and non-distended, not Tender, no Masses present, no Guarding, no Rebound tenderness. ? Gynecologic: External Genitalia (Normal exam, without lesions, without atrophic changes), Urethral meatus Normal exam, Urethra normal to palpation, Bladder Normal exam, Vagina (normal support, no lesions, no discharge, no evidence of bleeding), Cervix (Normal exam, no CMT, no lesions, no cervical discharge, closed os), Uterus (Normal exam, non-tender, 18wk size), Adnexa (no masses palpated). Anusand perineum inspected, no evidence of bleeding, no hemorrhoids visualized. Extremities: No clubbing, cyanosis or edema present..? Skin: No rash or jaundice.. ? Neurological/Psychiatric: appearance appropriate, mood and affect stable. Assessment/Plan Assessment:??18yo @ 17+6 presenting to [facility] for an isolated episode of vaginal vs rectal bleeding after a bowel movement in which she had to strain significantly.Per history it sounds more likely to be rectal however vaginal bleeding cannot be excluded. No concerns on exam and no evidence of bleeding. Bedside u/s showed anterior placenta, does not appear low lying. Given that she is Rh- willgive Rho Blanca in the event that bleeding was vaginal. ?? Antepartum bleeding, second trimester (O46.92):??No blood on exam Rho blanca administered given Rh- status ?? Constipation (K59.00):??bowel regimen scripts sent to pt pharmacy encouraged to eat high fiber foods, increase water intake ? Discussed with Dr. Gaytan OB History History?(0,0,0,0)?No previous pregnancies history have been recorded ?? Active Problem List Active Problem List Asthma: (Medical) Bipolar 1 disorder: (Medical) Depression: (Medical) Herpes genitalia: (Medical) Migraines: (Medical) : (Obstetric) (06/14/18) Rh negative: (Medical) Procedure/Surgical History ???None???[place] tooth Home Medications Acetaminophen: 650 mg = 2 tablet, By Mouth, 4 times a day, PRN (as needed for pain) Albuterol: 2 puffs, Inhalation, Every 4 hours, PRN (as needed) Apap/Asa/Caffeine: 2 tablet, By Mouth, Every 6 hours Docusate: 100 mg = 1 capsule, By Mouth, 2 times a day, PRN (for constipation) Docusate: 100 mg = 1 capsule, By Mouth, 2 times a day, PRN (for constipation) Durable Medical Equipment (Cool mist humidifier): See Instructions, Use at night for congestion andwheezing from URI and Asthma J06.9, J45.909 Folic Acid: 4 mg = 4 tablet, By Mouth, Daily, Take 4 mg of folate daily in addition to your currentmedications while taking Bactrim antibiotic Ibuprofen: 400 mg = 2 capsule, By Mouth, Every 4 hours, PRN (for pain) Melatonin: 5 mg = 1 tablet, By Mouth, Daily at bedtime, PRN (for insomnia) Multivitamin, : 1 tablet, By Mouth, Daily Multivitamin, : 1 tablet, By Mouth, Daily Ondansetron: 4 mg = 1 tablet, By Mouth, Every 8 hours, PRN (Nausea & Vomiting) Ondansetron: 4 mg = 1 tablet, By Mouth, Every 8 hours, PRN (as needed for nausea/vomiting) Polyethylene Glycol 3350: 17 Gm, By Mouth, Daily, dissolve in water before taking Polyethylene Glycol 3350: 17 Gm, By Mouth, Daily, dissolve in water before taking Senna: 17.2 mg = 2 tablet, By Mouth, Daily at bedtime, PRN (for constipation) Sertraline: 25 mg = 1 tablet, By Mouth, Daily Sulfamethoxazole/Trimethoprim: 1 tablet, By Mouth, 2 times a day ?? Allergies Zithromax amoxicillin clindamycin Social History Alcohol Use: Never., 08/07/2018 Use: Never., 04/07/2018 Employment/School Status: Disabled, Unemployed. Other: On disability for Depression and Bipolar. Highest education level: High school or GED., 08/07/2018 Exercise Regular exercise: No., 08/07/2018 Self assessment: Fair condition., 04/07/2018 Home/Environment Living situation: Home/Independent. Lives with: Mother, Siblings. DCF involvement: Past. Other: Case is closed.., 08/07/2018 Living situation: Home/Independent., 04/07/2018 Nutrition/Health Diet: Regular., 08/07/2018 Diet: Regular., 04/07/2018 Sexual Sexually involved in last 6 months: Yes. Gender identity: Identifies as female. Self described orientation: Straight or heterosexual., 08/07/2018 Sexually involved in last 6 months: Yes., 04/07/2018 Substance Abuse Use: Never., 08/07/2018 Use: Never., 04/07/2018 Tobacco Use: Never (less than 100 in lifetime)., 08/07/2018 Use: Never (less than 100 in lifetime)., 04/07/2018 Use: Never (less than 100 in lifetime)., 04/07/2018 * Lukas HDZ, Zulma Bowen: PERFORM Event Display: History and Physical Hospital Authored Date: [id number] Attending Attestation:??I have seen and evaluated this patient. ??I have discussed the case and itsmanagement with the resident and agree with the findings and plan as documented in the resident???snote. -Zulma Gaytan MD ?? Patient Care team information Care Team Personnel Name: Julio Malloy MD Position: [facility] Physician - Primary Care Member Role: PCP Address: Address: [address] [place] [address]- Care Team Related Persons Name: TALHA PACK Address: home [address] [place] [address] Name: FABIO PEREIRA Address: [address] Address: home [address] [place] [address] [place] Name: MABEL BERRY Address: [address] Address: home [address] [place] [address] [place] Name: ELIZABETH BERRY Address: [address] Address: home [address] [place] [address] [place] Name: BROCK DWYER Address: home [address] [place] [address]
--- OUTSIDE RECORDS SUMMARY | 2023-10-19 06:05 | XMS_ITS | Continuity of Care Document ---
Author Organization [facility] Address [address] [place] [address]- Care Team Providers Care Cleaning Associate Name Role Phone Julio Malloy MD Primary Care Physician Encounter [facility] [place] Date(s): 01/16/20 - 03/14/[address] [address] Attending Physician: Not on Staff, Attending MD [...] 1 04/07/18 Given 1Result Comment: [04/07/2018] diluent [id number] exp 09/06/2019 Medications Albuterol (Eqv-ProAir HFA) 90 mcg/inh inhalation aerosol 1 TO 2 PUFFS, Inhalation, Every 6 hours, PRN NEEDED FOR WHEEZE, # 8.5 Unknown, 1 Refills, Maintenance, 02/12/20 9:13:00 EDT, [facility], 25, INHALE 1 TO 2 PUFFS EVERY [...] 03/11/20 8:06:00 EST, Route to Pharmacy Electronically, [facility]/pharmacy #[id number], 155, cm, 03/04/20 8:44:00 EDT, Height, [...]
--- OUTSIDE RECORDS SUMMARY | 2023-10-19 06:05 | XMS_ITS | Continuity of Care Document ---
Author Organization [facility] Address [address] [place] [address]- Care Team Providers Care Brazing Machine Tender Name Role Phone Julio Malloy MD Primary Care Physician [phone] Encounter [facility] [place] Date(s): 02/03/22 - 03/05/[address] [address]- Allergies, Adverse Reactions, Alerts Substance Reaction Severity [...] 1 04/07/18 Given 1Result Comment: [04/07/2018] diluent [id number] exp 09/06/2019 Medications Advair Diskus 100 mcg-50 mcg inhalation powder 1, inhalation, Inhalation, 2 times a day, rinse mouth and throat after use replaces fluticasone inhaler, # 1 each, Refills 5, Tot. Refills 5, Maintenance, 09/01/20 10:55:00 EDT, Powder, Route to Pharmacy Electronically, [id number]... Start Date: 09/01/20 Status: Ordered albuterol CFC free 90 mcg/inh inhalation aerosol 2, puffs, Inhalation, Every 4 hours, PRN, # 6.7 Gm, Refills 0, Tot. Refills 0, Soft Stop, 12/08/21 15:01:00 EDT, Aerosol, Route to Pharmacy Electronically, [id number], [facility]/pharmacy #[id number], 155, cm, 12/08/21 14:56:00 EDT, Heigh... [...] Gama HDZ, Julio Chery Address: Address: [address] [place] [address]
--- OUTSIDE RECORDS SUMMARY | 2023-10-19 06:05 | XMS_ITS | Continuity of Care Document ---
Author Organization [facility] ter Address [address] [place] [address]- Care Team Providers Care Continuity Clerk Name Role Phone Julio Malloy MD Primary Care Physician Encounter [facility] [place] ACCT R [id number] Date(s): 11/12/20 - 11/12/[address] [address]- Discharge Disposition: A-D/C Home Attending Physician: Oscar Sky MD Admitting Physician: Oscar Sky MD Referring Physician: Not on Staff, Referring [...] 1 04/07/18 Given 1Result Comment: [04/07/2018] diluent [id number] exp 09/06/2019 Medications Advair Diskus 100 mcg-50 mcg inhalation powder 1, inhalation, Inhalation, 2 times a day, rinse mouth and throat after use replaces fluticasone inhaler, # 1 each, Refills 5, Tot. Refills 5, Maintenance, 09/01/20 10:55:00 EDT, Powder, Route to Pharmacy Electronically, [id number]... Start Date: 09/01/20 Status: Ordered Radha 0.35 mg oral tablet 1 tablet = 0.35 mg, By Mouth, Daily, # 28 tablet, 12 Refills, Maintenance, 05/21/20 11:42:00 EST, Tablet, [facility]/pharmacy #[id number], Partial fill upon patient request if the prescription is for a schedule II opioid drug., 155, cm, 03/30/20 9:46:00 EST, Heigh... Start Date: 05/21/20 Status: Ordered Claritin 10 mg oral tablet 10 mg, 1, tablet, By Mouth, Every other day, # 15 tablet, Refills 0, Tot. Refills 0, Maintenance, 11/12/20 14:32:00 EDT, Route to Pharmacy Electronically, [facility]/pharmacy #[id number], Partial fill upon patient request if the prescription is for a schedule II o... Start Date: 11/12/20 Status: Ordered duloxetine 20 mg oral enteric coated capsule 1 capsule = 20 mg, By Mouth, Daily, # 30 capsule, 5 Refills, Maintenance, 09/01/20 10:54:00 EDT, [facility]/pharmacy #0488, Partial fill upon patient request if the prescription is for a schedule II opioid drug., 155, cm, 07/28/20 9:59:00 EDT, Height, 94.3,... Start Date: 09/01/20 Status: Ordered etonogestrel 68 mg subcutaneous implant 1 each = 68 mg, Intradermal, call center receptionist to Procedure, 0 Refills, Maintenance, 03/30/20 5:27:00 EST, Implant, Partial fill upon patient request Start Date: 03/30/20 Status: Ordered Flonase 50 mcg/inh nasal spray 1 sprays, Nares, Both, 2 times a day, # 16 Gm, 3 Refills, Maintenance, 09/01/20 10:58:00 EDT, [place], [facility]/pharmacy #0488, Partial fill upon patient request if [...] patch, 2 Refills, Maintenance, 06/03/20 14:36:00 EST, [facility]/pharmacy #0488, 1 patch Topically Daily,Instr:(remove patch(s) after 12 hours), 155, cm, 03/30/20 9:46:00 EST, Height, 94.3, kg... Start Date: 06/03/20 Status: Ordered naproxen 500 mg oral tablet 1 tablet = 500 mg, By Mouth, 2 times a day, PRN for pain, Take with food, # 30 tablet, 0 Refills, Maintenance, 06/03/20 11:08:00 EST, Tablet, [facility]/pharmacy #0488, Partial fill upon patient request if [...] Dry Weight Start Date: 09/01/20 Status: Ordered oxymetazoline 0.05% nasal spray 2 sprays, Nares, Both, 2 times a day, for 2 days, # 15 mL, 0 Refills, Acute 11/14/20 14:32:00 EDT, 11/12/20 14:32:00 EDT, [place], [facility], Partial fill upon patient request if the prescription is for a schedule II opioid drug., 2 sprays Nare... Start Date: 11/12/20 Stop Date: 11/14/20 Status: Ordered Patanol 0.1% ophthalmic solution 1 drops, Eyes, Both, 2 times a day, PRN Itch, # 5 mL, 2 Refills, Maintenance, 09/01/20 10:56:00 EDT, Ophth Solution, [facility]/pharmacy #0488, Partial fill upon patient request if the prescription is for aschedule II opioid drug., 1 drops Eyes, Both 2 time... Start Date: 09/01/20 Stop Date: 11/30/20 Status: Ordered Multivitamins with Folic Acid 1 mg oral tablet 1 tablet, By Mouth, Daily, # 30 tablet, 8 Refills, Maintenance, 08/21/19 12:03:00 EDT, Tablet, [facility]/pharmacy #0488, 1 tablet By Mouth Daily, 155, cm, 07/23/19 10:51:00 EDT, Height, 93.2, kg, 03/23/19 11:10:00 EST, Dry Weight Start Date: 08/21/19 Status: Ordered Proventil HFA 90 mcg/inh inhalation aerosol with adapter 2, puffs, Inhalation, 4 times a day, PRN, # 25 Gm, Refills 0, Tot. Refills 0, Maintenance, 06/16/2110:02:00 EST, Aerosol, Route to Pharmacy Electronically, [id number], [facility]/pharmacy #0488, 155, cm, 03/30/20 9:46:00 EST, Heigh... Start Date: 06/16/20 Status: Ordered Rhinocort Allergy 32 mcg/inh nasal spray = 32 mcg, Nares, Both, Daily, # 8.6 Gm, 0 Refills, Maintenance, 11/12/20 14:33:00 EDT, [facility]/pharmacy#0488, Partial fill upon patient request if the prescription is for a schedule II opioid drug., 155, cm, 11/11/20 13:17:00 EDT, Height, 94.3, kg, 03/28... Start Date: 11/12/20 Stop Date: 11/26/20 Status: Ordered valACYclovir 500 mg oral tablet 1, tablet, By Mouth, 2 times a day, # 60 tablet, Refills 1, Tot. Refills 0, Acute, 04/02/20 9:32:00EST, Route to Pharmacy Electronically, [facility], 155, cm, 03/30/20 9:46:00 EST, Height, 94.3, [...] Migraines(Confirmed) Active Obese(Confirmed) Active Rh negative(Confirmed) Active Results Radiology Reports * Exam Date Time Procedure Performing Provider Status 11/12/20 12:16 PM Chest 2 Views Frontal and Lat Allison Tran; Earnest (Verified) Notes: (Chest 2 Views Frontal and Lat) Reason For Exam: chest pain;Other: RESULT: Chest 2 Views Frontal and Lat Chest 2 Views Frontal and Lat Hx of Present Illness: cough cp for few days, had phone appointment with yesterday who requestedcovid test; Reason: Other:; chest pain; Clinical Question(s): Pneumonia COMPARISON: Medical Receptionist [place] radiograph CT chest 02/03/2020 FINDINGS: No acute cardiopulmonary process IMPRESSION: No acute abnormality. Normal exam WSN: [id number] Ordering Physician: Oscar Sky Dictated By: Andrés Cherry MD Dictated Date/Time: 11/12/20 12:20 p Reviewed By: Andrés Cherry MD Signed By: Andrés Cherry MD Signed Date/Time: 11/12/20 12:20 pm Transcribed By: FAUSTINO Transcribed Date/Time: 11/12/20 12:19 pm Vital Signs Most recent to oldest [Reference Range]: 1 2 3 Oxygen Saturation [94-100 %] 99 % (11/12/20 1:44 PM) 99 % (11/12/20 11:19 AM) 100 % (11/12/20 9:20 AM) Pulse Rate [55-90 bpm] 77 bpm (11/12/20 1:44 PM) 89 bpm (11/12/20 11:19 AM) 97 bpm *H* (11/12/20 9:20 AM) Blood Pressure [90-138/55-84 mm Hg] 100/57mm Hg (11/12/20 1:44 PM) 114/68mm Hg (11/12/20 11:19 AM) 110/82mm Hg (11/12/20 9:20 AM) Respiratory Rate [16-30 br/min] 16 br/min (11/12/20 1:44 PM) 16 br/min (11/12/20 11:19 AM) 17 br/min (11/12/20 9:20 AM) Temperature [96.8-100.4 DegF] 98.4 DegF (11/12/20 1:44 PM) 98.6 DegF (11/12/20 11:19 AM) 98.4 DegF (11/12/20 9:20 AM) Mode of Delivery (Oxygen) Room air (11/12/20 1:44 PM) Room air (11/12/20 11:19 AM) Room air (11/12/20 9:20 AM) Blood pressure sites Arm, right (11/12/20 1:44 PM) Arm, right (11/12/20 11:19 AM) Arm, right (11/12/20 9:20 AM) Temperature Route Oral (11/12/20 1:44 PM) Oral (11/12/20 11:19 AM) Oral (11/12/20 9:20 AM) Social History Social History Type Response Smoking Status Never (less than 100 in lifetime) entered on: 08/07/18 Sex
--- OUTSIDE RECORDS SUMMARY | 2023-10-19 06:05 | XMS_ITS | Continuity of Care Document ---
Author Organization [facility] Address [address] [place] [address]- Care Team Providers Care Desk Clerks Supervisor Name Role Phone Sienna Adams DO Primary Care Physician Encounter [facility] [place] ACCT R [id number] Date(s): 06/14/19 - 06/24/[address] [address]- [facility] Attending Physician: Zhane Barrett Admitting Physician: [...] 1 04/07/18 Given 1Result Comment: [04/07/2018] diluent [id number] exp 09/06/2019 Medications acetaminophen 325 mg oral tablet 650 mg, 2, tablet, By Mouth, 4 times a day, PRN, # 100 tablet, Refills 0, Tot. Refills 0, Maintenance, as needed for pain, 04/21/18 17:10:10 EST, Route to Pharmacy Electronically, [id number], [facility]/pharmacy #[id number] Start Date: 04/21/18 Status: Ordered albuterol [...] 03/25/19 6:16:25 EST, Route to Pharmacy Electronically, [id number], [facility]/pharmacy #0488 Start Date: 03/25/19 Status: Ordered Cool [...]
--- OUTSIDE RECORDS SUMMARY | 2023-10-19 06:05 | XMS_ITS | Continuity of Care Document ---
Author Organization [facility] Address [address] [place] [address]- Care Team Providers Care Abrasive Water Jet Cutter Operator Name Role Phone Gama HDZ, Julio Chery Primary Care Physician [place] [facility] [place] Date(s): 02/03/22 - 03/05/[address] [address] Allergies, Adverse Reactions, Alerts Substance Reaction [...] 1 04/07/18 Given 1Result Comment: [04/07/2018] diluent [id number] exp 09/06/2019 Medications Advair Diskus 100 mcg-50 mcg inhalation powder 1, inhalation, Inhalation, 2 times a day, rinse mouth and throat after use replaces fluticasone inhaler, # 1 each, Refills 5, Tot. Refills 5, Maintenance, 09/01/20 10:55:00 EDT, Powder, Route to Pharmacy Electronically, [id number]... Start Date: 09/01/20 Status: Ordered albuterol CFC free 90 mcg/inh inhalation aerosol 2, puffs, Inhalation, Every 4 hours, PRN, # 6.7 Gm, Refills 0, Tot. Refills 0, Soft Stop, 12/08/21 15:01:00 EDT, Aerosol, Route to Pharmacy Electronically, [id number], [facility]/pharmacy #0488, 155, cm, 12/08/21 14:56:00 EDT, Heigh... Start Date: 12/08/21 Status: Ordered Multivitamins with Folic Acid 1 mg oral tablet 1 tablet, By Mouth, Daily, # 90 tablet, 2 Refills, Maintenance, 11/11/21 12:32:00 EDT, [facility]/pharmacy#0488, Partial fill upon patient request if the [...] Name: Gama HDZ, Julio Chery Address: Address: [address] [place] [address]
--- OUTSIDE RECORDS SUMMARY | 2023-10-19 06:05 | XMS_ITS | Continuity of Care Document ---
Author Organization [facility] Address [address] [place] [address]- Care Team Providers Care Premix Concrete Batcher Name Role Phone Julio Malloy MD Primary Care Physician Encounter [facility] [place] Date(s): 03/18/23 - 04/17/[address] [address]- Attending Physician: Zhane Barrett Admitting Physician: Zhane [...] 1 04/07/18 Given 1Result Comment: [04/07/2018] diluent [id number] exp 09/06/2019 Medications acetaminophen 325 mg oral tablet 650 mg, 2, tablet, By Mouth, Every 4 hours, PRN, # 100 tablet, Refills 1, Tot. Refills 1, Maintenance, as needed for pain, 03/31/22 9:53:00 EST, Route to Pharmacy Electronically, [facility]/pharmacy #0488, Partial fill upon patient request if the prescriptio... Start Date: 03/31/22 Status: Ordered Advair Diskus 500 mcg-50 mcg inhalation powder 1, puffs, Inhalation, 2 times a day, rinse mouth and throat after use Note dose change, # 60 each, Refills 5, Tot. Refills 5, Maintenance, 07/26/22 14:02:00 EDT, Powder, Route to Pharmacy Electronically, [id number], [facility]/phar... Start Date: 07/26/22 Status: Ordered albuterol CFC free 90 mcg/inh inhalation aerosol 2, puffs, Inhalation, Every 4 hours, PRN, # 6.7 Gm, Refills 1, Tot. Refills 1, Soft Stop, 03/11/23 13:01:00 EDT, Aerosol, Route to Pharmacy Electronically, [id number], [facility]/pharmacy #0488, 155, cm, 06/20/22 9:40:00 EST, Height... Start Date: 03/11/23 Status: Ordered Keturah 30 mg oral tablet 1 tablet = 30 mg, By Mouth, Once, # 1 tablet, 0 Refills, Soft Stop, 06/20/22 4:51:00 EST, Tablet, [facility]/pharmacy #0488, Partial fill upon patient request if the prescription is for a schedule II opioiddrug., 155, cm, 06/20/22 0:24:00 EST, Height, 92.5,... Start Date: 06/20/22 Status: Ordered Eucerin Eczema Relief topical cream See Instructions, Topically twice daily, # 420 Gm, 5 Refills, Maintenance, 09/20/22 11:05:00 EDT, [facility]/pharmacy #0488, Partial fill upon patient request if the prescription is for a schedule II opioiddrug., Topically twice daily, 155, cm, 06/20/22 9:4... Start Date: 09/20/22 Status: Ordered gabapentin 600 mg oral tablet 1 tablet, By Mouth, Daily at bedtime, # 30 tablet, 5 Refills, Maintenance, 03/11/23 13:01:00 EDT, [facility], 155, cm, 06/20/22 9:40:00 EST, Height, [...] 2 Refills, Maintenance, 10/13/21 10:02:00 EDT, Tablet, [facility]/pharmacy #0488, Partial fill upon patient request if the prescription is for a schedule II opioid drug., 1 tablet By Mouth Daily, 155, cm, 11/11/20 13:1... Start Date: 10/13/21 Status: Ordered sertraline 50 mg oral tablet 1 tablet, By Mouth, Daily, # 90 tablet, 0 Refills, Maintenance, 12/29/22 7:22:00 EDT, [facility], 155, cm, 06/20/22 9:40:00 EST, Height, 92.5, [...] Active Health long term, active care coordination [facility] immigration coordinator Susie Purvis [phone] Confirmed Active Severe obesity (BMI 35.0-39.9) with comorbidity Confirmed Active Social History Social History Type Response Smoking Status Never (less than 100 in lifetime) entered on: 08/07/18 Sex History and physical note * Mariah Knapp MD: PERFORM Event Display: History and Physical Hospital Authored Date: [id number] Patient: ??PACK, BRITNEY ? Age:??18 Years?Sex:??Female?:??2000? History of Present Illness Patient [facility] for [facility] spot[facility] earlier this evening. She [...] (Obstetric) (06/14/18) Rh negative: (Medical) Procedure/Surgical History ???None???[place] tooth Home Medications Acetaminophen: 650 mg = [...] Display: History and Physical Hospital Authored Date: [id number] Attending Attestation:??I have seen and evaluated this patient. ??I have discussed the case and itsmanagement with the resident and agree with the findings and plan as documented in the resident???snote. -Zulma Gaytan MD ?? Patient Care team information Care Team Personnel Name: Julio Malloy MD Position: S Physician - Primary Care Member Role: PCP Address: Address: [address] [place] [address]- Care Team Related Persons Name: TALHA PACK Address: [address] [place] [address] Name: FABIO PEREIRA Address: [address] Address: home [address] [place] [address] [place] Name: MABEL BERRY Address: [address] Address: home [address] [place] [address] [place] Name: ELIZABETH BERRY Address: [address] Address: home [address] [place] [address] [place] Name: BROCK DWYER Address: home [address] [place] [address]
--- OUTSIDE RECORDS SUMMARY | 2023-10-19 06:05 | XMS_ITS | Continuity of Care Document ---
Author Organization [facility] Address [address] [place] [address]- Care Team Providers Care Medical Surgical Tech Name Role Phone Julio Malloy MD Primary Care Physician [phone] [facility] [place] Date(s): 07/07/20 - 08/06/[address] [address]- Allergies, Adverse Reactions, Alerts Substance Reaction Severity [...] 1 04/07/18 Given 1Result Comment: [04/07/2018] diluent [id number] exp 09/06/2019 Medications Radha 0.35 mg oral tablet 1 tablet = 0.35 mg, By Mouth, Daily, # 28 tablet, 12 Refills, Maintenance, 05/21/20 11:42:00 EST, Tablet, [facility]/pharmacy #0488, Partial fill upon patient request if the prescription is for a schedule II opioid drug., 155, cm, 03/30/20 9:46:00 EST, Heigh... Start Date: 05/21/20 Status: Ordered duloxetine 20 mg oral enteric coated capsule 1 capsule = 20 mg, By Mouth, Daily, # 30 capsule, 5 Refills, Maintenance, 07/28/20 10:20:00 EDT, [facility], Partial fill upon patient request if the prescription is for a schedule II opioid drug., 155, cm, 07/28/20 9:59:00 EDT, Height, 94.3,... Start Date: 07/28/20 Status: Ordered etonogestrel 68 mg subcutaneous implant 1 each = 68 mg, Intradermal, disease and insect control boss to Procedure, 0 Refills, Maintenance, 03/30/20 5:27:00 EST, Implant, Partial fill upon patient request Start Date: 03/30/20 Status: Ordered Flovent HFA 110 mcg/inh inhalation aerosol 2 puffs, Inhalation, 2 times a day, # 12 Gm, 0 Refills, Maintenance, 06/16/20 11:05:00 EST, Aerosol, [facility]/pharmacy #0488, Partial fill upon patient request if [...] 06/16/2110:02:00 EST, Aerosol, Route to Pharmacy Electronically, [id number], [facility]/pharmacy #0488, 155, cm, 03/30/20 9:46:00 EST, Heigh... Start Date: 06/16/20 Status: Ordered valACYclovir 500 mg oral tablet 1, tablet, By Mouth, 2 times a day, # 60 tablet, Refills 1, Tot. Refills 0, Acute, 04/02/20 9:32:00EST, Route to Pharmacy Electronically, [facility], 155, cm, 03/30/20 9:46:00 EST, Height, 94.3, [...]
--- OUTSIDE RECORDS SUMMARY | 2023-10-19 06:05 | XMS_ITS | Continuity of Care Document ---
Author Organization [facility] y Address [address] [place] [address]- Care Team Providers Care Small Arms Repairer Name Role Phone Julio Malloy MD Primary Care Physician [phone] Encounter [facility] Date(s): 02/21/23 - 06/18/23 [facility] [address] [place], [place] [address] Attending Physician: Zen Adams DO Admitting [...] 1 04/07/18 Given 1Result Comment: [04/07/2018] diluent [id number] exp 09/06/2019 Medications acetaminophen 325 mg oral tablet 650 mg, 2, tablet, By Mouth, Every 4 hours, PRN, # 100 tablet, Refills 1, Tot. Refills 1, Maintenance, as needed for pain, 03/31/22 9:53:00 EST, Route to Pharmacy Electronically, [facility]/pharmacy #[id number], Partial fill upon patient request if the prescriptio... Start Date: 03/31/22 Status: Ordered Advair Diskus 500 mcg-50 mcg inhalation powder 1, puffs, Inhalation, 2 times a day, rinse mouth and throat after use Note dose change, # 60 each, Refills 5, Tot. Refills 5, Maintenance, 07/26/22 14:02:00 EDT, Powder, Route to Pharmacy Electronically, [id number], [facility]/phar... Start Date: 07/26/22 [...] Refills, Maintenance, 12/29/22 7:22:00 EDT, [facility], 155, cm, 06/20/22 9:40:00 EST, Height, 92.5, kg, 06/18/22 3:38:00 EST, Dry Weight Start Date: 12/29/22 Status: Ordered Ventolin HFA 108 mcg/inh inhalation aerosol with adapter 2 puffs, Inhalation, Every 4 hours, PRN NEEDED FOR WHEEZING, # 18 each, 1 Refills, Maintenance, 05/07/23 10:32:00 EST, [facility], 155, cm, 03/18/23 9:20:00 EST, Height, 92.5, [...] Confirmed Active [facility], active care coordination [facility] flight operations coordinator Susie Purvis [phone] Confirmed Active Severe obesity (BMI 35.0-39.9) with comorbidity Confirmed Active Social History Social History Type Response Smoking Status Never (less than 100 in lifetime) entered on: 08/07/18 Sex Patient Care team information Care Team Personnel Name: Gaam HDZ, Julio Chery Position: [facility] Physician - Primary Care Member Role: PCP Address: Address: [address] [place] [address]- [place] Care Team Related Persons Name: TALHA PACK Address: home [address] [place] [address] Name: MABEL PEREIRA Address: [address] Address: [address] [address] [place] Name: ELIZABETH PEREIRA Address: [address] Address: home [address] [address] [place] Name: FABIO PEREIRA Address: [address] Address: home [address] [address] [place] Name: BROCK DWYER Address: home [address] [place] [address]
--- OUTSIDE RECORDS SUMMARY | 2023-10-19 06:05 | XMS_ITS | Continuity of Care Document ---
Author Organization [facility] Address [address] [place] [address]- Care Team Providers Care Clinical Rehab Liaison Name Role Phone Julio Malloy MD Primary Care Physician [phone] [place] [facility] 01/28/22 - 02/27/[address] [address]- Allergies, Adverse Reactions, Alerts Substance Reaction Severity [...] 1 04/07/18 Given 1Result Comment: [04/07/2018] diluent [id number] exp 09/06/2019 Medications Advair Diskus 100 mcg-50 mcg inhalation powder 1, inhalation, Inhalation, 2 times a day, rinse mouth and throat after use replaces fluticasone inhaler, # 1 each, Refills 5, Tot. Refills 5, Maintenance, 09/01/20 10:55:00 EDT, Powder, Route to Pharmacy Electronically, [id number]... Start Date: 09/01/20 Status: Ordered albuterol CFC free 90 mcg/inh inhalation aerosol 2, puffs, Inhalation, Every 4 hours, PRN, # 6.7 Gm, Refills 0, Tot. Refills 0, Soft Stop, 12/08/21 15:01:00 EDT, Aerosol, Route to Pharmacy Electronically, [id number], [facility]/pharmacy #0488, 155, cm, 12/08/21 14:56:00 EDT, [...] Name: Gama HDZ, Julio Chery Address: Address: [address] [place] [address]
--- OUTSIDE RECORDS SUMMARY | 2023-10-19 06:05 | XMS_ITS | Continuity of Care Document ---
Author Organization [facility] Address [address] [place] [address]- Care Team Providers Care Senior Marketing Manager Name Role Phone Gama HDZ, Julio Chery Primary Care Physician [place] [facility] [place](s): 07/03/20 - 08/02/[address] [address] Allergies, Adverse Reactions, [...] 1 04/07/18 Given 1Result Comment: [04/07/2018] diluent [id number] exp 09/06/2019 Medications Radha 0.35 mg oral tablet 1 tablet = 0.35 mg, By Mouth, Daily, # 28 tablet, 12 Refills, Maintenance, 05/21/20 11:42:00 EST, Tablet, [facility], Partial fill upon patient request if the prescription is for a schedule II opioid drug., 155, cm, 03/30/20 9:46:00 EST, Heigh... Start Date: 05/21/20 Status: Ordered duloxetine 20 mg oral enteric coated capsule 1 capsule = 20 mg, By Mouth, Daily, # 30 capsule, 5 Refills, Maintenance, 07/28/20 10:20:00 EDT, [facility]/pharmacy #0488, Partial fill upon patient request if [...] 0 Refills, Maintenance, 06/16/20 11:05:00 EST, Aerosol, [facility]/pharmacy #0488, Partial fill upon patient request if [...] 0 Refills, Maintenance, 06/03/20 11:08:00 EST, Tablet, [facility]/pharmacy #0488, Partial fill upon patient request if [...] 06/16/2110:02:00 EST, Aerosol, Route to Pharmacy Electronically, [id number], [facility]/pharmacy #0488, 155, cm, 03/30/20 9:46:00 EST, Heigh... Start Date: 06/16/20 Status: Ordered valACYclovir 500 mg oral tablet 1, tablet, By Mouth, 2 times a day, # 60 tablet, Refills 1, Tot. Refills 0, Acute, 04/02/20 9:32:00EST, Route to Pharmacy Electronically, [facility], 155, cm, 03/30/20 9:46:00 EST, Height, 94.3, [...]
--- OUTSIDE RECORDS SUMMARY | 2023-10-19 06:05 | XMS_ITS | Continuity of Care Document ---
Author Organization [facility] Address [address] [place] [address]- Care Team Providers Care Steel Handler Name Role Phone Julio Malloy MD Primary Care Physician [phone] [place] [facility] [place]/07/[place] - 12/07/[address] [address]- Allergies, Adverse Reactions, Alerts Substance Reaction Severity [...] 1 04/07/18 Given 1Result Comment: [04/07/2018] diluent [id number] exp 09/06/2019 Medications Advair Diskus 100 mcg-50 mcg inhalation powder 1, inhalation, Inhalation, 2 times a day, rinse mouth and throat after use replaces fluticasone inhaler, # 1 each, Refills 5, Tot. Refills 5, Maintenance, 09/01/20 10:55:00 EDT, Powder, Route to Pharmacy Electronically, [id number]... Start Date: 09/01/20 Status: Ordered Radha 0.35 mg oral tablet 1 tablet = 0.35 mg, By Mouth, Daily, # 28 tablet, 12 Refills, Maintenance, 05/21/20 11:42:00 EST, Tablet, [facility]/pharmacy #[id number], [...] 14:32:00 EDT, Route to Pharmacy Electronically, [facility]/pharmacy #[id number], Partial fill upon patient request if the prescription is for a schedule II o... Start Date: 11/12/20 Status: Ordered duloxetine 20 mg oral enteric coated capsule 1 capsule = 20 mg, By Mouth, Daily, # 30 capsule, 5 Refills, Maintenance, 09/01/20 10:54:00 EDT, [facility]/pharmacy #0488, Partial fill upon patient request if the prescription is for a schedule II opioid drug., 155, cm, 07/28/20 9:59:00 EDT, Height, 94.3,... Start Date: 09/01/20 Status: Ordered etonogestrel 68 mg subcutaneous implant 1 each = 68 mg, Intradermal, compressor station engineer to Procedure, 0 Refills, Maintenance, 03/30/20 5:27:00 EST, Implant, Partial fill upon patient request Start Date: 03/30/20 Status: Ordered Flonase 50 mcg/inh nasal spray 1 sprays, Nares, Both, 2 times a day, # 16 Gm, 3 Refills, Maintenance, 09/01/20 10:58:00 EDT, [place], [facility]/pharmacy #0488, Partial fill [...] 2 Refills, Maintenance, 06/03/20 14:36:00 EST, [facility]/pharmacy #0488, 1 patch Topically Daily,Instr:(remove patch(s) after 12 hours), 155, cm, 03/30/20 9:46:00 EST, Height, 94.3, kg... Start Date: 06/03/20 Status: Ordered naproxen 500 mg oral tablet 1 tablet = 500 mg, By Mouth, 2 times a day, PRN for pain, Take with food, # 30 tablet, 0 Refills, Maintenance, 06/03/20 11:08:00 EST, Tablet, [facility]/pharmacy #0488, [...] Maintenance, 08/21/19 12:03:00 EDT, Tablet, [facility]/pharmacy #0488, 1 tablet By Mouth Daily, 155, cm, 07/23/19 10:51:00 EDT, Height, 93.2, kg, 03/23/19 11:10:00 EST, Dry Weight Start Date: 08/21/19 Status: Ordered Proventil HFA 90 mcg/inh inhalation aerosol with adapter 2, puffs, Inhalation, 4 times a day, PRN, # 25 Gm, Refills 0, Tot. Refills 0, Maintenance, 06/16/2110:02:00 EST, Aerosol, Route to Pharmacy Electronically, [id number], [facility]/pharmacy #0488, 155, cm, 03/30/20 9:46:00 EST, Heigh... Start Date: 06/16/20 Status: Ordered Rhinocort Allergy 32 mcg/inh nasal spray = 32 mcg, Nares, Both, Daily, # 8.6 Gm, 0 Refills, Maintenance, 11/12/20 14:33:00 EDT, [facility]/pharmacy#0488, Partial fill upon patient request if the prescription is for a schedule II opioid drug., 155, cm, 11/11/20 13:17:00 EDT, Height, 94.3, kg, 03/28... Start Date: 11/12/20 Stop Date: 11/26/20 Status: Ordered valACYclovir 500 mg oral tablet 1, tablet, By Mouth, 2 times a day, # 60 tablet, Refills 1, Tot. Refills 0, Acute, 04/02/20 9:32:00EST, Route to Pharmacy Electronically, [id number], 155, cm, 03/30/20 9:46:00 EST, Height, 94.3, kg, 03/28/20 11:01:00 EST, Dry Weight Start Date: 04/02/20 Status: Ordered ZyrTEC 10 mg oral tablet 1 tablet = 10 mg, By Mouth, Daily, PRN Congestion, # 30 tablet, 3 Refills, Maintenance, 09/01/20 10:58:00 EDT, Tablet, [facility]/pharmacy #0488, Partial [...]
--- OUTSIDE RECORDS SUMMARY | 2023-10-19 06:05 | XMS_ITS | Continuity of Care Document ---
Author Organization [facility] Address [address] [place] [address]- Care Team Providers Care Antisqueak Chalker Name Role Phone Gama HDZ, Julio Chery Primary Care Physician [place] [facility] [place] 12/24/19 - 01/23/[address] [address] Allergies, Adverse Reactions, Alerts Substance [...] 1 04/07/18 Given 1Result Comment: [04/07/2018] diluent [id number] exp 09/06/2019 Medications albuterol 90 mcg/inh inhalation [...] 8 Refills, Maintenance, 08/21/19 12:03:00 EDT, Tablet, [facility]/pharmacy #0488, 1 tablet By Mouth Daily, 155, cm, 07/23/19 10:51:00 EDT, Height, 93.2, kg, 03/23/19 11:10:00 EST, Dry Weight Start Date: 08/21/19 Status: Ordered ProAir HFA 90 mcg/inh inhalation aerosol See Instructions, PRN as needed for wheezing, 1-2 puffs Inhalation Every 6 hours as needed for wheezing, # 18 Gm, 1 Refills, Maintenance, 12/26/19 10:56:00 EDT, Aerosol, [facility]/pharmacy #0488, 1-2 puffsInhalation Every 6 hours as [...]
--- OUTSIDE RECORDS SUMMARY | 2023-10-19 06:05 | XMS_ITS | Continuity of Care Document ---
Author Organization [facility] Address [address] [place] [address]- Care Team Providers Care Corporate Ethics Officer Name Role Phone Julio Malloy MD Primary Care Physician [place] [facility] [place] 03/10/23 - 04/09/[address] [address]- Allergies, Adverse Reactions, Alerts Substance Reaction Severity [...] 1 04/07/18 Given 1Result Comment: [04/07/2018] diluent [id number] exp 09/06/2019 Medications acetaminophen 325 mg oral tablet 650 mg, 2, tablet, By Mouth, Every 4 hours, PRN, # 100 tablet, Refills 1, Tot. Refills 1, Maintenance, as needed for pain, 03/31/22 9:53:00 EST, Route to Pharmacy Electronically, [facility]/pharmacy #[id number], Partial fill upon patient request if the prescriptio... Start Date: 03/31/22 Status: Ordered Advair Diskus 500 mcg-50 mcg inhalation powder 1, puffs, Inhalation, 2 times a day, rinse mouth and throat after use Note dose change, # 60 each, Refills 5, Tot. Refills 5, Maintenance, 07/26/22 14:02:00 EDT, Powder, Route to Pharmacy Electronically, [id number], [facility]/phar... Start Date: 07/26/22 Status: Ordered albuterol CFC free 90 mcg/inh inhalation aerosol 2, puffs, Inhalation, Every 4 hours, PRN, # 6.7 Gm, Refills 1, Tot. Refills 1, Soft Stop, 03/11/23 13:01:00 EDT, Aerosol, Route to Pharmacy Electronically, [id number], [facility]/pharmacy #0488, 155, cm, 06/20/22 9:40:00 EST, Height... Start Date: 03/11/23 Status: Ordered Keturah 30 mg oral tablet 1 tablet = 30 mg, By Mouth, Once, # 1 tablet, 0 Refills, Soft Stop, 06/20/22 4:51:00 EST, Tablet, [facility]/pharmacy #0488, Partial fill upon patient request if the prescription is for a schedule II opioiddrug., 155, cm, 06/20/22 0:24:00 EST, Height, 92.5,... Start Date: 06/20/22 Status: Ordered Eucerin Eczema Relief topical cream See Instructions, Topically twice daily, # 420 Gm, 5 Refills, Maintenance, 09/20/22 11:05:00 EDT, [facility]/pharmacy #0488, Partial fill upon patient request if the prescription is for a schedule II opioiddrug., Topically twice daily, 155, cm, 06/20/22 9:4... Start Date: 09/20/22 Status: Ordered gabapentin 600 mg oral tablet 1 tablet, By Mouth, Daily at bedtime, # 30 tablet, 5 Refills, Maintenance, 03/11/23 13:01:00 EDT, [facility]/pharmacy #0488, 155, cm, 06/20/22 9:40:00 EST, Height, 92.5, kg, 02/10/23 3:38:00 EST, Dry Weight Start Date: 03/11/23 [...] 2 Refills, Maintenance, 10/13/21 10:02:00 EDT, Tablet, [facility]/pharmacy #0488, Partial fill upon patient request if the prescription is for a schedule II opioid drug., 1 tablet By Mouth Daily, 155, cm, 11/11/20 13:1... Start Date: 10/13/21 Status: Ordered sertraline 50 mg oral tablet 1 tablet, By Mouth, Daily, # 90 tablet, 0 Refills, Maintenance, 12/29/22 7:22:00 EDT, [facility], 155, cm, 06/20/22 9:40:00 EST, Height, 92.5, [...] genitalia Confirmed Active Migraines Confirmed Active Health snf, active care coordination [facility] dining room coordinator Susieprasad Purvis [phone] Confirmed Active Severe obesity (BMI 35.0-39.9) with comorbidity Confirmed Active Social History Social History Type Response Smoking Status Never (less than 100 in lifetime) entered on: 08/07/18 Sex Patient Care team information Care Team Personnel Name: Gama HZD, Julio Chery Position: [facility] Physician - Primary Care Member Role: PCP Address: Address: [address] [place] [address]- Care Team Related Persons Name: TALHA PACK Address: [address] [place] [address] Name: FABIO PEREIRA Address: [address] Address: home [address] [place] [address] [place] Name: MABEL BERRY Address: [address] Address: home [address] [place] [address] [place] Name: ELIZABETH BERRY Address: [address] Address: home [address] [place] [address] [place] Name: BROCK DWYER Address: home [address] [place] [address]
--- OUTSIDE RECORDS SUMMARY | 2023-10-19 06:05 | XMS_ITS | Continuity of Care Document ---
Author Organization [facility] Address [address] [place] [address]- Care Team Providers Care Regional Clinical Research Associate Name Role Phone Gama HDZ, Julio Chery Primary Care Physician Encounter [facility] Date(s): 09/17/21 - 10/17/[address] [address] Allergies, Adverse Reactions, Alerts Substance [...] 1 04/07/18 Given 1Result Comment: [04/07/2018] diluent [id number] exp 09/06/2019 Medications Advair Diskus 100 mcg-50 mcg inhalation powder 1, inhalation, Inhalation, 2 times a day, rinse mouth and throat after use replaces fluticasone inhaler, # 1 each, Refills 5, Tot. Refills 5, Maintenance, 09/01/20 10:55:00 EDT, Powder, Route to Pharmacy Electronically, [id number]... Start Date: 09/01/20 Status: Ordered Paxlovid 150 mg-100 mg oral tablet See Instructions, 300mg nirmatrelvir (two 150mg tablets) with 100mg ritonavir (one tablet). All 3 tablets taken together twice daily for 5 days, with or without food., # 30 tablet, 0 Refills, Maintenance, 09/17/21 12:59:00 EDT, [facility]/pharmacy #0488, [place]... Start Date: 09/17/21 Status: Ordered [...] 06/16/2110:02:00 EST, Aerosol, Route to Pharmacy Electronically, [id number], [facility]/pharmacy #0488, 155, cm, 03/30/20 9:46:00 EST, Heigh... [...]
--- OUTSIDE RECORDS SUMMARY | 2023-10-19 06:05 | XMS_ITS | Continuity of Care Document ---
Author Organization [facility] Address [address] [place] [address]- Care Team Providers Care Product Delivery Specialist Name Role Phone Gama HDZ, Julio Chery Primary Care Physician [place] [facility] [place] 05/21/22 - 06/20/[address] [address]- Allergies, Adverse Reactions, Alerts Substance Reaction Severity [...] 1 04/07/18 Given 1Result Comment: [04/07/2018] diluent [id number] exp 09/06/2019 Medications acetaminophen 325 mg oral tablet 650 mg, 2, tablet, By Mouth, Every 4 hours, PRN, # 100 tablet, Refills 1, Tot. Refills 1, Maintenance, as needed for pain, 03/31/22 9:53:00 EST, Route to Pharmacy Electronically, [facility]/pharmacy #[id number], Partial fill upon patient request if the prescriptio... Start Date: 03/31/22 Status: Ordered Advair Diskus 100 mcg-50 mcg inhalation powder 1, inhalation, Inhalation, 2 times a day, rinse mouth and throat after use replaces fluticasone inhaler, # 1 each, Refills 5, Tot. Refills 5, Maintenance, 06/15/22 14:52:00 EST, Powder, Route to Pharmacy Electronically, [id number]... Start Date: 06/15/22 Status: Ordered albuterol CFC free 90 mcg/inh inhalation aerosol 2, puffs, Inhalation, Every 4 hours, PRN, # 6.7 Gm, Refills 0, Tot. Refills 0, Soft Stop, 06/15/22 14:52:00 EST, Aerosol, Route to Pharmacy Electronically, [id number], [facility]/pharmacy #0488, 155, cm, 06/15/22 14:05:00 EST, Heigh... Start Date: 06/15/22 Status: Ordered Keturah 30 mg oral tablet 1 tablet = 30 mg, By Mouth, Once, # 1 tablet, 0 Refills, Soft Stop, 06/20/22 4:51:00 EST, Tablet, [facility]/pharmacy #[id number], Partial fill upon patient [...] Team Personnel Name: Julio Malloy MD Position: [facility] Primary Care Physician Member Role: PCP Address: Address: [address] [place] [address]- Care Team Related Persons Name: RAMONEBRITNEY GIRL Address: Address: home [address] [place] [address] [place] Name: TALHA PACK Address: home [address] [place] [address] Name: FABIO PEREIRA Address: Address: home [address] [place] [address] [place] Name: MABEL BERRY Address: Address: home [address] Name: BROCK DWYER Address: home [address] [place] [address]
--- OUTSIDE RECORDS SUMMARY | 2023-10-19 06:05 | XMS_ITS | Continuity of Care Document ---
Author Organization [facility] Address [address] [place] [address]- Care Team Providers Care Molding Manager Name Role Phone Gama HDZ, Julio Chery Primary Care Physician Encounter [facility] Date(s): 09/18/21 - 10/18/[address] [address] Allergies, Adverse Reactions, Alerts Substance Reaction [...] 1 04/07/18 Given 1Result Comment: [04/07/2018] diluent [id number] exp 09/06/2019 Medications Advair Diskus 100 mcg-50 mcg inhalation powder 1, inhalation, Inhalation, 2 times a day, rinse mouth and throat after use replaces fluticasone inhaler, # 1 each, Refills 5, Tot. Refills 5, Maintenance, 09/01/20 10:55:00 EDT, Powder, Route to Pharmacy Electronically, [id number]... Start Date: 09/01/20 Status: Ordered Paxlovid 150 [...] 06/16/2110:02:00 EST, Aerosol, Route to Pharmacy Electronically, [id number], [facility]/pharmacy #0488, 155, [...]
--- OUTSIDE RECORDS SUMMARY | 2023-10-19 06:05 | XMS_ITS | Continuity of Care Document ---
Author Organization [facility] Address [address] [place] [address]- Care Team Providers Care Barrel Raiser Helper Name Role Phone Gama HDZ, Julio Chery Primary Care Physician Encounter [facility] Date(s): 02/10/22 - 03/12/[address] [address] Allergies, Adverse Reactions, Alerts [...] 1 04/07/18 Given 1Result Comment: [04/07/2018] diluent [id number] exp 09/06/2019 Medications Advair Diskus 100 mcg-50 mcg inhalation powder 1, inhalation, Inhalation, 2 times a day, rinse mouth and throat after use replaces fluticasone inhaler, # 1 each, Refills 5, Tot. Refills 5, Maintenance, 09/01/20 10:55:00 EDT, Powder, Route to Pharmacy Electronically, [id number]... Start Date: 09/01/20 Status: Ordered albuterol CFC free 90 mcg/inh inhalation aerosol 2, puffs, Inhalation, Every 4 hours, PRN, # 6.7 Gm, Refills 0, Tot. Refills 0, Soft Stop, 12/08/21 15:01:00 EDT, Aerosol, Route to Pharmacy Electronically, [id number], [facility]/pharmacy #0488, 155, cm, 12/08/21 14:56:00 EDT, Heigh... Start Date: 12/08/21 Status: Ordered Multivitamins with Folic Acid 1 mg oral tablet 1 tablet, By Mouth, Daily, # 90 tablet, 2 Refills, Maintenance, 11/11/21 12:32:00 EDT, [facility]/pharmacy#0488, Partial fill upon patient request [...] Name: Gama HDZ, Julio Chery Address: Address: [address] [place] [id number]
--- OUTSIDE RECORDS SUMMARY | 2023-10-19 06:05 | XMS_ITS | Continuity of Care Document ---
Author Organization [facility] Address [address] [place] [address]- Care Team Providers Care Capital Project Engineer Name Role Phone Julio Malloy MD Primary Care Physician [phone] [place] [facility] [place] 04/10/23 - 05/10/[address] [address]- Allergies, Adverse Reactions, Alerts Substance Reaction Severity [...] 1 04/07/18 Given 1Result Comment: [04/07/2018] diluent [id number] exp 09/06/2019 Medications acetaminophen 325 mg oral tablet 650 mg, 2, tablet, By Mouth, Every 4 hours, PRN, # 100 tablet, Refills 1, Tot. Refills 1, Maintenance, as needed for pain, 03/31/22 9:53:00 EST, Route to Pharmacy Electronically, [facility]/pharmacy #[id number], Partial fill upon patient request if the prescriptio... Start Date: 03/31/22 Status: Ordered Advair Diskus 500 mcg-50 mcg inhalation powder 1, puffs, Inhalation, 2 times a day, rinse mouth and throat after use Note dose change, # 60 each, Refills 5, Tot. Refills 5, Maintenance, 07/26/22 14:02:00 EDT, Powder, Route to Pharmacy Electronically, [id number], [facility]/phar... Start Date: 07/26/22 Status: Ordered Keturah 30 mg oral tablet 1 tablet = 30 mg, By Mouth, Once, # 1 tablet, 0 Refills, Soft Stop, 06/20/22 4:51:00 EST, Tablet, [facility]/pharmacy #0488, Partial fill upon patient request if the prescription is for a schedule II opioiddrug., 155, cm, 06/20/22 0:24:00 EST, Height, 92.5,... Start Date: 06/20/22 Status: Ordered Eucerin Eczema Relief topical cream See Instructions, Topically twice daily, # 420 Gm, 5 Refills, Maintenance, 09/20/22 11:05:00 EDT, [facility]/pharmacy #0488, Partial fill upon patient request if the prescription is for a schedule II opioiddrug., Topically twice daily, 155, cm, 06/20/22 9:4... Start Date: 09/20/22 Status: Ordered gabapentin 600 mg oral tablet 1 tablet, By Mouth, Daily at bedtime, # 30 tablet, 5 Refills, Maintenance, 03/11/23 13:01:00 EDT, [facility]/pharmacy #0488, 155, cm, 06/20/22 9:40:00 EST, Height, [...] Refills, Maintenance, 12/29/22 7:22:00 EDT, [facility], 155, cm, 06/20/22 9:40:00 EST, Height, 92.5, kg, 06/18/22 3:38:00 EST, Dry Weight Start Date: 12/29/22 Status: Ordered Ventolin HFA 108 mcg/inh inhalation aerosol with adapter 2 puffs, Inhalation, Every 4 hours, PRN NEEDED FOR WHEEZING, # 18 each, 1 Refills, Maintenance, 05/07/23 10:32:00 EST, [facility], 155, cm, 03/18/23 9:20:00 EST, Height, 92.5, [...] Confirmed Active Migraines Confirmed Active Health senior living, active care coordination [facility] wellness program coordinator Susie Purvis [phone] Confirmed Active Severe obesity (BMI 35.0-39.9) with comorbidity Confirmed Active Social History Social History Type Response Smoking Status Never (less than 100 in lifetime) entered on: 08/07/18 Sex Patient Care team information Care Team Personnel Name: Gama HDZ, Julio Chery Position: [facility] Physician - Primary Care Member Role: PCP Address: Address: [address] [place] [address]- Care Team Related Persons Name: TALHA PACK Address: [address] [place] [address] Name: ELIZABETH PEREIRA Address: [address] Address: home [address] [place] [address] [place] Name: FABIO PEREIRA Address: [address] Address: home [address] [place] [address] [place] Name: MABEL BERRY Address: [address] Address: home [address] [place] [address] [place] Name: BROCK DWYER Address: home [address] [place] [address]
--- OUTSIDE RECORDS SUMMARY | 2023-10-19 06:05 | XMS_ITS | Continuity of Care Document ---
Author Organization [facility] Address [address] [place] [address]- Care Team Providers Care Systems Mgr Name Role Phone Julio Malloy MD Primary Care Physician [phone] Encounter [facility] [place] Date(s): 06/24/20 - 07/30/[address] [address]- Attending Physician: Julio Malloy MD Admitting Physician: [...] 1 04/07/18 Given 1Result Comment: [04/07/2018] diluent [id number] exp 09/06/2019 Medications Radha 0.35 mg oral tablet 1 tablet = 0.35 mg, By Mouth, Daily, # 28 tablet, 12 Refills, Maintenance, 05/21/20 11:42:00 EST, Tablet, [facility], Partial fill upon patient request if the prescription is for a schedule II opioid drug., 155, cm, 03/30/20 9:46:00 EST, Trung... Start Date: 05/21/20 Status: Ordered duloxetine 20 mg oral enteric coated capsule 1 capsule = 20 mg, By Mouth, Daily, # 30 capsule, 5 Refills, Maintenance, 07/28/20 10:20:00 EDT, [facility]/pharmacy #0488, Partial fill upon patient request if the prescription is for a schedule II opioid drug., 155, cm, 07/28/20 9:59:00 EDT, Height, 94.3,... Start Date: 07/28/20 Status: Ordered etonogestrel 68 mg subcutaneous implant 1 each = 68 mg, Intradermal, call center recruiter to Procedure, 0 Refills, Maintenance, 03/30/20 5:27:00 EST, Implant, Partial fill upon patient request Start Date: 03/30/20 Status: Ordered Flovent HFA 110 mcg/inh inhalation aerosol 2 puffs, Inhalation, 2 times a day, # 12 Gm, 0 Refills, Maintenance, 06/16/20 11:05:00 EST, Aerosol, [facility]/pharmacy #0488, Partial fill upon patient request if the prescription is for a schedule II opioid drug., 155, cm, 03/30/20 9:46:00 EST, Height, 94... Start Date: 06/16/20 Status: Ordered Lidoderm 5% film 1 patch, Topically, Daily, (remove patch(s) after 12 hours), # 30 patch, 2 Refills, Maintenance, 06/03/20 14:36:00 EST, [facility]/pharmacy #0488, 1 patch Topically Daily,Instr:(remove patch(s) after 12 hours), 155, cm, 03/30/20 9:46:00 EST, Height, 94.3, kg... Start Date: 06/03/20 Status: Ordered naproxen 500 mg oral tablet 1 tablet = 500 mg, By Mouth, 2 times a day, PRN for pain, Take with food, # 30 tablet, 0 Refills, Maintenance, 06/03/20 11:08:00 EST, Tablet, [facility]/pharmacy #0488, Partial fill upon patient request if the prescription is for a schedule II opioid drug.,... Start Date: 06/03/20 Status: Ordered Multivitamins with Folic Acid 1 mg oral tablet 1 tablet, By Mouth, Daily, # 30 tablet, 8 Refills, Maintenance, 08/21/19 12:03:00 EDT, Tablet, [facility]/pharmacy #0488, 1 tablet By Mouth Daily, 155, cm, 07/23/19 10:51:00 EDT, Height, 93.2, kg, 03/23/19 11:10:00 EST, Dry Weight Start Date: 08/21/19 Status: Ordered Proventil HFA 90 mcg/inh inhalation aerosol with adapter 2, puffs, Inhalation, 4 times a day, PRN, # 25 Gm, Refills 0, Tot. Refills 0, Maintenance, 06/16/2110:02:00 EST, Aerosol, Route to Pharmacy Electronically, [id number], [facility]/pharmacy #0488, 155, cm, 03/30/20 9:46:00 EST, Heigh... Start Date: 06/16/20 Status: Ordered valACYclovir 500 mg oral tablet 1, tablet, By Mouth, 2 times a day, # 60 tablet, Refills 1, Tot. Refills 0, Acute, 04/02/20 9:32:00EST, Route to Pharmacy Electronically, [facility], 155, cm, 03/30/20 9:46:00 EST, Height, 94.3, [...]
--- OUTSIDE RECORDS SUMMARY | 2023-10-19 06:05 | XMS_ITS | Continuity of Care Document ---
Author Organization [facility] Address [address] [place] [address]- Care Team Providers Care Middle School French Teacher Name Role Phone Gama HDZ, Julio Chery Primary Care Physician Encounter [facility] Date(s): 01/03/23 - 02/02/[address] [address] Allergies, Adverse Reactions, Alerts Substance [...] 1 04/07/18 Given 1Result Comment: [04/07/2018] diluent [id number] exp 09/06/2019 Medications acetaminophen 325 mg oral tablet 650 mg, 2, tablet, By Mouth, Every 4 hours, PRN, # 100 tablet, Refills 1, Tot. Refills 1, Maintenance, as needed for pain, 03/31/22 9:53:00 EST, Route to Pharmacy Electronically, [facility]/pharmacy #[id number], Partial fill upon patient request if the prescriptio... Start Date: 03/31/22 Status: Ordered Advair Diskus 500 mcg-50 mcg inhalation powder 1, puffs, Inhalation, 2 times a day, rinse mouth and throat after use Note dose change, # 60 each, Refills 5, Tot. Refills 5, Maintenance, 07/26/22 14:02:00 EDT, Powder, Route to Pharmacy Electronically, [id number], [facility]/phar... Start Date: 07/26/22 Status: Ordered albuterol CFC free 90 mcg/inh inhalation aerosol 2, puffs, Inhalation, Every 4 hours, PRN, # 6.7 Gm, Refills 0, Tot. Refills 0, Soft Stop, 06/15/22 14:52:00 EST, Aerosol, Route to Pharmacy Electronically, [id number], [facility]/pharmacy #[id number], 155, cm, 06/15/22 14:05:00 [...] tablet, 1 Refills, Maintenance, 01/24/23 18:31:00 EDT, [facility] STORE 42248, 155, cm, 06/20/22 9:40:00 EST, Height, 92.5, [...] 2 Refills, Maintenance, 10/13/21 10:02:00 EDT, Tablet, [facility]/pharmacy #[id number], Partial fill upon patient request if the prescription is for a schedule II opioid drug., 1 tablet By Mouth Daily, 155, cm, 11/11/20 13:1... Start Date: 10/13/21 Status: Ordered sertraline 50 mg oral tablet 1 tablet, By Mouth, Daily, # 90 tablet, 0 Refills, Maintenance, 12/29/22 7:22:00 EDT, [facility], 155, cm, 06/20/22 9:40:00 EST, Height, 92.5, [...] Active Health senior care, active care coordination [facility] patient service coordinator Susie Purvis [phone] Confirmed Active Severe obesity (BMI 35.0-39.9) with comorbidity Confirmed Active Social History Social History Type Response Smoking Status Never (less than 100 in lifetime) entered on: 08/07/18 Sex Patient Care team information Care Team Personnel Name: Gama HDZ, Julio Chery Position: [facility] Physician - Primary Care Member Role: PCP Address: Address: [address] [place] [address]- Care Team Related Persons Name: TALHA PACK Address: home [address] [place] [address] Name: FABIO PEREIRA Address: [address] Address: home [address] [place] [address] [place] Name: MABEL BERRY Address: [address] Address: home [address] [place] [address] [place] Name: ELIZABETH BERRY Address: [address] Address: home [address] [place] [address] [place] Name: BROCK DWYER Address: home [address] [place] [address]
--- OUTSIDE RECORDS SUMMARY | 2023-10-19 06:06 | XMS_ITS | Continuity of Care Document ---
Author Organization [facility] Address [address] [place] [address]- Care Team Providers Care Mobile Pet Groomer Name Role Phone Julio Malloy MD Primary Care Physician [phone] [place] [facility] [place] Date(s): 05/30/20 - 06/29/[address] [address]- Allergies, Adverse Reactions, Alerts Substance Reaction Severity [...] 1 04/07/18 Given 1Result Comment: [04/07/2018] diluent [id number] exp 09/06/2019 Medications acetaminophen 325 mg oral tablet 650 mg, 2, tablet, By Mouth, Every 4 hours, PRN, # 50 tablet, Refills 5, Tot. Refills 5, Maintenance, as needed for pain, 06/03/20 11:08:00 EST, Route to Pharmacy Electronically, [facility]/pharmacy #0451, Partial fill upon patient request if the [...] 06/16/2110:02:00 EST, Aerosol, Route to Pharmacy Electronically, [id number], [id number], cm, 03/30/20 9:46:00 EST, Heigh... Start Date: 06/16/20 Status: Ordered valACYclovir 500 mg oral tablet 1, tablet, By Mouth, 2 times a day, # 60 tablet, Refills 1, Tot. Refills 0, Acute, 04/02/20 9:32:00EST, Route to Pharmacy Electronically, [facility] STORE 72832, 155, cm, 03/30/20 9:46:00 EST, Height, 94.3, [...] (less than 100 in lifetime) entered on: 4/1/19 Sex
--- OUTSIDE RECORDS SUMMARY | 2023-10-19 06:06 | XMS_ITS | Continuity of Care Document ---
Author Organization [facility] Address [address] [place] [address]- Care Team Providers Care Pony Ride Attendant Name Role Phone Gama HDZ, Julio Chery Primary Care Physician En[facility] ACCT R [id number] Date(s): 09/27/19 - 10/27/[address] [address]- [facility] Attending Physician: Zhane Barrett Admitting Physician: Zhane Barrett Referring Physician: AdmtrhZane Allergies, Adverse Reactions, Alerts Substance Reaction Severity [...] 1 04/07/18 Given 1Result Comment: [04/07/2018] diluent [id number] exp 09/06/2019 Medications albuterol 90 mcg/inh inhalation [...] 09/25/19 11:29:00 EDT, Route to Pharmacy Electronically, [facility]/pharmacy #[id number], 155, cm, 09/03/19 10:41:00 EDT, Height, 71.2, kg, 09/03/19 10:41:00 EDT, Dry Weight Start Date: 09/25/19 Stop Date: 10/23/19 Status: Ordered Multivitamins with Folic Acid 1 mg oral tablet 1 tablet, By Mouth, Daily, # 30 tablet, 8 Refills, Maintenance, 08/21/19 12:03:00 EDT, Tablet, [facility]/pharmacy #0488, 1 tablet By Mouth Daily, 155, [...]
--- OUTSIDE RECORDS SUMMARY | 2023-10-19 06:06 | XMS_ITS | Continuity of Care Document ---
Author Organization [facility] Address [address] [place] [address]- Care Team Providers Care Head Girls Golf Coach Name Role Phone Julio Malloy MD Primary Care Physician Encounter [facility] [place] [facility] [id number] Date(s): 01/24/20 - 02/23/[address] [address]- [facility] Attending Physician: Zhane Barrett Admitting Physician: AdmtrZhane Referring Physician: Admtr, ArKlever Allergies, Adverse Reactions, Alerts Substance Reaction Severity [...] 1 04/07/18 Given 1Result Comment: [04/07/2018] diluent [id number] exp 09/06/2019 Medications Albuterol (Eqv-ProAir HFA) 90 mcg/inh inhalation aerosol 1 TO 2 PUFFS, Inhalation, Every 6 hours, PRN NEEDED FOR WHEEZE, # 8.5 Unknown, 1 Refills, Maintenance, 02/12/20 9:13:00 EDT, [facility] 54300, 25, INHALE 1 TO 2 PUFFS EVERY [...]
--- OUTSIDE RECORDS SUMMARY | 2023-10-19 06:06 | XMS_ITS | Continuity of Care Document ---
Author Organization [facility] Address [address] [place] [address]- Care Team Providers Care Beet End Supervisor Name Role Phone Gama HDZ, Julio Chery Primary Care Physician [place] [facility] [place] Date(s[place] 11/18/20 - 12/18/[address] [address] Allergies, Adverse Reactions, Alerts [...] 1 04/07/18 Given 1Result Comment: [04/07/2018] diluent [id number] exp 09/06/2019 Medications Advair Diskus 100 mcg-50 mcg inhalation powder 1, inhalation, Inhalation, 2 times a day, rinse mouth and throat after use replaces fluticasone inhaler, # 1 each, Refills 5, Tot. Refills 5, Maintenance, 09/01/20 10:55:00 EDT, Powder, Route to Pharmacy Electronically, [id number]... Start Date: 09/01/20 Status: Ordered Radha 0.35 mg oral tablet 1 tablet = 0.35 mg, By Mouth, Daily, # 28 tablet, 12 Refills, Maintenance, 05/21/20 11:42:00 EST, Tablet, [facility]/pharmacy #[id number], Partial fill upon patient request if the prescription is for a schedule II opioid drug., 155, cm, 03/30/20 9:46:00 EST, Heigh... Start Date: 05/21/20 Status: Ordered Claritin 10 mg oral tablet 10 mg, 1, tablet, By Mouth, Every other day, # 15 tablet, Refills 0, Tot. Refills 0, Maintenance, 11/12/20 14:32:00 EDT, Route to Pharmacy Electronically, [facility]/pharmacy #[id number], Partial fill upon patient request if [...] Gm, 3 Refills, Maintenance, 09/01/20 10:58:00 EDT, [place], [facility]/pharmacy #[id number], Partial fill upon patient request if [...] patch, 2 Refills, Maintenance, 06/03/20 14:36:00 EST, [facility]/pharmacy #0488, 1 patch Topically Daily,Instr:(remove patch(s) after 12 hours), 155, cm, 03/30/20 9:46:00 EST, Height, 94.3, kg... Start Date: 06/03/20 Status: Ordered naproxen 500 mg oral tablet 1 tablet = 500 mg, By Mouth, 2 times a day, PRN for pain, Take with food, # 30 tablet, 0 Refills, Maintenance, 06/03/20 11:08:00 EST, Tablet, [facility]/pharmacy #0488, Partial fill upon patient request if [...] Refills, Maintenance, 09/01/20 10:56:00 EDT, Ophth Solution, [facility]/pharmacy #0488, Partial fill upon patient request if the prescription is for aschedule II opioid drug., 1 drops Eyes, Both 2 time... Start Date: 09/01/20 Stop Date: 11/30/20 Status: Ordered Proventil HFA 90 mcg/inh inhalation aerosol with adapter 2, puffs, Inhalation, 4 times a day, PRN, # 25 Gm, Refills 0, Tot. Refills 0, Maintenance, 06/16/2110:02:00 EST, Aerosol, Route to Pharmacy Electronically, [id number], [facility]/pharmacy #[id number], 155, cm, 11/22/20 9:46:00 EST, Heigh... Start Date: 06/16/20 Status: Ordered Rhinocort Allergy 32 mcg/inh nasal spray = 32 mcg, Nares, Both, Daily, # 8.6 Gm, 0 Refills, Maintenance, 11/12/20 14:33:00 EDT, [facility]/pharmacy#0488, Partial fill upon patient request if the prescription is for a schedule II opioid drug., 155, cm, 11/11/20 13:17:00 EDT, Height, 94.3, kg, 03/28... Start Date: 11/12/20 Stop Date: 11/26/20 Status: Ordered valACYclovir 500 mg oral tablet 1, tablet, By Mouth, 2 times a day, # 60 tablet, Refills 1, Tot. Refills 0, Acute, 04/02/20 9:32:00EST, Route to Pharmacy Electronically, [facility] STORE [id number], 155, cm, 03/30/20 9:46:00 EST, Height, 94.3, kg, 03/28/20 11:01:00 EST, Dry Weight Start Date: 04/02/20 Status: Ordered ZyrTEC 10 mg oral tablet 1 tablet = 10 mg, By Mouth, Daily, PRN Congestion, # 30 tablet, 3 Refills, Maintenance, 09/01/20 10:58:00 EDT, Tablet, [facility]/pharmacy #[id number], Partial fill upon patient request if [...]
--- OUTSIDE RECORDS SUMMARY | 2023-10-19 06:06 | XMS_ITS | Continuity of Care Document ---
Author Organization [facility] Address [address] [place] [address]- Care Team Providers Care Shredder Tender Name Role Phone Julio Malloy MD Primary Care Physician Encounter [facility] Date(s): 11/06/20 - 12/07/[address] [address]- Attending Physician: Not on Staff, Attending MD [...] 1 04/07/18 Given 1Result Comment: [04/07/2018] diluent [id number] exp 09/06/2019 Medications Advair Diskus 100 mcg-50 mcg inhalation powder 1, inhalation, Inhalation, 2 times a day, rinse mouth and throat after use replaces fluticasone inhaler, # 1 each, Refills 5, Tot. Refills 5, Maintenance, 09/01/20 10:55:00 EDT, Powder, Route to Pharmacy Electronically, [id number]... Start Date: 09/01/20 Status: Ordered Radha 0.35 [...] 11/12/20 14:32:00 EDT, Route to Pharmacy Electronically, [facility]/pharmacy #[id number], Partial fill upon patient [...] implant 1 each = 68 mg, Intradermal, scalloper to Procedure, 0 Refills, Maintenance, 03/30/20 5:27:00 EST, Implant, Partial fill upon patient request Start Date: 03/30/20 Status: Ordered Flonase 50 mcg/inh nasal spray 1 sprays, Nares, Both, 2 times a day, # 16 Gm, 3 Refills, Maintenance, 09/01/20 10:58:00 EDT, [place], [facility]/pharmacy #0488, Partial fill upon patient [...] 06/16/2110:02:00 EST, Aerosol, Route to Pharmacy Electronically, [id number], [facility]/pharmacy #0488, 155, cm, 03/30/20 9:46:00 EST, Heigh... Start Date: 06/16/20 Status: Ordered Rhinocort Allergy 32 mcg/inh nasal spray = 32 mcg, Nares, Both, Daily, # 8.6 Gm, 0 Refills, Maintenance, 11/12/20 14:33:00 EDT, [facility]/pharmacy#0488, Partial fill upon patient request if [...] Route to Pharmacy Electronically, [facility] STORE 41342, 155, cm, 03/30/20 9:46:00 EST, Height, 94.3, kg, 03/28/20 11:01:00 EST, Dry Weight Start Date: 04/02/20 Status: Ordered ZyrTEC 10 mg oral tablet 1 tablet = 10 mg, By Mouth, Daily, PRN Congestion, # 30 tablet, 3 Refills, Maintenance, 09/01/20 10:58:00 EDT, Tablet, [facility]/pharmacy #0488, Partial fill upon patient request if the prescription is fora schedule II opioid drug., 155, cm, 03/22/21 9:59:... Start Date: 09/01/20 Status: Ordered Problem [...]
--- OUTSIDE RECORDS SUMMARY | 2023-10-19 06:06 | XMS_ITS | Continuity of Care Document ---
Author Organization [facility] Address [address] [place] [address]- Care Team Providers Care Striping Machine Operator Name Role Phone Julio Malloy MD Primary Care Physician [place] [facility] [place] - 03/24/[address] [address] Attending Physician: Julio Malloy MD Admitting Physician: [...] 1 04/07/18 Given 1Result Comment: [04/07/2018] diluent [id number] exp 09/06/2019 Medications Advair Diskus 100 mcg-50 mcg inhalation powder 1, inhalation, Inhalation, 2 times a day, rinse mouth and throat after use replaces fluticasone inhaler, # 1 each, Refills 5, Tot. Refills 5, Maintenance, 09/01/20 10:55:00 EDT, Powder, Route to Pharmacy Electronically, [id number]... Start Date: 09/01/20 Status: Ordered albuterol CFC free 90 mcg/inh inhalation aerosol 2, puffs, Inhalation, Every 4 hours, PRN, # 6.7 Gm, Refills 0, Tot. Refills 0, Soft Stop, 12/08/21 15:01:00 EDT, Aerosol, Route to Pharmacy Electronically, [id number], [facility]/pharmacy #0488, 155, cm, 12/08/21 14:56:00 EDT, [...] Team Personnel Name: Julio Malloy MD Position: [facility] Primary Care Physician Member Role: PCP Address: Address: [address] [place] [address]- [place] Care Team Related Persons Name: TALHA PACK Address: home [address] [place] [address] Name: FABIO PEREIRA Address: [address] Address: home [address] [place] [address] [place] Name: MABEL BERRY Address: [address] Address: home [address] [place] [address] [place] Name: BROCK DWYER Address: home [address] [place] [address]
--- OUTSIDE RECORDS SUMMARY | 2023-10-19 06:06 | XMS_ITS | Continuity of Care Document ---
Author Organization [facility] Address [address] [place] [address]- Care Team Providers Care Sanitation Lead Name Role Phone Gama HDZ, Julio Chery Primary Care Physician En[place] [facility] [place] Date(s): 11/25/20 - 12/25/[address] [address] Attending Physician: Zhane Barrett Admitting Physician: AdmtrZhane Referring Physician: Admtr, Ar8 [...] 1 04/07/18 Given 1Result Comment: [04/07/2018] diluent [id number] exp 09/06/2019 Medications Advair Diskus 100 mcg-50 mcg inhalation powder 1, inhalation, Inhalation, 2 times a day, rinse mouth and throat after use replaces fluticasone inhaler, # 1 each, Refills 5, Tot. Refills 5, Maintenance, 09/01/20 10:55:00 EDT, Powder, Route to Pharmacy Electronically, [id number]... Start Date: 09/01/20 Status: Ordered Radha 0.35 [...] Gm, 3 Refills, Maintenance, 09/01/20 10:58:00 EDT, [place], [facility], Partial fill upon patient request [...] patch, 2 Refills, Maintenance, 06/03/20 14:36:00 EST, [facility]/pharmacy #0488, 1 patch Topically Daily,Instr:(remove patch(s) after 12 hours), 155, cm, 03/30/20 9:46:00 EST, Height, 94.3, kg... Start Date: 06/03/20 Status: Ordered naproxen 500 mg oral tablet 1 tablet = 500 mg, By Mouth, 2 times a day, PRN for pain, Take with food, # 30 tablet, 0 Refills, Maintenance, 06/03/20 11:08:00 EST, Tablet, [facility]/pharmacy #0488, Partial fill upon patient [...] Refills, Maintenance, 09/01/20 10:56:00 EDT, Ophth Solution, [facility]/pharmacy #0488, Partial fill upon patient request if the prescription is for aschedule II opioid drug., 1 drops Eyes, Both 2 time... Start Date: 09/01/20 Stop Date: 11/30/20 Status: Ordered Proventil HFA 90 mcg/inh inhalation aerosol with adapter 2, puffs, Inhalation, 4 times a day, PRN, # 25 Gm, Refills 0, Tot. Refills 0, Maintenance, 06/16/2110:02:00 EST, Aerosol, Route to Pharmacy Electronically, [id number], [facility]/pharmacy #0488, 155, cm, 03/30/20 9:46:00 EST, Heigh... Start Date: 06/16/20 Status: Ordered Rhinocort Allergy 32 mcg/inh nasal spray = 32 mcg, Nares, Both, Daily, # 8.6 Gm, 0 Refills, Maintenance, 11/12/20 14:33:00 EDT, [facility]/pharmacy#0488, [...] [facility] STORE [address], 155, cm, 03/30/20 9:46:00 EST, Height, 94.3, kg, 03/28/20 11:01:00 EST, Dry Weight Start Date: 04/02/20 Status: Ordered ZyrTEC 10 mg oral tablet 1 tablet = 10 mg, By Mouth, Daily, PRN Congestion, # 30 tablet, 3 Refills, Maintenance, 09/01/20 10:58:00 EDT, Tablet, [facility]/pharmacy #0488, Partial fill upon patient [...]
--- OUTSIDE RECORDS SUMMARY | 2023-10-19 06:06 | XMS_ITS | Continuity of Care Document ---
Author Organization [facility] Address [address] [place] [address]- Care Team Providers Care Management Psychologist Name Role Phone Julio Malloy MD Primary Care Physician En[place] [facility] [place] [facility] [id number] Date(s): 02/22/22 - 03/24/[address] [address]- Attending Physician: Zhane Barrett Admitting Physician: AdmtrZhane [...] 1 04/07/18 Given 1Result Comment: [04/07/2018] diluent [id number] exp 09/06/2019 Medications Advair Diskus 100 mcg-50 mcg inhalation powder 1, inhalation, Inhalation, 2 times a day, rinse mouth and throat after use replaces fluticasone inhaler, # 1 each, Refills 5, Tot. Refills 5, Maintenance, 09/01/20 10:55:00 EDT, Powder, Route to Pharmacy Electronically, [id number]... Start Date: 09/01/20 Status: Ordered albuterol CFC free 90 mcg/inh inhalation aerosol 2, puffs, Inhalation, Every 4 hours, PRN, # 6.7 Gm, Refills 0, Tot. Refills 0, Soft Stop, 12/08/21 15:01:00 EDT, Aerosol, Route to Pharmacy Electronically, [id number], [facility]/pharmacy #0488, 155, cm, 12/08/21 14:56:00 [...] Team Personnel Name: Julio Malloy MD Position: [facility] Primary Care Physician Member Role: PCP Address: Address: [address] [place] [address]- [place] Care Team Related Persons Name: TALHA PACK Address: home [address] [place] [address] Name: FABIO PEREIRA Address: [address] Address: home [address] [place] [address] [place] Name: MABEL BERRY Address: Address: home [address] [place] [address] [place] Name: BROCK DWYER Address: [address] [place] [address]
--- OUTSIDE RECORDS SUMMARY | 2023-10-19 06:06 | XMS_ITS | Continuity of Care Document ---
Author Organization [facility] Address [address] [place] [address]- Care Team Providers Care Customer Service Driver Name Role Phone Gama HDZ, Julio Chery Primary Care Physician Encounter [facility] Date(s): 11/12/20 - 12/14/[address] [address]- Attending Physician: Not on Staff, Attending MD Referring Physician: Vishal Del Rio DO Allergies, Adverse Reactions, Alerts Substance Reaction [...] 1 04/07/18 Given 1Result Comment: [04/07/2018] diluent [id number] exp 09/06/2019 Medications Advair Diskus 100 mcg-50 mcg inhalation powder 1, inhalation, Inhalation, 2 times a day, rinse mouth and throat after use replaces fluticasone inhaler, # 1 each, Refills 5, Tot. Refills 5, Maintenance, 09/01/20 10:55:00 EDT, Powder, Route to Pharmacy Electronically, [id number]... Start Date: 09/01/20 Status: Ordered Radha 0.35 mg oral tablet 1 tablet = 0.35 mg, By Mouth, Daily, # 28 tablet, 12 Refills, Maintenance, 05/21/20 11:42:00 EST, Tablet, [facility]/pharmacy #0488, Partial fill upon patient request if the prescription is for a schedule II opioid drug., 155, cm, 03/30/20 9:46:00 EST, Heigh... Start Date: 05/21/20 Status: Ordered Claritin 10 mg oral tablet 10 mg, 1, tablet, By Mouth, Every other day, # 15 tablet, Refills 0, Tot. Refills 0, Maintenance, 11/12/20 14:32:00 EDT, Route to Pharmacy Electronically, [facility]/pharmacy #0488, Partial fill upon patient request if the prescription is for a schedule II o... Start Date: 11/12/20 Status: Ordered duloxetine 20 mg oral enteric coated capsule 1 capsule = 20 mg, By Mouth, Daily, # 30 capsule, 5 Refills, Maintenance, 09/01/20 10:54:00 EDT, [facility]/pharmacy #0488, Partial fill upon patient request if the prescription is for a schedule II opioid drug., 155, cm, 07/28/20 9:59:00 EDT, Height, 94.3,... Start Date: 09/01/20 Status: Ordered Flonase 50 mcg/inh nasal spray 1 sprays, Nares, Both, 2 times a day, # 16 Gm, 3 Refills, Maintenance, 09/01/20 10:58:00 EDT, [place], [facility]/pharmacy #0488, Partial fill upon [...] patch, 2 Refills, Maintenance, 06/03/20 14:36:00 EST, [facility]/pharmacy #0488, 1 patch Topically Daily,Instr:(remove patch(s) after [...] Refills, Maintenance, 09/01/20 10:56:00 EDT, Ophth Solution, [facility]/pharmacy #0488, Partial fill upon [...] 06/16/2110:02:00 EST, Aerosol, Route to Pharmacy Electronically, [id number], [facility]/pharmacy #0488, 155, cm, 03/30/20 9:46:00 EST, Heigh... Start Date: 06/16/20 Status: Ordered Rhinocort Allergy 32 mcg/inh nasal spray = 32 mcg, Nares, Both, Daily, # 8.6 Gm, 0 Refills, Maintenance, 11/12/20 14:33:00 EDT, [facility]/pharmacy#0488, Partial fill upon patient request if the [...] to Pharmacy Electronically, [facility] STORE [address]476, 155, cm, 03/30/20 9:46:00 EST, Height, 94.3, kg, 03/28/20 11:01:00 EST, Dry Weight Start Date: 04/02/20 Status: Ordered ZyrTEC 10 mg oral tablet 1 tablet = 10 mg, By Mouth, Daily, PRN Congestion, # 30 tablet, 3 Refills, Maintenance, 09/01/20 10:58:00 EDT, Tablet, [facility]/pharmacy #0488, Partial [...]
--- OUTSIDE RECORDS SUMMARY | 2023-10-19 06:06 | XMS_ITS | Continuity of Care Document ---
Author Organization [facility] Address [address] [place] [address]- Care Team Providers Care Museum Technician Name Role Phone Julio Malloy MD Primary Care Physician Encounter [facility] [place] Date(s): 01/28/22 - 05/28/[address] [address]- Attending Physician: Not on Staff, Attending MD [...] 1 04/07/18 Given 1Result Comment: [04/07/2018] diluent [id number] exp 09/06/2019 Medications acetaminophen 325 mg oral tablet 650 mg, 2, tablet, By Mouth, Every 4 hours, PRN, # 100 tablet, Refills 1, Tot. Refills 1, Maintenance, as needed for pain, 03/31/22 9:53:00 EST, Route to Pharmacy Electronically, [facility]/pharmacy #[id number], Partial fill upon patient request if the prescriptio... Start Date: 03/31/22 Status: Ordered Advair Diskus 100 mcg-50 mcg inhalation powder 1, inhalation, Inhalation, 2 times a day, rinse mouth and throat after use replaces fluticasone inhaler, # 1 each, Refills 5, Tot. Refills 5, Maintenance, 09/01/20 10:55:00 EDT, Powder, Route to Pharmacy Electronically, [id number]... Start Date: 09/01/20 Status: Ordered albuterol CFC free 90 mcg/inh inhalation aerosol 2, puffs, Inhalation, Every 4 hours, PRN, # 6.7 Gm, Refills 0, Tot. Refills 0, Soft Stop, 05/17/22 10:29:00 EST, Aerosol, Route to Pharmacy Electronically, [id number], [facility]/pharmacy #[id number], 155, cm, 05/17/22 10:06:00 EST, Heigh... Start Date: 05/17/22 Status: Ordered Multivitamins with Folic Acid 1 mg oral tablet 1 tablet, By Mouth, Daily, # 90 tablet, 2 Refills, Maintenance, 11/11/21 12:32:00 EDT, [facility]/pharmacy#[id number], Partial fill upon patient request if the prescription is for a schedule II opioid drug., 1 tablet By Mouth Daily, 155, cm, 11/11/21 10:26:00 EDT... Start Date: 11/11/21 Status: Ordered Multivitamins with Folic Acid 1 mg oral tablet 1 tablet, By Mouth, Daily, # 90 tablet, 2 Refills, Maintenance, 10/13/21 10:02:00 EDT, Tablet, [facility]/pharmacy #[id number], Partial fill upon patient request if the prescription is for a schedule II opioid drug., 1 tablet By Mouth Daily, 155, cm, 11/11/20 13:1... Start Date: 10/13/21 Status: Ordered valACYclovir 500 mg oral tablet 1, tablet, By Mouth, 2 times a day, # 30 tablet, Refills 1, Maintenance, 05/25/22 10:42:00 EST, Route to Pharmacy Electronically, [id number], 155, cm, 05/19/22 15:34:00 EST, Height, 75.2, kg, 03/25/22 11:05:00 EST, Dry Weight Start Date: 05/25/22 Status: Ordered Problem List Condition Confirmation Course Effective Dates Status Health St atus Informant Anxiety Confirmed Active Asthma Confirmed Active Bipolar 1 disorder Confirmed Active COVID-19 September 20, 2021 Confirmed Active Family history of type 2 diabetes mellitus Confirmed Active Herpes genitalia Confirmed Active Migraines Confirmed Active Blood type, Rh negative Confirmed Active Severe obesity (BMI 35.0-39.9) with comorbidity Confirmed Active Social History Social History Type Response Smoking Status Never (less than 100 in lifetime) entered on: 08/07/18 Sex Patient Care team information Care Team Personnel Name: Gama HDZ, Julio Chery Position: [facility] Primary Care Physician Member Role: PCP Address: Address: [address] [place] [address]- Care Team Related Persons Name: TALHA PACK Address: home [address] [place] [address] Name: FABIO PEREIRA Address: [address] Address: home [address] [place] [address] [place] Name: MABEL BERRY Address: [address] Address: home [address] [place] [address] [place] Name: BROCK DWYER Address: home [address] [place] [address]
--- OUTSIDE RECORDS SUMMARY | 2023-10-19 06:06 | XMS_ITS | Continuity of Care Document ---
Author Organization [facility] Address [address] [place] [address]- Care Team Providers Care Home Health Care Provider Name Role Phone Gama HDZ, Julio Chery Primary Care Physician [phone] Encounter [facility] Date(s): 01/11/23 - 02/10/[address] [address] Attending Physician: Zhane Barrett Admitting Physician: Zhane [...] 1 04/07/18 Given 1Result Comment: [04/07/2018] diluent [id number] exp 09/06/2019 Medications acetaminophen 325 mg oral tablet 650 mg, 2, tablet, By Mouth, Every 4 hours, PRN, # 100 tablet, Refills 1, Tot. Refills 1, Maintenance, as needed for pain, 03/31/22 9:53:00 EST, Route to Pharmacy Electronically, [facility]/pharmacy #[id number], Partial fill upon patient request if the prescriptio... Start Date: 03/31/22 Status: Ordered Advair Diskus 500 mcg-50 mcg inhalation powder 1, puffs, Inhalation, 2 times a day, rinse mouth and throat after use Note dose change, # 60 each, Refills 5, Tot. Refills 5, Maintenance, 07/26/22 14:02:00 EDT, Powder, Route to Pharmacy Electronically, [id number], [facility]/phar... Start Date: 07/26/22 Status: Ordered albuterol CFC free 90 mcg/inh inhalation aerosol 2, puffs, Inhalation, Every 4 hours, PRN, # 6.7 Gm, Refills 0, Tot. Refills 0, Soft Stop, 06/15/22 14:52:00 EST, Aerosol, Route to Pharmacy Electronically, [id number], [facility]/pharmacy #[id number], 155, cm, 06/15/22 14:05:00 EST, Heigh... Start Date: 06/15/22 Status: Ordered Keturah 30 mg oral tablet 1 tablet = 30 mg, By Mouth, Once, # 1 tablet, 0 Refills, Soft Stop, 06/20/22 4:51:00 EST, Tablet, [facility]/pharmacy #[id number], Partial fill upon patient request if the prescription is for a schedule II opioiddrug., 155, cm, 06/20/22 0:24:00 EST, Height, 92.5,... Start Date: 06/20/22 Status: Ordered Eucerin Eczema Relief topical cream See Instructions, Topically twice daily, # 420 Gm, 5 Refills, Maintenance, 09/20/22 11:05:00 EDT, [facility]/pharmacy #[id number], Partial fill upon patient request if the prescription is for a schedule II opioiddrug., Topically twice daily, 155, cm, 06/20/22 9:4... Start Date: 09/20/22 Status: Ordered gabapentin 600 mg oral tablet 1 tablet, By Mouth, Daily at bedtime, # 30 tablet, 1 Refills, Maintenance, 01/24/23 18:31:00 EDT, [facility], 155, cm, 06/20/22 9:40:00 EST, Height, 92.5, [...] 2 Refills, Maintenance, 10/13/21 10:02:00 EDT, Tablet, [facility]/pharmacy #[id number], Partial fill upon patient request if the prescription is for a schedule II opioid drug., 1 tablet By Mouth Daily, 155, cm, 11/11/20 13:1... Start Date: 10/13/21 Status: Ordered sertraline 50 mg oral tablet 1 tablet, By Mouth, Daily, # 90 tablet, 0 Refills, Maintenance, 12/29/22 7:22:00 EDT, [facility], 155, cm, 06/20/22 9:40:00 EST, Height, 92.5, kg, 06/18/22 3:38:00 EST, Dry Weight Start Date: 12/29/22 Status: Ordered Xulane 150 mcg-35 mcg/24 hr transdermal film, extended release See Instructions, apply a new patch weekly for 3 weeks, remove for 1 week, then repeat cycle, # 3 each, 11 Refills, Maintenance, 10/14/22 17:41:00 EDT, [facility]/pharmacy #[id number], Partial fill upon patient request if the prescription is for a schedule II opio... Start Date: 10/14/22 Status: Ordered Problem List Condition Confirmation Course Effective Dates Status Health St atus Informant Anxiety Confirmed Active Asthma Confirmed Active Family history of type 2 diabetes mellitus Confirmed Active Herpes genitalia Confirmed Active Migraines Confirmed Active Health skilled nursing, active care coordination [facility] event promotions coordinator Susie Purvis [phone] Confirmed Active Severe obesity (BMI 35.0-39.9) with comorbidity Confirmed Active Social History Social History Type Response Smoking Status Never (less than 100 in lifetime) entered on: 08/07/18 Sex Patient Care team information Care Team Personnel Name: Julio Malloy MD Position: [facility] Physician - Primary Care Member Role: PCP Address: Address: [address] [place] [address]- Care Team Related Persons Name: TALHA PACK Address: home [address] [place] [address] Name: FABIO PEREIRA Address: [address] Address: home [address] [place] [address] [place] Name: MABEL BERRY Address: [address] Address: home [address] [place] [address] [place] Name: ELIZABETH BERRY Address: [address] Address: home [address] [place] [address] [place] Name: BROCK DWYER Address: home [address] [place] [address]
--- OUTSIDE RECORDS SUMMARY | 2023-10-19 06:06 | XMS_ITS | Continuity of Care Document ---
Author Organization [facility] Address [address] [place] [address]- Care Team Providers Care Environmental Issues Instructor Name Role Phone Gama HDZ, Julio Chery Primary Care Physician [phone] [place] [facility] [place] - 08/15/[address] [address]- Attending Physician: Not on Staff, Attending MD [...] 1 04/07/18 Given 1Result Comment: [04/07/2018] diluent [id number] exp 09/06/2019 Medications acetaminophen 325 mg oral tablet 650 mg, 2, tablet, By Mouth, Every 4 hours, PRN, # 100 tablet, Refills 1, Tot. Refills 1, Maintenance, as needed for pain, 03/31/22 9:53:00 EST, Route to Pharmacy Electronically, [facility]/pharmacy #[id number], Partial fill upon patient request if the prescriptio... Start Date: 03/31/22 Status: Ordered Advair Diskus 500 mcg-50 mcg inhalation powder 1, puffs, Inhalation, 2 times a day, rinse mouth and throat after use Note dose change, # 60 each, Refills 5, Tot. Refills 5, Maintenance, 07/26/22 14:02:00 EDT, Powder, Route to Pharmacy Electronically, [id number], [facility]/phar... Start Date: 07/26/22 Status: Ordered albuterol CFC free 90 mcg/inh inhalation aerosol 2, puffs, Inhalation, Every 4 hours, PRN, # 6.7 Gm, Refills 0, Tot. Refills 0, Soft Stop, 06/15/22 14:52:00 EST, Aerosol, Route to Pharmacy Electronically, [id number], [facility]/pharmacy #[id number], 155, cm, 06/15/22 14:05:00 EST, Heigh... Start Date: 06/15/22 Status: Ordered Keturah 30 mg oral tablet 1 tablet = 30 mg, By Mouth, Once, # 1 tablet, 0 Refills, Soft Stop, 06/20/22 4:51:00 EST, Tablet, [facility]/pharmacy #[id number], Partial fill upon patient request if the prescription is for a schedule II opioiddrug., 155, cm, 06/20/22 0:24:00 EST, Height, 92.5,... Start Date: 06/20/22 Status: Ordered gabapentin 300 mg oral capsule 300 mg, 1, capsule, By Mouth, Daily at bedtime, # 30 capsule, Refills 0, Tot. Refills 0, Maintenance, 07/26/22 13:55:00 EDT, Route to Pharmacy Electronically, [facility]/pharmacy #[id number], Partial fill upon patient request if the prescription is for a schedule... Start Date: 07/26/22 Status: Ordered Multivitamins with Folic Acid 1 mg oral tablet 1 tablet, By Mouth, Daily, # 90 tablet, 2 Refills, Maintenance, 11/11/21 12:32:00 EDT, [facility]/pharmacy#[id number], Partial fill upon patient request if the prescription is for a schedule II opioid drug., 1 tablet By Mouth Daily, 155, cm, 11/11/21 10:26:00 EDT... Start Date: 11/11/21 Status: Ordered Multivitamins with Folic Acid 1 mg oral tablet 1 tablet, By Mouth, Daily, # 90 tablet, 2 Refills, Maintenance, 10/13/21 10:02:00 EDT, Tablet, [facility]/pharmacy #[id number], Partial fill upon patient request [...] genitalia Confirmed Active Migraines Confirmed Active Health prison, active care coordination [facility] food service coordinator [facility] [phone] Confirmed Active Severe obesity (BMI 35.0-39.9) with comorbidity Confirmed Active Social History Social History Type Response Smoking Status Never (less than 100 in lifetime) entered on: 08/07/18 Sex Patient Care team information Care Team Personnel Name: Gama HDZ, Julio Chery Position: [facility] Primary Care Physician Member Role: PCP Address: Address: [address] [place] [address]- Care Team Related Persons Name: TALHA PACK Address: [address] [place] [address] Name: FABIO PEREIRA Address: [address] Address: home [address] [place] [address] [place] Name: MABEL BERRY Address: [address] Address: home [address] [place] [address] [place] Name: ELIZABETH BERRY Address: [address] Address: home [address] [place] [address] [place] Name: BROCK DWYER Address: [address] [place] [address]
--- OUTSIDE RECORDS SUMMARY | 2023-10-19 06:06 | XMS_ITS | Continuity of Care Document ---
Author Organization [facility] Address [address] [place] [address]- Care Team Providers Care Aerial Gunner Name Role Phone Gama HDZ, Julio Chery Primary Care Physician [place] [facility] [place]/22/[place] - 04/21/[address] [address] Allergies, Adverse Reactions, Alerts Substance [...] 1 04/07/18 Given 1Result Comment: [04/07/2018] diluent [id number] exp 09/06/2019 Medications acetaminophen 325 mg oral tablet 650 mg, 2, tablet, By Mouth, Every 4 hours, PRN, # 100 tablet, Refills 1, Tot. Refills 1, Maintenance, as needed for pain, 03/31/22 9:53:00 EST, Route to Pharmacy Electronically, [facility]/pharmacy #[id number], Partial fill upon patient request if the prescriptio... Start Date: 03/31/22 Status: Ordered Advair Diskus 100 mcg-50 mcg inhalation powder 1, inhalation, Inhalation, 2 times a day, rinse mouth and throat after use replaces fluticasone inhaler, # 1 each, Refills 5, Tot. Refills 5, Maintenance, 09/01/20 10:55:00 EDT, Powder, Route to Pharmacy Electronically, [id number]... Start Date: 09/01/20 Status: Ordered albuterol CFC free 90 mcg/inh inhalation aerosol 2, puffs, Inhalation, Every 4 hours, PRN, # 6.7 Gm, Refills 0, Tot. Refills 0, Soft Stop, 03/31/22 9:52:00 EST, Aerosol, Route to Pharmacy Electronically, [id number], [facility]/pharmacy #[id number], 155, cm, 03/24/22 13:05:00 EST, Height... Start Date: 03/31/22 Status: Ordered Multivitamins with Folic Acid 1 mg oral tablet 1 tablet, By Mouth, Daily, # 90 tablet, 2 Refills, Maintenance, 11/11/21 12:32:00 EDT, [facility]/pharmacy#[id number], Partial fill upon patient [...] Personnel Name: Gama HDZ, Julio Chery Position: [facility] Primary Care Physician Member Role: PCP Address: Address: [address] [place] [address]- Care Team Related Persons Name: TALHA PACK Address: home [address] [place] [address] Name: FABIO PEREIRA Address: [address] Address: home [address] [place] [address] [place] Name: MABEL BERRY Address: [address] Address: home [address] [place] [address] [place] Name: BROCK DWYER Address: home [address] [place] [address]
--- OUTSIDE RECORDS SUMMARY | 2023-10-19 06:06 | XMS_ITS | Continuity of Care Document ---
Author Organization [facility] [employer] [facility] Address [address], [place] [address]- Care Team Providers Care Sociology Professor Name Role Phone Gama HDZ, Julio Chery Primary Care Physician Encounter [facility] Date(s): 03/22/23 - 04/21/23 [facility] [address], [address] [place], [place] [address] [[email or web address]] Allergies, Adverse Reactions, Alerts Substance Reaction Severity [...] 1 04/07/18 Given 1Result Comment: [04/07/2018] diluent [id number] exp 09/06/2019 Medications acetaminophen 325 mg oral tablet 650 mg, 2, tablet, By Mouth, Every 4 hours, PRN, # 100 tablet, Refills 1, Tot. Refills 1, Maintenance, as needed for pain, 03/31/22 9:53:00 EST, Route to Pharmacy Electronically, [facility]/pharmacy #[id number], Partial fill upon patient request if the prescriptio... Start Date: 03/31/22 Status: Ordered Advair Diskus 500 mcg-50 mcg inhalation powder 1, puffs, Inhalation, 2 times a day, rinse mouth and throat after use Note dose change, # 60 each, Refills 5, Tot. Refills 5, Maintenance, 07/26/22 14:02:00 EDT, Powder, Route to Pharmacy Electronically, [id number], [facility]/phar... Start Date: 07/26/22 Status: Ordered albuterol CFC free 90 mcg/inh inhalation aerosol 2, puffs, Inhalation, Every 4 hours, PRN, # 6.7 Gm, Refills 1, Tot. Refills 1, Soft Stop, 03/11/23 13:01:00 EDT, Aerosol, Route to Pharmacy Electronically, [id number], [facility]/pharmacy #[id number], 155, cm, 06/20/22 9:40:00 EST, Height... Start Date: 03/11/23 Status: Ordered Keturah 30 mg oral tablet 1 tablet = 30 mg, By Mouth, Once, # 1 tablet, 0 Refills, Soft Stop, 06/20/22 4:51:00 EST, Tablet, [facility]/pharmacy #[id number], Partial fill upon patient request if the prescription is for a schedule II opioiddrug., 155, cm, 06/20/22 0:24:00 EST, Height, 92.5,... Start Date: 06/20/22 Status: Ordered Eucerin Eczema Relief topical cream See Instructions, Topically twice daily, # 420 Gm, 5 Refills, Maintenance, 09/20/22 11:05:00 EDT, [facility]/pharmacy #[id number], Partial fill upon patient request if the prescription is for a schedule II opioiddrug., Topically twice daily, 155, cm, 06/20/22 9:4... Start Date: 09/20/22 Status: Ordered gabapentin 600 mg oral tablet 1 tablet, By Mouth, Daily at bedtime, # 30 tablet, 5 Refills, Maintenance, 03/11/23 13:01:00 EDT, [facility]/pharmacy #[id number], 155, cm, 06/20/22 9:40:00 [...] 2 Refills, Maintenance, 10/13/21 10:02:00 EDT, Tablet, [facility]/pharmacy #[id number], Partial fill upon patient request if the prescription is for a schedule II opioid drug., 1 tablet By Mouth Daily, 155, cm, 11/11/20 13:1... Start Date: 10/13/21 Status: Ordered sertraline 50 mg oral tablet 1 tablet, By Mouth, Daily, # 90 tablet, 0 Refills, Maintenance, 12/29/22 7:22:00 EDT, [facility], 155, cm, 06/20/22 9:40:00 EST, Height, 92.5, [...] Confirmed Active Health snf, active care coordination [facility] conference coordinator Susie Purvis [phone] Confirmed Active Severe obesity (BMI 35.0-39.9) with comorbidity Confirmed Active Social History Social History Type Response Smoking Status Never (less than 100 in lifetime) entered on: 08/07/18 Sex Patient Care team information Care Team Personnel Name: Julio Malloy MD Position: [facility] Physician - Primary Care Member Role: PCP Address: Address: [address] [place] [address]- Care Team Related Persons Name: TALHA PACK Address: [address] [place] [address] Name: FABIO PEREIRA Address: [address] Address: home [address] [place] [address] [place] Name: MABEL BERRY Address: [address] Address: home [address] [place] [address] [place] Name: ELIZABETH BERRY Address: [address] Address: home [address] [place] [address] [place] Name: BROCK DWYER Address: home [address] [place] [address]
--- OUTSIDE RECORDS SUMMARY | 2023-10-19 06:06 | XMS_ITS | Continuity of Care Document ---
Author Organization [facility] Address [address] [place] [address]- Care Team Providers Care Animal Care Supervisor Name Role Phone Gama HDZ, Julio Chery Primary Care Physician [place] [facility] [place] - 11/19/[address] [address] Allergies, Adverse Reactions, Alerts Substance Reaction [...] 1 04/07/18 Given 1Result Comment: [04/07/2018] diluent [id number] exp 09/06/2019 Medications Advair Diskus 100 mcg-50 mcg inhalation powder 1, inhalation, Inhalation, 2 times a day, rinse mouth and throat after use replaces fluticasone inhaler, # 1 each, Refills 5, Tot. Refills 5, Maintenance, 09/01/20 10:55:00 EDT, Powder, Route to Pharmacy Electronically, [id number]... Start Date: 09/01/20 Status: Ordered Paxlovid 150 mg-100 mg oral tablet See Instructions, 300mg nirmatrelvir (two 150mg tablets) with 100mg ritonavir (one tablet). All 3 tablets taken together twice daily for 5 days, with or without food., # 30 tablet, 0 Refills, Maintenance, 09/17/21 12:59:00 EDT, [facility]/pharmacy #[id number], [place]... Start Date: 09/17/21 Status: [...] 2 Refills, Maintenance, 10/13/21 10:02:00 EDT, Tablet, [facility]/pharmacy #[id number], Partial fill upon patient request if the prescription is for a schedule II opioid drug., 1 tablet By Mouth Daily, 155, cm, 11/11/20 13:1... Start Date: 10/13/21 Status: Ordered Proventil HFA 90 mcg/inh inhalation aerosol with adapter 2, puffs, Inhalation, 4 times a day, PRN, # 25 Gm, Refills 0, Tot. Refills 0, Maintenance, 06/16/2110:02:00 EST, Aerosol, Route to Pharmacy Electronically, [id number], [facility]/pharmacy #0488, 155, cm, 03/30/20 9:46:00 EST, Heigh... Start Date: 06/16/20 Status: Ordered pyridoxine 25 mg oral tablet 1 tablet = 25 mg, By Mouth, 3 times a day, for 14 days, # 42 tablet, 1 Refills, Acute 12/09/21 12:32:00 EDT, 11/11/21 12:32:00 EDT, Tablet, [facility]/pharmacy #[id number], Partial fill upon patient request if the prescription is for a schedule II opioid drug., 15... Start Date: 11/11/21 Stop Date: 12/09/21 Status: Ordered Unisom 25 mg oral tablet 1 tablet = 25 mg, By Mouth, Daily at bedtime, PRN for sleep, # 16 tablet, 0 Refills, Acute 12/13/2211:33:00 EDT, 11/11/21 12:33:00 EDT, Tablet, [facility]/pharmacy #[id number], Partial fill upon patient request [...]
--- OUTSIDE RECORDS SUMMARY | 2023-10-19 06:07 | XMS_ITS | Continuity of Care Document ---
Author Organization [facility] Address [address] [place] [address]- Care Team Providers Care Lunchroom Operator Name Role Phone Gama HDZ, Julio Chery Primary Care Physician Encounter [facility] Date(s): 01/05/23 - 02/10/[address] [address]- Attending Physician: Not on Staff, Attending MD Referring Physician: Chris Gomez MORTGAGE SALES MANAGER, Nadine Allergies, Adverse Reactions, Alerts Substance Reaction Severity [...] 1 04/07/18 Given 1Result Comment: [04/07/2018] diluent [id number] exp 09/06/2019 Medications acetaminophen 325 mg oral tablet 650 mg, 2, tablet, By Mouth, Every 4 hours, PRN, # 100 tablet, Refills 1, Tot. Refills 1, Maintenance, as needed for pain, 03/31/22 9:53:00 EST, Route to Pharmacy Electronically, [facility]/pharmacy #[id number], Partial fill upon patient request if the prescriptio... Start Date: 03/31/22 Status: Ordered Advair Diskus 500 mcg-50 mcg inhalation powder 1, puffs, Inhalation, 2 times a day, rinse mouth and throat after use Note dose change, # 60 each, Refills 5, Tot. Refills 5, Maintenance, 07/26/22 14:02:00 EDT, Powder, Route to Pharmacy Electronically, [id number], [facility]/phar... Start Date: 07/26/22 Status: Ordered albuterol CFC free 90 mcg/inh inhalation aerosol 2, puffs, Inhalation, Every 4 hours, PRN, # 6.7 Gm, Refills 0, Tot. Refills 0, Soft Stop, 06/15/22 14:52:00 EST, Aerosol, Route to Pharmacy Electronically, [id number], [facility]/pharmacy #[id number], 155, cm, 06/15/22 14:05:00 EST, Heigh... Start Date: 06/15/22 Status: Ordered Keturah 30 mg oral tablet 1 tablet = 30 mg, By Mouth, Once, # 1 tablet, 0 Refills, Soft Stop, 06/20/22 4:51:00 EST, Tablet, [facility]/pharmacy #[id number], Partial fill upon patient request if the prescription is for a schedule II opioiddrug., 155, cm, 06/20/22 0:24:00 EST, Height, 92.5,... Start Date: 06/20/22 Status: Ordered Eucerin Eczema Relief topical cream See Instructions, Topically twice daily, # 420 Gm, 5 Refills, Maintenance, 09/20/22 11:05:00 EDT, [facility]/pharmacy #[id number], Partial fill upon patient request if the prescription is for a schedule II opioiddrug., Topically twice daily, 155, cm, 06/20/22 9:4... Start Date: 09/20/22 Status: Ordered gabapentin 600 mg oral tablet 1 tablet, By Mouth, Daily at bedtime, # 30 tablet, 1 Refills, Maintenance, 01/24/23 18:31:00 EDT, [facility], 155, cm, 06/20/22 9:40:00 EST, Height, 92.5, [...] 2 Refills, Maintenance, 10/13/21 10:02:00 EDT, Tablet, [facility]/pharmacy #[id number], Partial fill upon patient request if the prescription is for a schedule II opioid drug., 1 tablet By Mouth Daily, 155, cm, 11/11/20 13:1... Start Date: 10/13/21 Status: Ordered sertraline 50 mg oral tablet 1 tablet, By Mouth, Daily, # 90 tablet, 0 Refills, Maintenance, 12/29/22 7:22:00 EDT, [id number], 155, cm, 06/20/22 9:40:00 EST, Height, 92.5, [...] Active Health long term, active care coordination [facility] donor services coordinator Susie Purvis [phone] Confirmed Active Severe obesity (BMI 35.0-39.9) with comorbidity Confirmed Active Social History Social History Type Response Smoking Status Never (less than 100 in lifetime) entered on: 08/07/18 Sex Patient Care team information Care Team Personnel Name: Julio Malloy MD Position: [facility] Physician - Primary Care Member Role: PCP Address: Address: [address] [place] [address]- Care Team Related Persons Name: TALHA PACK Address: home [address] [place] [address] Name: FABIO PEREIRA Address: [address] Address: home [address] [place] [address] [place] Name: MABEL BERRY Address: [address] Address: home [address] [place] [address] [place] Name: ELIZABETH BERRY Address: [address] Address: home [address] [place] [address] [place] Name: BROCK DWYER Address: home [address] [place] [address]
--- OUTSIDE RECORDS SUMMARY | 2023-10-19 06:07 | XMS_ITS | Continuity of Care Document ---
Author Organization [facility] Address [address] [place] [address]- Care Team Providers Care Jet Man Name Role Phone Julio Malloy MD Primary Care Physician Encounter [facility] Date(s): 03/18/20 - 03/18/[address] [address] Discharge Disposition: A-D/C Home Attending Physician: Arlene Figueroa MD Admitting Physician: Arlene Figueroa MD Referring Physician: Arlene Figueroa MD Allergies, Adverse Reactions, Alerts Substance Reaction [...] 1 04/07/18 Given 1Result Comment: [04/07/2018] diluent [id number] exp 09/06/2019 Medications Albuterol (Eqv-ProAir HFA) 90 mcg/inh inhalation aerosol 1 TO 2 PUFFS, Inhalation, Every 6 hours, PRN NEEDED FOR WHEEZE, # 8.5 Unknown, 1 Refills, Maintenance, 02/12/20 9:13:00 EDT, [id number], 25, INHALE 1 TO 2 PUFFS EVERY 6 HOURS NEEDED FOR WHEEZE, 155, cm, 02/03/20 17:37:00 EDT, Height, 84.8,... Start Date: 02/12/20 Status: Ordered Multivitamins with Folic Acid 1 mg oral tablet 1 tablet, By Mouth, Daily, # 30 tablet, 8 Refills, Maintenance, 08/21/19 12:03:00 EDT, Tablet, [facility]/pharmacy #[id number], 1 tablet By Mouth Daily, 155, cm, 07/23/19 10:51:00 EDT, Height, 93.2, kg, 03/23/19 11:10:00 EST, Dry Weight Start Date: 08/21/19 Status: Ordered Valtrex 500 mg oral tablet 500 mg, 1, tablet, By Mouth, 2 times a day, for 30 days, # 60 tablet, Refills 1, Tot. Refills 1, Acute 05/10/20 8:06:00 EST, 03/11/20 8:06:00 EST, Route to Pharmacy Electronically, [facility]/pharmacy #[id number], 155, cm, 03/04/20 8:44:00 EDT, [...] Most recent to oldest [Reference Range]: 1 Weight 91.3 kg (03/18/20 1:47 PM) Blood Pressure [90-138/55-84 mm Hg] 112/ 64mm Hg (03/18/20 1:59 PM) Respiratory Rate [16-30 br/min] 20 br/mi n (03/18/20 1:59 PM) Temperature [96.8-100.4 DegF] 98.6 DegF (03/18/20 1:59 PM) Blood pressure sites Arm, right (03/18/20 1:59 PM) Temperature Route Oral (03/18/20 1:59 PM) Dry Weight 91.3 kg (03/18/20 1:47 PM) Weight Obtained Via Standing scale (03/18/20 1:47 PM) Dry Weight Obtained Via Standing scale (03/18/20 1:47 PM) Social History Social History Type Response Smoking Status Never (less than 100 in lifetime) entered on: 08/07/18 Sex Female
--- OUTSIDE RECORDS SUMMARY | 2023-10-19 06:07 | XMS_ITS | Continuity of Care Document ---
Author Organization [facility] Address [address] [place] [address]- Care Team Providers Care Wireless Telegrapher Name Role Phone Julio Malloy MD Primary Care Physician [facility] [facility] Date(s): 02/25/23 - 04/10/[address] [address] Attending Physician: Catherine Ugalde CNM [...] 1 04/07/18 Given 1Result Comment: [04/07/2018] diluent [id number] exp 09/06/2019 Medications acetaminophen 325 mg oral tablet 650 mg, 2, tablet, By Mouth, Every 4 hours, PRN, # 100 tablet, Refills 1, Tot. Refills 1, Maintenance, as needed for pain, 03/31/22 9:53:00 EST, Route to Pharmacy Electronically, [facility]/pharmacy #[id number], Partial fill upon patient request if the prescriptio... Start Date: 03/31/22 Status: Ordered Advair Diskus 500 mcg-50 mcg inhalation powder 1, puffs, Inhalation, 2 times a day, rinse mouth and throat after use Note dose change, # 60 each, Refills 5, Tot. Refills 5, Maintenance, 07/26/22 14:02:00 EDT, Powder, Route to Pharmacy Electronically, [id number], [facility]/phar... Start Date: 07/26/22 Status: Ordered albuterol CFC free 90 mcg/inh inhalation aerosol 2, puffs, Inhalation, Every 4 hours, PRN, # 6.7 Gm, Refills 1, Tot. Refills 1, Soft Stop, 03/11/23 13:01:00 EDT, Aerosol, Route to Pharmacy Electronically, [id number], [facility]/pharmacy #[id number], 155, cm, 06/20/22 9:40:00 EST, Height... Start Date: 03/11/23 Status: Ordered Keturah 30 mg oral tablet 1 tablet = 30 mg, By Mouth, Once, # 1 tablet, 0 Refills, Soft Stop, 06/20/22 4:51:00 EST, Tablet, [facility]/pharmacy #[id number], Partial fill upon patient request if the prescription is for a schedule II opioiddrug., 155, cm, 06/20/22 0:24:00 EST, Height, 92.5,... Start Date: 06/20/22 Status: Ordered Eucerin Eczema Relief topical cream See Instructions, Topically twice daily, # 420 Gm, 5 Refills, Maintenance, 09/20/22 11:05:00 EDT, [facility]/pharmacy #[id number], Partial fill upon patient request [...] 2 Refills, Maintenance, 10/13/21 10:02:00 EDT, Tablet, [facility]/pharmacy #0488, Partial fill upon patient request if the prescription is for a schedule II opioid drug., 1 tablet By Mouth Daily, 155, cm, 11/11/20 13:1... Start Date: 10/13/21 Status: Ordered sertraline 50 mg oral tablet 1 tablet, By Mouth, Daily, # 90 tablet, 0 Refills, Maintenance, 12/29/22 7:22:00 EDT, [facility], 155, cm, 06/20/22 9:40:00 EST, Height, 92.5, [...] genitalia Confirmed Active Migraines Confirmed Active Health longterm, active care coordination [facility] recruiter coordinator Susie Purvis [phone] Confirmed Active Severe obesity (BMI 35.0-39.9) with comorbidity Confirmed Active Social History Social History Type Response Smoking Status Never (less than 100 in lifetime) entered on: 08/07/18 Sex Patient Care team information Care Team Personnel Name: Julio Malloy MD Position: [facility] Physician - Primary Care Member Role: PCP Address: Address: [address] [place] [address]- Care Team Related Persons Name: TALHA PACK Address: [address] [place] [address] Name: FABIO PEREIRA Address: [address] Address: home [address] [place] [address] [place] Name: MABEL BERRY Address: [address] Address: home [address] [place] [address] [place] Name: ELIZABETH BERRY Address: [address] Address: home [address] [place] [address] [place] Name: BROCK DWYER Address: home [address] [place] [address]
--- OUTSIDE RECORDS SUMMARY | 2023-10-19 06:07 | XMS_ITS | Continuity of Care Document ---
Author Organization [facility] Address [address] [place] [address]- Care Team Providers Care Personal Care Aide Name Role Phone Gama HDZ, Julio Chery Primary Care Physician Encounter [facility] Date(s): 09/17/21 - 10/17/[address] [address] Attending Physician: Not on Staff, [...] 1 04/07/18 Given 1Result Comment: [04/07/2018] diluent [id number] exp 09/06/2019 Medications Advair Diskus 100 mcg-50 mcg inhalation powder 1, inhalation, Inhalation, 2 times a day, rinse mouth and throat after use replaces fluticasone inhaler, # 1 each, Refills 5, Tot. Refills 5, Maintenance, 09/01/20 10:55:00 EDT, Powder, Route to Pharmacy Electronically, [id number]... Start Date: 09/01/20 Status: Ordered Paxlovid 150 mg-100 mg oral tablet See Instructions, 300mg nirmatrelvir (two 150mg tablets) with 100mg ritonavir (one tablet). All 3 tablets taken together twice daily for 5 days, with or without food., # 30 tablet, 0 Refills, Maintenance, 09/17/21 12:59:00 EDT, [facility]/pharmacy #0488, [place]... Start Date: 09/17/21 Status: Ordered Multivitamins with Folic Acid 1 mg oral tablet 1 tablet, By Mouth, Daily, # 90 tablet, 2 Refills, Maintenance, 10/13/21 10:02:00 EDT, Tablet, [facility]/pharmacy #[id number], Partial fill [...] 06/16/2110:02:00 EST, Aerosol, Route to Pharmacy Electronically, [id number], [facility]/pharmacy #[id number], 155, cm, 03/30/20 [...]
--- OUTSIDE RECORDS SUMMARY | 2023-10-19 06:07 | XMS_ITS | Continuity of Care Document ---
Author Organization [facility] Address [address] [place] [address]- Care Team Providers Care Steam Trap Worker Name Role Phone Julio Malloy MD Primary Care Physician Encounter [id number] Date(s): 09/01/20 - 10/01/[address] [address]- Attending Physician: Zhane Barrett Admitting Physician: AdmtrZhane [...] 1 04/07/18 Given 1Result Comment: [04/07/2018] diluent [id number] exp 09/06/2019 Medications Advair Diskus 100 mcg-50 mcg inhalation powder 1, inhalation, Inhalation, 2 times a day, rinse mouth and throat after use replaces fluticasone inhaler, # 1 each, Refills 5, Tot. Refills 5, Maintenance, 09/01/20 10:55:00 EDT, Powder, Route to Pharmacy Electronically, [id number]... Start Date: 09/01/20 Status: Ordered Radha 0.35 [...] implant 1 each = 68 mg, Intradermal, crew caller to Procedure, 0 Refills, Maintenance, 03/30/20 5:27:00 EST, Implant, Partial fill upon patient request Start Date: 03/30/20 Status: Ordered Flonase 50 mcg/inh nasal spray 1 sprays, Nares, Both, 2 times a day, # 16 Gm, 3 Refills, Maintenance, 09/01/20 10:58:00 EDT, [place], [facility]/pharmacy #[id number], Partial fill upon patient [...] 06/16/2110:02:00 EST, Aerosol, Route to Pharmacy Electronically, [id number], [facility]/pharmacy #[id number], 155, cm, 03/30/20 9:46:00 EST, Heigh... Start Date: 06/16/20 Status: Ordered valACYclovir 500 mg oral tablet 1, tablet, By Mouth, 2 times a day, # 60 tablet, Refills 1, Tot. Refills 0, Acute, 04/02/20 9:32:00EST, Route to Pharmacy Electronically, [facility], 155, cm, 03/30/20 9:46:00 EST, Height, 94.3, kg, 03/28/20 11:01:00 EST, Dry Weight Start Date: 04/02/20 Status: Ordered ZyrTEC 10 mg oral tablet 1 tablet = 10 mg, By Mouth, Daily, PRN Congestion, # 30 tablet, 3 Refills, Maintenance, 09/01/20 10:58:00 EDT, Tablet, [facility]/pharmacy #[id number], Partial fill upon [...]
--- OUTSIDE RECORDS SUMMARY | 2023-10-19 06:07 | XMS_ITS | Continuity of Care Document ---
Author Organization [facility] Address [address] [place] [address]- Care Team Providers Care Field Mechanic/Site Lead Name Role Phone Gama HDZ, Julio Chery Primary Care Physician Encounter [facility] Date(s): 12/31/19 - 01/30/[address] [address]- [facility] Allergies, Adverse Reactions, Alerts Substance [...] 1 04/07/18 Given 1Result Comment: [04/07/2018] diluent [id number] exp 09/06/2019 Medications albuterol 90 mcg/inh inhalation [...] 71.2, kg... Start Date: 01/24/20 Status: Ordered Multivitamins with Folic Acid 1 [...]
--- OUTSIDE RECORDS SUMMARY | 2023-10-19 06:07 | XMS_ITS | Continuity of Care Document ---
Author Organization [facility] ter Address [address] [place] [id number]- Care Team Providers Care Call Out Operator Name Role Phone Julio Malloy MD Primary Care Physician Encounter [facility] Date(s): 06/18/22 - 06/20/[address] [id number] Discharge Disposition: A-D/C Home Attending Physician: Dannielle Julien DO Admitting Physician: Dannielle Julien DO Referring Physician: Dannielle Julien DO Allergies, Adverse Reactions, Alerts Substance Reaction [...] 1 04/07/18 Given 1Result Comment: [04/07/2018] diluent [id number] exp 09/06/2019 Medications acetaminophen 325 mg oral tablet 650 mg, 2, tablet, By Mouth, Every 4 hours, PRN, # 100 tablet, Refills 1, Tot. Refills 1, Maintenance, as needed for pain, 03/31/22 9:53:00 EST, Route to Pharmacy Electronically, [facility]/pharmacy #[id number], Partial fill upon patient request if the prescriptio... Start Date: 03/31/22 Status: Ordered Acetaminophen Tablet 650 mg, Tablet, By Mouth, Every 4 hours, PRN for Pain , Mild, (1-3), may give 325mg per patient preference and re-dose with 325mg within 4 hours, if needed. Patient should only receive a total of 650mg of Acetaminophen every 4 hours., Routine, 06/18... Start Date: 06/18/22 Stop Date: 06/20/22 Status: Discontinued Advair Diskus 100 mcg-50 mcg inhalation powder 1, inhalation, Inhalation, 2 times a day, rinse mouth and throat after use replaces fluticasone inhaler, # 1 each, Refills 5, Tot. Refills 5, Maintenance, 06/15/22 14:52:00 EST, Powder, Route to Pharmacy Electronically, [id number]... Start Date: 06/15/22 Status: Ordered albuterol CFC free 90 mcg/inh inhalation aerosol 2, puffs, Inhalation, Every 4 hours, PRN, # 6.7 Gm, Refills 0, Tot. Refills 0, Soft Stop, 06/15/22 14:52:00 EST, Aerosol, Route to Pharmacy Electronically, [id number], [facility]/pharmacy #[id number], 155, cm, 06/15/22 14:05:00 EST, Heigh... Start Date: 06/15/22 Status: Ordered Keturah 30 mg oral tablet 1 tablet = 30 mg, By Mouth, Once, # 1 tablet, 0 Refills, Soft Stop, 06/20/22 4:51:00 EST, Tablet, [facility]/pharmacy #[id number], Partial fill upon [...] Date: 06/20/22 Stop Date: 07/03/22 Status: Ordered Ibuprofen Tablet 800 mg, Tablet, By Mouth, Every 8 hours, PRN for Pain , Moderate, (4-6), may give 400mg per patientpreference and re-dose with 400mg within 8 hours if needed. Patient should only receive a total of 800mg of Ibuprofen every 8 hours., Routine, ... Start Date: 06/18/22 Stop Date: 06/20/22 Status: Discontinued Multivitamins with Folic Acid 1 mg oral [...] Range]: 1 2 3 Height 155 cm (06/20/22 9:25 AM) 155 cm (06/20/22 12:00 AM) 155 cm (06/19/22 4:35 PM) Weight 92.5 kg (06/18/22 3:36 AM) 92.5 kg (06/18/22 1:56 AM) Oxygen Saturation [94-100 %] 98 % (06/20/22 12:00 AM) 100 % (06/19/22 12:00 AM) 100 % (06/18/22 7:20 AM) Pulse Rate [55-90 bpm] 133 bpm *H* (06/20/22 9:25 AM) 82 bpm (06/20/22 12:00 AM) 113 bpm *H* (06/19/22 4:35 PM) Body Mass Index [18.5-24.99 kg/m2] 38.5 kg/m2 *>HHI* (06/18/22 3:36 AM) 38.5 kg/m2 *>HHI* (06/18/22 1:56 AM) Blood Pressure [90-138/55-84 mm Hg] 112/55mm Hg (06/20/22 9:25 AM) 116/57mm Hg (06/20/22 12:00 AM) 119/73mm Hg (06/19/22 4:35 PM) Respiratory Rate [16-30 br/min] 18 br/min (06/20/22 9:32 AM) 18 br/min (06/20/22 9:32 AM) 18 br/min (06/20/22 9:25 AM) Temperature [96.8-100.4 DegF] 97.7 DegF (06/20/22 9:25 AM) 98.3 DegF (06/20/22 12:00 AM) 98.5 DegF (06/19/22 4:35 PM) Blood pressure sites Arm, right (06/18/22 5:14 PM) Arm, right (06/18/22 8:45 AM) Arm, right (06/18/22 3:36 AM) Temperature Route Oral (06/20/22 9:25 AM) Oral (06/20/22 12:00 AM) Oral (06/19/22 4:35 PM) Dry Weight 92.5 kg (06/18/22 3:36 AM) Social History Social History Type Response Smoking Status Never (less than 100 in lifetime) entered on: 08/07/18 Sex History and physical note * Zina Noble DO: PERFORM Event Display: History and Physical Hospital Authored Date: [id number] Patient: ??PACK, BRITNEY ? Age:??22 Years?Sex:??Female?:??2000?? OB Reason for Admission OB Reason for Admission?? No qualifying data available. LMP/EGA/SHELLEY Gestational Age (EGA) and SHELLEY? * Note: EGA calculated as of 06/18/2022 ?? SHELLEY:??06/22/2022?EGA*:??39 weeks 3 days ? History?(2,0,0,2)?Method:??Last Menstrual Period??(09/15/2021) History of Present Illness Pt is a 22yo @39w3d presenting??with contractions and gush of fluid while she was sleeping at 0100. She admits to ctx getting stronger. She denies to VB. + movement. Denies fever/chills,MOSES, dizziness, changes in vision, CP, SOB, RUQ pain,??pain with urination, UE/LE swelling, calf tenderness. Pt would/not eventually like an epidural. Overall, doing well with no complaints. Review of Systems All systems reviewed and negative except as noted above in HPI. Physical Exam Vitals & Measurements T:??98.2?F ?? CO:??124?? RR:??18?? BP:??124/82?? SpO2:??100%?? HT:??155??cm?? WT:??92.5??kg?? BMI:??38.5?? Constitutional: Pleasant, alert, cooperative, no acute distress. Respiratory:??Equal chest rise bilaterally, no labored breathing. Cardiovascular: Regular rate and rhythm.?? Abdomen/GI: Gravid, firm, non-tender Gynecologic:?External Genitalia: normal exam, without lesions ??Vagina: no lesions, well-rugated ??Cervix: normal exam, no lesions Extremities: No edema present bilaterally, no calf erythema Skin: No rash or jaundice. Neurological/Psychiatric: Appearance appropriate, mood and affect stable. ?? Cephalic presentation confirmed by:??Ultrasound EFW: 3500g Membrane Status:??SROM??@39w3d Ferning:??Positive Nitrazine:??Positive Pooling:??Positive?? OB Assessment Baby A Baseline:135 Baseline Description:Normal, 110-160 bpm Baseline Variability:Moderate variability Accelerations:Present Deceleration:None Membranes ROM Date, Time:06/18/2022 01:00 EST Amniotic Fluid Amount:Moderate Amniotic Fluid Color/Description:Clear Cervical Estimated Weight:3500 gm Membrane Status:SROM Uterine Monitor Mode, UterineExternal Cervical Cervical Dilatation4 cm Cervical Eixquqlzmb21% Station-2 Assessment/Plan Assessment:??Pt is a 22yo @39w3d presenting with contractions and SROM @0100, clear. GBE positive. ?? Late latent labor. Expectant management. Cat I tracing. Epidural upon arrival to delivery. ?? Labor without complication (O80):? - Admit to L&D - CBC, Hold, IV access - CEFM - PPH risk: low - Regular diet - Pain management: Epidural - Reassess patient in 2 hours or sooner as needed ?? History of bipolar disorder (Z86.59):? -[X] BHN consult completed november 2021 - Reconsult BHN until in therapy - s/p visit 03/29/22 - No meds - ( ) PP BHN visit ?? Anxiety (F41.9):? See plan under bipolar ?? Asthma (J45.909):? Moderate persistent Has not been using inhalers as she ran out Advair and Albuterol Rx sent ?? 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 Aware intrapartum prophylaxis Clinda resistant- Amoxicillin allergy [ ]Vanc in labor ordered ?? Herpes (B00.9):? (x) Stopped Valtrex 1-2 weeks ago Rx resent, plans to restart Family members aware of diagnosis - Negative Sterile speculum on admission ?? History of COVID-19 (Z86.16):? Positive 09/2021 - s/p treated ?? History of marijuana use (Z87.898):? Quit smoking in 1st trimester Enc continued cessation ?? History of vacuum extraction assisted delivery (Z87.59):? VAD with 1st delivery in the setting of non-reassuring heart tracing ?? Rh negative, antepartum (O26.899):??(x) 27 week antibody screen 03/24 [x] rhogam 27wks after labs 03/24 - ( ) PP Rhogam as needed ?? Plan discussed with Dr. Holland, attending physician and L&D team. OB History History?(2,0,0,2)? # 1 ?Baby 1 ?Outcome Date:??03/23/2019?Outcome or Result:??Vaginal, vacuum assist ?Gest Age:??40 weeks 2 days ? Outcome:??Live ? Sex:??Male?Wt:?3114 g ? Complications:??delivered ? Complications:??None ?Hospital:??[facility] ?? # 2 ?Baby 1 ?Outcome Date:??03/28/2020?Outcome or Result:??Vaginal ?Gest Age:??38 weeks 3 days ? Outcome:??Live ? Sex:??Male?Wt:?3224 g ? Complications:??None ?Hospital:??[facility] Labs Labs Labs & Tests Antibody Screen: Negative (03/24/22) Chlamydia Trachomatis Amplified Probe: NEGATIVE (01/27/22) Creatinine-Blood: 0.6 mg/dL (10/06/21) Down Syndrome Age Risk FTS: Age Risk: (12/03/21) Down Syndrome Scrn Risk FTS: Screening Risk: (12/03/21) Glucose 50 Gm, +60 Minutes: 102 mg/dL (03/24/22) Hct: 36 % (03/24/22) Hepatitis B Surface Antigen: NEGATIVE (11/13/21) Hepatitis C Ab: NEGATIVE (11/13/21) Hgb:??11.4 Gm/dL??Low (03/24/22) HIV 4th Generation Ab-Ag Result: NEGATIVE (11/13/21) RPR Titer Result: NOT INDICATED (03/24/22) Rubella IgG Ab: POSITIVE (11/13/21) Syphilis Screen by SOFY: NEGATIVE (03/24/22) Trisomy 18 Scrn Risk FTS: Screening Risk: (12/03/21) Urine Culture: Urine Culture (11/13/21) Problem List Active Active Problem List Anxiety: (Medical) Asthma: (Medical) Bipolar 1 disorder: (Medical) Blood type, Rh negative: (Medical) COVID-19 ??May ??2021: (Medical) Family history of type 2 diabetes mellitus: (Medical) H/o chlamydia: (Sensitive) (02/20/19) Herpes genitalia: (Medical) Migraines: (Medical) : (Obstetric) (09/15/21) Severe obesity (BMI 35.0-39.9) with comorbidity: (Medical) Procedure/Surgical History Gallbladder Vaginal delivery of fetus [place] tooth Home Medications Acetaminophen: 650 mg = 2 tablet, By Mouth, Every 4 hours, PRN (as needed for pain) Albuterol: 2 puffs, Inhalation, Every 4 hours, PRN (as needed for wheezing) Fluconazole: 150 mg = 1 tablet, By Mouth, Once Fluticasone-Salmeterol: 1 inhalation, Inhalation, 2 times a day, rinse mouth and throat after usereplaces fluticasone inhaler Multivitamin, : 1 tablet, By Mouth, Daily Multivitamin, : 1 tablet, By Mouth, Daily ValACYclovir: 1 tablet, By Mouth, 2 times a day Allergies Zithromax??(Swelling of throat, Rash) amoxicillin??(Swelling of throat, Rash) clindamycin??(Swelling of throat, Rash) Social History Alcohol Use: Never., 04/07/2018 Electronic Cigarette/Vaping Electronic Cigarette Use: Former use, quit more than 90 days ago. Type: Flavored only, Nicotine infused. Number of Years: 1., 11/11/2021 Employment/School Status: Disabled, Unemployed. Other: On disability for Depression and Bipolar. Highest education level: High school or GED., 08/07/2018 Exercise Regular exercise: No., 08/07/2018 Self assessment: Fair condition., 04/07/2018 Home/Environment Living situation: Home/Independent. Lives with: Children, Siblings, Significant other, FOB's mother. DCF involvement: Past. Other: As a child I had DCF case closed.., 11/11/2021 Living situation: Home/Independent., 04/07/2018 Nutrition/Health Diet: Regular., 04/07/2018 Sexual Sexually involved in last 6 months: No., 06/27/2019 Sexually involved in last 6 months: Yes. Gender identity: Identifies as female. Self described orientation: Straight or heterosexual., 08/07/2018 Substance Abuse Use: Past. Type: Marijuana. Other: quit years ago., 12/02/2021 Tobacco Use: Never (less than 100 in lifetime)., 08/07/2018 Family History Mother: Bipolar; Depression; Lupus; Mental illness; Migraine; Sleep apnea Father: Bipolar; Depression Brother: Learning disabilities Sister: Heart defect, congenital Mat. Grandfather: CAD - Coronary artery disease; Diabetes mellitus type II; Hypertension Mat. Grandmother: Hypertension Pat. Grandfather: Diabetes mellitus type II; Hypertension Pat. Grandmother: Diabetes mellitus type II; Hypertension Sister: Migraine; Seizure Sister: Cerebral palsy Plan OB Plan Contraceptives: None (06/18/22) Infant Feeding Plan: Breast milk & Formula (06/18/22) Labor Coping Mechanisms: Epidural (06/18/22) Patient Requests: [facility] (06/18/22) * Judie Holland MD: PERFORM Event Display: History and Physical Hospital Authored Date: Attending Attestation:??I have seen and evaluated this patient on the date of service. ??I have discussed the case and its management with the resident and agree with the findings and plan as documented in the resident???s note. Hospital Progress note * Chery Ram RN: PERFORM, SIGN, VERIFY Event Display: Progress Note Hospital Authored Date: [id number] Patient: BRITNEY PACK Age: 22 years Sex: Female : 2000 Associated Diagnoses: None Author: Chery Ram RN pt with vital signs stable.fundus firm with mild lochia.pain well controlled with ibuprofen and tylenol.discharge instructions completed.pt verbalizes understanding.pt has [address] on herfridge and has no questions with instruction.bonding well with .mother in visiting and supportive.will continue to provide emotional support and teaching * Hanh Mack RN: SIGN, VERIFY, PERFORM Event Display: Progress Note Hospital Authored Date: [id number] Patient: BRITNEY PACK Age: 22 years Sex: Female : 2000 Associated Diagnoses: None Author: Hanh Mack RN Pt's vss. Oob ambulating/voiding independently. pain well controlled with po pain medications. Pt formula feeding. Encouraged to pump more frequently. rooming in with baby, continue with plan of care. * Chery Ram RN: PERFORM, SIGN, VERIFY Event Display: Progress Note Hospital Authored Date: [id number] Patient: BRITNEY PACK Age: 22 years Sex: Female : 2000 Associated Diagnoses: None Author: Chery Ram RN VITAL SIGNS STABLE.FUNDUS firm with mild lochia.pain well controlled with ibuprofen and tylenol.bonding well with .mother in visiting and supportive.caring for self and infant independently.formula feeding infant and recording on i and o sheet correctly.will continue to provide teaching and em otional support. Note * Chery Ram RN: PERFORM Event Display: Discharge/Transfer Note Hospital Authored Date: [id number] Nursing Discharge Note Entered On: 06/20/2022 10:33 EST Performed On: 06/20/2022 10:28 EST by Chery Ram RN Nursing Discharge Note 2 Discharge Time : 06/20/2022 10:25 EST Discharge Level of Care at Discharge : Home/Senior Living/Foster Care Patient Left Unit Via : Ambulatory Patient Accompanied Off Unit with : Parent, Other: DC Instructions Provided & Signed by Pt : Yes Patient Understands D/C Instructions : Yes Verbalized Understanding of D/C Plan By : Patient Patient Instructions Discharge Signed : Yes Discharge Comments : baby [place] bands [place] [facility] [place] home with in [facility] and her mother Did Pt have Specialty Bed or Wound Vac : No Chery Ram RN - 06/20/2022 10:28 EST * Traci Nguyen MD: PERFORM Event Display: Discharge/Transfer Note Hospital Authored Date: [id number] Patient: ??PACK, BRITNEY ? Age:??22 Years?Sex:??Female?:??2000?? Admit Date Admission Date: 06/18/2022 Discharge Date 06/20/2022 OB Reason for Admission OB Reason for Admission?? No qualifying data available. OBN Hospital Course Pt is a 22yo @39w3d presenting??with contractions and SROM at 0100 on 06/18. GBS positive. Rh negative. Rubella immune. She proceeded to have uncomplicated vaginal delivery, no repair. Remaining hospital course was uncomplicated. On day of discharge, patient meeting appropriate mil estones and appropriate for discharge to home. ?? Patient is feeling well with no acute concerns. States her pain is well controlled with PO pain medications. Her lochia is??minimal. She is ambulating, voiding spontaneously, and tolerating regular diet. Denies fever, chills, chest pain, shortness of breath,??persistent headache, vision changes,RUQ pain, calf tenderness, nausea, vomiting, or other??acute concerns.??Mood is??appropriate and she is bonding well with her baby. Patient??reports that she has a??good support system at home. Objective/Physical Exam on Day of Discharge Vitals & Measurements T:??98.3?F ?? HR:??118(Monitored)?? CO:??82?? RR:??16?? BP:??116/57?? SpO2:??98%?? HT:??155??cm?? WT:??3.343??kg?? BMI:??38.5?? Constitutional:??No acute distress, resting comfortably. Respiratory:??Normal work of breathing. Breathing comfortably on room air. Cardiovascular:??No signs of fluid overload. Abdomen/GI:??Soft, non-distended, no guarding, no rebound tenderness.??Fundus firm at umbilicus with mild tenderness. Gynecologic:??Minimal lochia. No swelling or hematoma. Extremities:??No calf tenderness or edema. Skin:??No rash or jaundice. Neurological/Psychiatric:??Mood and affect congruent and stable. Assessment/Plan/Discharge Diagnosis state (Z39.2):? Continue routine care Pain Management: continue Ibuprofen & Tylenol, ice packs on perineum ??Lacerations/repairs: midline vaginal laceration, not repaired ??Infant feeding: ??Contraception:??Declines. Accepts EC Rx??and plans??for Depo when moves back to [place]??in the summer. Counseled on risks of close interval . ??Plan for discharge: anticipate day 2, cleared by SW ??Follow up with 2 wk N telehealth and 6wk [facility] telehealth - patient moving to [place] and will??establish with OBGYN care at her destination but does desire telehealth visits with our office ?? Asthma (J45.909):??Moderate persistent Has not been using inhalers as she ran out Advair and Albuterol Rx sent ?? History of bipolar disorder (Z86.59):? -[X] BHN consult completed november 2021 - Reconsult BHN until in therapy - s/p visit 03/29/22 - No meds - Cleared for discharge by social work during this admission - (p) PP BHN visit ?? Herpes (B00.9):??Family members aware of diagnosis - Negative Sterile speculum on admission ?? Rh negative, antepartum (O26.899):? (x) PP Rhogam ?? Care: depression increased risk Future Appointments Tuesday 3:00 PM EST ?? With: Where: [facility] - Child Care Team Lead [address] [place] [address]- Tuesday 11:30 AM EDT ?? With: Gama HDZ, Julio Chery Where: [address] [address]- 2022 7:00 PM EDT ?? With: Catherine Ugalde CNM Where: [facility] - Child Care Team Lead [address] [place] [address]- Tuesday 2:00 PM EDT ?? With: Adeline Byrne DO Where: [facility] [address] [place] [address]- Delivery Summary Delivery Summary Maternal Information ??Labor Information ?Baby A ?Labor Onset Methods: ??Spontaneous ??Delivery Information ?Gestational Age at Delivery: ??39W 3D ?Anesthesia OB: ??Epidural ??06/18/22 09:58:22, Epidural ??06/18/22 03:58:04 ?Obstetrical Laceration: ??Perineum intact, Vaginal laceration ?Vaginal Laceration: ??Midline ?Vaginal Laceration Repair: ??Not repaired ?Delivery Complications: ??None ?Blood Loss(ml): ??300 mL ? Baby A ??Delivery Information ?Delivery Type: ??Vaginal ?Date, Time of : ??06/18/22 07:07:00 ? Position: ??Supine ?Foot of bed removed: ??Yes ?Delayed Cord Clamping: ??Yes ?Placenta Delivery Date/Time: ??06/18/22 07:11:00 ?Placenta Delivery Method: ??Assisted ?Placenta Appearance: ??Normal ?Placenta to Pathology: ??No ??Care Team ?Delivery Physician: ??Real PACHECO, Zina ?Delivery CNM: ??Honorio CNM, Shaneka Mcdaniel ?senior contract specialist #1: ??Aron STORY, Christi ?senior contract specialist #2: ??Lorene STORY, Dannielle ?Other Delivery Clinicians: ??Gumaro Wahl RN ??Labor Information ?ROM Date, Time: ??06/18/22 01:00:00 ? monitoring: ??External monitor ?? Information ? Outcome: ??Live ? Position: ??Right occiput anterior ? Weight: ??3.343 kg ? Score 1 minute: ??8 ? Score 5 minute: ??9 ? Score 10 minute: ??9 ?Transferred To: ?? Care area with Family ?Umbilical Cord Description: ??3 vessel cord ? Complications: ??None ?Gender: ??Female ? Procedures Performed Epidural Vaginal delivery ?? Discharge Medications ???Acetaminophen (Tylenol 325 mg oral capsule)???Acetaminophen (acetaminophen 325 mg oral tablet)???Albuterol (albuterol CFC free 90 mcg/inh inhalation aerosol)???Fluticasone-Salmeterol (Advair Diskus 100 mcg-50 mcg inhalation powder)???Ibuprofen (ibuprofen 600 mg oral tablet)???Multivitamin, ( Multivitamins with Folic Acid 1 mg oral tablet)???Multivitamin, ( Multivitamins with Folic Acid 1 mg oral tablet)???ulipristal (Keturah 30 mg oral tablet) Stop taking these medications ???Fluconazole (Diflucan 150 mg oral tablet)???ValACYclovir (valACYclovir 500 mg oral tablet) Immunizations during Hospitalization Vaccine Date Status Commentstetanus/diphtheria/pertussis, acel(Tdap) 03/24/2022 Given influenza virus vaccine, inactivated 02/15/2020 Given tetanus/diphtheria/pertussis, acel(Tdap) 01/16/2020 Given Human Papillomavirus Vaccine 06/14/2019 Given Hepatitis A Adult Vaccine 06/14/2019 Given influenza virus vaccine, inactivated 01/23/2019 Given tetanus/diphtheria/pertussis, acel(Tdap) 12/26/2018 Given Meningococcal Conjugate Vaccine 04/07/2018 Given [04/07/2018] diluent [id number] exp 09/06/2019 Hepatitis A Adult Vaccine 04/07/2018 Given Human Papillomavirus Vaccine 04/07/2018 Given influenza virus vaccine, inactivated 02/23/2018 Recorded Contraception None ?? Feeding Method [place] Feeding Method: Formula, Pumping (06/19/22 16:30:00) Consultants social work Patient Instructions Discharge:??Home ?? Please call the office with any concerns including:?? Heavy vaginal bleeding?? Fever of 100.4 or greater Foul-smelling vaginal discharge Difficulty or burning with urination Nausea and vomiting with inability to tolerate food Pain not controlled by the medications listed below Shortness of breath or chest pain. Swelling of the extremities. ?? General Instructions: - Avoid lifting anything 15 lbs or greater until cleared by doctor. - Stairs are OK but avoid multiple trips/ skipping steps and go slowly. - Walk as often as you are able. - Do not put anything in the vagina. No intercourse, tampons, or douching - For pain, you can use rzgh-dza-zcyxvml medicines:??Tylenol (acetaminophen, up to 1000mg every 6 hours) and ibuprofen (up to 600mg every 6 hours) - Continue using stool softeners as needed??(examples: colace/docusate, senna, miralax) - Shower as usual. Avoid tubs / soaking / pools. ?? Thank you for allowing us to be part of your care team. * Chery Ram RN: PERFORM Event Display: Patient Education/Instruction Authored Date: [id number] Inpatient Adult Discharge Instructions [address] [address] Name: BRITNEY PACK : 2000 Visit: 06/18/2022 02:42:00 Current Date: 06/20/2022 09:07 Account: [id number] Inpatient Adult Discharge Instructions We would like [...] and their families. Surveys are administered by [employer] ?? If further treatment with your primary care physician or another doctor is recommended, it is important for you to keep the appointment. Call your primary care physician or return to the Emergency Department immediately if your condition worsens, fails to improve, or new symptoms develop. If you need to find a doctor, you can call [facility] [employer] for a referral at [phone] or toll free at [phone] or log in to [email or web address].. ?? You can view and manage your care through the patient portal or by using a health care josé luis of your choosing. [employer] is a website that allows you to securely view your medical information including your hospital discharge summary, office visit summaries, medications and follow-up visits. You can also request appointments, renew medications, and request access to your medical information using a health care josé luis of your choosing, or just ask a question. You can enroll at [email or web address] or register during your next office visit. You have been discharged from [facility], Patient Care Unit: [facility]. If you have any questions regarding these instructions after you leave, please call us and we will be happy to assist you. [facility] Your Care Team Attending Physician Dannielle Julien DO Discharging Providers Traci Nguyen MD Reason for Admission PREG SHELLEY 06 22 2022LABOR SROM Your Diagnosis Labor without complication Anxiety Asthma GBS carrier Herpes History of COVID-19 History of bipolar disorder History of marijuana use History of vacuum extraction assisted delivery Inclusion cyst Rh negative, antepartum Severe obesity (BMI 35.0-39.9) with comorbidity Full-term premature rupture of membranes with onset of labor within 24 hours of rupture state state Herpes genitalia Tests Performed Below is a partial list of the tests performed during your hospitalization. You may have had other tests and procedures not included in this list. Please discuss all test results with your provider. CBC Primary Care Provider Julio Malloy MD Advance Directive Health Care Proxy on File Yes - Health Care Proxy Patient has a Designated Caregiver: No Discharge Vitals Temperature: 98.3 DegF Height: 155 cm Pulse Rate: 82 bpm Weight: 92.5 kg Respiratory Rate: 16 br/min Body Mass Index:??38.5 kg/m2??Critical Systolic Blood Pressure: 116 mm Hg Body surface area: 2 Diastolic Blood Pressure: 57 mm Hg ?? Oxygen Saturation: 98 % ?? Studies Pending All tests and labs ordered during this hospital stay have been completed unless listed below. Please discuss all pending results with your provider listed above in these instructions. ?? Hold Lavender Tube (BB) Hold Lavender Tube (BB) (Hold Lavender Tube (BB), ) What to do next Instructions From Your Doctor Discharge:??Home ?? Please call the office with any concerns including:?? Heavy vaginal bleeding?? Fever of 100.4 or greater Foul-smelling vaginal discharge Difficulty or burning with urination Nausea and vomiting with inability to tolerate food Pain not controlled by the medications listed below Shortness of breath or chest pain. Swelling of the extremities. ?? General Instructions: - Avoid lifting anything 15 lbs or greater until cleared by doctor. - Stairs are OK but avoid multiple trips/ skipping steps and go slowly. - Walk as often as you are able. - Do not put anything in the vagina. No intercourse, tampons, or douching - For pain, you can use mjib-hgy-ywqftiq medicines:??Tylenol (acetaminophen, up to 1000mg every 6 hours) and ibuprofen (up to 600mg every 6 hours) - Continue using stool softeners as needed??(examples: colace/docusate, senna, miralax) - Shower as usual. Avoid tubs / soaking / pools. ?? Thank you for allowing us to be part of your care team. Discharge Orders Instructions from your Care Team Discharge Care Instructions for the New Mom?? Please take a few moments to read through these helpful instructions before you leave the hospital.??Your nurse will be glad to answer any questions you may have. ??You can also find this and more information throughout the purple??Becoming a Family??booklet,??[facility]???s New Beginnings Guide??and the?? Consultation Services Guide??given to you after the of your baby. ??You may also phone our nurses stations if you have further questions. ??[facility]: ??First Floor ([phone]), Second Floor ([phone]). ?? Please call your provider if you have any questions or concerns ??before your next appointment. For ongoing support??please?Like?us on our Facebook page?[facility]???[facility] New Beginnings?and sign up for our email newsletter at??[email or web address]. ??News and information will be sent to you??until your baby???s third birthday. Instructions for the New Mother Activity:?? For the next 2 weeks at home?no heavy lifting, avoid unnecessary stair climbing, and no driving (especially if you are taking medicine that may make you sleepy or feel that you are sleep deprived). ?? For the next 4-6 weeks - no tampons, no douches, no sexual intercourse. Use your reyes bottle to rinse your perineum until your vaginal flow stops. ??If you have stitches in your bottom, they generally dissolve within 7-10 days. ??Apply Tucks/witch rox pads until your soreness subsides. ??Use your bathroom at home every 3 to 4 hours, rinse, and change your pads. Warm showers feel great on achy muscles, sore backs and sore bottoms. Exercise: Walking is the best form of exercise. ??Wait until your follow up appointment with your provider in4-6 weeks before engaging in more strenuous activity. Diet: Drink plenty of fluids to avoid constipation and to help support your recovery. Eat plenty of iron rich foods such as red meat, iron fortified cereals like Total and Cream of Wheat, raisins, prunes, greens and spinach. ??These will help to build your blood count back up as all women lose some blood after delivery. ??Also add foods rich in Vitamin C such as strawberries, oranges, papayas, kale and degroot peppers. Continue to take your vitamins if you are . ??If you are not follow the instructions of your provider. ??If you were prescribed iron supplements such as ferrous sulfate, it is important to continue these until your doctor or collar packer tells you to stop. ?? Breast Care for Bottle Feeding Mothers: Engorgement may occur within the first week after delivery. ??Your breasts may become hard and verytender. ??A cool compress of cleaned raw green cabbage leaves applied to the breast and changed as leaves wilt has been proven helpful for many women. ??Ice packs or frozen bags of peas also work nicely to ease the discomfort. ??The soreness will only last a couple of days. Keep your back turned to the water while showering to decrease breast stimulation. Wear a snug fitting bra such as a sports bra. ?? Control: Your doctor or collar packer will discuss control methods with you when [facility] or at your checkup. ??Be sure to let your provider know if you are . You had a Paragard IUD placed on . ??This control method is effective for 10 years. You had a Liletta placed on . ??This control method is effective for up to 5 years. You had a Nexplanon placed on . ??This control method is effective for up to 3 years. You received a Depo Provera injection on . ??This control method is effective as longas you repeat it every 3 months.?Schedule your next dose before . You have a prescription for control pills . ??It is important to take a pill everyday at around the same time of day for effective control protection. ?? Pain Management: Cramping after is common and increases in strength with each baby you have. ??If you experience painful cramps, and have no allergies to acetaminophen (Tylenol) or ibuprofen (Motrin), you may continue to take these medications as you did in the hospital. ??Ibuprofen is also helpful with back aches following epidurals, perineal pain following a vaginal delivery, and moderate incisional pain after a section or a tubal ligation. ?? If you experience gas distention, especially after surgery, you may take an over the counter medication called simethicone. ??Take these chewable tablets 4 times a day as needed and directed on the package. ??Keep moving. ??Walking or rocking in a chair, will help to move the gas along. ??Yen tea made with heated yen warren (instead of water) and a tea bag, stirred to dissolve carbonation (bubbles) is a helpful drink to soothe a gassy stomach. Warning Signs of a Problem to Notify Your Doctor or Machine Slat Basket Maker of: Heavy vaginal bleeding?which is??soaking a pad every hour??with bright red blood. Passing blood clots the size of an egg or larger. An incision that is not healing. A temperature greater than or equal to 100.4 especially if accompanied by any of the following symptoms?painful, frequent urination; extreme back or flank pain; lower belly pain with a foul smell to your vaginal flow; a red hard hot area on your breast. ?? Severe headache that does not go away after taking acetaminophen or ibuprofen. ?? A headache that changes your vision, including seeing spots or blurring. Right sided upper abdominal pain along the rib cage area. Pain in your legs that is warm and tender to the touch. depression signs may include?loss of interest in your baby, weepiness, difficulty focusing, weight loss with no appetite, exhaustion, feeling overwhelmed or anxious, feelings??of despair, or thoughts of harming yourself or your baby. ??These symptoms are important and should be discussed with your doctor or collar packer. depression may develop over a period of time and needs prompt medical attention. ??Do not suffer in silence. ??In both the??Becoming a Family??booklet and the??[facility]??New Beginnings Guide??there is a screening tool used to identify women at risk, called the Galt Scale which you have taken in the office prior to delivery and again during your ho spital stay. ??Three to four weeks after your delivery, and before your check with your provider, take this test and share your results with your provider. ??Be sure to mention any score of 10 or more. ?? Many women, and even some partners, may experience the?baby blues?? . ??This is a state of feeling overwhelmed and weepy. ??Discomfort from childbirth, hormonal changes, exhaustion, changes to your body and lifestyle are a few of the things that contribute to the highs and lows new parents go through. ??Don???t be afraid to ask your partner or family and friends for some help at home so you can get some rest and a few minutes to yourself. ??The blues will quickly pass. Personal Safety: Every person has the right to feel safe at home and live free from physical or emotional harm. ??Ifyou have suffered mental or physical abuse at home, you are not alone. ??There is help. ??Please call HOTLINE or the [facility] Program at [phone]. Scheduled Follow-Up Appointments Tuesday 3:00 PM EST ?? With: Where: [facility] - Child Care Team Lead [address] [place] [address] - Tuesday 11:30 AM EDT ?? With: Julio Malloy MD Where: [address] - 2022 7:00 PM EDT ?? With: Catherine Ugalde CNM Where: [facility] - Child Care Team Lead [address] [place] [address] - Tuesday 2:00 PM EDT ?? With: Adeline Byrne DO Where: [facility] [address] [place] [address]- Discharge Medications BRITNEY PACK :2000 Visit Date:06/18/2022 Medications: Please continue your medications until treatment is completed or stopped by your provider. Medications not listed below should be discontinued. Discuss any questions related to medications with your provider. What How Much When Why Instructions Next Dose New Ibuprofen (ibuprofen 600 mg oral tablet) See instructions Severe obesity (BMI 35.0-39.9) with comorbidity 1 tablet taken By Mouth Every 6 hours not to exceed 3200 mg/ day ?? Pickup at [facility]/pharmacy #[id number] 06/20/2022 4.30pm New ulipristal (Keturah 30 mg oral tablet) 1 tab(s) Oral Once Severe obesity (BMI 35.0-39.9) with comorbidity Pickup at [facility]/pharmacy #[id number] for contraception as directed as needed Changed Acetaminophen (Tylenol 325 mg oral capsule) See instructions Severe obesity (BMI 35.0-39.9) with comorbidity 2 capsule (650 mg) taken By Mouth Every 4 hours not to exceed 4000 mg/ day ?? Pickup at [facility]/pharmacy #[id number] 06/20/2022 1230pm Unchanged Albuterol (albuterol CFC free 90 mcg/ inh inhalation aerosol) 2 puff(s) Inhalation Every 4 hours as needed for as needed for wheezing as directed as needed Unchanged Fluticasone-Salmeterol (Advair Diskus 100 mcg-50 mcg inhalation powder) 1 inhalation Inhalation Twice a day Asthma rinse mouth and throat after use replaces fluticasone inhaler ?? as needed Unchanged Multivitamin, ( Multivitamins with Folic Acid 1 mg oral tablet) 1 tab(s) Oral Daily 06/21/2022 9am Pharmacy Information [facility]/pharmacy #[id number]: [address], [place] [phone] ?? What How Much When Comments Stop Taking Fluconazole (Diflucan 150 mg oral tablet) 1 tab(s) Oral Once Stop Taking ValACYclovir (valACYclovir 500 mg oral tablet) 1 tab(s) Oral Twice a day Test Results Below is a partial list of the most recent Laboratory test results done prior to this discharge. You may have had other tests and procedures not included in this list. Please discuss all test resultswith your provider. Bleed Screening - Negative (06/18/2022) RHIG Available - PT (06/18/2022) RHIG Candidacy Screen - Patient is a candidate for RhIG. Place order (06/18/2022) RHIG LOT # - [id number] (06/18/2022) CBC (06/18/2022) ???WBC - 9.3 k/mm3???RBC - 3.88 m/mm3???Hgb - 9.7 Gm/dL???Hct - 31.7 %???MCV - 81.7 femtoliters???MCH - 25.0 pg???MCHC - 30.6 g/dL???Platelet Count - 184 k/mm3???RDW-SD - 43.8 femtoliters???MPV - 12.8 femtoliters???Nucleated RBC (Automated) - 0.0 #/100 WBC'S???Abs. NRBC - 0.0 k/mm3 Allergies (NKA means No Known Allergies) Zithromax??(Swelling of throat, Rash) amoxicillin??(Swelling of throat, Rash) clindamycin??(Swelling of throat, Rash) Problems Active Problems??(9) Anxiety?? Asthma?? Bipolar 1 disorder?? Family history of type 2 diabetes mellitus?? H/o chlamydia?? Herpes genitalia?? Migraines? Severe obesity (BMI 35.0-39.9) with comorbidity?? Education Materials Below is the list of Educational Leaflet Providered with your Discharge Instructions. Valuables and Belongings I fully understand and agree that [facility] accepts no responsibility for all my [...] encouraged to send valuables and belongings home. ?? Review of Valuable and Belonging List: With patient Date for Pt to Sign Valuables/Belongings: 06/18/22 03:45:00 ?? Other Discharge Information ? Pulmonary Rehab Status?? Pulmonary Rehab Discharge Status?? Respiratory Rate: 16 br/min ? Common Emergency Awareness Tips IS [...] are strongly encouraged to quit. Please call [facility] [employer] Link at [phone] or [phone] ([phone]) or log in to [email or web address] for referrals to smoking cessation programs. ?? The National Suicide Prevention Hotline is available 29/11 if you or someone you know needs to find a reason to keep living. By calling 6-913-942-[employer] (2959) you'll be connected to a skilled, trained counselor at a crisis center in your area. INPATIENT DISCHARGE INSTRUCTIONS SIGNATURE PAGE BRITNEY PACK Location:[facility] Registration Date and Time:06/18/2022 02:42 EST Primary Care Physician: Gama HDZ, Julio Chery, BRITNEY DANIELS, have received the above patient education materials/instructions and have verbalized understanding. If ambulance or transport services are being used I further acknowledge being given a choice of service. ?? If you need to contact me, please call me at this number: . Patient/Cell Attendant Name: Patient/Cell Attendant Signature: Relationship to Patient: Witness Name/Signature: Date: * Kellie Villarreal: PERFORM Event Display: Care Team Progress Note Authored Date: [id number] Patient: ??BRITNEY PAKC ? Age:??22 Years?Sex:??Female?:??2000?? Subjective cart rounds day??1 assessment for assistance Patient??no previous experience Feeding sheet adequately filled out- all formula Patient obtained personal pump feeding plan: breast and formula Assessment/Plan discussed feeding sheet and feeding plan. Patient does not want to put baby to breast- symphony pump in room- patient reports she pumped 1 time yesterday and didn't get anything. asked patient if sheunderstood that she should be pumping every 3 hours- patient says she was tired and didn't want to.Asked patient if she thinks she could start pumping today and try to pump every three hours- patient reports she doesn't know if she feels like it. Discussed importance of breast milk for baby and mother- edu on benefits of breastmilk. Offered to help with pumping- patient declined as she said she just ate and doesn't want to. Patient has zoomee pump for home- education on symphony settings and flange fit- patient will page if she wants assistance patient given guide: education on stomach size and how to know if baby is getting enough flange fittings and engorgement management RPS and hand expression importance of stimulation zoom support as well as phone advice and out patient services. OB Summary : 3 . Baby A - Weight: 3.343 kg Baby A - Date, Time of : 06/18/22 07:07:00 Baby A - Gender: Female Baby A - Complications: None EGA at Documented Date, Time: 39W 3D Weight at Delivery Baby A - Delivery Type: Vaginal Delivery Complications: None OB History History?(2,0,0,2)? # 1 ?Baby 1 ?Outcome Date:??03/23/2019?Outcome or Result:??Vaginal, vacuum assist ?Gest Age:??40 weeks 2 days ? Outcome:??Live ? Sex:??Male?Wt:?3114 g ? Complications:??delivered ? Complications:??None ?Hospital:??[facility] ?? # 2 ?Baby 1 ?Outcome Date:??03/28/2020?Outcome or Result:??Vaginal ?Gest Age:??38 weeks 3 days ? Outcome:??Live ? Sex:??Male?Wt:?3224 g ? Complications:??None ?Hospital:??[facility] Active Problem List Active Problem List Anxiety: (Medical) Asthma: (Medical) Bipolar 1 disorder: (Medical) Family history of type 2 diabetes mellitus: (Medical) H/o chlamydia: (Sensitive) (02/20/19) Herpes genitalia: (Medical) Migraines: (Medical) : (Obstetric) (09/15/21) Severe obesity (BMI 35.0-39.9) with comorbidity: (Medical) Home Medications Acetaminophen: 650 mg = 2 tablet, By Mouth, Every 4 hours, PRN (as needed for pain) Albuterol: 2 puffs, Inhalation, Every 4 hours, PRN (as needed for wheezing) Fluconazole: 150 mg = 1 tablet, By Mouth, Once Fluticasone-Salmeterol: 1 inhalation, Inhalation, 2 times a day, rinse mouth and throat after usereplaces fluticasone inhaler Multivitamin, : 1 tablet, By Mouth, Daily Multivitamin, : 1 tablet, By Mouth, Daily ValACYclovir: 1 tablet, By Mouth, 2 times a day Medications Medications (3) Active SCHEDULED: (0) CONTINUOUS: (0) PRN: (3) Acetaminophen 325 mg Tablet (Acetaminophen Tablet) ??650 mg, By Mouth, Every 4 hours Docusate Sodium 100 mg Capsule (Docusate Sodium Capsule) ??100 mg 1 capsule, By Mouth, 2 times a day Ibuprofen 800 mg Tablet (Ibuprofen Tablet) ??800 mg, By Mouth, Every 8 hours Patient Care team information Care Team Personnel Name: Julio Malloy MD Position: [facility] Primary Care Physician Member Role: PCP Address: Address: [address] [place] [address]- [place] Name: Chery Ram RN Position: S OB RN Member Role: Patient Care Provider Name: Cleo Fox LPN Position: S OB RN Member Role: OB RN Care Team Related Persons Name: BRITNEY PACK GIRL Address: Address: home [address] [place] [address] [place] Name: TALHA PACK Address: [address] [place] [address] Name: FABIO PEREIRA Address: Address: home [address] [place] [address] [place] Name: MABEL BERRY Address: Address: home [address] [place] [address] [place] Name: BROCK DWYER Address: home [address] [place] [address]
--- OUTSIDE RECORDS SUMMARY | 2023-10-19 06:07 | XMS_ITS | Continuity of Care Document ---
Author Organization [facility] Address [address] [place] [address]- Care Team Providers Care Deputy Attorney General Name Role Phone Gama HDZ, Julio Chery Primary Care Physician [phone] Encounter [facility] Date(s): 09/23/21 - 10/23/[address] [address] Allergies, Adverse Reactions, Alerts Substance [...] 1 04/07/18 Given 1Result Comment: [04/07/2018] diluent Q53325 exp 09/06/2019 Medications Advair Diskus 100 mcg-50 mcg inhalation powder 1, inhalation, Inhalation, 2 times a day, rinse mouth and throat after use replaces fluticasone inhaler, # 1 each, Refills 5, Tot. Refills 5, Maintenance, 09/01/20 10:55:00 EDT, Powder, Route to Pharmacy Electronically, [id number]... Start Date: 09/01/20 Status: Ordered Paxlovid 150 mg-100 mg oral tablet See Instructions, 300mg nirmatrelvir (two 150mg tablets) with 100mg ritonavir (one tablet). All 3 tablets taken together twice daily for 5 days, with or without food., # 30 tablet, 0 Refills, Maintenance, 09/17/21 12:59:00 EDT, [facility]/pharmacy #[id number], [place]... Start Date: 09/17/21 Status: Ordered [...] 06/16/2110:02:00 EST, Aerosol, Route to Pharmacy Electronically, [id number], [facility]/pharmacy #[id number], 155, cm, 03/30/20 9:46:00 EST, Heigh... [...]
--- OUTSIDE RECORDS SUMMARY | 2023-10-19 06:07 | XMS_ITS | Continuity of Care Document ---
Author Organization [facility] Address [address] [place] [address]- Care Team Providers Care Transportation Security Officer Name Role Phone Gama HDZ, Julio Chery Primary Care Physician Encounter [facility] Date(s): 04/07/22 - 07/28/[address] [address]- Attending Physician: Not on Staff, Attending MD [...] 1 04/07/18 Given 1Result Comment: [04/07/2018] diluent Q74552 exp 09/06/2019 Medications acetaminophen 325 mg oral tablet 650 mg, 2, tablet, By Mouth, Every 4 hours, PRN, # 100 tablet, Refills 1, Tot. Refills 1, Maintenance, as needed for pain, 03/31/22 9:53:00 EST, Route to Pharmacy Electronically, [facility]/pharmacy #[id number], Partial fill upon patient request if the prescriptio... Start Date: 03/31/22 Status: Ordered Advair Diskus 500 mcg-50 mcg inhalation powder 1, puffs, Inhalation, 2 times a day, rinse mouth and throat after use Note dose change, # 60 each, Refills 5, Tot. Refills 5, Maintenance, 07/26/22 14:02:00 EDT, Powder, Route to Pharmacy Electronically, [id number], [facility]/phar... Start Date: 07/26/22 Status: Ordered albuterol CFC free 90 mcg/inh inhalation aerosol 2, puffs, Inhalation, Every 4 hours, PRN, # 6.7 Gm, Refills 0, Tot. Refills 0, Soft Stop, 06/15/22 14:52:00 EST, Aerosol, Route to Pharmacy Electronically, [id number], [facility]/pharmacy #[id number], 155, cm, 06/15/22 14:05:00 EST, Heigh... Start Date: 06/15/22 Status: Ordered Keturah 30 mg oral tablet 1 tablet = 30 mg, By Mouth, Once, # 1 tablet, 0 Refills, Soft Stop, 06/20/22 4:51:00 EST, Tablet, [facility]/pharmacy #[id number], Partial fill upon patient request if the prescription is for a schedule II opioiddrug., 155, cm, 06/20/22 0:24:00 EST, Height, 92.5,... Start Date: 06/20/22 Status: Ordered gabapentin 300 mg oral capsule 300 mg, 1, capsule, By Mouth, Daily at bedtime, # 30 capsule, Refills 0, Tot. Refills 0, Maintenance, 07/26/22 13:55:00 EDT, Route to Pharmacy Electronically, [facility]/pharmacy #[id number], Partial fill upon patient request if the prescription is for a schedule... Start Date: 07/26/22 Status: Ordered Multivitamins with Folic Acid 1 mg oral tablet 1 tablet, By Mouth, Daily, # 90 tablet, 2 Refills, Maintenance, 11/11/21 12:32:00 EDT, [facility]/pharmacy#[id number], Partial fill upon patient request [...] Confirmed Active [facility], active care coordination [facility] [phone] Confirmed Active Severe obesity (BMI 35.0-39.9) with comorbidity Confirmed Active Social History Social History Type Response Smoking Status Never (less than 100 in lifetime) entered on: 08/07/18 Sex Patient Care team information Care Team Personnel Name: Gama HDZ, Julio Chery Position: [facility] Primary Care Physician Member Role: PCP Address: Address: [address] [place] [address]- Care Team Related Persons Name: TALHA PACK Address: home [address] [place] [address] Name: FABIO PEREIRA Address: [address] Address: home [address] [place] [address] [place] Name: MABEL BERRY Address: [address] Address: home [address] [place] [address] [place] Name: ELIZABETH BERRY Address: [address] Address: home [address] [place] [address] [place] Name: BROCK DWYER Address: home [address] [place] [address]
--- OUTSIDE RECORDS SUMMARY | 2023-10-19 06:07 | XMS_ITS | Continuity of Care Document ---
Author Organization [facility] Address [address] [place] [address]- Care Team Providers Care Citrus Fruit Packer Name Role Phone Julio Malloy MD Primary Care Physician Encounter [facility] [id number] Date(s): 10/20/22 - 11/19/[address] [address]- Attending Physician: Zhane Barrett Admitting Physician: AdmtrZhane [...] 1 04/07/18 Given 1Result Comment: [04/07/2018] diluent [id number] exp 09/06/2019 Medications acetaminophen 325 mg oral tablet 650 mg, 2, tablet, By Mouth, Every 4 hours, PRN, # 100 tablet, Refills 1, Tot. Refills 1, Maintenance, as needed for pain, 03/31/22 9:53:00 EST, Route to Pharmacy Electronically, [facility]/pharmacy #[id number], Partial fill upon patient request if the prescriptio... Start Date: 03/31/22 Status: Ordered Advair Diskus 500 mcg-50 mcg inhalation powder 1, puffs, Inhalation, 2 times a day, rinse mouth and throat after use Note dose change, # 60 each, Refills 5, Tot. Refills 5, Maintenance, 07/26/22 14:02:00 EDT, Powder, Route to Pharmacy Electronically, [id number], [facility]/phar... Start Date: 07/26/22 Status: Ordered albuterol CFC free 90 mcg/inh inhalation aerosol 2, puffs, Inhalation, Every 4 hours, PRN, # 6.7 Gm, Refills 0, Tot. Refills 0, Soft Stop, 06/15/22 14:52:00 EST, Aerosol, Route to Pharmacy Electronically, [id number], [facility]/pharmacy #[id number], 155, cm, 06/15/22 14:05:00 EST, Heigh... Start Date: 06/15/22 Status: Ordered Keturah 30 mg oral tablet 1 tablet = 30 mg, By Mouth, Once, # 1 tablet, 0 Refills, Soft Stop, 06/20/22 4:51:00 EST, Tablet, [facility]/pharmacy #[id number], Partial fill upon patient request if the prescription is for a schedule II opioiddrug., 155, cm, 06/20/22 0:24:00 EST, Height, 92.5,... Start Date: 06/20/22 Status: Ordered Eucerin Eczema Relief topical cream See Instructions, Topically twice daily, # 420 Gm, 5 Refills, Maintenance, 09/20/22 11:05:00 EDT, [facility]/pharmacy #[id number], Partial fill upon patient request if [...] genitalia Confirmed Active Migraines Confirmed Active Health alf, active care coordination [facility] cosmetic account coordinator Susie Purvis [phone] Confirmed Active Severe obesity (BMI 35.0-39.9) with comorbidity Confirmed Active Social History Social History Type Response Smoking Status Never (less than 100 in lifetime) entered on: 08/07/18 Sex Patient Care team information Care Team Personnel Name: Julio Malloy MD Position: [facility] Physician - Primary Care Member Role: PCP Address: Address: [address] [place] [address]- [place] Care Team Related Persons Name: TALHA PACK Address: [address] [place] [address] Name: FABIO PEREIRA Address: [address] Address: home [address] [place] [address] [place] Name: MABEL BERRY Address: [address] Address: home [address] [place] [address] [place] Name: ELIZABETH BERRY Address: [address] Address: home [address] [place] [address] [place] Name: BROCK DWYER Address: home [address] [place] [address]
--- OUTSIDE RECORDS SUMMARY | 2023-10-19 06:07 | XMS_ITS | Continuity of Care Document ---
Author Organization [facility] Address [address] [place] [address]- Care Team Providers Care College Football Coach Name Role Phone Gama HDZ, Julio Chery Primary Care Physician [phone] Encounter [facility] R [id number] Date(s): 08/06/19 - 08/16/[address] [address] Attending Physician: Zhane Barrett Admitting Physician: Zhane [...] 1 04/07/18 Given 1Result Comment: [04/07/2018] diluent [id number] exp 09/06/2019 Medications acetaminophen 325 mg oral tablet 650 mg, 2, tablet, By Mouth, 4 times a day, PRN, # 100 tablet, Refills 0, Tot. Refills 0, Maintenance, as needed for pain, 04/21/18 17:10:10 EST, Route to Pharmacy Electronically, [id number], [facility]/pharmacy #[id number] Start Date: 04/21/18 Status: Ordered albuterol 90 mcg/inh inhalation powder 2 puffs, Inhalation, Every 4 hours, PRN as needed, # 1 each, 1 Refills, Maintenance, 06/27/19 10:11:00 EST, Powder, [facility]/pharmacy #[id number], 2 puffs Inhalation Every 4 hours,PRN:as needed, 155, cm, 06/27/19 9:53:00 EST, Height, 93.2, kg, 03/23/19 11:10:00... Start Date: 06/27/19 Status: Ordered Colace sodium 100 mg oral capsule 100 mg, 1, capsule, By Mouth, 2 times a day, PRN, # 20 capsule, Refills 0, Tot. Refills 0, Maintenance, for constipation, 03/25/19 6:16:25 EST, Route to Pharmacy Electronically, [id number], [facility]/pharmacy #[id number] Start Date: 03/25/19 Status: Ordered Cool [...] 06/27/19 10:24:00 EST, Route to Pharmacy Electronically, [facility]/pharmacy #[id number], 155, cm, 06/27/19 9:53:00 EST, Height, [...] tablet, 4 Refills, Maintenance, 07/23/19 11:21:00 EDT, [facility]/pharmacy #[id number], 155, cm, 07/23/19 10:51:00 EDT, Height, 93.2, kg, 03/23/19 11:10:00 EST, Dry Weight Start Date: 07/23/19 Stop Date: 09/15/20 Status: Ordered Plan B One-Step 1.5 mg oral tablet 1.5 mg, 1, tablet, By Mouth, Once, Take if unprotected intercourse has occurred., # 1 tablet, Refills 3, Tot. Refills 3, Soft Stop, 07/23/19 11:21:00 EDT, Route to Pharmacy Electronically, [facility]/pharmacy #[id number], 155, cm, 07/23/19 10:51:00 EDT, Height, [...]
--- OUTSIDE RECORDS SUMMARY | 2023-10-19 06:07 | XMS_ITS | Continuity of Care Document ---
Author Organization [facility]fanta Cummins [facility] Address [address], [place], [place] [address]- Care Team Providers Care Manager Systems Name Role Phone Gama HDZ, Julio Chery Primary Care Physician Encounter [facility] Date(s): 03/28/23 - 04/27/23 [facility] [address] [place], [place] [address] Allergies, Adverse Reactions, Alerts Substance Reaction Severity [...] 1 04/07/18 Given 1Result Comment: [04/07/2018] diluent [id number] exp 09/06/2019 Medications acetaminophen 325 mg oral tablet 650 mg, 2, tablet, By Mouth, Every 4 hours, PRN, # 100 tablet, Refills 1, Tot. Refills 1, Maintenance, as needed for pain, 03/31/22 9:53:00 EST, Route to Pharmacy Electronically, [facility]/pharmacy #[id number], Partial fill upon patient request if the prescriptio... Start Date: 03/31/22 Status: Ordered Advair Diskus 500 mcg-50 mcg inhalation powder 1, puffs, Inhalation, 2 times a day, rinse mouth and throat after use Note dose change, # 60 each, Refills 5, Tot. Refills 5, Maintenance, 07/26/22 14:02:00 EDT, Powder, Route to Pharmacy Electronically, [id number], [facility]/phar... Start Date: 07/26/22 Status: Ordered albuterol CFC free 90 mcg/inh inhalation aerosol 2, puffs, Inhalation, Every 4 hours, PRN, # 6.7 Gm, Refills 1, Tot. Refills 1, Soft Stop, 03/11/23 13:01:00 EDT, Aerosol, Route to Pharmacy Electronically, [id number], [facility]/pharmacy #[id number], 155, cm, 06/20/22 9:40:00 EST, Height... Start Date: 03/11/23 Status: Ordered Keturah 30 mg oral tablet 1 tablet = 30 mg, By Mouth, Once, # 1 tablet, 0 Refills, Soft Stop, 06/20/22 4:51:00 EST, Tablet, [facility]/pharmacy #[id number], Partial fill upon patient request if the prescription is for a schedule II opioiddrug., 155, cm, 06/20/22 0:24:00 EST, Height, 92.5,... Start Date: 06/20/22 Status: Ordered Eucerin Eczema Relief topical cream See Instructions, Topically twice daily, # 420 Gm, 5 Refills, Maintenance, 09/20/22 11:05:00 EDT, [facility]/pharmacy #[id number], Partial fill upon patient request if the prescription is for a schedule II opioiddrug., Topically twice daily, 155, cm, 06/20/22 9:4... Start Date: 09/20/22 Status: Ordered gabapentin 600 mg oral tablet 1 tablet, By Mouth, Daily at bedtime, # 30 tablet, 5 Refills, Maintenance, 03/11/23 13:01:00 EDT, [facility]/pharmacy #[id number], 155, cm, 06/20/22 9:40:00 EST, [...] 2 Refills, Maintenance, 10/13/21 10:02:00 EDT, Tablet, [facility]/pharmacy #0488, Partial fill upon patient request if the prescription is for a schedule II opioid drug., 1 tablet By Mouth Daily, 155, cm, 11/11/20 13:1... Start Date: 10/13/21 Status: Ordered sertraline 50 mg oral tablet 1 tablet, By Mouth, Daily, # 90 tablet, 0 Refills, Maintenance, 12/29/22 7:22:00 EDT, [id number], 155, cm, 06/20/22 9:40:00 EST, Height, 92.5, [...] Confirmed Active Health prison, active care coordination [facility] social work coordinator Susie Purvis [phone] Confirmed Active Severe obesity (BMI 35.0-39.9) with comorbidity Confirmed Active Social History Social History Type Response Smoking Status Never (less than 100 in lifetime) entered on: 08/07/18 Sex Patient Care team information Care Team Personnel Name: Julio Malloy MD Position: [facility] Physician - Primary Care Member Role: PCP Address: Address: [address] [place] [address]- Care Team Related Persons Name: TALHA PACK Address: home [address] [place] [address] Name: FABIO PEREIRA Address: [address] Address: home [address] [place] [address] [place] Name: MABEL BERRY Address: [address] Address: home [address] [place] [address] [place] Name: ELIZABETH BERRY Address: [address] Address: home [address] [place] [address] [place] Name: BROCK DWYER Address: home [address] [place] [address]
--- OUTSIDE RECORDS SUMMARY | 2023-10-19 06:07 | XMS_ITS | Continuity of Care Document ---
Author Organization [facility] Address [address] [place] [address]- Care Team Providers Care Cyanide Pot Tender Name Role Phone Gama HDZ, Julio Chery Primary Care Physician [phone] Encounter [facility] Date(s): 09/25/19 - 10/02/[address] [address]- [facility] Attending Physician: Reyes Crystal MD Allergies, Adverse Reactions, Alerts Substance Reaction [...] 1 04/07/18 Given 1Result Comment: [04/07/2018] diluent [id number] exp 09/06/2019 Medications albuterol 90 mcg/inh inhalation [...] 09/25/19 11:29:00 EDT, Route to Pharmacy Electronically, [facility]/pharmacy #[id number], 155, cm, 09/03/19 10:41:00 EDT, Height, 71.2, kg, 09/03/19 10:41:00 EDT, Dry Weight Start Date: 09/25/19 Stop Date: 10/23/19 Status: Ordered melatonin 5 mg oral tablet 1 tablet = 5 mg, By Mouth, Daily at bedtime, PRN for insomnia, # 30 tablet, 1 Refills, Maintenance,04/07/18 16:55:37 EST, Tablet Start Date: 04/07/18 Status: Ordered Multivitamins with Folic Acid 1 mg oral tablet 1 tablet, By Mouth, Daily, # 30 tablet, 8 Refills, Maintenance, 08/21/19 12:03:00 EDT, Tablet, [facility]/pharmacy #0488, 1 tablet By Mouth Daily, [...]
--- OUTSIDE RECORDS SUMMARY | 2023-10-19 06:07 | XMS_ITS | Continuity of Care Document ---
Author Organization [facility] Address [address] [place] [address]- Care Team Providers Care Design Engineering Specialist Name Role Phone Julio Malloy MD Primary Care Physician Encounter [facility] Date(s): 09/23/21 - 11/18/[address] [address] Attending Physician: Julio Malloy MD [...] 1 04/07/18 Given 1Result Comment: [04/07/2018] diluent [id number] exp 09/06/2019 Medications Advair Diskus 100 mcg-50 mcg inhalation powder 1, inhalation, Inhalation, 2 times a day, rinse mouth and throat after use replaces fluticasone inhaler, # 1 each, Refills 5, Tot. Refills 5, Maintenance, 09/01/20 10:55:00 EDT, Powder, Route to Pharmacy Electronically, [id number]... Start Date: 09/01/20 Status: Ordered Paxlovid 150 mg-100 mg oral tablet See Instructions, 300mg nirmatrelvir (two 150mg tablets) with 100mg ritonavir (one tablet). All 3 tablets taken together twice daily for 5 days, with or without food., # 30 tablet, 0 Refills, Maintenance, 09/17/21 12:59:00 EDT, [facility]/pharmacy #0488, [place]... Start Date: 09/17/21 Status: Ordered [...] 06/16/2110:02:00 EST, Aerosol, Route to Pharmacy Electronically, [id number], [facility]/pharmacy #0488, 155, cm, 03/30/20 9:46:00 EST, Heigh... Start Date: 06/16/20 Status: Ordered pyridoxine 25 mg oral tablet 1 tablet = 25 mg, By Mouth, 3 times a day, for 14 days, # 42 tablet, 1 Refills, Acute 12/09/21 12:32:00 EDT, 11/11/21 12:32:00 EDT, Tablet, [facility]/pharmacy #0488, Partial fill upon patient request if the prescription is for a schedule II opioid drug., 15... Start Date: 11/11/21 Stop Date: 12/09/21 Status: Ordered Unisom 25 mg oral tablet 1 tablet = 25 mg, By Mouth, Daily at bedtime, PRN for sleep, # 16 tablet, 0 Refills, Acute 12/13/2211:33:00 EDT, 11/11/21 12:33:00 EDT, Tablet, [facility]/pharmacy #0488, Partial fill upon patient request if [...]
--- OUTSIDE RECORDS SUMMARY | 2023-10-19 06:07 | XMS_ITS | Continuity of Care Document ---
Author Organization [facility] Address [address] [place] [address]- Care Team Providers Care Manager Cardiac Cath Name Role Phone Julio Malloy MD Primary Care Physician [place] [facility] Date(s[place] 04/30/20 - 05/30/[address] [address]- Allergies, Adverse Reactions, Alerts Substance Reaction Severity [...] 1 04/07/18 Given 1Result Comment: [04/07/2018] diluent [id number] exp 09/06/2019 Medications acetaminophen 325 mg oral tablet 650 mg, 2, tablet, By Mouth, Every 4 hours, PRN, # 50 tablet, Refills 0, Tot. Refills 0, Maintenance, as needed for pain, 05/08/20 15:24:00 EST, Route to Pharmacy Electronically, [facility]/pharmacy #[id number], Partial fill upon patient request if the prescriptio... Start Date: 05/08/20 Status: Ordered Albuterol (Eqv-ProAir HFA) 90 mcg/inh inhalation aerosol 1 TO 2 PUFFS, Inhalation, Every 6 hours, PRN NEEDED FOR WHEEZE, # 8.5 Unknown, 1 Refills, Maintenance, 02/12/20 9:13:00 EDT, [facility], 25, INHALE 1 TO 2 PUFFS EVERY [...] implant 1 each = 68 mg, Intradermal, fisher scallop to Procedure, 0 Refills, Maintenance, 03/30/20 5:27:00 [...] 8 Refills, Maintenance, 08/21/19 12:03:00 EDT, Tablet, [facility]/pharmacy #0488, 1 tablet By Mouth Daily, 155, cm, 07/23/19 10:51:00 EDT, Height, 93.2, kg, 03/23/19 11:10:00 EST, Dry Weight Start Date: 08/21/19 Status: Ordered valACYclovir 500 mg oral tablet 1, tablet, By Mouth, 2 times a day, # 60 tablet, Refills 1, Tot. Refills 0, Acute, 04/02/20 9:32:00EST, Route to Pharmacy Electronically, [facility], 155, cm, 03/30/20 9:46:00 EST, Height, 94.3, kg, 03/28/20 11:01:00 EST, Dry Weight Start Date: 04/02/20 Status: Ordered Problem List Condition Effective Dates Status Health Status Inform ant Anxiety(Confirmed) Active Asthma(Confirmed) Active Bipolar 1 disorder(Confirmed) Active Chlamydia(Confirmed) 2018 Active Depression(Confirmed) Active Family history of type [...]
--- OUTSIDE RECORDS SUMMARY | 2023-10-19 06:07 | XMS_ITS | Continuity of Care Document ---
Author Organization [facility] Address [address] [place] [address]- Care Team Providers Care Transportation Planner Name Role Phone Gama HDZ, Julio Chery Primary Care Physician Encounter [facility] Date(s): 12/10/19 - 01/09/[address] [address]- [facility] Allergies, Adverse Reactions, Alerts Substance Reaction Severity [...] 1 04/07/18 Given 1Result Comment: [04/07/2018] diluent [id number] exp 09/06/2019 Medications albuterol 90 mcg/inh inhalation [...] 09/25/19 11:29:00 EDT, Route to Pharmacy Electronically, [facility]/pharmacy #[id number], 155, cm, 09/03/19 10:41:00 EDT, Height, 71.2, kg, 09/03/19 10:41:00 EDT, Dry Weight Start Date: 09/25/19 Stop Date: 10/23/19 Status: Ordered Multivitamins with Folic Acid 1 mg oral tablet 1 tablet, By Mouth, Daily, # 30 tablet, 8 Refills, Maintenance, 08/21/19 12:03:00 EDT, Tablet, [facility]/pharmacy #0488, 1 tablet By Mouth Daily, 155, cm, 07/23/19 10:51:00 EDT, Height, 93.2, kg, 03/23/19 11:10:00 EST, Dry Weight Start Date: 08/21/19 Status: Ordered ProAir HFA 90 mcg/inh inhalation aerosol See Instructions, PRN as needed for wheezing, 1-2 puffs Inhalation Every 6 hours as needed for wheezing, # 18 Gm, 1 Refills, Maintenance, 12/26/19 10:56:00 EDT, Aerosol, [facility]/pharmacy #0488, 1-2 puffsInhalation Every 6 hours [...]
--- OUTSIDE RECORDS SUMMARY | 2023-10-19 06:07 | XMS_ITS | Continuity of Care Document ---
Author Organization [facility] Address [address] [place] [address]- Care Team Providers Care Delimber Operator Name Role Phone Julio Malloy MD Primary Care Physician Encounter [facility] Date(s): 09/04/20 - 10/04/[address] [address]- Allergies, Adverse Reactions, Alerts Substance Reaction Severity [...] 1 04/07/18 Given 1Result Comment: [04/07/2018] diluent [id number] exp 09/06/2019 Medications Advair Diskus 100 mcg-50 mcg inhalation powder 1, inhalation, Inhalation, 2 times a day, rinse mouth and throat after use replaces fluticasone inhaler, # 1 each, Refills 5, Tot. Refills 5, Maintenance, 09/01/20 10:55:00 EDT, Powder, Route to Pharmacy Electronically, [id number]... Start Date: 09/01/20 Status: Ordered Radha 0.35 mg oral tablet 1 tablet = 0.35 mg, By Mouth, Daily, # 28 tablet, 12 Refills, Maintenance, 05/21/20 11:42:00 EST, Tablet, [facility]/pharmacy #0488, Partial fill upon patient request if the prescription is for a schedule II opioid drug., 155, cm, 03/30/20 9:46:00 EST, Heigh... Start Date: 05/21/20 Status: Ordered duloxetine 20 mg oral enteric coated capsule 1 capsule = 20 mg, By Mouth, Daily, # 30 capsule, 5 Refills, Maintenance, 09/01/20 10:54:00 EDT, [facility]/pharmacy #0488, Partial fill upon patient request if the prescription is for a schedule II opioid drug., 155, cm, 07/28/20 9:59:00 EDT, Height, 94.3,... Start Date: 09/01/20 Status: Ordered etonogestrel 68 mg subcutaneous implant 1 each = 68 mg, Intradermal, call out operator to Procedure, 0 Refills, Maintenance, 03/30/20 5:27:00 EST, Implant, Partial fill upon patient request Start Date: 03/30/20 Status: Ordered Flonase 50 mcg/inh nasal spray 1 sprays, Nares, Both, 2 times a day, # 16 Gm, 3 Refills, Maintenance, 09/01/20 10:58:00 EDT, [place], [facility]/pharmacy #0488, Partial fill upon patient [...] 0 Refills, Maintenance, 06/03/20 11:08:00 EST, Tablet, [facility]/pharmacy #0488, Partial fill upon patient [...] 06/16/2110:02:00 EST, Aerosol, Route to Pharmacy Electronically, [id number], [facility]/pharmacy #0488, 155, cm, 03/30/20 9:46:00 EST, Heigh... Start Date: 06/16/20 Status: Ordered valACYclovir 500 mg oral tablet 1, tablet, By Mouth, 2 times a day, # 60 tablet, Refills 1, Tot. Refills 0, Acute, 04/02/20 9:32:00EST, Route to Pharmacy Electronically, [facility], 155, cm, 03/30/20 9:46:00 EST, Height, 94.3, kg, 03/28/20 11:01:00 EST, Dry Weight Start Date: 04/02/20 Status: Ordered ZyrTEC 10 mg oral tablet 1 tablet = 10 mg, By Mouth, Daily, PRN Congestion, # 30 tablet, 3 Refills, Maintenance, 09/01/20 10:58:00 EDT, Tablet, [facility]/pharmacy #0488, Partial fill upon patient [...]
--- OUTSIDE RECORDS SUMMARY | 2023-10-19 06:07 | XMS_ITS | Continuity of Care Document ---
Author Organization [facility] Address [address] [place] [address]- Care Team Providers Care Care Asst Name Role Phone Gama HDZ, Julio Chery Primary Care Physician [phone] Encounter [facility] Date(s): 11/21/19 - 12/21/19 [facility] [address] [place] [address]- [facility] Attending Physician: Balbir Rivas MD Admitting Physician: Balbir Rivas MD Referring Physician: Stephanie Farrar CNM Allergies, Adverse Reactions, Alerts Substance Reaction [...] 1 04/07/18 Given 1Result Comment: [04/07/2018] diluent [id number] exp 09/06/2019 Medications albuterol 90 mcg/inh inhalation [...] 09/25/19 11:29:00 EDT, Route to Pharmacy Electronically, [facility]/pharmacy #0488, 155, cm, 09/03/19 10:41:00 EDT, Height, 71.2, kg, 09/03/19 10:41:00 EDT, Dry Weight Start Date: 09/25/19 Stop Date: 10/23/19 Status: Ordered Multivitamins with Folic Acid 1 mg oral tablet 1 tablet, By Mouth, Daily, # 30 tablet, 8 Refills, Maintenance, 08/21/19 12:03:00 EDT, Tablet, [facility]/pharmacy #0488, 1 tablet By Mouth Daily, 155, [...]
--- OUTSIDE RECORDS SUMMARY | 2023-10-19 06:07 | XMS_ITS | Continuity of Care Document ---
Author Organization [facility] Address [address] [place] [address]- Care Team Providers Care Rotary Drill Rig Operator Name Role Phone Julio Malloy MD Primary Care Physician [place] [facility] [place] - 09/07/[address] [address]- Allergies, Adverse Reactions, Alerts Substance Reaction Severity [...] 1 04/07/18 Given 1Result Comment: [04/07/2018] diluent [id number] exp 09/06/2019 Medications acetaminophen 325 mg oral tablet 650 mg, 2, tablet, By Mouth, Every 4 hours, PRN, # 100 tablet, Refills 1, Tot. Refills 1, Maintenance, as needed for pain, 03/31/22 9:53:00 EST, Route to Pharmacy Electronically, [facility]/pharmacy #[id number], Partial fill upon patient request if the prescriptio... Start Date: 03/31/22 Status: Ordered Advair Diskus 500 mcg-50 mcg inhalation powder 1, puffs, Inhalation, 2 times a day, rinse mouth and throat after use Note dose change, # 60 each, Refills 5, Tot. Refills 5, Maintenance, 07/26/22 14:02:00 EDT, Powder, Route to Pharmacy Electronically, [id number], [facility]/phar... Start Date: 07/26/22 Status: Ordered Keturah 30 mg oral tablet 1 tablet = 30 mg, By Mouth, Once, # 1 tablet, 0 Refills, Soft Stop, 06/20/22 4:51:00 EST, Tablet, [facility]/pharmacy #[id number], Partial fill upon patient request if the prescription is for a schedule II opioiddrug., 155, cm, 06/20/22 0:24:00 EST, Height, 92.5,... Start Date: 06/20/22 Status: Ordered Eucerin Eczema Relief topical cream See Instructions, Topically twice daily, # 420 Gm, 5 Refills, Maintenance, 09/20/22 11:05:00 EDT, [facility]/pharmacy #[id number], Partial fill upon patient request if the prescription is for a schedule II opioiddrug., Topically twice daily, 155, cm, 06/20/22 9:4... Start Date: 09/20/22 Status: Ordered gabapentin 600 mg oral tablet 1 tablet, By Mouth, Daily at bedtime, # 30 tablet, 5 Refills, Maintenance, 03/11/23 13:01:00 EDT, [facility]/pharmacy #[id number], 155, cm, 06/20/22 9:40:00 EST, [...] Refills, Maintenance, 12/29/22 7:22:00 EDT, [id number], 155, cm, 06/20/22 9:40:00 EST, Height, 92.5, kg, 06/18/22 3:38:00 EST, Dry Weight Start Date: 12/29/22 Status: Ordered Ventolin HFA 108 mcg/inh inhalation aerosol with adapter 2 puffs, Inhalation, Every 4 hours, PRN NEEDED FOR WHEEZING, # 18 each, 1 Refills, Maintenance, 05/07/23 10:32:00 EST, [facility], 155, cm, 03/18/23 9:20:00 EST, Height, 92.5, [...] Confirmed Active Health [facility], active care coordination [facility] special projects coordinator Susie Purvis [phone] Confirmed Active Severe obesity (BMI 35.0-39.9) with comorbidity Confirmed Active Social History Social History Type Response Smoking Status Never (less than 100 in lifetime) entered on: 08/07/18 Sex Patient Care team information Care Team Personnel Name: Gama HDZ, Julio Chery Position: [facility] Physician - Primary Care Member Role: PCP Address: Address: [address] [place] [address]- [place] Care Team Related Persons Name: TALHA PACK Address: home [address] [place] [address] Name: MABEL PEREIRA Address: [address] Address: home [address] [place] [address] [place] Name: ELIZABETH PEREIRA Address: [address] Address: home [address] [address] [place] Name: FABIO PEREIRA Address: [address] Address: home [address] [address] [place] Name: BROCK DWYER Address: home [address] [place] [address]
--- OUTSIDE RECORDS SUMMARY | 2023-10-19 06:07 | XMS_ITS | Continuity of Care Document ---
Author Organization [facility] Address [address] [place] [address]- Care Team Providers Care Reservations And Ticketing Agent Name Role Phone Gama HDZ, Julio Chery Primary Care Physician Encounter [facility] Date(s): 12/03/20 - 01/11/[address] [address]- Encounter Diagnosis Abnormal physical evaluation(Discharge Diagnosis) - 12/10/20 Depression(Discharge Diagnosis) - 12/10/20 Asthma(Discharge Diagnosis) - 12/10/20 Attending Physician: Mercedes Zacarias MD Admitting Physician: [...] 1 04/07/18 Given 1Result Comment: [04/07/2018] diluent [id number] exp 09/06/2019 Medications Advair Diskus 100 mcg-50 mcg inhalation powder 1, inhalation, Inhalation, 2 times a day, rinse mouth and throat after use replaces fluticasone inhaler, # 1 each, Refills 5, Tot. Refills 5, Maintenance, 09/01/20 10:55:00 EDT, Powder, Route to Pharmacy Electronically, [id number]... Start Date: 09/01/20 Status: Ordered Radha 0.35 mg oral tablet 1 tablet = 0.35 mg, By Mouth, Daily, # 28 tablet, 12 Refills, Maintenance, 05/21/20 11:42:00 EST, Tablet, [facility]/pharmacy #[id number], Partial fill upon patient request if the prescription is for a schedule II opioid drug., 155, cm, 03/30/20 9:46:00 EST, Heigh... Start Date: 05/21/20 Status: Ordered Claritin 10 mg oral tablet 10 mg, 1, tablet, By Mouth, Every other day, # 15 tablet, Refills 0, Tot. Refills 0, Maintenance, 11/12/20 14:32:00 EDT, Route to Pharmacy Electronically, [facility]/pharmacy #[id number], Partial fill upon patient request if the prescription is for a schedule II o... Start Date: 11/12/20 Status: Ordered duloxetine 20 mg oral enteric coated capsule 1 capsule = 20 mg, By Mouth, Daily, # 30 capsule, 5 Refills, Maintenance, 09/01/20 10:54:00 EDT, [facility]/pharmacy #0488, Partial fill upon patient request if the prescription is for a schedule II opioid drug., 155, cm, 07/28/20 9:59:00 EDT, Height, 94.3,... Start Date: 09/01/20 Status: Ordered Flonase 50 mcg/inh nasal spray 1 sprays, Nares, Both, 2 times a day, # 16 Gm, 3 Refills, Maintenance, 09/01/20 10:58:00 EDT, [place], [facility]/pharmacy #0488, Partial fill upon patient request if [...] Refills, Maintenance, 06/03/20 11:08:00 EST, Tablet, [facility]/pharmacy #0488, Partial fill upon patient request if [...] 06/16/2110:02:00 EST, Aerosol, Route to Pharmacy Electronically, [id number], [facility]/pharmacy #[id number], 155, cm, 03/30/20 9:46:00 EST, Heigh... Start Date: 06/16/20 Status: Ordered Rhinocort Allergy 32 mcg/inh nasal spray = 32 mcg, Nares, Both, Daily, # 8.6 Gm, 0 Refills, Maintenance, 11/12/20 14:33:00 EDT, [facility]/pharmacy#0488, Partial fill upon patient request if the prescription is for a schedule II opioid drug., 155, cm, 11/11/20 13:17:00 EDT, Height, 94.3, kg, 03/28... Start Date: 11/12/20 Stop Date: 11/26/20 Status: Ordered valACYclovir 500 mg oral tablet 1, tablet, By Mouth, 2 times a day, # 60 tablet, Refills 1, Tot. Refills 0, Acute, 04/02/20 9:32:00EST, Route to Pharmacy Electronically, [id number], 155, cm, 03/30/20 9:46:00 EST, Height, 94.3, kg, 03/28/20 11:01:00 EST, Dry Weight Start Date: 04/02/20 Status: Ordered ZyrTEC 10 mg oral tablet 1 tablet = 10 mg, By Mouth, Daily, PRN Congestion, # 30 tablet, 3 Refills, Maintenance, 09/01/20 10:58:00 EDT, Tablet, [facility]/pharmacy #[id number], Partial fill upon patient request if the prescription is fora schedule II opioid drug., 155, cm, 07/28/20 9:59:... Start Date: 09/01/20 Status: Ordered Problem List Condition Effective Dates Status Health Status Inform ant Anxiety(Confirmed) Active Asthma(Confirmed) Active Bipolar 1 disorder(Confirmed) Active Depression(Confirmed) Active Family history of type 2 cam[place] betes mellitus(Confirmed) Active Herpes genitalia(Confirmed) Active Migraines(Confirmed) Active Obese(Confirmed) Active Diagnosis Diagnosis Type Effective Dates Health Status Clinical Service Informant Abnormal physical evaluation Discharge Diagnosis 12/10/20 Depression Discharge Diagnosis 12/10/20 Asthma Discharge Diagnosis 12/10/20 Social History Social History Type Response Smoking Status Never (less than 100 in lifetime) entered on: 08/07/18 Sex
--- OUTSIDE RECORDS SUMMARY | 2023-10-19 06:07 | XMS_ITS | Continuity of Care Document ---
Author Organization [facility] Address [address] [place] [address]- Care Team Providers Care Shield Cleaner Name Role Phone Sienna Adams DO Primary Care Physician [phone] Encounter [facility] [place] Date(s): 04/23/19 - 06/22/[address] [address]- [facility] Attending Physician: Catherine Ugalde CNM [...] 1 04/07/18 Given 1Result Comment: [04/07/2018] diluent [id number] exp 09/06/2019 Medications acetaminophen 325 mg oral tablet 650 mg, 2, tablet, By Mouth, 4 times a day, PRN, # 100 tablet, Refills 0, Tot. Refills 0, Maintenance, as needed for pain, 04/21/18 17:10:10 EST, Route to Pharmacy Electronically, [id number], [facility]/pharmacy #[id number] Start Date: 04/21/18 [...] 03/25/19 6:16:25 EST, Route to Pharmacy Electronically, [id number], [facility]/pharmacy #0488 Start Date: 03/25/19 [...]
--- OUTSIDE RECORDS SUMMARY | 2023-10-19 06:07 | XMS_ITS | Continuity of Care Document ---
Author Organization [facility] Address [address] [place] [address]- Care Team Providers Care Speech Language Pathologist Assistant Name Role Phone Julio Malloy MD Primary Care Physician [phone] [place] [facility] [place] 07/19/22 - 09/05/[address] [address]- Attending Physician: Not on Staff, Attending MD [...] 1 04/07/18 Given 1Result Comment: [04/07/2018] diluent [id number] exp 09/06/2019 Medications acetaminophen 325 mg oral tablet 650 mg, 2, tablet, By Mouth, Every 4 hours, PRN, # 100 tablet, Refills 1, Tot. Refills 1, Maintenance, as needed for pain, 03/31/22 9:53:00 EST, Route to Pharmacy Electronically, [facility]/pharmacy #[id number], Partial fill upon patient request if the prescriptio... Start Date: 03/31/22 Status: Ordered Advair Diskus 500 mcg-50 mcg inhalation powder 1, puffs, Inhalation, 2 times a day, rinse mouth and throat after use Note dose change, # 60 each, Refills 5, Tot. Refills 5, Maintenance, 07/26/22 14:02:00 EDT, Powder, Route to Pharmacy Electronically, [id number], [facility]/phar... Start Date: 07/26/22 Status: Ordered albuterol CFC free 90 mcg/inh inhalation aerosol 2, puffs, Inhalation, Every 4 hours, PRN, # 6.7 Gm, Refills 0, Tot. Refills 0, Soft Stop, 06/15/22 14:52:00 EST, Aerosol, Route to Pharmacy Electronically, [id number], [facility]/pharmacy #[id number], 155, cm, 06/15/22 14:05:00 EST, Heigh... Start Date: 06/15/22 Status: Ordered Keturah 30 mg oral tablet 1 tablet = 30 mg, By Mouth, Once, # 1 tablet, 0 Refills, Soft Stop, 06/20/22 4:51:00 EST, Tablet, [facility]/pharmacy #[id number], Partial fill upon patient request if the prescription is for a schedule II opioiddrug., 155, cm, 06/20/22 0:24:00 EST, Height, 92.5,... Start Date: 06/20/22 Status: Ordered gabapentin 300 mg oral capsule 300 mg, 1, capsule, By Mouth, Daily at bedtime, # 30 capsule, Refills 0, Tot. Refills 0, Maintenance, 07/26/22 13:55:00 EDT, Route to Pharmacy Electronically, [facility]/pharmacy #[id number], Partial fill upon patient request if the prescription is for a schedule... Start Date: 07/26/22 Status: Ordered Multivitamins with Folic Acid 1 mg oral tablet 1 tablet, By Mouth, Daily, # 90 tablet, 2 Refills, Maintenance, 11/11/21 12:32:00 EDT, [facility]/pharmacy#[id number], Partial fill upon patient [...] Confirmed Active Health [facility], active care coordination [facility] patient information coordinator [facility] [phone] Confirmed Active Severe obesity (BMI 35.0-39.9) with comorbidity Confirmed Active Social History Social History Type Response Smoking Status Never (less than 100 in lifetime) entered on: 08/07/18 Sex Patient Care team information Care Team Personnel Name: Gama HDZ, Julio Chery Position: [facility] Primary Care Physician Member Role: PCP Address: Address: [address] [place] [address]- Care Team Related Persons Name: TALHA PACK Address: [address] [place] [address] Name: FABIO PEREIRA Address: [address] Address: home [address] [place] [address] [place] Name: MABEL BERRY Address: [address] Address: home [address] [place] [address] [place] Name: ELIZABETH BERRY Address: [address] Address: home [address] [place] [address] [place] Name: BROCK DWYER Address: home [address] [place] [address]
--- OUTSIDE RECORDS SUMMARY | 2023-10-19 06:07 | XMS_ITS | Continuity of Care Document ---
Author Organization [facility] Address [address] [place] [address]- Care Team Providers Care Middle School Science Teacher Name Role Phone Julio Malloy MD Primary Care Physician [phone] Encounter [facility] [place] Date(s): 11/05/19 - 12/05/[address] [address]- [facility] Allergies, Adverse Reactions, Alerts [...] 1 04/07/18 Given 1Result Comment: [04/07/2018] diluent [id number] exp 09/06/2019 Medications albuterol 90 mcg/inh inhalation [...] 11:29:00 EDT, Route to Pharmacy Electronically, [facility]/pharmacy #[id number], 155, cm, 09/03/19 10:41:00 EDT, Height, 71.2, kg, 09/03/19 10:41:00 EDT, Dry Weight Start Date: 09/25/19 Stop Date: 10/23/19 Status: Ordered Multivitamins with Folic Acid 1 mg oral tablet 1 tablet, By Mouth, Daily, # 30 tablet, 8 Refills, Maintenance, 08/21/19 12:03:00 EDT, Tablet, [facility]/pharmacy #[id number], 1 tablet By Mouth Daily, 155, [...]
--- OUTSIDE RECORDS SUMMARY | 2023-10-19 06:07 | XMS_ITS | Continuity of Care Document ---
Author Organization [facility] Address [address] [place] [address]- Care Team Providers Care Nail Sticker Name Role Phone Sienna Adams DO Primary Care Physician Encounter [facility] Date(s): 04/26/19 - 07/18/[address] [address]- [facility] Attending Physician: Not on Staff, Attending MD [...] 1 04/07/18 Given 1Result Comment: [04/07/2018] diluent [id number] exp 09/06/2019 Medications acetaminophen 325 mg oral tablet 650 mg, 2, tablet, By Mouth, 4 times a day, PRN, # 100 tablet, Refills 0, Tot. Refills 0, Maintenance, as needed for pain, 04/21/18 17:10:10 EST, Route to Pharmacy Electronically, [id number], [id number] Start Date: 04/21/18 Status: Ordered albuterol [...] 03/25/19 6:16:25 EST, Route to Pharmacy Electronically, [id number], [facility]/pharmacy #0488 Start Date: 03/25/19 Status: [...] 06/27/19 10:24:00 EST, Route to Pharmacy Electronically, [facility]/pharmacy #[id number], 155, cm, 06/27/19 9:53:00 EST, Height, [...]
--- OUTSIDE RECORDS SUMMARY | 2023-10-19 06:07 | XMS_ITS | Continuity of Care Document ---
Author Organization [facility] Address [address] [place] [address]- Care Team Providers Care Wire Straightener Name Role Phone Gama HDZ, Julio Chery Primary Care Physician Encounter [facility] [place] Date(s): 11/12/21 - 12/16/[address] [address] Attending Physician: Not on Staff, [...] 1 04/07/18 Given 1Result Comment: [04/07/2018] diluent [id number] exp 09/06/2019 Medications Advair Diskus 100 mcg-50 mcg inhalation powder 1, inhalation, Inhalation, 2 times a day, rinse mouth and throat after use replaces fluticasone inhaler, # 1 each, Refills 5, Tot. Refills 5, Maintenance, 09/01/20 10:55:00 EDT, Powder, Route to Pharmacy Electronically, [id number]... Start Date: 09/01/20 Status: Ordered albuterol CFC free 90 mcg/inh inhalation aerosol 2, puffs, Inhalation, Every 4 hours, PRN, # 6.7 Gm, Refills 0, Tot. Refills 0, Soft Stop, 12/08/21 15:01:00 EDT, Aerosol, Route to Pharmacy Electronically, [id number], [facility]/pharmacy #[id number], 155, cm, 12/08/21 14:56:00 EDT, Heigh... Start Date: 12/08/21 Status: Ordered Paxlovid 150 mg-100 mg oral tablet See Instructions, 300mg nirmatrelvir (two 150mg tablets) with 100mg ritonavir (one tablet). All 3 tablets taken together twice daily for 5 days, with or without food., # 30 tablet, 0 Refills, Maintenance, 09/17/21 12:59:00 EDT, [facility]/pharmacy #0488, Pa... Start Date: 09/17/21 Status: Ordered Multivitamins with Folic Acid 1 mg oral tablet 1 tablet, By Mouth, Daily, # 90 tablet, 2 Refills, Maintenance, 11/11/21 12:32:00 EDT, [facility]/pharmacy#[id number], Partial fill upon patient request if [...]
--- OUTSIDE RECORDS SUMMARY | 2023-10-19 06:07 | XMS_ITS | Continuity of Care Document ---
Author Organization [facility] Address [address] [place] [address]- Care Team Providers Care Electric Car Operator Name Role Phone Gama HDZ, Julio Chery Primary Care Physician Encounter [facility] [place] Date(s): 10/23/21 - 11/22/[address] [address] Allergies, Adverse Reactions, Alerts Substance Reaction [...] 1 04/07/18 Given 1Result Comment: [04/07/2018] diluent [id number] exp 09/06/2019 Medications Advair Diskus 100 mcg-50 mcg inhalation powder 1, inhalation, Inhalation, 2 times a day, rinse mouth and throat after use replaces fluticasone inhaler, # 1 each, Refills 5, Tot. Refills 5, Maintenance, 09/01/20 10:55:00 EDT, Powder, Route to Pharmacy Electronically, [id number]... Start Date: 09/01/20 Status: Ordered Paxlovid 150 [...] 2 Refills, Maintenance, 10/13/21 10:02:00 EDT, Tablet, [facility]/pharmacy #[id number], [...] 06/16/2110:02:00 EST, Aerosol, Route to Pharmacy Electronically, [id number], [facility]/pharmacy #0488, 155, cm, [...]
--- OUTSIDE RECORDS SUMMARY | 2023-10-19 06:07 | XMS_ITS | Continuity of Care Document ---
Author Organization [facility] Address [address] [place] [address]- Care Team Providers Care Regional Agronomist Name Role Phone Julio Malloy MD Primary Care Physician [phone] Encounter [facility] [place] Date(s): 02/07/20 - 03/08/[address] [address]- [facility] Allergies, Adverse Reactions, Alerts Substance Reaction [...] 1 04/07/18 Given 1Result Comment: [04/07/2018] diluent B02870 exp 09/06/2019 Medications Albuterol (Eqv-ProAir HFA) 90 mcg/inh inhalation aerosol 1 TO 2 PUFFS, Inhalation, Every 6 hours, PRN NEEDED FOR WHEEZE, # 8.5 Unknown, 1 Refills, Maintenance, 02/12/20 9:13:00 EDT, [facility], 25, INHALE 1 TO 2 PUFFS EVERY [...]
--- OUTSIDE RECORDS SUMMARY | 2023-10-19 06:07 | XMS_ITS | Continuity of Care Document ---
Author Organization [facility] Address [address] [place] [address]- Care Team Providers Care Tugboat Captain Name Role Phone Gama HDZ, Julio Chery Primary Care Physician [phone] [place] [facility] [place] 12/04/21 - 01/03/[facility] [address] [place] [id number] Allergies, Adverse Reactions, Alerts Substance [...] 1 04/07/18 Given 1Result Comment: [04/07/2018] diluent G32382 exp 09/06/2019 Medications Advair Diskus 100 mcg-50 mcg inhalation powder 1, inhalation, Inhalation, 2 times a day, rinse mouth and throat after use replaces fluticasone inhaler, # 1 each, Refills 5, Tot. Refills 5, Maintenance, 09/01/20 10:55:00 EDT, Powder, Route to Pharmacy Electronically, [id number]... Start Date: 09/01/20 Status: Ordered albuterol CFC free 90 mcg/inh inhalation aerosol 2, puffs, Inhalation, Every 4 hours, PRN, # 6.7 Gm, Refills 0, Tot. Refills 0, Soft Stop, 12/08/21 15:01:00 EDT, Aerosol, Route to Pharmacy Electronically, [id number], [facility]/pharmacy #0488, 155, cm, 12/08/21 14:56:00 EDT, Heigh... Start Date: 12/08/21 Status: Ordered Multivitamins with Folic Acid 1 mg oral tablet 1 tablet, By Mouth, Daily, # 90 tablet, 2 Refills, Maintenance, 11/11/21 12:32:00 EDT, [facility]/pharmacy#0488, Partial fill upon patient request if the prescription is for a schedule II opioid drug., 1 tablet By Mouth Daily, 155, cm, 11/11/21 10:26:00 EDT... Start Date: 11/11/21 Status: Ordered Multivitamins with Folic Acid 1 mg oral tablet 1 tablet, By Mouth, Daily, # 90 tablet, 2 Refills, Maintenance, 10/13/21 10:02:00 EDT, Tablet, [facility]/pharmacy #0488, Partial fill upon patient request if [...] Team Personnel Name: Julio Malloy MD Address: [address] [place] [address]
--- OUTSIDE RECORDS SUMMARY | 2023-10-19 06:07 | XMS_ITS | Continuity of Care Document ---
Author Organization [facility] Address [address] [place] [id number]- Care Team Providers Care Learning Development Specialist Name Role Phone Gama HDZ, Julio Chery Primary Care Physician [phone] Encounter [facility] [place] Date(s): 11/19/20 - 12/21/[address] [id number] Attending Physician: Not on Staff, [...] 1 04/07/18 Given 1Result Comment: [04/07/2018] diluent [id number] exp 09/06/2019 Medications Advair Diskus 100 mcg-50 mcg inhalation powder 1, inhalation, Inhalation, 2 times a day, rinse mouth and throat after use replaces fluticasone inhaler, # 1 each, Refills 5, Tot. Refills 5, Maintenance, 09/01/20 10:55:00 EDT, Powder, Route to Pharmacy Electronically, [id number]... Start Date: 09/01/20 Status: Ordered Radha 0.35 mg oral tablet 1 tablet = 0.35 mg, By Mouth, Daily, # 28 tablet, 12 Refills, Maintenance, 05/21/20 11:42:00 EST, Tablet, [facility]/pharmacy #[id number], Partial fill upon patient request if the prescription is for a schedule II opioid drug., 155, cm, 03/30/20 9:46:00 EST, Heigh... Start Date: 05/21/20 Status: Ordered Claritin 10 mg oral tablet 10 mg, 1, tablet, By Mouth, Every other day, # 15 tablet, Refills 0, Tot. Refills 0, Maintenance, 11/12/20 14:32:00 EDT, Route to Pharmacy Electronically, [facility]/pharmacy #[id number], Partial fill upon patient request [...] Gm, 3 Refills, Maintenance, 09/01/20 10:58:00 EDT, Harriet, [facility]/pharmacy #[id number], Partial fill upon patient request [...] patch, 2 Refills, Maintenance, 06/03/20 14:36:00 EST, [facility]/pharmacy #[id number], 1 patch Topically Daily,Instr:(remove patch(s) after 12 hours), 155, cm, 03/30/20 9:46:00 EST, Height, 94.3, kg... Start Date: 06/03/20 Status: Ordered naproxen 500 mg oral tablet 1 tablet = 500 mg, By Mouth, 2 times a day, PRN for pain, Take with food, # 30 tablet, 0 Refills, Maintenance, 06/03/20 11:08:00 EST, Tablet, [facility]/pharmacy #[id number], Partial fill upon patient request [...] Refills, Maintenance, 09/01/20 10:56:00 EDT, Ophth Solution, [facility]/pharmacy #[id number], Partial fill upon patient request if the prescription is for aschedule II opioid drug., 1 drops Eyes, Both 2 time... Start Date: 09/01/20 Stop Date: 11/30/20 Status: Ordered Proventil HFA 90 mcg/inh inhalation aerosol with adapter 2, puffs, Inhalation, 4 times a day, PRN, # 25 Gm, Refills 0, Tot. Refills 0, Maintenance, 06/16/2110:02:00 EST, Aerosol, Route to Pharmacy Electronically, [id number], [facility]/pharmacy #[id number], 155, cm, 03/30/20 9:46:00 EST, Heigh... Start Date: 06/16/20 Status: Ordered Rhinocort Allergy 32 mcg/inh nasal spray = 32 mcg, Nares, Both, Daily, # 8.6 Gm, 0 Refills, Maintenance, 11/12/20 14:33:00 EDT, [facility]/pharmacy#[id number], Partial fill upon patient request if the prescription is for a schedule II opioid drug., 155, cm, 11/11/20 13:17:00 EDT, Height, 94.3, kg, 03/28... Start Date: 11/12/20 Stop Date: 11/26/20 Status: Ordered valACYclovir 500 mg oral tablet 1, tablet, By Mouth, 2 times a day, # 60 tablet, Refills 1, Tot. Refills 0, Acute, 04/02/20 9:32:00EST, Route to Pharmacy Electronically, [id number], 155, cm, 03/30/20 9:46:00 EST, Height, 94.3, kg, 03/28/20 11:01:00 EST, Dry Weight Start Date: 04/02/20 Status: Ordered ZyrTEC 10 mg oral tablet 1 tablet = 10 mg, By Mouth, Daily, PRN Congestion, # 30 tablet, 3 Refills, Maintenance, 09/01/20 10:58:00 EDT, Tablet, [facility]/pharmacy #[id number], Partial fill upon patient request [...]
[2023-10-19] MEDS: Lactated Ringers 1,000 ML 999 ML IV (06:58)
[2023-10-19] MEDS: Aprepitant 32 MG/4.4 ML VIAL IVPUSH (07:03)
--- NOTE | 2023-10-19 07:19 | MHC.SHP ---
Pre-Procedural Eval Section A - 24 Hr Update-Section A only Date of Service: 10/19/23 The patient is an INPATIENT: Yes The patient has been examined within 24 hours of the surgical procedure. The History & Physical has been completed within 30 days and I have reviewed it.: No Section B - Complete if H&P > 30 days Chief Complaint: Obesity Relevant Family History (Specify if Yes): No Relevant Social History: None Present Medications: None Medical History: No relevant PMH History of Previous Operations: No relevant previous surgery Allergies: Allergies Allergy/AdvReac Type Severity Reaction Status Date / Time amoxicillin Allergy Intermediate Hives Verified 10/13/23 10:38 azithromycin Allergy Intermediate Hives Verified 10/13/23 10:38 clindamycin Allergy Intermediate Hives Verified 10/13/23 10:38 Review of Systems Sugical H&P ROS: Negative: Constitution, Cardiovascular, Respiratory, Neurological, Psychiatric, Hem-Onc, Allergic/Immunologic, Gastrointestinal, Genitourinary, Musculoskeletal, Integumentary, Endocrine and Eyes/Ears/Nose/Throat Exam Surgical H&P Exam: Normal: HEENT, Normal: Heart, Normal: Lungs, Normal: Extremities, Normal: Abdomen, Normal: Skin and Normal: Neurological Plan Diagnosis/Plan: Unchanged I have reviewed the history and physical and performed a pertinent physical examination on my patient. No changes have occurred unless specified. Time Spent With Patient Time: Total time managing care of this patient today ____ minutes.
[2023-10-19 07:29] LABS: UPreg QC Valid YES; Urine Pregnancy NEGATIVE (NEGATIVE)
--- NOTE | 2023-10-19 07:55 | PHA.MEDREC ---
Pharmacy Consult ? Medication Reconciliation Pharmacy has completed the medication reconciliation. Reviewed med rec done by nursing
--- NOTE | 2023-10-19 10:11 | P.BOP_ITS ---
Brief Operative Note Date of Service: 10/19/23 Pre-op diagnosis: Severe obesity with comorbidities (see below) Post-op diagnosis: same Procedure: INITIAL PATIENT BMI ON PRESENTATION AT OUR OFFICE: 36.5 kg/m2 LAST BMI BEFORE SURGERY: 31.8 kg/m2 COMORBIDITIES: asthma, depression, anxiety, liver steatosis, liver fibrosis ?The patient presented to the Weight Management Program with significant obesity that was negatively impacting the patient's comorbidities as listed above.? The program is a phased program with a special focus on preoperative medical weight management to promote substantial weight loss and prepare the patients for the second phase of the program: bariatric surgery. The patient participated in an intensive weekly lifestyle ?intervention and exercise program during which the patient ?has lost between the initial office visit and the last preoperative visit 23.7lbs, or 12.5% of initial actual body weight. It was deemed appropriate for the patient to now have bariatric surgery. In light of the current Covid-19 pandemic and the well documented strong association of obesity and increased risk of worse outcomes if infected with Covid-19 (REFERENCES: https://pubmed.ncbi.nlm.nih.gov/16551264/ ,? https://pubmed.ncbi.nlm.nih.gov/77737428/ ), any delay in undergoing bariatric surgery may lead to the patient's worsening health condition and increased?risk of more severe Covid-19 disease if infected. In addition a recent?study from [facility] published in [employer] on 05/04/2021 ([email or web address]) found that, among patients with obesity, substantial weight loss achieved with surgery was associated with improved outcomes of COVID-19 infection. The findings suggest that obesity can be a modifiable risk factor for the severity of COVID-19 infection. In addition, the patient met the BMI-criteria for bariatric surgery based on the BMI on initial presentation. The patient should not be penalized for achieving such weight loss because ?it is not sustainable long-term without surgical intervention and it was achieved in preparation for bariatric surgery ?under my direction and based on my published research ([email or web address]).pdf and? https://www.soard.org/article/[email or web address](69)06048-X/pdf ) ?that a 10% preoperative weight loss improves long-term weight loss after surgery and reduces perioperative complications.? Insurance carriers such as [facility] have endorsed my recommendations ?and have included in their policies criteria to include a 10% preoperative weight loss requirement. PROCEDURE: Esophago-gastroscopy, laparoscopic sleeve gastrectomy and laparoscopic gastropexy INDICATIONS: This is a 50 year-old female who was electively scheduled for laparoscopic, possibly open sleeve gastrectomy. The risks and complications of the procedure were discussed with the patient in advance, particularly the possibility of ; pulmonary embolism; staple line leak; bleeding; GERD; cardiac, pulmonary, or renal complications; as well as long-term problems such as insufficient weight loss, vitamin deficiency, strictures, or ulcers. The patient understood all the risks, and was in agreement to proceed with surgery. DESCRIPTION OF PROCEDURE: After informed consent was obtained from the patient, the patient was given pr eoperative antibiotics, and was transferred to the operating room. After successful induction of general anesthesia, pneumatic compression devices were placed on both lower extremities. An upper endoscopy was performed next. The oropharynx and esophagus appeared to be within normal limits. There was no diaphragmatic hernia present consistent with the findings of the preoperative upper GI. The stomach was entered. Then after all fluid and air were suctioned and the stomach was fully decompressed, the scope was withdrawn and secured in the mid esophagus. The patient was then prepped and draped in the usual sterile manner, and abdominal access was established at the right upper quadrant with the Ruddy technique. A 12 mm blunt port was inserted, and the abdomen was insufflated with CO2 to a pressure of 15 mmHg. Under direct visualization, additional ports were placed, specifically two 5 mm Versi-step ports to the left upper quadrant, and a 5 mm Versi-Step port to the right upper quadrant. 1% lidocaine plain was used to infiltrate all port sites as well as all fascia defects. Using the EndoClose suture passer device, I placed a #1 Polysorb tie across the falciform ligament in order to retract it up against the abdominal wall and prevent injury of the ligament with our instruments during the procedure. Following that, the patient was placed in a steep reverse Trendelenburg posit ion. An additional 5 mm port was placed to the right flank for the Mediflex retractor that was used to retract the left lobe of the liver. The gastro-esophageal fat pad was opened with the ultrasonic device (Thunderbeat, Olympus) and the anterior esophagus and hiatus were exposed. The angle of His was opened with the ultrasonic device the fundus of the stomach from any diaphragmatic and splenic attachments. I then opened the gastrocolic ligament between the transverse colon and the greater curvature of the stomach with the ultrasonic device to enter the lesser sac and facilitate the ligation of the short gastric vessels. I started at a mid-point along the greater curvature and using the Thunderbeat, all short gastric vessels were divided all the way to the angle of His until the left dalila was completely dissected at its entirety. I then divided the gastro-colic ligament distally to a distance of about 3-4 cm proximal to the pylorus.? The stomach was then divided transversely with two Endo MARYJANE-45 purple and three MARYJANE-60 articulating purple loads using the SIGNIA stapler and loads. Every effort was made that the gastric sleeve had a tubular shape and an even caliber throughout. Once the sleeve resection was completed, the staple line of the gastric sleeve was reinforced with Hemoclips. The resected stomach was retrieved without difficulty from the Ruddy port. A gastropexy was then performed in order to prevent postoperative GERD and partial gastric volvulus. Several interrupted 2.0 Surgidac sutures were placed between the sleeve's staple line and the previously divided greater omentum and gastro-colic ligament using the Endo-Stitch device. ?An upper endoscopy was performed. There was no narrowing at the GE junction. The scope was easily advanced all the way to the pylorus which was clearly visualized. There was no narrowing anywhere and the sleeve's caliber was even throughout. The sleeve's staple line was inspected and there was no evidence of ischemia, bleeding or dehiscence. At that point the gastroscope was withdrawn from the patient?s mouth while we were decompressing the bowel and the stomach from any remaining air. I looked into the lesser sac to see how the sleeve was situating and it was situating well. There was no bleeding from the staple line, spleen, or short gastric vessels. The Mediflex retractor was removed, and the undersurface of the liver was inspected and there was no bleeding. The patient was placed in supine position. I closed the fascial defect of the 12 mm port site with a figure of eight #1 Polysorb suture. Then 30cc Ropivacaine plain with 10 mg of Dexamethasone were used to infiltrate the fascial closure as well as all skin incisions. A total of 6ml Zynrelef was applied in the Ruddy wound. At this point, the abdomen was deflated, all ports were removed under direct vision, and no bleeding was noted from any of the port sites. The skin incisions were irrigated with saline and were closed with 4-0 absorbable monofilament sutures. Steri-Strips and OpSites were used to cover all incisions. The patient was extubated and was transferred in stable condition to the recovery room for further care. I was present and performed all mccollum parts of the procedure. Ms. Sotodorothy was the procurement assistant. There were no residents to assist with this case. Philip Miranda MD, PhD, FACS Surgeon: Héctor Miranda MD Anesthesia: GETA, local and other (TAP block and 6ml Zynrelef) Was an Fleet Dispatch Manager used for this Procedure?: Yes Fleet Dispatch Manager: Marina Whatley Estimated blood loss (mL): 0 IV fluids (mL): 2,000 Urine output (mL): 0 (No Mcclain to record output) Pathology: other (Stomach) Condition: stable Disposition: PACU
--- NOTE | 2023-10-19 10:15 | P.PNGS_ITS ---
Subjective Subjective Date of Service: 10/20/23 Interval history: Feels well. Mild incisional pain. She is tolerating phase 1 bariatric diet Physical Exam 2 Vital Signs: Vital Signs: Last Vital Signs Temp 97.4 F 10/19/23 10:03 Pulse 96 10/19/23 10:10 Resp 19 10/19/23 10:10 BP 114/82 10/19/23 10:10 Pulse Ox 100 10/19/23 10:10 O2 Del Method Nasal Cannula 10/19/23 10:10 O2 Flow Rate 2 10/19/23 10:10 BMI result Body Mass Index 32.3 GI: Inspection: Yes normal to inspection, Yes incision (clean, dry and intact) and Yes obesity Palpation (GI): Soft to palpation Extrem: Right lower extremity: normal to inspection (no calf tenderness) L eft lower extremity: normal to inspection (no calf tenderness) Objective Data Active Medications Albuterol Sulfate (Albuterol Sulfate (0.083%) 2.5 Mg/3 Ml Vial.Neb) 2.5 mg INHALE ONCE PRN PRN Reason: Shortness of Breath/Wheezing Fentanyl (Fentanyl Citrate/Pf 100 Mcg/2 Ml Vial) 25 mcg IVPUSH Q5M PRN; Protocol PRN Reason: Pain, Moderate(Pain Scale 4-6) Stop: 10/19/23 14:39 Hydromorphone HCl (Hydromorphone Hcl 0.5 Mg/0.5 Ml Syringe) 0.25 mg IVPUSH Q5M PRN; Protocol PRN Reason: Pain, Severe (Pain Scale 7-10) Stop: 10/19/23 14:39 Lactated Ringer's (Lr) 1,000 mls @ 100 mls/hr IVCONT .Q10H LESLEY Ondansetron HCl (Ondansetron Hcl 4 Mg/2 Ml Vial) 4 mg IVPUSH ONCE PRN PRN Reason: Nausea and Vomiting Stop: 10/19/23 14:40 Labs 10/20/23 06:05 10/20/23 06:05 Labs: Laboratory Results - last 24 hr 10/19/23 07:15 Urine Test NEGATIVE Procedures Date of Service Date of Service: 10/20/23 Progress Note: A&P Assessment and plan (1) Obesity: Status: Acute Assessment and Plan: s/p laparoscopic sleeve gastrectomy and gastropexy Doing well Will check am labs and if OK the patient will be discharged home (2) BMI 31.0-31.9,adult: Status: Acute (3) Asthma: Status: Acute (4) Anxiety: Status: Acute (5) Depression: Status: Acute (6) Steatosis, liver: Status: Acute (7) S/P laparoscopic sleeve gastrectomy: Status: Acute Time Spent With Patient Time: Total time managing care of this patient today ____ minutes. Quality Stroke Does the patient have a stroke diagnosis?: No VTE Prior VTE?: No VTE Risk Level:: Surgical - moderate VTE Device Contraindication: N/A - Device Ordered VTE Drug Contraindication: Treatment Not Indicated
--- NOTE | 2023-10-19 10:18 | PM.DS ---
DS: Providers Provider Date of Service: 10/20/23 Date of admission: 10/19/23 05:59 Primary care physician: Julio Malloy MD DS: Diagnosis Discharge Diagnosis (1) Obesity: Status: Acute (2) BMI 31.0-31.9,adult: Status: Acute (3) Asthma: Status: Acute (4) Anxiety: Status: Acute (5) Depression: Status: Acute (6) Steatosis, liver: Status: Acute (7) S/P laparoscopic sleeve gastrectomy: Status: Acute DS: Summary Hospital Course Hospital Course: ADMITTING DIAGNOSIS: morbid obesity,?liver steatosis, anemia, asthma, anxiety, depression, back pain ? DISCHARGE DIAGNOSIS: same, s/p laparoscopic sleeve gastrectomy and gastropexy ? PAST SURGICAL HISTORY:? ? PROCEDURE: upper endoscopy, laparoscopic sleeve gastrectomy and gastropexy ? DISCHARGE SUMMARY: ? History of Present Illness: ? The patient is a? 23? year-old woman with a BMI of? 32.3 ? kg/m2 and associated co-morbidities as described above. The patient had extensive work-up, lost? 21.3? lbs preoperatively and was electively scheduled for laparoscopic, possible open sleeve gastrectomy and gastropexy. Risks and complications of the surgery were discussed with the patient in advance, particularly the possibility of , pulmonary embolism, anastomotic leak, bleeding, bowel injury, GERD, cardiac, renal or pulmonary complications. The patient understood all the risks and was in agreement with the surgical plan. ? Hospital Course: ? The patient underwent an uneventful laparoscopic sleeve gastrectomy with gastropexy on the day of admission. Postoperatively, the patient was transferred to the surgical floor. The patient received IV Acetaminophen and IV dilaudid for pain control. Patient was started on bariatric phase 1 diet POD #0. On postoperative day one, the patient was feeling well without nausea, vomiting, fevers, or tachycardia. The patient had some mild incisional pain and the abdomen was soft.? ? On the morning of postoperative day one, the patient was continued on 1 ounce of water or ice every half hour. During the day, the patient did fairly well, having some incisional pain, but able to ambulate adequately and to tolerate liquids well. ? Since the patient is doing well, we decided that the patient was ready to be discharged. The patient was given instructions to follow-up with me next week and to call my office for any fever over 101, persistent abdominal pain, nausea, vomiting, GERD, symptoms of DVT such as calf tenderness, or leg swelling, or pulmonary embolism such as chest pain or shortness of breath.? The patient was also instructed to drink 40-60 ounces of liquids per day using the 1-ounce cups. The patient had been given prescriptions for Tylenol for pain, Zofran prn for nausea, and pantoprazole and carafate previously. The patient was encouraged to ambulate and use the incentive spirometer. The patient was allowed to shower, but no baths, and encouraged to stay active at home. All of these instructions were given to the patient personally. All questions were answered and the patient understood all instructions, the instructions were also given to the patient in print. Time Attestation Total time managing care of this patient today: 30 mintues. Discharge Coordination Time (in mins): 30 Quality: Safe Use of Opioids Does Pt have an Active Cancer Diagnosis on the Problem List?: No Quality: Stroke Does the patient have a stroke diagnosis?: No Physical Exam Vital Signs: Vital Signs: Last Vital Signs Temp 97.4 F 10/19/23 10:03 Pulse 96 10/19/23 10:10 Resp 19 10/19/23 10:10 BP 114/82 10/19/23 10:10 Pulse Ox 100 10/19/23 10:10 O2 Del Method Nasal Cannula 10/19/23 10:10 O2 Flow Rate 2 10/19/23 10:10 BMI result Body Mass Index 32.3 DS: Data Data Completed and Pending Pending studies at discharge: Pending at discharge 10/19/23 09:35 Surgical [PTH] Routine Labs on day of discharge: Laboratory Results - last 24 hr 10/19/23 07:15 Urine Test NEGATIVE Discharge Plan Discharge Anticipated Discharge Date/Time: 10/20/23 10:00 Patient Disposition: Home, Self-Care Discharge Diagnosis: s/p laparoscopic sleeve gastrectomy with gastropexy Referrals: Julio Malloy MD [Primary Care Provider] - 1 Week Discharge Medications: Continued albuterol sulfate 90 mcg/actuation HFA aerosol inhaler 2 puff inhalation Q6H PRN (Reason: sob/wheezing) sertraline 50 mg tablet 50 mg PO DAILY pantoprazole 40 mg tablet,delayed release (DR/EC) 40 mg PO DAILY Qty: 90 0RF sucralfate 100 mg/mL suspension 10 ml PO BID Qty: 600 2RF ondansetron 4 mg tablet,disintegrating 4 mg PO Q12H Qty: 20 0RF Rx Instructions: Only take one every 12 hours as needed if you have nausea Held gabapentin 600 mg tablet 600 mg PO DAILY Hold Instructions: Resume on 11/03/23. Discontinued cholecalciferol (vitamin D3) 125 mcg (5,000 unit) capsule 125 mcg PO DAILY Qty: 90 0RF Vitron-C 65 mg iron- 125 mg tablet,delayed release (DR/EC) 1 tab PO DAILY Qty: 90 0RF vitamin A palmitate 3,000 mcg (10,000 unit) capsule 10,000 unit PO DAILY Qty: 90 0RF mecobalamin (vitamin B12) 1,000 mcg tablet,disintegrating 1,000 mcg sublingual DAILY Qty: 90 0RF Rx Instructions: place tablet under tongue and allow to dissolve for at least30 secs before swallowing polyethylene glycol 3350 17 gram/dose powder 17 g PO DAILY Qty: 238 0RF Rx Instructions: Mix each measuring cup with 8oz of water, Crystal light, or Gatorade zero, or Propel and do 7 measuring cups on 10/17/23 and another 7 measuring cups on 10/18/23 Discharge Orders: Discharge Order (Routine); Ordered 10/20/23 Ordered By: Héctor Miranda Activity on Discharge: No heavy lifting Stand Alone Forms: Patient Portal Discharge page Print Language: Hungarian Care Plan Goals: weight loss Health Concerns: obesity Plan of Treatment: No tub baths, sex or returning to work until discussed at first post op appointment. No alcohol, tobacco or illegal drug use. Continue to use incentive spirometer hourly while awake. Walk in home for 5- 10 minutes every 2 hours during the first week. Wear abdominal binder with activity. Follow all meal plan instructions from your bariatric surgeon. Review bariatric handbook and call with any questions. Discharge Instructions 1. Please call your doctor or come back to the emergency room should any new symptoms arise. 2. Activity: abstain from alcohol,? limited stair climbing, no bending, no driving, no exercise, no illicit substances, no lifting, no sex, no tub bath, no work. 4. Diet: follow your bariatric surgeons recommendations for advancing diet. 5. Dressing Change/Wound Care: Your incisions are covered with waterproof dressings. You can shower with these and pat dry. Do not rub over dressings or incisions. If the area is tender, you may apply an ice pack for short intervals (no more than 20 minutes on, followed by at least 20 minutes off). Do not apply heat. Do not use creams, lotions, or topical antibiotics unless instructed to do so by your surgeon. 6. Call your doctor if: - Your temperature exceeds 101.5 F - You experience excessive pain or swelling - You have an unexpected reaction to medication - You have excessive bleeding - You experience continued vomiting/nausea - Your incision begins to separate - Your incision shows signs of infection such as increased redness, swelling, excessive pain, heat, or drainage (light blood or clear fluid is normal) General instructions: No lifting greater than 10 lbs for the next 6 weeks[address] driving within 24 hours of taking narcotic pain medications. If you do not move your bowels in the next 2 days, please take milk of magnesia over the counter. Please follow the post op diet and do not advance your diet until you are seen in the office in about 2 weeks. Please walk around your home every hour or two to prevent blood clots from forming in your legs. You do not need to wake from sleeping to walk. Please sleep in a bed or couch to prevent kinking at the hips and knees. Please take your incentive spirometer (your lung foreign trade teacher) home with you and use it for the next few days to prevent pneumonias. You may shower, no hot tubs, baths or swimming pools. Please call the office with any questions or concerns such as increasing abdominal pain, fever, chills, shortness of breath, chest pain, leg pain or swelling, or redness or drainage from your incisions. Please make sure you are consuming 40-60 ounces of total fluids per day. Avoid all carbonation. Do not hesitate to contact the office with any questions at . The patient's medical history has been reviewed and they are considered low risk for post op DVT and therefore DVT prophylaxis is not considered necessary. Travel after surgery was reviewed. The patient has not disclosed any travel plans during the first 30 days after surgery and they have been advised that within the first 30 days after surgery any bus, plane, train or car travel over 2 hours in duration is contraindicated due to the possibility of developing blood clots from immobility. Any travel, needs to include periods of ambulation of 10 minutes in duration every 2 hours.? The patient was instructed to discuss any plans for travel during this period with their bariatric surgeon. Assessment: s/p laparoscopic sleeve gastrectomy with gastropexy Discharge Date/Time: 10/20/23 09:21
[2023-10-19 10:57] LABS: Hemoglobin 12.7 g/dl (12.0-16.0)
[2023-10-19 11:04] LABS: Anion Gap 11 (12-20); Blood Urea Nitrogen 3 mg/dL (9-16); Carbon Dioxide 25 mmol/L (22-29); Chloride 107 mmol/L (96-108); Creatinine Clr Calc Pharmacy 102.8; Estimated Glomerular Filt Rate > 60; Glucose Random 109 mg/dL (60-115); Potassium 4.5 mmol/L (3.3-5.1); Sodium 138 mmol/L (135-145)
[2023-10-19] MEDS: Acetaminophen 1,000 MG/100 ML PIGGYBACK 16.7 MG IV ×3 (11:39→22:40)
[2023-10-19] MEDS: Metoclopramide HCl 10 MG/2 ML VIAL IVPUSH (11:39)
[2023-10-19] MEDS: Lactated Ringers 1,000 ML 100 ML IVCONT ×2 (11:40→22:41)
[2023-10-19] MEDS: Thiamine HCL 100 MG in 0.9 % Sodium Chloride 100 ML 202 MG IV (15:57)
[2023-10-19] MEDS: 0.9 % Sodium Chloride Flush 3 ML SYRINGE IVFLUSH (20:49)
[2023-10-19] MEDS: Famotidine/PF 20 MG/2 ML VIAL IVPUSH (20:49)
[2023-10-20 03:48] VITALS: BP 118/74; PULSE 76; RESP 16; TEMP 36.1; O2SAT 98
[2023-10-20] MEDS: Acetaminophen 1,000 MG/100 ML PIGGYBACK 16.7 MG IV (04:42)
[2023-10-20 06:36] LABS: MANUAL DIFF FLAG NO
[2023-10-20 06:54] LABS: Basophils Percent Auto 0.1 % (0-2); Hematocrit 37.4 % (37.0-47.0); Hemoglobin 12.1 g/dl (12.0-16.0); Imm Gran Abs Auto 0.02 X10*3/uL (0.00-0.03); Imm Gran Pct Auto 0.3 % (0.0-0.4); Lymphocytes Absolute Auto 1.1 X10*3/uL (1.2-4.9); Lymphocytes Percent Auto 14.5 % (20-40); Mean Corpuscular HGB Conc 32.4 g/dl (31.0-35.0); Mean Corpuscular Hemoglobin 25.6 pg (27.0-33.0); Mean Corpuscular Volume 79.1 fL (80.0-98.0); Mean Platelet Volume 13.1 fL (9.4-12.3); Monocytes Absolute Auto 0.5 X10*3/uL (0.1-1.2); Monocytes Percent Auto 5.9 % (2-11); Neutrophils Percent Auto 79.2 % (45-73); Platelet Count 198 X10*3/uL (160-400); Red Blood Count 4.73 X10*6/uL (4.20-5.50); White Blood Count 7.6 X10*3/uL (4.8-10.8)
[2023-10-20 06:58] LABS: Anion Gap 11 (12-20); Blood Urea Nitrogen 5 mg/dL (9-16); Calcium 9.4 mg/dL (8.4-10.2); Carbon Dioxide 24 mmol/L (22-29); Chloride 106 mmol/L (96-108); Creatinine Clr Calc Pharmacy 114.7; Estimated Glomerular Filt Rate > 60; Glucose Random 94 mg/dL (60-115); Potassium 4.2 mmol/L (3.3-5.1); Sodium 137 mmol/L (135-145)
[2023-10-20] MEDS: Famotidine/PF 20 MG/2 ML VIAL IVPUSH (07:06)
[2023-10-20 08:00] VITALS: BP 126/67; PULSE 49; RESP 16; TEMP 36.1; O2SAT 98
--- NOTE | 2023-10-20 08:01 | HO.POSTANES ---
Post Anesthesia Evaluation Post Anesthesia Evaluation Date of Service: 10/20/23 Vital Signs: Vital Signs Temp Pulse Resp BP Pulse Ox O2 Del Method 10/20/23 03:48 97.0 F 76 16 118/74 98 Room Air 10/19/23 23:44 97.0 F 51 16 111/58 L 98 Room Air Anesthesia: General Endotracheal-GETA Mental Status: Awake Pain Control: Satisfactory Nausea/Vomiting: None Hydration: Adequate Anesthesia-Related Issues: No Anes. Related Issues
--- NOTE | 2023-10-20 08:51 | MHC.CM.PN ---
PLAN IS HOME TODAY - SELF CARE. RN AWARE.
--- NOTE | 2023-10-25 13:39 | W.MHC.F2F ---
Service Date Service Date: 10/25/23 Encounter Date of encounter: 10/25/23 Reasons for Services Signs and symptoms assessed: post op sleeve gastrectomy 10/19/23 with difficulty following directions in the setting of previously noted developmental delay requiring IEP . She will also need SW involvement as she has 3 young children and her mother is going to be out of the state for the next month starting this weekend. Reason for long-term: postoperative assessment and/or care Homebound: Leaving the home is medically contraindicated at this time without the asist of a device and/or another person due th the listed conditions above and below. Reason homebound: cognitively impaired / unsafe and unable to drive Certification: Based on the above findings, I certify that this patient is confined to the home and needs intermittent long-term care, physical therapy and/or speech therapy, or continues to need occupational therapy. The patient is under my care, and I have initiated the establishment of the plan of care. The patient will be followed by a physician who will periodically review the plan of care. Time Spent With Patient Time: Total time managing care of this patient today ____ minutes.
== END 2023-10-20 09:21 | disposition home or self-care (01) | DRG 403 ==
LOC: HO.SSSA 06:01 → HO.S3 10:10
PROVIDERS: Nurse Practitioner; Physician Assistant Surgical; Admitting Provider Surgery; PCP Internal Medicine; Visit Provider Surgery
PROC: 0DB64Z3 Excision of Stomach, Percutaneous Endoscopic Approach, Vertical (ICD-10-PCS; CPT 43845; principal; 2023-10-19 07:30)
DX: E66.01 Morbid (severe) obesity due to excess calories (principal); K74.00 Hepatic fibrosis, unspecified; D64.9 Anemia, unspecified; F32.A Depression, unspecified; J45.909 Unspecified asthma, uncomplicated; F41.9 Anxiety disorder, unspecified; K76.0 Fatty (change of) liver, not elsewhere classified; Z68.31 Body mass index [BMI] 31.0-31.9, adult; Z79.899 Other long term (current) drug therapy
CPT/HCPCS: 36415; 80048; 81025; 85014; 85018; 85025; 86850; 86900; 86901; 88304; 88305; 88307; 88342; A4649; C9088; C9145; J0131; J1100; J1170; J1956; J2250; J2405; J2704; J2765; J2795; J3010; J3411; J7120

== ENCOUNTER → 2023-10-19 05:59 | Outpatient (BNV) | payer OTHER, SELFPAY | PROVIDERS: Admitting Provider Surgery; PCP Internal Medicine; Visit Provider Surgery | DX: E66.09 Other obesity due to excess calories (principal); Z68.31 Body mass index [BMI] 31.0-31.9, adult; Z98.84 Bariatric surgery status | CPT/HCPCS: 43659; 43775; 99024; 99499 ==

== ENCOUNTER 2023-10-23 19:53 | Emergency (ER) | payer OTHER, SELFPAY ==
--- NOTE | ~2023-10-23 | CT_ITS ---
EXAMINATION: CT ABDOMEN AND PELVIS WITH CONTRAST CLINICAL INFORMATION: Pain COMPARISON: Abdominal ultrasound 05/26/2023, CT chest 07/19/2023 TECHNIQUE: Multidetector volumetric images were obtained from the superior aspect of the liver through the pubic symphysis following administration 85 mL of Omnipaque 350 intravenous contrast. Sagittal and coronal reformatted images were obtained on the technologist's workstation. Oral contrast: No This CT examination was performed using dose optimization techniques as appropriate, variously including the following: *Automated exposure control *Adjustment of mA and/or kV according to patient size (this includes techniques or standardized protocols for targeted exams where dose is matched to indication/reason for exam; i.e. extremities or head) *Use of iterative reconstruction technique DLP: 579 mGy-cm FINDINGS: LUNG BASES: The visualized lung bases are unremarkable. LIVER, GALLBLADDER, AND BILIARY TREE: The liver is normal in size, shape, and attenuation. No focal hepatic lesion or biliary ductal dilatation is present. Status post cholecystectomy. PANCREAS: Unremarkable. SPLEEN: Unremarkable. ADRENAL GLANDS: Unremarkable. KIDNEYS AND URETERS: The kidneys are normal in size, shape, and attenuation. No hydronephrosis, hydroureter, or calculi seen. No perinephric stranding. BLADDER: Unremarkable. GASTROINTESTINAL TRACT: Status post gastric sleeve. The small and large bowel are unremarkable. The appendix is unremarkable. ABDOMINAL WALL: No significant hernia is appreciated. The right rectus muscle is a bit thicker than the left. There is air present in the right anterior and lateral abdominal wall in the subcutaneous tissues as well as in the rectus muscles. Please correlate with any history of recent intervention or subcutaneous injections or iatrogenic trauma. LYMPH NODES: No retroperitoneal lymphadenopathy. VASCULAR: Unremarkable. PELVIC VISCERA: An anteverted uterus is present. The left ovary sits on top of the uterus with the right ovary on the right. Small amount of free fluid is present in the pelvis. OSSEOUS STRUCTURES: Unremarkable. CT/CT abdomen pelvis w IV con IMPRESSION: 1. A cause for the patient's abdominal pain has not been found. 2. Incidental note made of cholecystectomy, gastric sleeve and small amount of free fluid in the pelvis. 3. Subcutaneous air seen in the anterior abdominal wall and also within the right rectus muscles. Please correlate with history of subcutaneous injections. Fleischner guidelines were followed.
[2023-10-23 19:57] VITALS: BP 129/63; PULSE 110; RESP 20; TEMP 37.2; O2SAT 97; BMI 30.8
--- NOTE | 2023-10-23 20:02 | ED.GENADULT ---
HPI - General Adult General Chief complaint: General Medical Stated complaint: had surgery 10/18 doesn't feel right Time Seen by Provider: 10/23/23 20:06 Source: patient, RN notes reviewed and old records reviewed Mode of arrival: ambulatory Limitations: no limitations History of Present Illness ED Provider: Gurjit HPI narrative: 23-year-old female with past medical history significant for obesity, asthma, anxiety, depression, recent gastric sleeve procedure on 10/19/23 presents for evaluation of abdominal pain. Patient had a gastric sleeve procedure done 4 days ago at this facility with Dr. Miranda She reports that she had been doing well up until today. She did not have any pain and she was able to tolerate the drinks that she was supposed to be taking. She states that she feels like she needs to drink more than she is supposed to She states that today she stood up too fast to get a drink and she felt a pain in her abdomen. She states when she drank neck she had some discomfort while swallowing She is concerned that ?something is wrong. ? Denies any fevers, chills No other complaints or concerns at this time Related Data Home Medications ?Medication ?Instructions ?Recorded ?Confirmed albuterol sulfate 90 mcg/actuation 2 puff inhalation Q6H PRN 04/25/23 10/13/23 aerosol inhaler sob/wheezing gabapentin 600 mg tablet 600 mg PO DAILY 04/25/23 10/13/23 sertraline 50 mg tablet 50 mg PO DAILY 04/25/23 10/13/23 Previous Rx's ?Medication ?Instructions ?Recorded ondansetron 4 mg disintegrating 4 mg PO Q12H nausea and vomiting 10/12/23 tablet #20 tabs pantoprazole 40 mg tablet,delayed 40 mg PO DAILY #90 tabs 10/12/23 release sucralfate 100 mg/mL oral 10 ml PO BID #600 mL 10/12/23 suspension Allergies Allergy/AdvReac Type Severity Reaction Status Date / Time amoxicillin Allergy Intermediate Hives Verified 10/23/23 20:00 azithromycin Allergy Intermediate Hives Verified 10/23/23 20:00 clindamycin Allergy Intermediate Hives Verified 10/23/23 20:00 Review of Systems Constitutional: Constitutional: Reports as per HPI, Denies chills, Denies fatigue, Denies fever(s) and Denies headache(s) ENT: Denies headache(s) Cardiovascular: Cardiovascular: Denies chest pain and Denies dyspnea Respiratory: Respiratory: Denies cough and Denies dyspnea Gastrointestinal: Gastrointestinal: Reports abdominal pain, Denies constipation, Denies nausea and Denies vomiting Genitourinary: Genitourinary: Denies dysuria Neurologic: Denies headache(s) and Denies focal weakness Endocrine: Endocrine: Denies fatigue PMFSH Past Medical History Medical History BMI 31.0-31.9,adult Asthma Anxiety Depression Back pain BMI 36.0-36.9,adult Obesity Surgical History [place] teeth extracted S/P laparoscopic cholecystectomy Social History Social History Household Members: Family Housing: House Are you a primary spiritual care coordinator to a significant other at home: No Do you presently have visiting nurse or other home services: No Patient Tobacco Use Status: Never used Tobacco Smoked in Last 30 Days: No Use of substances other than those prescribed or required for medical reasons: No Advance Directives: No Advance Directives Information Provided: No Do you have a plan to hurt others: No Plan Physical Exam ED Vital Signs: Vital Signs - 24 hr 10/23/23 19:57 10/23/23 22:56 Temperature 98.9 F Pulse Rate 110 H 93 Respiratory Rate 20 17 Blood Pressure 129/63 131/62 Pulse Oximetry 97 98 Oxygen Delivery Method Room Air Room Air BMI result Body Mass Index 30.8 Const General: healthy appearing, comfortable, no acute distress, alert and awake Nutritional Appearance: well nourished Orientation/consciousness: patient oriented x3 HENMT Head: Yes normocephalic and Yes atraumatic Eyes Eyelids: Yes eyelids normal Conjunctivae: conjunctivae normal Sclerae: sclerae normal Corneas: corneas normal Pupils: Equal, round and reactive pupils present EOM: EOMs intact bilaterally Neck Neck: Yes full ROM Resp Effort & Inspection: normal respiratory effort, able to speak in complete sentences and not labored GI Other: Five surgical dressings in place without any drainage from the wounds. No surrounding erythema. There is no abdominal distention. Minimal tenderness in the epigastric region. There is no guarding or rebound on palpation. Inspection: No distended Palpation (GI): Soft to palpation, not firm, no guarding and not rigid Auscultation: normoactive bowel sounds Skin General skin exam: elasticity normal Neuro General: patient oriented x3 Cranial nerves: Yes Equal, round and reactive pupils present and Yes Bilaterally intact EOM present Cognition (Neuro): normal cognition Extrem Other: Moving all extremities well without any obvious deformities Course Course Course Narrative: This is a Rapid Medical Examination (RME) performed by Johnny Hodge PA-C in triage. Full HPI, ROS, assessment and treatment plan per primary provider in the Main ED. 23 yo female 4 days s/p gastric sleeve here for eval of nausea and pain with po intake x today. She is currently on liquid diet and states I want to drink more than I'm supposed to . Reports texting her surgeon however has not heard back. Denies fever, chills, vomiting. Plan: labs Medications Administered Discontinued Medications Generic Name Dose Route Start Last Admin Trade Name Freq PRN Reason Stop Dose Admin Diatrizoate Meglum/Diatrizoate Sod 30 ml 10/23/23 21:55 10/23/23 21:56 Diatrizoate Meglumine, Sodium 30 Ml Solution PO 10/23/23 21:56 30 ml ONCE ONE Administration Sodium Chloride 1,000 mls @ 999 mls/hr 10/23/23 20:30 10/23/23 23:29 Ns IV 10/23/23 21:30 Infused .Q1H1M LESLEY Infusion Iohexol 100 ml 10/23/23 21:55 10/23/23 21:55 Iohexol 350 Mg/Ml 100 Ml Infus..Btl IV 10/23/23 21:56 85 ml ONCE ONE Administration Ondansetron HCl 4 mg 10/23/23 20:29 10/23/23 21:31 Ondansetron Hcl 4 Mg/2 Ml Vial IVPUSH 10/23/23 20:30 4 mg ONCE ONE Administration Medical Decision Making Medical Decision Making [facility] Narrative: 23-year-old female presents for evaluation abdominal pain. She is 4 days postop gastric sleeve surgery this facility. Her exam is quite reassuring, vital signs are stable but she is mildly tachycardic. Possibly related to some degree of dehydration, will treat with IV fluids. Labs pending. Plan for CT scan with IV contrast to rule out obstruction versus postop complications. I feel there is less likely to be any infectious processes her exam is reassuring, she has no fever Differential Diagnosis Differential Diagnoses: The differential diagnosis associated with the presentation includes Postop pain Gastritis Bowel obstruction Gastric sleeve Dehydration GENARO Lab Data MDM Lab Attestation statement: I reviewed the patient's lab results. No leukocytosis or anemia. Normal platelet count. No significant electrolyte abnormalities 10/23/23 20:25 10/23/23 20:25 Labs: Lab Results 10/23/23 Range/Units 20:25 WBC 4.5 L (4.8-10.8) X10*3/uL RBC 5.00 (4.20-5.50) X10*6/uL Hgb 12.6 (12.0-16.0) g/dl Hct 39.1 (37.0-47.0) % MCV 78.2 L (80.0-98.0) fL MCH 25.2 L (27.0-33.0) pg MCHC 32.2 (31.0-35.0) g/dl RDW 15.6 (11.0-16.0) % Plt Count 196 (160-400) X10*3/uL MPV 12.1 (9.4-12.3) fL Immature Gran % (Auto) 0.0 (0.0-0.4) % Neut % (Auto) 68.2 (45-73) % Lymph % (Auto) 23.6 (20-40) % Cooper % (Auto) 5.8 (2-11) % Eos % (Auto) 2.2 (0-4) % Baso % (Auto) 0.2 (0-2) % Lymph # (Auto) 1.1 L (1.2-4.9) X10*3/uL Cooper # (Auto) 0.3 (0.1-1.2) X10*3/uL Eos # (Auto) 0.1 (0.0-0.4) X10*3/uL Baso # (Auto) 0.0 (0.0-0.2) X10*3/uL Abs Immat Gran (auto) 0.00 (0.00-0.03) X10*3/uL Absolute Neuts (auto) 3.1 (2.0-8.3) x10*3/uL Absolute Nucleated RBC 0.000 (0.0-0.012) X10*3/uL Nucleated RBC % (auto) 0.0 (0.0-0.2) /100WBC Sodium 141 (135-145) mmol/L Potassium 3.8 (3.3-5.1) mmol/L Chloride 106 (96-108) mmol/L Carbon Dioxide 21 L (22-29) mmol/L Anion Gap 18 (12-20) BUN 5 L (9-16) mg/dL Creatinine 0.63 (0.5-1.4) mg/dL Estim Creat Clear Calc 126.6 Estimated GFR > 60 Random Glucose 81 (60-115) mg/dL Calcium 9.0 (8.4-10.2) mg/dL Magnesium 1.8 (1.6-2.6) mg/dL Total Bilirubin 0.7 (0.0-1.0) mg/dL AST 26 (5-31) U/L ALT 37 H (0-31) U/L Alkaline Phosphatase 83 (39-117) U/L Total Protein 7.2 (6.5-8.0) g/dL Albumin 4.1 (3.5-5.0) g/dL Lipase 11 (8-78) U/L Beta HCG, Quant < 2 mIU/mL Discharge Plan Discharge Clinical Impression: Post-op pain Patient Disposition: Home, Self-Care Instructions: Pain Management After Surgery (DC) Additional Instructions: Your workup in the ER today was reassuring. Your CT scan did not show any hardware failure, obstruction or leaking Follow-up with your surgeon as planned Prescriptions: No Action gabapentin 600 mg tablet 600 mg PO DAILY Hold Instructions: Resume on 11/03/23. albuterol sulfate 90 mcg/actuation HFA aerosol inhaler 2 puff inhalation Q6H PRN (Reason: sob/wheezing) sertraline 50 mg tablet 50 mg PO DAILY pantoprazole 40 mg tablet,delayed release (DR/EC) 40 mg PO DAILY Qty: 90 0RF sucralfate 100 mg/mL suspension 10 ml PO BID Qty: 600 2RF ondansetron 4 mg tablet,disintegrating 4 mg PO Q12H Qty: 20 0RF Rx Instructions: Only take one every 12 hours as needed if you have nausea Stand Alone Forms: Work/School Release Print Language: Niuean
[2023-10-23 20:28] LABS: MANUAL DIFF FLAG NO
[2023-10-23 20:29] LABS: Basophils Percent Auto 0.2 % (0-2); Eosinophils Absolute Auto 0.1 X10*3/uL (0.0-0.4); Eosinophils Percent Auto 2.2 % (0-4); Hematocrit 39.1 % (37.0-47.0); Hemoglobin 12.6 g/dl (12.0-16.0); Lymphocytes Absolute Auto 1.1 X10*3/uL (1.2-4.9); Lymphocytes Percent Auto 23.6 % (20-40); Mean Corpuscular HGB Conc 32.2 g/dl (31.0-35.0); Mean Corpuscular Hemoglobin 25.2 pg (27.0-33.0); Mean Corpuscular Volume 78.2 fL (80.0-98.0); Mean Platelet Volume 12.1 fL (9.4-12.3); Monocytes Absolute Auto 0.3 X10*3/uL (0.1-1.2); Monocytes Percent Auto 5.8 % (2-11); Neutrophils Absolute Auto 3.1 x10*3/uL (2.0-8.3); Neutrophils Percent Auto 68.2 % (45-73); Platelet Count 196 X10*3/uL (160-400); Red Cell Distribution Width 15.6 % (11.0-16.0); White Blood Count 4.5 X10*3/uL (4.8-10.8)
[2023-10-23 20:53] LABS: Alanine Aminotransferase 37 U/L (0-31); Albumin Level 4.1 g/dL (3.5-5.0); Alkaline Phosphatase 83 U/L (39-117); Anion Gap 18 (12-20); Aspartate Amino Transferase 26 U/L (5-31); Bilirubin Total 0.7 mg/dL (0.0-1.0); Blood Urea Nitrogen 5 mg/dL (9-16); Carbon Dioxide 21 mmol/L (22-29); Chloride 106 mmol/L (96-108); Creatinine Clr Calc Pharmacy 126.6; Estimated Glomerular Filt Rate > 60; Glucose Random 81 mg/dL (60-115); Lipase 11 U/L (8-78); Magnesium 1.8 mg/dL (1.6-2.6); Potassium 3.8 mmol/L (3.3-5.1); Sodium 141 mmol/L (135-145); Total Protein 7.2 g/dL (6.5-8.0)
[2023-10-23 21:03] LABS: HCG Quantitative < 2 mIU/mL
[2023-10-23] MEDS: ondansetron HCL 4 MG/2 ML VIAL IVPUSH (21:31)
[2023-10-23] MEDS: 0.9 % Sodium Chloride 1,000 ML 999 ML IV (21:31)
[2023-10-23] MEDS: iohexoL 350 MG/ML 100 ML INFUS..BTL IV (21:55)
[2023-10-23] MEDS: Diatrizoate Meglumine, Sodium 30 ML SOLUTION PO (21:56)
--- NOTE | 2023-10-23 22:47 | PC.NURSE ---
20g Iv placed in l-ac- pt taken to CT scan- IVF infusing per order
[2023-10-23 22:56] VITALS: BP 131/62; PULSE 93; RESP 17; O2SAT 98
--- NOTE | 2023-10-23 23:28 | PC.NURSE ---
assumed care of patient at 2300. report received from Ivanna STORY
[2023-10-23 23:37] VITALS: BP 131/62; PULSE 93; RESP 17; TEMP 37.2; O2SAT 98
== END 2023-10-23 23:38 | disposition home or self-care (01) ==
PROVIDERS: Physician Assistant Medical; Emergency Provider Emergency Medicine; PCP Internal Medicine
DX: G89.18 Other acute postprocedural pain (principal); R10.9 Unspecified abdominal pain; E66.9 Obesity, unspecified; Z98.84 Bariatric surgery status
CPT/HCPCS: 36415; 74177; 80053; 83690; 83735; 84702; 85025; 96361; 96374; 99284; J2405; Q9967

== ENCOUNTER 2023-10-25 16:09 | Outpatient (AMB) | payer OTHER, SELFPAY ==
--- NOTE | 2023-10-25 16:07 | A.OFFVIS_ITS ---
VS Expanded 10/25/23 16:16 BP 122/69 Blood Pressure Location Rt brachial Blood Pressure Position Sitting Pulse 97 Pulse Source Pulse Oximeter Temp 96.9 F Temperature Source Temporal Artery Scan Pulse Oximetry 100 Oxygen Delivery Method Room Air Height 5 ft 0.5 in Weight 157 lb 12.8 oz BMI 30.3 Body Fat % 36.5 Body Fat Mass 57.6 Fat Free Mass 100.0 Visceral Fat Rating 5.0 Body Water % 45.7 Body Water Mass 72.0 Muscle Mass/Score 95.0 Basal Metabolic Rate/Score 1,428 Intake Visit Reasons: (OV) PO LSG 10/19/23 Allergies amoxicillin Allergy (Intermediate, Verified 10/23/23 20:00) Hives azithromycin Allergy (Intermediate, Verified 10/23/23 20:00) Hives clindamycin Allergy (Intermediate, Verified 10/23/23 20:00) Hives HPI Comments Details: 23-year-old female returns to the office today in follow-up. She is 6 days status post sleeve gastrectomy performed on 10/19/2023. She had not been communicating with Dr. Miranda. She had not been doing the protein shakes. She has been to the emergency room twice due to her 3-year-old child falling on her abdomen causing abdominal pain x1 and 1 time when she felt as though she got up too quickly and then had abdominal pain. She had 2 CT scans, 1 at [facility] and 1 at [facility], both normal. Patient states that she has no complaints of abdominal pain at today's visit. She has moved her bowels. She did obtain the [employer] 30 g ready to drink shake and has been doing 1 and 1/2 cartons per day. She additionally reports drinking 32 oz of water per day. She lives at home with her 3 children, all under the age of 5. She also lives with her mother and her younger sister and brother. Her mother is the only person who drives and the patient states that her mother is driving to [place] this weekend for a month. The patient states that she uses food stamps for food and plans to have food delivered if necessary. She additionally reports 30 fair life ready to drink shakes at home and enough food for her children. She states that her sister or brother will cook. She does feel as though the situation is unsafe in the sense that if there is an emergency, she would need to call 911 as no one is available to drive anywhere and no one has a car. Given the extraordinary circumstances of the situation, we will have a staff member from the office call the patient daily. The patient was instructed that she needs to have her phone available and charged. Both she and the staff member, Juan Antonio, nurse for the office, were present during the plan to have Juan Antonio call the patient daily and if she does not answer, he has been instructed to call back 10 minutes later, and 1 more time. If the patient does not answer after 3 attempts, the police will be called for a wellness check given the young children at home. Both the patient and Juan Antonio are aware of this plan and in agreement. [facility] Medical History BMI 31.0-31.9,adult Asthma Anxiety Depression Back pain BMI 36.0-36.9,adult Obesity Surgical History [place] teeth extracted S/P laparoscopic cholecystectomy Social History Household Members: Family Housing: House Are you a primary hospice patient care secretary to a significant other at home: No Do you presently have visiting nurse or other home services: No Patient Tobacco Use Status: Never used Tobacco Physical Exam GI Inspection: Yes incision (Clean, dry, intact.) Assessment & Plan Assessment & Plan (1) S/P laparoscopic sleeve gastrectomy: Code(s): Z98.84 - Bariatric surgery status Category: Surgical Plan: POD 6 s/p LSG on 10/19/[address] Miranda Weight loss prior to surgery was 24.2 pounds or 12.7 % TBWL. Original weight on 04/25/2023 was 189.8 pounds and op weight was 165.6 pounds. Be sure to text Dr Miranda exactly 1 week after surgery your weight from your home scale so he can adjust your meal plan. Continue meal plan until f/u papo Bowen in 2 weeks May shower, no submersion in bath for another week Continue abdominal binder with activity and exercise for the next 2 weeks. Exercise prior to surgery was walking outside and may resume No abdominal exercises for 6 weeks post operatively Will be emailed link to post op video for review Reminded of the pace of drinking, 2 mL per minute, 1 oz/15 min. She has been given a new meal plan in writing: Fair life ready to drink shake, 8-11 am, drank slowly over 3 hours 8 oz water 11am-1pm Another shake from 2pm-5pm 8 oz water 6-8 pm 8 oz water 8-10pm This should provide 48 oz of fluids daily . She certainly may have additional water if she wishes. She will be called daily by either our nurse, Juan Antonio, or myself over the weekend. It has been made clear to the patient and to the staff that if she does not answer the phone after 3 attempts, the police will be called for a wellness check given the fact that there are 3 children in the house under age 5. Case also discussed in full detail with Dr Miranda Orders: Referrals [facility] Referral Z98.84 - Bariatric surgery status
[2023-10-25 16:16] VITALS: BP 122/69; PULSE 97; TEMP 36.1; O2SAT 100; BMI 30.3
== END 2023-10-25 17:38 | disposition home or self-care (01) ==
LOC: HO.HBS 16:09
PROVIDERS: PCP Internal Medicine; Visit Provider Physician Assistant Surgical
DX: Z98.84 Bariatric surgery status (principal)
CPT/HCPCS: 99024

== ENCOUNTER → 2023-10-25 16:09 | Outpatient (BNVA) | payer OTHER, SELFPAY | PROVIDERS: PCP Internal Medicine; Visit Provider Physician Assistant Surgical | DX: Z98.84 Bariatric surgery status (principal) | CPT/HCPCS: 99212 ==

== ENCOUNTER 2023-11-02 12:18 | Outpatient (AMB) | payer OTHER, SELFPAY ==
--- NOTE | 2023-11-02 12:17 | MHC.OFFVISWM ---
VS Expanded 11/02/23 12:28 Height 5 ft 0.5 in Weight 158 lb 2 oz BMI 30.4 Intake Visit Reasons: t/v PO LSG 10/19/23 Allergies amoxicillin Allergy (Intermediate, Verified 10/23/23 20:00) Hives azithromycin Allergy (Intermediate, Verified 10/23/23 20:00) Hives clindamycin Allergy (Intermediate, Verified 10/23/23 20:00) Hives HPI Comments Details: This?a?23?yo female who is s/p LSG without hiatal hernia repair on?10/19/23. Presents for 2 week post op visit. Weight today is 158.2 pounds, with a BMI of 30.4. There has been a 31.6 pound weight loss,(initial weight 189.8 pounds) since starting the program on 04/25/23 reflecting a 16.6% total body weight loss and a weight loss of 7.4 pounds since surgery (operative weight 165.6 pounds) reflecting a 4.4% TBWL since surgery. No complaints of nausea, emesis, abdominal pain or reflux. Reports infrequent but normal bowel movements every 1-2 days. She was doing well with 2 shakes per day but felt nausea w 2.5 Present meal plan includes: Fair life ready to drink shake, 8-11 am, drank slowly over 3 hours 8 oz water 11am-1pm Another shake from 2pm-5pm 8 oz water 6-8 pm 8 oz water 8-10pm This should provide 48 oz of fluids daily . Exercise routine includes: walking outside 2 x per day, 30-45 minutes, not tracking calories and reports not walking too fast [facility] Medical History BMI 31.0-31.9,adult Asthma Anxiety Depression Back pain BMI 36.0-36.9,adult Obesity Surgical History [place] teeth extracted S/P laparoscopic cholecystectomy Social History Household Members: Family Housing: House Are you a primary school child care attendant to a significant other at home: No Do you presently have visiting nurse or other home services: No Patient Tobacco Use Status: Never used Tobacco Telehealth Telehealth Telehealth Platform: Telephone Location of provider rendering services: practice address Location of patient: address on file Patient Identification confirmed using: Name, : Yes Telehealth method: voice only Patient verbally consented to treatment: Yes Patient verbally consented to billing insurance company: Yes Patient informed of any privacy concerns related to visit: Yes Minutes spent on Phone/Video with Pt.: 15 Assessment & Plan Assessment & Plan (1) S/P laparoscopic sleeve gastrectomy: Code(s): Z98.84 - Bariatric surgery status Category: Surgical Plan: Returned to the original plan of to fair life shakes and 3 8 oz cups of water per day. She did much better with this. Encouraged to increase the speed and duration of walking. At the very least increase the speed. We will arrange for follow-up in 2 weeks by phone. Continue to text weight measurements and if any questions
[2023-11-02 12:28] VITALS: BMI 30.4
== END 2023-11-02 12:40 | disposition home or self-care (01) ==
LOC: HO.HBS 12:18
PROVIDERS: PCP Internal Medicine; Visit Provider Physician Assistant Surgical
DX: Z98.84 Bariatric surgery status (principal)
CPT/HCPCS: 99024

== ENCOUNTER → 2023-11-02 12:18 | Outpatient (BNVA) | payer OTHER, SELFPAY | PROVIDERS: PCP Internal Medicine; Visit Provider Physician Assistant Surgical | DX: E66.9 Obesity, unspecified (principal); Z71.3 Dietary counseling and surveillance; Z98.84 Bariatric surgery status; Z68.30 Body mass index [BMI] 30.0-30.9, adult | CPT/HCPCS: 99212 ==

== ENCOUNTER 2023-11-15 13:11 | Outpatient (AMB) | payer OTHER, SELFPAY ==
--- NOTE | 2023-11-15 13:03 | MHC.OFFVISWM ---
VS Expanded 11/15/23 13:13 Height 5 ft 0.5 in Weight 152 lb 6 oz BMI 29.3 Intake Visit Reasons: (TV) PO LSG 10/19/23 Allergies amoxicillin Allergy (Intermediate, Verified 10/23/23 20:00) Hives azithromycin Allergy (Intermediate, Verified 10/23/23 20:00) Hives clindamycin Allergy (Intermediate, Verified 10/23/23 20:00) Hives Medication List - Last Reconciled 11/15/23 by TOSHA Sanchez albuterol sulfate 90 mcg/actuation 2 puffs inhalation Q6H PRN gabapentin 600 mg PO DAILY ondansetron 4 mg PO Q12H pantoprazole 40 mg PO DAILY sertraline 50 mg PO DAILY sucralfate 10 mL PO BID HPI Comments Details: This?is a?23?yo female who is s/p LSG 10/19/2023. Presents for 5 week post op visit. Weight at last visit on 11/02/2023 was 158.2 pounds with a BMI of 30.4, weight today is 152.6 pounds, representing a 5.6 pound weight loss with a BMI today of 29.3.? No complaints of nausea, emesis, abdominal pain or reflux, or constipation. Plans on moving to another state at end of month. Reports noticing some hair loss, not taking MVI. Present meal plan includes: [employer] ready to drink shakes, 30g each, 3x/day Exercise routine includes: walking outside 2 x per day, 30-45 minutes, not tracking calories PFSH Medical History BMI 31.0-31.9,adult Asthma Anxiety Depression Back pain BMI 36.0-36.9,adult Obesity Surgical History [place] teeth extracted S/P laparoscopic cholecystectomy Social History Household Members: Family Housing: House Are you a primary school childcare attendant to a significant other at home: No Do you presently have visiting nurse or other home services: No Patient Tobacco Use Status: Never used Tobacco Telehealth Telehealth Telehealth Platform: Telephone Location of provider rendering services: practice address Location of patient: address on file Patient Identification confirmed using: Name, : Yes Telehealth method: voice only Patient verbally consented to treatment: Yes Patient verbally consented to billing insurance company: Yes Patient informed of any privacy concerns related to visit: Yes Minutes spent on Phone/Video with Pt.: 15 Assessment & Plan Assessment & Plan (1) S/P laparoscopic sleeve gastrectomy: Code(s): Z98.84 - Bariatric surgery status Category: Surgical (2) Overweight (BMI 25.0-29.9): Code(s): E66.3 - Overweight Category: Medical Plan Pt plans to text Dr Glasgow tomorrow regarding current weight and meal plan. Needs to start MVI. May take biotin. Track exercise calories. Pt reports being almost out of PPI so will refill (was prescribed 90 pills per her med record but pt reports she believes she only received 30). RTC 1 month. I spent a total of 30 minutes reviewing/updating records, examining the patient and counseling the patient on weight management as detailed above. Medications: Refilled pantoprazole 40 mg PO DAILY 90 tabs 0RF K21.9 - Gastro-esophageal reflux disease without esophagitis
[2023-11-15 13:13] VITALS: BMI 29.3
== END 2023-11-15 13:23 | disposition home or self-care (01) ==
LOC: HO.HBS 13:11
PROVIDERS: PCP Internal Medicine; Visit Provider Physician Assistant Surgical
DX: E66.3 Overweight (principal); Z68.29 Body mass index [BMI] 29.0-29.9, adult; Z98.84 Bariatric surgery status
CPT/HCPCS: 99024

== ENCOUNTER → 2023-11-15 13:11 | Outpatient (BNVA) | payer OTHER, SELFPAY | PROVIDERS: PCP Internal Medicine; Visit Provider Physician Assistant Surgical ==

== ENCOUNTER 2023-11-30 12:13 | Outpatient (AMB) | payer OTHER, SELFPAY ==
--- NOTE | 2023-11-30 09:14 | MHC.OFFVISWM ---
VS Expanded 11/30/23 09:15 Height 5 ft 0.5 in Weight 152 lb BMI 29.2 Intake Visit Reasons: (TV) PO LSG 10/19/23 University Administrator Required: No Allergies amoxicillin Allergy (Intermediate, Verified 10/23/23 20:00) Hives azithromycin Allergy (Intermediate, Verified 10/23/23 20:00) Hives clindamycin Allergy (Intermediate, Verified 10/23/23 20:00) Hives Medication List - Last Reconciled 11/30/23 by TOSHA Vargas albuterol sulfate 90 mcg/actuation 2 puffs inhalation Q6H PRN gabapentin 600 mg PO DAILY ondansetron 4 mg PO Q12H pantoprazole 40 mg PO DAILY sertraline 50 mg PO DAILY sucralfate 10 mL PO BID HPI Comments Details: This?a?23?yo female who is s/p LSG without hiatal hernia repair on?10/19/23. Presents for 6 week post op visit. Weight today is 152 pounds, with a BMI of 29.2. There has been a 37.8 pound weight loss,(initial weight 189.8 pounds) since starting the program on 04/25/23 reflecting a 19.9% total body weight loss and a weight loss of 13.6 pounds since surgery (operative weight 165.6 pounds) reflecting a 8.2% TBWL since surgery. No complaints of nausea, emesis, abdominal pain or reflux. Reports infrequent but normal bowel movements every 3-4 days with complaints of constipation. She states she is going to [place] on Tuesday. She is moving there. She is flying. Present meal plan includes: fairlife RTD 4 oz w 4 oz coconut milk, 8-10, 11-1, 2-4 Fit crunch bar 5-8 This should provide 32 oz of fluids daily . Exercise routine includes: walking outside 2 x per day, 30-45 minutes, not tracking calories and reports not walking too fast [facility] Medical History BMI 31.0-31.9,adult Asthma Anxiety Depression Back pain BMI 36.0-36.9,adult Obesity Surgical History [place] teeth extracted S/P laparoscopic cholecystectomy Social History Household Members: Family Housing: House Are you a primary care transition manager to a significant other at home: No Do you presently have visiting nurse or other home services: No Patient Tobacco Use Status: Never used Tobacco Telehealth Telehealth Telehealth Platform: Telephone Location of provider rendering services: practice address Location of patient: address on file Patient Identification confirmed using: Name, : Yes Telehealth method: voice only Patient verbally consented to treatment: Yes Patient verbally consented to billing insurance company: Yes Patient informed of any privacy concerns related to visit: Yes Minutes spent on Phone/Video with Pt.: 15 Assessment & Plan Assessment & Plan (1) Overweight (BMI 25.0-29.9): Code(s): E66.3 - Overweight Category: Medical Plan: Patient is planning to move to [place] indefinitely this coming Tuesday. She will continue her current meal plan. We will have our office call her in 1 week and arrange for follow-up phone visits. She was encouraged to text weekly with any questions or concerns Medications: New docusate sodium (Colace) 100 mg PO BID 90 days 180 caps 0RF
[2023-11-30 09:15] VITALS: BMI 29.2
== END 2023-11-30 12:29 | disposition home or self-care (01) ==
LOC: HO.HBS 12:13
PROVIDERS: PCP Internal Medicine; Visit Provider Physician Assistant Surgical
DX: E66.3 Overweight (principal)
CPT/HCPCS: 99024

== ENCOUNTER → 2023-11-30 12:13 | Outpatient (BNVA) | payer OTHER, SELFPAY | PROVIDERS: PCP Internal Medicine; Visit Provider Physician Assistant Surgical | DX: E66.3 Overweight (principal); Z68.29 Body mass index [BMI] 29.0-29.9, adult | CPT/HCPCS: 99212 ==

== ENCOUNTER 2024-01-11 11:50 | Outpatient (AMB) | payer OTHER, SELFPAY ==
[2024-01-11 11:48] VITALS: BMI 27.5
--- NOTE | 2024-01-11 11:48 | MHC.OFFVISWM ---
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 Presents for 10 week post op visit. Weight today is 143 pounds, with a BMI of 27.5. There has been a 55.8 pound weight loss,(initial weight 189.8 pounds) since starting the program on 04/25/23 reflecting a 29.3% total body weight loss and a weight loss of 22.6 pounds since surgery (operative weight 165.6 pounds) reflecting a 16.3% TBWL since surgery. No complaints of nausea, emesis, abdominal pain or reflux. Reports infrequent but normal bowel movements every 3-4 days with complaints of constipation. She states she is still living in [place], wants to add food Present meal plan includes: fairlife RTD 4 oz w 4 oz coconut milk, 8-10, 11-1, 2-4 Fit crunch bar 5-8 Drinking 64 oz water. Exercise routine includes: walking outside daily, doesn't have a car. [facility] Medical History BMI 31.0-31.9,adult Asthma Anxiety Depression Back pain BMI 36.0-36.9,adult Obesity Surgical History [place] teeth extracted S/P laparoscopic cholecystectomy Social History Household Members: Family Housing: House Are you a primary medicare compliance auditor to a significant other at home: No Do you presently have visiting nurse or other home services: No Patient Tobacco Use Status: Never used Tobacco Telehealth Telehealth Telehealth Platform: Telephone Location of provider rendering services: practice address Location of patient: address on file Patient Identification confirmed using: Name, : Yes Telehealth method: voice only Patient verbally consented to treatment: Yes Patient verbally consented to billing insurance company: Yes Patient informed of any privacy concerns related to visit: Yes Minutes spent on Phone/Video with Pt.: 15 Assessment & Plan Assessment & Plan (1) S/P laparoscopic sleeve gastrectomy: Code(s): Z98.84 - Bariatric surgery status Category: Surgical Plan: Change meal plan to include 4 forks of protein and 4 forks of cooked vegetables instead of her protein bar at night. Encouraged to track calories with the [employer] josé luis while walking outside Encouraged to text weekly with weights and if any questions or concerns Return for follow-up appointment in approximately 1 month
== END 2024-01-11 12:45 | disposition home or self-care (01) ==
LOC: HO.HBS 11:50
PROVIDERS: PCP Internal Medicine; Visit Provider Physician Assistant Surgical
DX: Z98.84 Bariatric surgery status (principal)
CPT/HCPCS: 99024

== ENCOUNTER → 2024-01-11 11:50 | Outpatient (BNVA) | payer OTHER, SELFPAY | PROVIDERS: PCP Internal Medicine; Visit Provider Physician Assistant Surgical | DX: Z48.815 Encounter for surgical aftercare following surgery on the digestive system (principal); Z98.84 Bariatric surgery status | CPT/HCPCS: 99212 ==

== ENCOUNTER 2024-02-13 15:00 | Outpatient (AMB) | payer OTHER, SELFPAY ==
--- NOTE | 2024-02-13 15:08 | MHC.OFFVISWM ---
VS Expanded 02/13/24 15:31 Height 5 ft 0.5 in Weight 132 lb BMI 25.4 Intake Visit Reasons: (TV) PO LSG 10/19/23 Allergies amoxicillin Allergy (Intermediate, Verified 10/23/23 20:00) Hives azithromycin Allergy (Intermediate, Verified 10/23/23 20:00) Hives clindamycin Allergy (Intermediate, Verified 10/23/23 20:00) Hives HPI Comments Details: This?a?23?yo female who is s/p LSG without hiatal hernia repair on?10/19/23. Presents for 4 month post op visit. Weight today is 132 pounds, with a BMI of 25.4. There has been a 57.8 pound weight loss,(initial weight 189.8 pounds) since starting the program on 04/25/23 reflecting a 30.4% total body weight loss and a weight loss of 33.6 pounds since surgery (operative weight 165.6 pounds) reflecting a 20.2% TBWL since surgery. No complaints of nausea, emesis, abdominal pain or reflux. Reports infrequent but normal bowel movements every 3-4 days with complaints of constipation. She states she wants to stop the multiple shakes Present meal plan includes: fairlife RTD 4 oz w 4 oz coconut milk, 8-10, 11-1, 2-4 Fit crunch bar 5-8 4 forks meat and 4 forks veg Drinking 64 oz water. Exercise routine includes: walking outside daily, not tracking calories PFSH Medical History BMI 31.0-31.9,adult Asthma Anxiety Depression Back pain BMI 36.0-36.9,adult Obesity Surgical History [place] teeth extracted S/P laparoscopic cholecystectomy Social History Household Members: Family Housing: House Are you a primary resident care aid to a significant other at home: No Do you presently have visiting nurse or other home services: No Patient Tobacco Use Status: Never used Tobacco Telehealth Telehealth Telehealth Platform: Telephone Location of provider rendering services: practice address Location of patient: address on file Patient Identification confirmed using: Name, : Yes Telehealth method: voice only Patient verbally consented to treatment: Yes Patient verbally consented to billing insurance company: Yes Patient informed of any privacy concerns related to visit: Yes Minutes spent on Phone/Video with Pt.: 15 Assessment & Plan Assessment & Plan (1) S/P laparoscopic sleeve gastrectomy: Code(s): Z98.84 - Bariatric surgery status Category: Surgical Plan: Patient states she wants to change her meal plan: fairlife RTD, 8-10 Fit crunch bar 12-2 meal 6 forks meat and 6 forks veg, 6pm Encouraged to continue ambulate outside. Encouraged to track calories using the [employer] josé luis. we will have her return to the office in approximately 1 month.
[2024-02-13 15:31] VITALS: BMI 25.4
== END 2024-02-13 15:41 | disposition home or self-care (01) ==
LOC: HO.HBS 15:37
PROVIDERS: PCP Internal Medicine; Visit Provider Physician Assistant Surgical
DX: Z71.3 Dietary counseling and surveillance (principal); Z90.3 Acquired absence of stomach [part of]; Z98.84 Bariatric surgery status
CPT/HCPCS: 99213

== ENCOUNTER → 2024-02-13 15:00 | Outpatient (BNVA) | payer OTHER, SELFPAY | PROVIDERS: PCP Internal Medicine; Visit Provider Physician Assistant Surgical ==